=== PATIENT | male | born 1985 | race Caucasian/White ===

== ENCOUNTER → 2020-03-27 | Outpatient (CLI) | payer MEDICAID ==
[2020-03-27 09:44] LABS: HCT 45.8 % (39.0-53.0); HGB 15.5 gm/dL (13.0-17.5); MCH 30.7 pg (25.0-35.0); MCHC 33.9 g/dL (31.0-37.0); MCV 90.4 fL (80.0-100.0); Mean Platelet Volume 7.4; Platelet Count 135 k/uL (150-450); RBC 5.07 m/uL (4.30-5.90); RDW 12.7 % (11.5-15.5); WBC 5.6 k/uL (3.8-10.6)
[2020-03-27 16:31] LABS: African American GFR (CKD) 114.1 (60.0-200.0); Albumin 4.6 g/dL (3.80-4.90); Albumin/Globulin Ratio 1.92 (1.60-3.17); Anion Gap 7.4 mmol/L (4.00-12.00); Calcium 9.4 mg/dL (8.7-10.3); Carbon Dioxide 27.6 mmol/L (21.6-31.8); Chol/HDL Ratio 5.39; Globulin 2.4 g/dL (1.6-3.3); LDL Cholesterol,Calculated 126.2 mg/dL (0.0-131.0); Non-African American GFR(CKD) 98.5 (60.0-200.0); Potassium 4.2 mmol/L (3.5-5.5); Total Bilirubin 0.8 mg/dL (0.3-1.2); VLDL Calculation 40.8 mg/dL (5.00-40.00)
== END | disposition home or self-care (01) ==
LOC: LABWHC1 08:51
PROVIDERS: ATTEND Family Medicine
DX: Z00.00 Encounter for general adult medical examination without abnormal findings (principal)
CPT/HCPCS: 36415; 80053; 80061; 85027

== ENCOUNTER → 2020-05-22 | Outpatient (CLI) | payer MEDICAID ==
--- NOTE | 2020-05-23 07:10 | CT ---
EXAMINATION TYPE: CT abdomen pelvis w con DATE OF EXAM: 05/22/2020 COMPARISON: None. HISTORY: Abdomen pain, splenomegaly, blood in stool CT DLP: 1701.80 mGycm, Automated Exposure Control for Dose Reduction was Utilized. CONTRAST: CT scan of the abdomen and pelvis is performed with oral and with IV Contrast, patient injected with 100 mL of Isovue 300. FINDINGS: LUNG BASES: No significant abnormality is appreciated. LIVER/GB: Subcentimeter low dense lesion left hepatic lobe near gallbladder fossa image 24 is too sma ll to further characterize but presumed benign. PANCREAS: No significant abnormality is seen. SPLEEN: Splenomegaly is confirmed measuring 15.1 cm long axis axial image 20.. ADRENALS: No significant abnormality is seen. KIDNEYS: Symmetric respiratory uptake and excretion without concerning renal mass or hydronephrosis s een bilaterally. BOWEL: The oral Contrast reaches level of mid transverse colon. No suspicious small or large bowel di latation. Some redundancy of the sigmoid colon. Normal contrast-filled appendix from cecum. PROSTATE/SEMINAL VESICLES: No gross abnormality seen. LYMPH NODES: Moderate ill-defined fluid and fat stranding with scattered prominent mesenteric and ret roperitoneal lymph nodes. For reference there is anterior aortocaval lymph node lower level of kidney s measuring 2.2 x 1.6 cm axial image 42. For reference there is left mid abdominal mesenteric mass or lymph node measuring 3.3 x 3.3 cm axial image 36. There are abnormal iliac chain lymph nodes bilater ally. . For reference there is right lateral pelvic iliac chain lymph node measuring 2.6 x 1.5 cm axi al image 78. Prominent bilateral groin lymph nodes are seen. Some abnormally enlarged. For reference left groin lymph node measures 2.3 x 1.4 cm image 99. OSSEOUS STRUCTURES: No significant abnormality is seen. OTHER: No significant additional abnormality is seen. IMPRESSION: 1. There is nii mesentery with abnormal abdominal and pelvic adenopathy extending into bilateral gr oin region along with splenomegaly. Findings worrisome for underlying neoplasm such as lymphoma. Mahi elate clinically. Consider PET/CT to further evaluate. Groin lymph node sampling for tissue analysis can be performed if desired. 2. No acute findings are evident. No bowel obstruction is seen.0
== END | disposition home or self-care (01) ==
LOC: RADCTMAIN 16:06
PROVIDERS: ATTEND Internal Medicine Hematology & Oncology
DX: R59.0 Localized enlarged lymph nodes (principal); R16.1 Splenomegaly, not elsewhere classified; C85.90 Non-Hodgkin lymphoma, unspecified, unspecified site
CPT/HCPCS: 74177; Q9967

== ENCOUNTER 2020-06-05 06:23 | Day surgery (SDC) | payer MEDICAID ==
[2020-06-01 15:10] VITALS: BMI 34.9
[~2020-06-05 06:23] MED LIST: ACETAMINOPHEN TAB 500 MG TAB PO ONE; HEPARIN SODIUM,PORCINE 5,000 UNIT/ML 1 ML VIAL SQ ONE; HYDROmorphone 0.5 MG/0.5 ML SYRINGE IVP PRN; LACTATED RINGERS 1,000 ML IV SCH; ONDANSETRON 4 MG/2 ML VIAL IVP ONE; Pre Op ABX Message 1 EACH MISC MISCELLANE ONE; fentaNYL (PF) 50 MCG/ML 2 ML AMP IV PRN
[2020-06-05 06:57] VITALS: TEMP 97.1
[2020-06-05] MEDS ORDERED: ONDANSETRON 4 MG/2 ML VIAL ONE ×2 (06:59→09:41)
[2020-06-05] MEDS ORDERED: HEPARIN SODIUM,PORCINE 5,000 UNIT/ML 1 ML VIAL ONE (06:59)
[2020-06-05] MEDS ORDERED: DEXAMETHASONE SOD PHOSPHATE 4 MG/ML 1 ML VIAL IVP ONE (07:04)
[2020-06-05] MEDS ORDERED: MIDAZOLAM 2 MG/2 ML VIAL IVP ONE (07:20)
[2020-06-05] MEDS ORDERED: HYDROmorphone (PF) 1 MG/ML ONE (07:42)
[2020-06-05] MEDS ORDERED: GLYCOPYRROLATE 0.2 MG/ML 2 ML VIAL ONE (07:42)
[2020-06-05] MEDS ORDERED: ROCURONIUM 10 MG/ML (10 ML VIAL) IV ONE (07:42)
[2020-06-05] MEDS ORDERED: PROPOFOL 10 MG/ML 20 ML VIAL IV ONE (07:42)
[2020-06-05] MEDS ORDERED: NEOSTIGMINE 1 MG/ML 10 ML VIAL ONE (07:42)
[2020-06-05] MEDS ORDERED: MIDAZOLAM 2 MG/2 ML VIAL ONE (07:42)
[2020-06-05] MEDS ORDERED: SUCCINYLCHOLINE CHLORIDE VIAL 200 MG/10 ML VIAL IV ONE (07:42)
[2020-06-05] MEDS ORDERED: LIDOCAINE 1% INJ 10MG/ML (20 ML MDV) ONE (07:42)
[2020-06-05] MEDS ORDERED: fentaNYL (PF) 50 MCG/ML 2 ML AMP ONE (07:42)
[2020-06-05] MEDS ORDERED: SODIUM CHLORIDE 0.9% 50 ML with ceFAZolin 2,000 MG IV ONE ×2 (07:47)
[2020-06-05] MEDS ORDERED: LIDOCAINE 1%-EPI 1:100,000 20 ML VIAL SQ ONE (08:19)
--- NOTE | 2020-06-05 08:31 | P.GSHP ---
History of Present Illness H&P Date: 06/05/20 Chief Complaint: Lymphadenopathy Is a 34-year-old male with recent CAT scan findings of generalized lymphadenopathy. Patient presents today for left groin lymph node biopsy Past Medical History Past Medical History: GERD/Reflux Additional Past Medical History / Comment(s): multiple enlarged lymph nodes, mild abdomen pain, benign mass on liver, pancreatitis History of Any Multi-Drug Resistant Organisms: None Reported Past Surgical History: No Surgical Hx Reported Additional Past Surgical History / Comment(s): wisdom teeth Past Anesthesia/Blood Transfusion Reactions: No Reported Reaction Smoking Status: Never smoker - Past Family History Father Family Medical History: Cancer Additional Family Medical History / Comment(s): melanoma Medications and Allergies Home Medications Medication Instructions Recorded Confirmed Type Esomeprazole Magnesium [NexIUM 20 mg PO DAILY PRN 06/01/20 06/05/20 History 24Hr] Allergies Allergy/AdvReac Type Severity Reaction Status Date / Time No Known Allergies Allergy Verified 06/01/20 15:02 Surgical - Exam Vital Signs Temp Pulse Resp BP Pulse Ox 97.1 F L 84 18 154/83 100 06/05/20 06:55 06/05/20 06:55 06/05/20 06:55 06/05/20 06:55 06/05/20 06:55 - General well developed, well nourished, no distress - Eyes PERRL - ENT normal pinna - Neck no masses - Respiratory normal expansion - Cardiovascular Rhythm: regular - Abdomen Abdomen: soft, non tender 2.5 cm enlarged left inguinal lymph node Assessment and Plan Assessment: Lymphadenopathy. We'll perform left inguinal lymph node biopsy
--- NOTE | 2020-06-05 08:33 | P.OP ---
Date of Procedure: 06/05/20 Preoperative Diagnosis: Left inguinal lymphadenopathy Postoperative Diagnosis: Left inguinal lymphadenopathy Procedure(s) Performed: Excision of left inguinal lymph node Anesthesia: TONE Surgeon: Jean Carlos Peng Estimated Blood Loss (ml): 5 Pathology: other (Left inguinal lymph node) Condition: stable Disposition: PACU Description of Procedure: The patient's placed on the operative table in the supine position. He received a general suture. His left groin was prepped and draped usual sterile fashion. Using a 15 blade the skin was incised over the left inguinal lymph node. The trochars used to divide the subcutaneous tissues. The left enlarged inguinal lymph node was found. Then using the Harmonic scissors the lymph node biopsies performed. The lymph node was dissected free to pathology. Measured prostate 3 cm diameter. There is no bleeding seen. The skin was closed interrupted 3-0 Monocryl suture. Dermabond was applied. Patient tolerated the procedure well. He was sent to recovery room in stable condition.
[2020-06-05] MEDS ORDERED: LACTATED RINGERS 1,000 ML IV ONE (08:57)
[2020-06-05 09:18] VITALS: RESP 16
[2020-06-05] MEDS ORDERED: ONDANSETRON 4 MG/2 ML VIAL IVP ONE (09:42)
[2020-06-05 10:03] VITALS: BP 119/78; PULSE 68
[2020-06-05] MEDS ORDERED: METOCLOPRAMIDE 5 MG/ML 2 ML VIAL ONE (10:23)
== END 2020-06-05 10:43 | disposition home or self-care (01) ==
LOC: OR 06:23
PROVIDERS: ATTEND Surgery
DX: C82.05 Follicular lymphoma grade I, lymph nodes of inguinal region and lower limb (principal); K21.9 Gastro-esophageal reflux disease without esophagitis; R16.0 Hepatomegaly, not elsewhere classified; Z87.19 Personal history of other diseases of the digestive system; Z80.8 Family history of malignant neoplasm of other organs or systems; Z98.890 Other specified postprocedural states; Z79.899 Other long term (current) drug therapy
CPT/HCPCS: 38500; 88342; 88307; 88341; J2250; J0330; J1644; J1100; J2710; J2405; J0690; J2001; J3010; J1170; J2704

== ENCOUNTER 2020-06-12 07:07 | Day surgery (SDC) | payer MEDICAID ==
[~2020-06-12 07:07] MED LIST changes: -ACETAMINOPHEN TAB 500 MG TAB PO ONE; -HEPARIN SODIUM,PORCINE 5,000 UNIT/ML 1 ML VIAL SQ ONE; -HYDROmorphone 0.5 MG/0.5 ML SYRINGE IVP PRN; +LIDOCAINE 1% (10MG/ML) FOR IV START INTRADERMA PRN; -ONDANSETRON 4 MG/2 ML VIAL IVP ONE; -Pre Op ABX Message 1 EACH MISC MISCELLANE ONE; -fentaNYL (PF) 50 MCG/ML 2 ML AMP IV PRN
[2020-06-12 07:46] VITALS: RESP 16; TEMP 97.5
[2020-06-12] MEDS ORDERED: PROPOFOL 10 MG/ML 20 ML VIAL IV ONE (08:06)
--- NOTE | 2020-06-12 08:11 | P.GSHP ---
History of Present Illness H&P Date: 06/12/20 Chief Complaint: Rectal bleeding Patient here today for colonoscopy. Patient has had increased rectal bleeding recently. Also has complaints of generalized adenopathy. Underwent recent lymph node biopsy. Denies constipation or diarrhea. No abdominal pain. No history of previous endoscopy. Past Medical History Past Medical History: GERD/Reflux Additional Past Medical History / Comment(s): multiple enlarged lymph nodes, mild abdomen pain, benign mass on liver, pancreatitis History of Any Multi-Drug Resistant Organisms: None Reported Past Surgical History: No Surgical Hx Reported Additional Past Surgical History / Comment(s): wisdom teeth Past Anesthesia/Blood Transfusion Reactions: No Reported Reaction Smoking Status: Never smoker - Past Family History Father Family Medical History: Cancer Additional Family Medical History / Comment(s): melanoma Medications and Allergies Home Medications Medication Instructions Recorded Confirmed Type Esomeprazole Magnesium [NexIUM 20 mg PO DAILY PRN 06/01/20 06/05/20 History 24Hr] Acetaminophen Tab [Tylenol] 650 mg PO Q6H #30 tab 06/05/20 Rx Docusate [Colace] 100 mg PO BID #20 capsule 06/05/20 Rx Ibuprofen [Motrin] 600 mg PO Q6HR PRN #40 tab 06/05/20 Rx oxyCODONE HCL [OxyIR] 5 mg PO Q4H PRN 3 Days #18 tab 06/05/20 Rx Allergies Allergy/AdvReac Type Severity Reaction Status Date / Time No Known Allergies Allergy Verified 06/12/20 07:47 Surgical - Exam Vital Signs Temp Pulse Resp BP Pulse Ox 97.5 F L 81 16 139/79 97 06/12/20 07:45 06/12/20 07:45 06/12/20 07:45 06/12/20 07:45 06/12/20 07:45 Physical exam: General: Well-developed, well-nourished HEENT: Normocephalic, sclerae nonicteric Abdomen: Nontender, nondistended Extremities: No edema Neuro: Alert and oriented Assessment and Plan (1) Rectal bleeding Narrative/Plan: Will proceed with colonoscopy at this time Current Visit: Yes Status: Acute Code(s): K62.5 - HEMORRHAGE OF ANUS AND RECTUM SNOMED Code(s): 77350177
--- NOTE | 2020-06-12 08:23 | P.PCN ---
Date of Procedure: 06/12/20 Procedure(s) Performed: PREOPERATIVE DIAGNOSIS: Rectal bleeding POSTOPERATIVE DIAGNOSIS: Proctitis PROCEDURE: Colonoscopy with biopsy ANESTHESIA: MAC SURGEON: Jeremi Carreno M.D. SPECIMENS: Rectum ENDOSCOPIC PROCEDURE: The patient was placed on the endoscopy table in the left decubitus position. The Olympus colonoscope was inserted into the anus and passed under direct visualization to the base of the cecum. The appendiceal orifice was visualized. From that point the scope was slowly withdrawn insp ecting all surfaces carefully. There were no neoplastic inflammatory or polypoid lesions throughout the cecum, ascending, transverse, descending and sigmoid colon. In the rectum distally involving the last 6 cm was erythematous and friable mucosa. Consistent with proctitis. Remainder of the rectum appeared normal. Proctitis was circumferential. Cold biopsies taken. There was no visible diverticulosis. Digital rectal examination was normal. The patient was taken to the recovery room in stable condition per anesthesia guidelines. RECOMMENDATIONS: Await biopsy results. Will begin topical ASA suppositories
[2020-06-12 08:46] VITALS: BP 130/84; PULSE 74
== END 2020-06-12 09:14 | disposition home or self-care (01) ==
LOC: ORWHC2ENDO 07:07
PROVIDERS: ATTEND Surgery
DX: K62.89 Other specified diseases of anus and rectum (principal); K21.9 Gastro-esophageal reflux disease without esophagitis; R16.0 Hepatomegaly, not elsewhere classified; Z87.19 Personal history of other diseases of the digestive system; Z98.890 Other specified postprocedural states; Z80.8 Family history of malignant neoplasm of other organs or systems; Z79.899 Other long term (current) drug therapy
CPT/HCPCS: 88305; 45380; J2704

== ENCOUNTER → 2020-06-22 | Outpatient (CLI) | payer MEDICAID ==
--- NOTE | 2020-06-25 06:16 | PE ---
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 Images are reviewed on the computer in the coronal, ax ial, and sagittal planes. Reconstructed rotating images are created on independent workstation and r eviewed on the computer. A noncontrast CT is performed in conjunction with the PET scan. SCAN: Initial Scan FINDINGS: Mean SUV mediastinum: 1.19 Mean SUV liver: 2.31 SKULL BASE AND NECK: Multiple abnormal hypermetabolic lymph nodes throughout the neck bilaterally. F or reference there is 1.8 x 1.5 cm submental lymph node axial image 55, max SUV is 4.19. CHEST, MEDIASTINUM, AND HILAR REGION: Abnormal bilateral enlarged and hypermetabolic axillary lymph n odes. For reference there is left axillary 2.7 x 2.1 cm lymph node axial image 81, max SUV is 6.87. Abnormal mediastinal lymph nodes, for reference there is 2.7 x 1.8 cm right paratracheal lymph node a xial image 86, max SUV is 5.98. No suspicious hypermetabolic enlarged hilar lymph nodes bilaterally. ABDOMEN AND PELVIS: Spleen remains mildly enlarged with mild diffuse abnormal hypermetabolic uptake, max SUV is 4.29. Liver is normal in size. There is redemonstration nii mesentery appearance with abnormal mesenteric adenopathy, for referen ce left mesenteric lymph node measures 3.3 x 3.1 cm axial image 163, max SUV is 8.54. There are abnor mal hypermetabolic prominent and slightly enlarged retroperitoneal lymph nodes along the aorta extend ing along the iliac chain vessels in the pelvis bilaterally. For reference right external iliac chain lymph node measures 2.6 x 1.5 cm axial image 236, max SUV is 7.36 anteriorly. Abnormal bilateral hypermetabolic groin lymph nodes, for reference left groin lymph node measures 2.3 x 1.2 cm axial image 265, max SUV is 4.31. OSSEOUS STRUCTURES: No suspicious abnormal hypermetabolic uptake. OTHER CT: Somewhat low lung volumes. Liver diffusely low dense consistent with diffuse fatty infiltration relative to the spleen. IMPRESSION: Active neoplasm or lymphoma involvement noted both above and below the diaphragm as deta iled above.
== END | disposition home or self-care (01) ==
LOC: RADPETMAIN 08:59
PROVIDERS: ATTEND Internal Medicine Hematology & Oncology
DX: C82.08 Follicular lymphoma grade I, lymph nodes of multiple sites (principal)
CPT/HCPCS: 78815; A9552

== ENCOUNTER 2020-07-08 13:55 | Emergency (ER) | payer MEDICAID ==
[2020-07-08 14:01] VITALS: RESP 18
--- NOTE | 2020-07-08 14:36 | ED ---
Fever HPI - General Chief Complaint: Fever Stated Complaint: Fever Time Seen by Provider: 07/08/20 14:08 Source: patient Mode of arrival: ambulatory Limitations: no limitations - History of Present Illness Initial Comments: 34-year-old male patient presents to the emergency department today for evaluation of fever. Patient has non-Hodgkin's lymphoma and is currently being treated with immunotherapy and chemotherapy. Last dose of immunotherapy was 3 d ays ago her last dose of chemo was 10 days ago. Patient states today he woke and had fever. States he contacted his oncologist was told to come in if the fever returned states just prior to coming in his temperature red 101F. Patient states he feels hot. He does report nausea but states this is usual with his treatments. He also developed a rash to his neck and trunk today as well. States that he did have a rash with his last immunotherapy dose but was only on the first day afterwards. He denies any cough or congestion. Denies sore throat. Denies any abdominal pain or diarrhea. Patient denies any recent shortness of breath, chest pain, back pain, numbness, tingling, dizziness, we akness, hematuria, dysuria, urinary urgency, urinary frequency, headache, visual changes, or any other complaints. - Related Data Home Medications Medication Instructions Recorded Confirmed Esomeprazole Magnesium [NexIUM 20 mg PO DAILY PRN 06/01/20 06/05/20 24Hr] Previous Rx's Medication Instructions Recorded Acetaminophen Tab [Tylenol] 650 mg PO Q6H #30 tab 06/05/20 Docusate [Colace] 100 mg PO BID #20 capsule 06/05/20 Ibuprofen [Motrin] 600 mg PO Q6HR PRN #40 tab 06/05/20 oxyCODONE HCL [OxyIR] 5 mg PO Q4H PRN 3 Days #18 tab 06/05/20 Mesalamine [Rowasa] 4 gm RECTAL HS #30 ml 06/12/20 methylPREDNISolone [Medrol Dose 4 mg PO DIRECTED #1 pack 07/08/20 Pack] Allergies Allergy/AdvReac Type Severity Reaction Status Date / Time No Known Allergies Allergy Verified 07/08/20 13:56 Review of Systems ROS Statement: Those systems with pertinent positive or pertinent negative responses have been documented in the HPI. ROS Other: All systems not noted in ROS Statement are negative. Past Medical History Past Medical History: GERD/Reflux Additional Past Medical History / Comment(s): non-hodgkins multiple enlarged lymph nodes, mild abdomen pain, benign mass on liver, pancreatitis History of Any Multi-Drug Resistant Organisms: None Reported Past Surgical History: No Surgical Hx Reported Additional Past Surgical History / Comment(s): wisdom teeth, lymph node removal Past Anesthesia/Blood Transfusion Reactions: No Reported Reaction Past Psychological History: No Psychological Hx Reported Smoking Status: Never smoker Past Alcohol Use History: Occasional Past Drug Use History: Marijuana - Past Family History Father Family Medical History: Cancer Additional Family Medical History / Comment(s): melanoma General Exam Limitations: no limitations General appearance: alert, in no apparent distress, other (This is a well- developed, well-nourished adult male patient in no acute distress. Vital signs upon presentation are temperature 99.2F, pulse 95, respirations 18, blood pressure 130/70, pulse ox 97% on room air.) Respiratory exam: Present: normal lung sounds bilaterally. Absent: respiratory distress, wheezes, rales, rhonchi, stridor Cardiovascular Exam: Present: regular rate, normal rhythm, normal heart sounds. Absent: systolic murmur, diastolic murmur, rubs, gallop, clicks GI/Abdominal exam: Present: soft, normal bowel sounds. Absent: distended, tenderness, guarding, rebound, rigid Neurological exam: Present: alert, oriented X3, CN II-XII intact Psychiatric exam: Present: normal affect, normal mood Skin exam: Present: warm, dry, intact, normal color, rash (There is flat lacy erythematous rash noted to the neck and trunk. Non vesicular, non petechial.) Course Vital Signs 07/08/20 13:57 Temperature 99.2 F Pulse Rate 95 Respiratory 18 Rate Blood Pressure 130/70 O2 Sat by Pulse 97 Oximetry Medical Decision Making - Medical Decision Making 34-year-old male patient recent diagnosed with non-Hodgkin's lymphoma presents to the emergency department today for evaluation of fever with T-max at home and 101F. He was sent in by his oncologist for further evaluation. Labs reviewed and revealed normal white blood cell count. Urinalysis is negative for signs of infection. Chest x-ray is negative. He tested negative for influenza, RSV, and COVID-19. He was afebrile while in the department. Vital signs within normal ranges. We did discuss findings and results with him. He will be discharged home with instructions follow-up with Dr. Hess for further evaluation as soon as possible. He is given a Dosepak for his rash. Return parameters were discussed in detail. He verbalizes understanding and agrees with this plan. - Lab Data Result diagrams: 07/08/20 14:54 07/08/20 14:54 Lab Results 07/08/20 07/08/20 07/08/20 Range/Units 14:39 14:54 14:54 WBC 6.6 (3.8-10.6) k/uL RBC 5.01 (4.30-5.90) m/uL Hgb 15.3 (13.0-17.5) gm/dL Hct 44.7 (39.0-53.0) % MCV 89.3 (80.0-100.0) fL MCH 30.5 (25.0-35.0) pg MCHC 34.1 (31.0-37.0) g/dL RDW 12.7 (11.5-15.5) % Plt Count 172 (150-450) k/uL MPV 6.7 Neutrophils % 88 % Lymphocytes % 4 % Monocytes % 5 % Eosinophils % 2 % Basophils % 1 % Neutrophils # 5.8 (1.3-7.7) k/uL Lymphocytes # 0.3 L (1.0-4.8) k/uL Monocytes # 0.3 (0-1.0) k/uL Eosinophils # 0.1 (0-0.7) k/uL Basophils # 0.1 (0-0.2) k/uL PT 10.0 (9.0-12.0) sec INR 1.0 (<1.2) APTT 24.3 (22.0-30.0) sec Sodium (137-145) mmol/L Potassium (3.5-5.1) mmol/L Chloride (98-107) mmol/L Carbon Dioxide (22-30) mmol/L Anion Gap mmol/L BUN (9-20) mg/dL Creatinine (0.66-1.25) mg/dL Est GFR (CKD-EPI)AfAm (>60 ml/min/1.73 sqM) Est GFR (CKD-EPI)NonAf (>60 ml/min/1.73 sqM) Glucose (74-99) mg/dL Plasma Lactic Acid Leonard (0.7-2.0) mmol/L Calcium (8.4-10.2) mg/dL Total Bilirubin (0.2-1.3) mg/dL AST (17-59) U/L ALT (4-49) U/L Alkaline Phosphatase (38-126) U/L Total Protein (6.3-8.2) g/dL Albumin (3.5-5.0) g/dL Urine Color Urine Appearance (Clear) Urine pH (5.0-8.0) Ur Specific [place] (1.001-1.035) Urine Protein (Negative) Urine Glucose (UA) (Negative) Urine Ketones (Negative) Urine Blood (Negative) Urine Nitrite (Negative) Urine Bilirubin (Negative) Urine Urobilinogen (<2.0) mg/dL Ur Leukocyte Esterase (Negative) Influenza Type A (PCR) Not Detected (Not Detectd) Influenza Type B (PCR) Not Detected (Not Detectd) RSV (PCR) Not Detected (Not Detectd) SARS-CoV-2 (PCR) Not Detected (Not Detectd) 07/08/20 07/08/20 07/08/20 Range/Units 14:54 14:54 14:54 WBC (3.8-10.6) k/uL RBC (4.30-5.90) m/uL Hgb (13.0-17.5) gm/dL Hct (39.0-53.0) % MCV (80.0-100.0) fL MCH (25.0-35.0) pg MCHC (31.0-37.0) g/dL RDW (11.5-15.5) % Plt Count (150-450) k/uL MPV Neutrophils % % Lymphocytes % % Monocytes % % Eosinophils % % Basophils % % Neutrophils # (1.3-7.7) k/uL Lymphocytes # (1.0-4.8) k/uL Monocytes # (0-1.0) k/uL Eosinophils # (0-0.7) k/uL Basophils # (0-0.2) k/uL PT (9.0-12.0) sec INR (<1.2) APTT (22.0-30.0) sec Sodium 138 (137-145) mmol/L Potassium 3.6 (3.5-5.1) mmol/L Chloride 101 (98-107) mmol/L Carbon Dioxide 31 H (22-30) mmol/L Anion Gap 6 mmol/L BUN 10 (9-20) mg/dL Creatinine 1.16 (0.66-1.25) mg/dL Est GFR (CKD-EPI)AfAm >90 (>60 ml/min/1.73 sqM) Est GFR (CKD-EPI)NonAf 83 (>60 ml/min/1.73 sqM) Glucose 125 H (74-99) mg/dL Plasma Lactic Acid Leonard 1.2 (0.7-2.0) mmol/L Calcium 9.5 (8.4-10.2) mg/dL Total Bilirubin 0.7 (0.2-1.3) mg/dL AST 23 (17-59) U/L ALT 40 (4-49) U/L Alkaline Phosphatase 63 (38-126) U/L Total Protein 7.5 (6.3-8.2) g/dL Albumin 4.4 (3.5-5.0) g/dL Urine Color Yellow Urine Appearance Clear (Clear) Urine pH 5.5 (5.0-8.0) Ur Specific [place] 1.030 (1.001-1.035) Urine Protein Trace H (Negative) Urine Glucose (UA) Negative (Negative) Urine Ketones Negative (Negative) Urine Blood Negative (Negative) Urine Nitrite Negative (Negative) Urine Bilirubin Negative (Negative) Urine Urobilinogen <2.0 (<2.0) mg/dL Ur Leukocyte Esterase Negative (Negative) Influenza Type A (PCR) (Not Detectd) Influenza Type B (PCR) (Not Detectd) RSV (PCR) (Not Detectd) SARS-CoV-2 (PCR) (Not Detectd) - Radiology Data Radiology results: report reviewed, image reviewed Objective the chest is obtained. Report was reviewed in its entirety. Impression by Dr. Banegas shows normal chest. Disposition Clinical Impression: Fever, Rash Disposition: HOME SELF-CARE Condition: Good Instructions (If sedation given, give patient instructions): Fever in Adults (ED), Acute Rash (ED) Additional Instructions: Take steroids for the rash. Follow up with Dr. Noland as soon as possible. Follow up with her primary care physician for recheck in 1-2 days. Return to the emergency department for any new, worsening, or concerning symptoms. Prescriptions: methylPREDNISolone [Medrol Dose Pack] 4 mg PO DIRECTED #1 pack Is patient prescribed a controlled substance at d/c from ED?: No Referrals: Zain Guerra MD [Primary Care Provider] - 1-2 days Gasper Noland MD [STAFF PHYSICIAN] - 1-2 days Time of Disposition: 16:08
[2020-07-08] MEDS: SODIUM CHLORIDE 0.9% 500 ML 500 ML IV SCH ×3 (14:52→16:01)
[2020-07-08 15:17] LABS: Basophils # (A) 0.1 k/uL (0-0.2); Basophils % (A) 1 %; Eosinophils # (A) 0.1 k/uL (0-0.7); Eosinophils % (A) 2 %; HCT 44.7 % (39.0-53.0); HGB 15.3 gm/dL (13.0-17.5); Lymphocytes # (A) 0.3 k/uL (1.0-4.8); Lymphocytes % (A) 4 %; MCH 30.5 pg (25.0-35.0); MCHC 34.1 g/dL (31.0-37.0); MCV 89.3 fL (80.0-100.0); Mean Platelet Volume 6.7; Monocytes # (A) 0.3 k/uL (0-1.0); Monocytes % (A) 5 %; Neutrophils # (A) 5.8 k/uL (1.3-7.7); Neutrophils % (A) 88 %; Platelet Count 172 k/uL (150-450); RBC 5.01 m/uL (4.30-5.90); RDW 12.7 % (11.5-15.5); WBC 6.6 k/uL (3.8-10.6)
[2020-07-08 15:22] LABS: Appearance,Urine Clear (Clear); Bilirubin,Urine Negative (Negative); Blood,Urine Negative (Negative); Color,Urine Yellow; Glucose,Urine (UA) Negative (Negative); Ketones,Urine Negative (Negative); Leukocyte Esterase,Urine Negative (Negative); Nitrite,Urine Negative (Negative); PH, Urine 5.5 (5.0-8.0); Protein,Urine Trace (Negative); Urobilinogen,Urine <2.0 mg/dL (<2.0)
[2020-07-08 15:25] LABS: ALT 40 U/L (4-49); AST 23 U/L (17-59); African American GFR (CKD) >90 (>60 ml/min/1.73 sqM); Albumin 4.4 g/dL (3.5-5.0); Alkaline Phosphatase 63 U/L (38-126); Anion Gap 6 mmol/L; Blood Urea Nitrogen 10 mg/dL (9-20); Calcium 9.5 mg/dL (8.4-10.2); Carbon Dioxide 31 mmol/L (22-30); Chloride 101 mmol/L (98-107); Glucose 125 mg/dL (74-99); Non-African American GFR(CKD) 83 (>60 ml/min/1.73 sqM); Potassium 3.6 mmol/L (3.5-5.1); Sodium 138 mmol/L (137-145); Total Bilirubin 0.7 mg/dL (0.2-1.3); Total Protein 7.5 g/dL (6.3-8.2)
[2020-07-08 15:26] LABS: Partial Thromboplastin Time 24.3 sec (22.0-30.0)
--- NOTE | 2020-07-08 15:49 | XR ---
EXAMINATION TYPE: XR chest 1V portable DATE OF EXAM: 07/08/2020 COMPARISON: NONE HISTORY: Fever TECHNIQUE: FINDINGS: Heart and mediastinum are normal. Lungs are clear. Diaphragm is normal. Bony thorax appears normal. IMPRESSION: Normal chest.
[2020-07-08 16:16] VITALS: BP 138/70; PULSE 91; TEMP 99.5
== END 2020-07-08 16:15 | disposition home or self-care (01) ==
LOC: EC 13:55
DX: R50.9 Fever, unspecified (principal); R21 Rash and other nonspecific skin eruption; R11.0 Nausea; Z20.828 Contact with and (suspected) exposure to other viral communicable diseases; C85.90 Non-Hodgkin lymphoma, unspecified, unspecified site
CPT/HCPCS: 36415; 71045; 80053; 81003; 83605; 85025; 85610; 85730; 87040; 87636; 96360; 99283

== ENCOUNTER → 2020-09-05 | Outpatient (CLI) | payer MEDICAID ==
[2020-09-05 09:28] LABS: African American GFR (CKD) >90 (>60 ml/min/1.73 sqM); Blood Urea Nitrogen 10 mg/dL (9-20); Non-African American GFR(CKD) >90 (>60 ml/min/1.73 sqM)
--- NOTE | 2020-09-05 22:37 | CT ---
EXAMINATION TYPE: CT ChestAbdPelvis w con DATE OF EXAM: 09/05/2020 INDICATION: Follow up to lymphoma COMPARISON: 06/22/2020 PET/CT CT DLP: 2075.9 mGycm CONTRAST: Performed with Oral Contrast and with IV Contrast, patient injected with 100 mL of Isovue 300. TECHNIQUE: Axial images at 5 mm thick sections. Reconstructed images in the coronal plane. Delayed images through the kidneys. FINDINGS: CT CHEST: Portion of the thyroid visualized is normal. No suspicious lung nodules or focal infiltrates are present. No enlarged mediastinal or hilar adenopathy is evident. The ascending aorta diameter at the level of the main pulmonary artery is 3.1 cm. The main pulmonary artery diameter at the bifurcation is 2.[address] ABDOMEN: Some subtle increased diffuse density is within the mid mesentery. Liver: Mild fatty infiltration is within the liver. Tiny hepatica hypodensities in the right lobe anette er. Series 3 image 60 Spleen: Normal Pancreas: Normal Adrenal glands: The adrenal glands are normal. Gallbladder: Normal Kidneys: No masses are evident. No hydronephrosis is present. No cysts are present. Delayed images were obtained through the kidneys, which remain unremarkable. Aorta: Vascular calcification is within the aorta. There is small scattered periaortic lymphadenopathy. There is a solitary enlarged lymph node with a transverse dimension 1.4 cm. Series 3 image 71. No retrocaval adenopathy is evident. Inferior vena cava: Normal. CT PELVIS: Loops of bowel within the abdomen and pelvis are normal. No dilated loops of bowel are evident. T here are some loops of bowel lacking oral contrast are nondistended limiting its evaluation. Appendix: Normal as visualized. Urinary bladder: Normal. Genitourinary structures: Prostate is normal Osseous structures: No suspicious lytic or sclerotic lesions. IMPRESSIONS: 1. Nonspecific mild inflammatory change within the mid mesentery of this appears be an area of resolv ing lymphadenopathy. Residual enlarged adenopathy measures 1.4 cm in a single nodule. 2. Additional suspicious adenopathy is not identified. Previous mediastinal adenopathy has resolved.
== END | disposition home or self-care (01) ==
LOC: RADCTMAIN 08:54
PROVIDERS: ATTEND Internal Medicine Hematology & Oncology
DX: Z03.89 Encounter for observation for other suspected diseases and conditions ruled out (principal); C82.08 Follicular lymphoma grade I, lymph nodes of multiple sites
CPT/HCPCS: 82565; 84520; 71260; 74177; 36415; Q9967

== ENCOUNTER → 2020-11-22 | Outpatient (CLI) | payer MEDICAID ==
--- NOTE | 2020-11-22 13:34 | CT ---
EXAMINATION TYPE: CT ChestAbdPelvis wo/w con DATE OF EXAM: 11/22/2020 COMPARISON: 09/05/2020 HISTORY: follow up to lymphoma CT DLP: 3939 mGycm Automated exposure control for dose reduction was used. CONTRAST: CT scan of the chest, abdomen and pelvis is performed with Oral Contrast and without and with IV Cont rast, patient injected with 100 mL of Isovue 300. FINDINGS: LUNGS: The lungs are grossly clear, there is no concerning parenchymal mass or nodule identified. T here is no pleural effusion or pneumothorax seen. The tracheobronchial tree is patent. MEDIASTINUM: There are no greater than 1 cm hilar or mediastinal lymph nodes. No pericardial effusi on is seen. OTHER: No additional significant abnormality is seen. LIVER/GB: No significant abnormality is appreciated. PANCREAS: No significant abnormality is seen. SPLEEN: No significant abnormality is seen. ADRENALS: No significant abnormality is seen. KIDNEYS: No significant abnormality is seen. BOWEL: No significant abnormality is seen. LYMPH NODES: No greater than 1 cm abdominal or pelvic lymph nodes are appreciated. 9 mm short axis ly mph nodes in the mesentery are stable. OSSEOUS STRUCTURES: No significant abnormality is seen. OTHER: Persistent mesenteric stranding is seen and essentially stable from prior exam and can be asso ciated with the patient's history of lymphoma. Small shotty lymphadenopathy described in the mesenter y measures only a short axis of 9 mm and is stable. Small fat-containing periumbilical hernia. IMPRESSION: 1. No pathologic adenopathy seen on today's exam. There are persistent increased attenuation in the m esentery which can be associated with the patient's history of lymphoma. This finding is stable. Ther e is no new adenopathy.
== END | disposition home or self-care (01) ==
LOC: RADCTMAIN 08:56
PROVIDERS: ATTEND Internal Medicine Hematology & Oncology
DX: C82.08 Follicular lymphoma grade I, lymph nodes of multiple sites (principal)
CPT/HCPCS: 71270; 74178; Q9967

== ENCOUNTER 2021-03-21 11:19 | Day surgery (SDC) | payer MEDICAID ==
[2021-03-15 15:08] VITALS: BMI 35.9
[~2021-03-21 11:19] MED LIST changes: +ACETAMINOPHEN TAB 500 MG TAB PO PRN; +DEXAMETHASONE SOD PHOSPHATE 4 MG/ML 1 ML VIAL IV ONE; +HEPARIN SODIUM,PORCINE/PF 5,000 UNIT/0.5 ML SYRINGE SQ PRN; +HYDROmorphone 0.5 MG/0.5 ML SYRINGE IVP PRN; +MIDAZOLAM 2 MG/2 ML VIAL IV PRN; +ONDANSETRON 4 MG/2 ML VIAL IVP ONE; +Pre Op ABX Message 1 EACH MISC MISCELLANE ONE; +fentaNYL (PF) 50 MCG/ML 2 ML AMP IV PRN
[2021-03-21] MEDS ORDERED: SCOPOLAMINE 1.5MG/72HR PATCH TRANSDERM ONE (11:43)
[2021-03-21] MEDS ORDERED: MIDAZOLAM 2 MG/2 ML VIAL ONE ×2 (12:30→13:28)
[2021-03-21] MEDS ORDERED: fentaNYL (PF) 50 MCG/ML 2 ML AMP ONE ×2 (12:30→13:28)
[2021-03-21] MEDS ORDERED: LIDOCAINE 1% INJ 10MG/ML (20 ML MDV) ONE ×2 (12:30→13:28)
[2021-03-21] MEDS ORDERED: PROPOFOL 10 MG/ML 20 ML VIAL IV ONE ×2 (12:30→13:28)
--- NOTE | 2021-03-21 12:31 | P.GSHP ---
History of Present Illness H&P Date: 03/21/21 Chief Complaint: Lymphoma 35-year-old male here today for Port-A-Cath placement. Patient was diagnosed with lymphoma last May. He has been undergoing therapy since that time. He has been having much harder time with IV access and for that reason here for Port-A-Cath placement. Anticipates requiring further chemotherapy for at least the next 6-12 months. Past Medical History Past Medical History: Cancer, GERD/Reflux Additional Past Medical History / Comment(s): non-hodgkins lyphoma, multiple enlarged lymph nodes, elevated liver enzymes, hx pancreatitis , ulcerative colitis, History of Any Multi-Drug Resistant Organisms: None Reported Past Surgical History: No Surgical Hx Reported Additional Past Surgical History / Comment(s): wisdom teeth, lymph node removal from groin Past Anesthesia/Blood Transfusion Reactions: No Reported Reaction Smoking Status: Never smoker - Past Family History Father Family Medical History: Cancer Additional Family Medical History / Comment(s): melanoma Medications and Allergies Home Medications Medication Instructions Recorded Confirmed Type Esomeprazole Magnesium [NexIUM 20 mg PO DAILY PRN 06/01/20 03/15/21 History 24Hr] ALPRAZolam [Xanax] 0.25 mg PO DAILY PRN 03/15/21 03/15/21 History Acetaminophen Tab [Tylenol Tab] 500 mg PO Q6H PRN 03/15/21 03/15/21 History Acyclovir 400 mg PO BID PRN 03/15/21 03/15/21 History Docusate [Colace] 100 mg PO DAILY 03/15/21 03/15/21 History Allergies Allergy/AdvReac Type Severity Reaction Status Date / Time No Known Allergies Allergy Verified 03/21/21 11:45 Surgical - Exam Vital Signs Temp Pulse Resp BP Pulse Ox 97.1 F L 83 16 145/76 97 03/21/21 11:33 03/21/21 11:33 03/21/21 11:33 03/21/21 11:33 03/21/21 11:33 Physical exam: General: Well-developed, well-nourished HEENT: Normocephalic, sclerae nonicteric Abdomen: Nontender, nondistended Extremities: No edema Neuro: Alert and oriented Assessment and Plan (1) Lymphoma Narrative/Plan: Will proceed with Port-A-Cath placement. Risks of bleeding, infection, DVT, pneumothorax, catheter malfunction, anesthesia related complications were discussed. The patient understands and wishes to proceed. Current Visit: Yes Status: Acute Code(s): C85.90 - NON-HODGKIN LYMPHOMA, UNSPECIFIED, UNSPECIFIED SITE SNOMED Code(s): 167075928
[2021-03-21] MEDS ORDERED: SODIUM CHLORIDE 0.9% 100 ML with ceFAZolin 2,000 MG IV ONE ×2 (12:50)
[2021-03-21] MEDS ORDERED: LIDOCAINE (PF) 10 MG/ML 2 ML VIAL SQ ONE ×2 (12:59)
[2021-03-21] MEDS ORDERED: HEPARIN SODIUM,PORCINE 100 UNIT/ML 5 ML VIAL IV ONE (12:59)
[2021-03-21] MEDS ORDERED: GLYCOPYRROLATE 0.2 MG/ML 2 ML VIAL ONE (13:28)
[2021-03-21] MEDS ORDERED: ROCURONIUM 10 MG/ML (5 ML VIAL) IV ONE (13:28)
[2021-03-21] MEDS ORDERED: SUCCINYLCHOLINE CHLORIDE 100 MG/5 ML SYR IV ONE (13:28)
[2021-03-21] MEDS ORDERED: NEOSTIGMINE 1 MG/ML 10 ML VIAL ONE (13:28)
[2021-03-21] MEDS ORDERED: NALOXONE 0.4 MG/ML 1 ML VIAL IV PRN (13:38)
--- NOTE | 2021-03-21 13:40 | P.OP ---
Date of Procedure: 03/21/21 Procedure(s) Performed: PREOPERATIVE DIAGNOSIS: Lymphoma POSTOPERATIVE DIAGNOSIS: Same PROCEDURE: Port-A-Cath placement with fluoroscopic and ultrasound guidance SURGEON: Ev EBL: Minimal ANESTHESIA: Sedation COMPLICATIONS: None OPERATIVE PROCEDURE: Patient was brought and placed on the operative table in the supine position. The patient was sedated per anesthesia that time. The chest and neck were prepped and draped in usual sterile fashion. The ultrasound probe was used to identify the location of the right internal jugular vein. The skin was localized with lidocaine. The Seldinger needle was advanced into the IJ under ultrasound guidance. The wire was advanced through the needle under fluoroscopic guidance into the superior vena cava. A port pocket was created in the right infraclavicular location. The catheter was tunneled from the wire entrance site to the port pocket. The port was then connected to the catheter. The dilator introducer was threaded over the guidewire. The guidewire and dilator were then removed. The catheter was advanced through the introducer and introducer was then removed. The tip was seen to be in the right atrial junction via fluoroscopy. A picture of the radiograph showing the tip at the radial digital junction was taken. Port was flushed with both saline and a Hep- Lock solution. There was good flow both in and out of the port. The port was sutured in underlying tissues using 3-0 silk sutures. The subcutaneous tissues were reapproximated using 3-0 Vicryl sutures and the skin at both locations using 4-0 Monocryl sutures. Skin glue and sterile dressings then applied. DISPOSITION: Stable to recovery room
[2021-03-21 13:45] VITALS: TEMP 97.5
[2021-03-21 13:58] VITALS: RESP 16
--- NOTE | 2021-03-21 14:10 | FL ---
Fluoroscopy HISTORY: Port-A-Cath placement 18 seconds fluoroscopy time supplied to the referring clinician. 3 intraoperative C-arm images docum ent the procedure. See dictated report from general surgery.
--- NOTE | 2021-03-21 14:25 | XR ---
EXAMINATION TYPE: XR chest 1V confirm line [facility] DATE OF EXAM: 03/21/2021 COMPARISON: Chest x-ray 07/08/2020 HISTORY: Check line placement, post port insertion TECHNIQUE: Single frontal view of the chest is obtained. FINDINGS: Right pectoral port is present, catheter courses via the internal jugular approach, loop i n the neck is not entirely visualized. The tip over the catheter is at the level of the cavoatrial ju nction. There is no evident pneumothorax or pleural effusion. IMPRESSION: No evident complication status post port placement.
[2021-03-21 14:31] VITALS: BP 131/82; PULSE 89
== END 2021-03-21 14:51 | disposition home or self-care (01) ==
LOC: OR 11:19
PROVIDERS: ATTEND Surgery
DX: C85.90 Non-Hodgkin lymphoma, unspecified, unspecified site (principal); K21.9 Gastro-esophageal reflux disease without esophagitis; F41.9 Anxiety disorder, unspecified; K51.90 Ulcerative colitis, unspecified, without complications; Z79.899 Other long term (current) drug therapy
CPT/HCPCS: 77001; 36561; C1788; J2250; J2001 ×2; J1642; J1100; J2710; J2405; J0690; J3010; J0330; J2704; J1644

== ENCOUNTER 2021-05-19 08:58 | Inpatient (IN) | payer MEDICAID ==
[2021-05-19] MEDS ORDERED: SODIUM CHLORIDE 0.9% 1,000 ML IV STA (09:28)
[2021-05-19] MEDS ORDERED: ACETAMINOPHEN TAB 500 MG TAB PO STA (09:34)
[2021-05-19 09:42] LABS: Basophils % (A) 0 %; Eosinophils % (A) 0 %; HCT 41.6 % (39.0-53.0); Lymphocytes # (A) 0.1 k/uL (1.0-4.8); Lymphocytes % (A) 2 %; MCHC 33.6 g/dL (31.0-37.0); MCV 95.4 fL (80.0-100.0); Monocytes # (A) 0.3 k/uL (0-1.0); Monocytes % (A) 4 %; Neutrophils # (A) 5.9 k/uL (1.3-7.7); Neutrophils % (A) 93 %; Platelet Count 169 k/uL (150-450); RBC 4.36 m/uL (4.30-5.90); WBC 6.4 k/uL (3.8-10.6)
[2021-05-19 09:50] LABS: INR 0.9 (<1.2); Partial Thromboplastin Time 27.4 sec (22.0-30.0)
[2021-05-19 09:54] LABS: ALT 92 U/L (4-49); AST 55 U/L (17-59); African American GFR (CKD) >90 (>60 ml/min/1.73 sqM); Albumin 3.6 g/dL (3.5-5.0); Alkaline Phosphatase 77 U/L (38-126); Anion Gap 11 mmol/L; Blood Urea Nitrogen 16 mg/dL (9-20); C Reactive Protein 7.3 mg/dL (<1.0); Calcium 8.5 mg/dL (8.4-10.2); Carbon Dioxide 23 mmol/L (22-30); Chloride 101 mmol/L (98-107); Glucose 141 mg/dL (74-99); LDH 595 U/L (313-618); Magnesium 1.9 mg/dL (1.6-2.3); Non-African American GFR(CKD) >90 (>60 ml/min/1.73 sqM); Potassium 3.5 mmol/L (3.5-5.1); Sodium 135 mmol/L (137-145); Total Bilirubin 0.5 mg/dL (0.2-1.3); Total Protein 6.2 g/dL (6.3-8.2)
--- NOTE | 2021-05-19 09:54 | ED ---
General Adult HPI - General Chief complaint: Upper Respiratory Infection Stated complaint: Fever/Low Oxygen Time Seen by Provider: 05/19/21 09:08 Source: patient, RN notes reviewed Mode of arrival: ambulatory Limitations: no limitations - History of Present Illness Initial comments: 35-year-old male with a past medical history of non-Hodgkin's lymphoma currently receiving immunotherapy with the last dose being 3 days ago presents to the emergency room for a chief complaint of worsening coronavirus symptoms. Patient was diagnosed with coronavirus about 2 weeks ago which is also when he developed symptoms. About 3-4 days after that he had monoclonal antibodies given. Patient did start to feel better however over the past several days worsened a gain. Started spiking fevers again. states his oxygen was at 90% at home.patient did take Tylenol at 4 AM and then Motrin at 7 AM. Patient has no other complaints at this time including shortness of breath, chest pain, abdominal pain, nausea or vomiting, headache, or visual changes. - Related Data Home Medications Medication Instructions Recorded Confirmed ALPRAZolam [Xanax] 0.25 mg PO DAILY PRN 03/15/21 05/19/21 Acyclovir 400 mg PO BID PRN 03/15/21 05/19/21 Albuterol Sulfate [Proventil Hfa] 2 puff INHALATION RT-Q4H PRN 05/19/21 05/19/21 Ascorbic Acid/Elderberry Fruit 1 tab PO DAILY 05/19/21 05/19/21 [Elderberry-Vit C 50-100 mg Chw] Calcium Carbonate [Calcium] 600 mg PO DAILY 05/19/21 05/19/21 Cholecalciferol [Vitamin D3 (25 50 mcg PO DAILY 05/19/21 05/19/21 Mcg = 1000 Iu)] Ondansetron [Zofran] 4 mg PO Q4H PRN 05/19/21 05/19/21 Zinc 50 mg PO DAILY 05/19/21 05/19/21 Allergies Allergy/AdvReac Type Severity Reaction Status Date / Time No Known Allergies Allergy Verified 05/19/21 10:46 Review of Systems ROS Statement: Those systems with pertinent positive or pertinent negative responses have been documented in the HPI. ROS Other: All systems not noted in ROS Statement are negative. Past Medical History Past Medical History: Cancer, GERD/Reflux Additional Past Medical History / Comment(s): non-hodgkins lyphoma, multiple enlarged lymph nodes, elevated liver enzymes, hx pancreatitis , ulcerative colitis, covid History of Any Multi-Drug Resistant Organisms: None Reported Past Surgical History: No Surgical Hx Reported Additional Past Surgical History / Comment(s): wisdom teeth, lymph node removal from groin, mediport Past Anesthesia/Blood Transfusion Reactions: No Reported Reaction Past Psychological History: Anxiety Smoking Status: Never smoker Past Alcohol Use History: None Reported Past Drug Use History: None Reported - Past Family History Father Family Medical History: Cancer Additional Family Medical History / Comment(s): melanoma General Exam Limitations: no limitations General appearance: alert Head exam: Present: atraumatic Eye exam: Present: normal appearance, PERRL, EOMI. Absent: scleral icterus, conjunctival injection ENT exam: Present: normal exam, mucous membranes moist Neck exam: Present: normal inspection, full ROM. Absent: tenderness Respiratory exam: Present: normal lung sounds bilaterally. Absent: respiratory distress, wheezes Cardiovascular Exam: Present: regular rate, normal rhythm, normal heart sounds GI/Abdominal exam: Present: soft, normal bowel sounds. Absent: distended, tenderness Neurological exam: Present: alert Course Vital Signs 05/19/21 05/19/21 05/19/21 09:02 09:24 10:37 Temperature 101.7 F H 99.8 F H 99.3 F Pulse Rate 114 H 99 Respiratory 22 18 Rate Blood Pressure 98/66 126/71 O2 Sat by Pulse 96 92 L Oximetry EKG Findings - EKG Comments: EKG Findings:: Normal sinus rhythm, ventricular rate 99, appeared to 142, QTC 436 Medical Decision Making - Medical Decision Making vitals are stable. However patient does present with a 101.7 temperature after Motrin given at home. Oxygen saturation did drop down to 92% on room air in the emergency room. Laboratory evaluation was obtained. CBC is unremarkable. White blood cell count is normal. CMP is unremarkable as well. Plasma lactic acid is noted to be a 2.7, suspect from dehydration, given fluids. Chest x-ray does show patchy airspace opacity consistent with pneumonia. Given patient's i mmunotherapy and hypoxia he will be admitted. We will give patient IV antibiotics given his fevers did resolve and then recurred. Dr. Card did request complete abdominal ultrasound be performed at this time. - Lab Data Result diagrams: 05/19/21 09:32 05/19/21 09:32 Lab Results 05/19/21 05/19/21 05/19/21 Range/Units 09:32 09:32 09:32 WBC 6.4 (3.8-10.6) k/uL RBC 4.36 (4.30-5.90) m/uL Hgb 14.0 (13.0-17.5) gm/dL Hct 41.6 (39.0-53.0) % MCV 95.4 (80.0-100.0) fL MCH 32.0 (25.0-35.0) pg MCHC 33.6 (31.0-37.0) g/dL RDW 12.0 (11.5-15.5) % Plt Count 169 (150-450) k/uL MPV 7.0 Neutrophils % 93 % Lymphocytes % 2 % Monocytes % 4 % Eosinophils % 0 % Basophils % 0 % Neutrophils # 5.9 (1.3-7.7) k/uL Lymphocytes # 0.1 L (1.0-4.8) k/uL Monocytes # 0.3 (0-1.0) k/uL Eosinophils # 0.0 (0-0.7) k/uL Basophils # 0.0 (0-0.2) k/uL PT 10.0 (9.0-12.0) sec INR 0.9 (<1.2) APTT 27.4 (22.0-30.0) sec Sodium 135 L (137-145) mmol/L Potassium 3.5 (3.5-5.1) mmol/L Chloride 101 (98-107) mmol/L Carbon Dioxide 23 (22-30) mmol/L Anion Gap 11 mmol/L BUN 16 (9-20) mg/dL Creatinine 0.98 (0.66-1.25) mg/dL Est GFR (CKD-EPI)AfAm >90 (>60 ml/min/1.73 sqM) Est GFR (CKD-EPI)NonAf >90 (>60 ml/min/1.73 sqM) Glucose 141 H (74-99) mg/dL Plasma Lactic Acid Leonard (0.7-2.0) mmol/L Calcium 8.5 (8.4-10.2) mg/dL Magnesium 1.9 (1.6-2.3) mg/dL Total Bilirubin 0.5 (0.2-1.3) mg/dL AST 55 (17-59) U/L ALT 92 H (4-49) U/L Alkaline Phosphatase 77 (38-126) U/L Lactate Dehydrogenase 595 (313-618) U/L C-Reactive Protein 7.3 H (<1.0) mg/dL Total Protein 6.2 L (6.3-8.2) g/dL Albumin 3.6 (3.5-5.0) g/dL 05/19/21 Range/Units 09:32 WBC (3.8-10.6) k/uL RBC (4.30-5.90) m/uL Hgb (13.0-17.5) gm/dL Hct (39.0-53.0) % MCV (80.0-100.0) fL MCH (25.0-35.0) pg MCHC (31.0-37.0) g/dL RDW (11.5-15.5) % Plt Count (150-450) k/uL MPV Neutrophils % % Lymphocytes % % Monocytes % % Eosinophils % % Basophils % % Neutrophils # (1.3-7.7) k/uL Lymphocytes # (1.0-4.8) k/uL Monocytes # (0-1.0) k/uL Eosinophils # (0-0.7) k/uL Basophils # (0-0.2) k/uL PT (9.0-12.0) sec INR (<1.2) APTT (22.0-30.0) sec Sodium (137-145) mmol/L Potassium (3.5-5.1) mmol/L Chloride (98-107) mmol/L Carbon Dioxide (22-30) mmol/L Anion Gap mmol/L BUN (9-20) mg/dL Creatinine (0.66-1.25) mg/dL Est GFR (CKD-EPI)AfAm (>60 ml/min/1.73 sqM) Est GFR (CKD-EPI)NonAf (>60 ml/min/1.73 sqM) Glucose (74-99) mg/dL Plasma Lactic Acid Leonard 2.7 H* (0.7-2.0) mmol/L Calcium (8.4-10.2) mg/dL Magnesium (1.6-2.3) mg/dL Total Bilirubin (0.2-1.3) mg/dL AST (17-59) U/L ALT (4-49) U/L Alkaline Phosphatase (38-126) U/L Lactate Dehydrogenase (313-618) U/L C-Reactive Protein (<1.0) mg/dL Total Protein (6.3-8.2) g/dL Albumin (3.5-5.0) g/dL Disposition Clinical Impression: COVID, Pneumonia, Lymphoma, Shortness of breath Disposition: ADMITTED IP TO THIS HOSP Is patient prescribed a controlled substance at d/c from ED?: No Referrals: Newton Rivera MD [Primary Care Provider] - 1-2 days Time of Disposition: 11:11
--- NOTE | 2021-05-19 10:03 | XR ---
EXAMINATION TYPE: XR chest 1V portable DATE OF EXAM: 05/19/2021 COMPARISON: Chest x-ray 03/21/2021 HISTORY: Covid 19 pneumonia TECHNIQUE: Single frontal view of the chest is obtained. FINDINGS: There is no pleural effusion or pneumothorax seen. Difficult to exclude retrocardiac densi ty. Exam is apical lordotic. There are overlying leads. The cardiac silhouette size is stable, accoun ting for differences in technique. The osseous structures are intact. IMPRESSION: Correlate for possible pneumonia, follow-up PA and lateral chest x-ray may be of benefit
--- NOTE | 2021-05-19 10:59 | XR ---
EXAMINATION TYPE: XR chest 1V DATE OF EXAM: 05/19/2021 COMPARISON: Chest x-ray 05/19/2021 at earlier time HISTORY: Fever and cough TECHNIQUE: Single lateral view of the chest is obtained. FINDINGS: Suspect patchy airspace disease is present consistent with pneumonia. IMPRESSION: Correlate for pneumonia.
[2021-05-19] MEDS ORDERED: AZITHROMYCIN 500 MG in SODIUM CHLORIDE 0.9% 250 ML IVPB STA (11:07)
[2021-05-19] MEDS ORDERED: PNEUMONIA PROTOCOL UTILIZED 1 EACH MISC PO PRN (11:07)
[2021-05-19] MEDS ORDERED: cefTRIAXone IN SWFI 1,000 MG/10 ML SYRINGE IVP STA (11:09)
[2021-05-19] MEDS: SODIUM CHLORIDE 0.9% 1,000 ML IV SCH ×2 (12:12→20:19)
--- NOTE | 2021-05-19 13:27 | US ---
EXAMINATION TYPE: US abdomen complete DATE OF EXAM: 05/19/2021 COMPARISON: CT 11/22/2020 CLINICAL HISTORY: h/o lymphoma. history of lymphoma, intermittent abdominal pain EXAM MEASUREMENTS: Liver Length: 18.9 cm Gallbladder Wall: 0.2 cm Spleen: 10.6 cm Right Kidney: 11.2 x 4.7 x 5.1 cm Left Kidney: 12.1 x 6.1 x 4.8 cm *technical limitations due to large amount of overlying bowel content Pancreas: Obscured by bowel gas Liver: upper limits of normal in size Gallbladder: no evidence of stones Evidence for sonographic Felder's sign: no CBD: Obscured by overlying bowel gas Spleen: appears wnl Right Kidney: no evidence of hydronephrosis Left Kidney: no evidence of hydronephrosis Upper IVC: wnl Abd Aorta: visualized portions appear wnl, bifurcation obscured The liver shows a coarse echotexture. The intrahepatic portion of the IVC and proximal abdominal aor ta are within normal limits. There is no evidence of cholelithiasis. Common bile duct is unremarkab le. The visualized portions of the pancreas are homogenous. The spleen is unremarkable. Kidneys ar e symmetric and free of hydronephrosis. No renal lesions are seen. IMPRESSION: Findings suggest hepatic steatosis, there is hepatomegaly. Somewhat limited exam.
[2021-05-19] MEDS ORDERED: ONDANSETRON 4 MG TAB PO PRN (15:30)
[2021-05-19] MEDS ORDERED: ACETAMINOPHEN TAB 325 MG TAB PO PRN (15:30)
[2021-05-19] MEDS ORDERED: ACYCLOVIR 200 MG CAP PO PRN (15:30)
[2021-05-19] MEDS: ALBUTEROL HFA INHALER INHALATION PRN ×2 (17:16→20:46)
[2021-05-19] MEDS ORDERED: IBUPROFEN 400 MG TAB PO PRN (18:16)
[2021-05-19] MEDS ORDERED: ACETAMINOPHEN IV (For NPO) 1,000 MG in EMPTY BAG 1 BAG IVPB STA (19:56)
--- NOTE | 2021-05-19 21:25 | P.HPIM ---
History of Present Illness H&P Date: 05/19/21 HISTORY OF PRESENT ILLNESS 55-year-old male one of Dr. Rivera's patient with past medical history of non- Hodgkin lymphoma was diagnosed's past year who has history of Peter, history of pancreatitis, history of ulcerative colitis who was diagnosed with COVID-19 last week and had monoclonal antibiotic infusion. Patient had felt slightly but better till the lost 48 hours when he developed to have worsening symptom with worsening dyspnea and shortness of breath along with increased cough increased fever chills and generalized symptom with more fatigue and tiredness. Patient ended up coming to the emergency Department at [facility] where was seen and evaluated surprisingly his chest x-ray still showing Covid pneumonitis with fever running around 101. Patient was started on dexamethasone along with antibiotics to cover pneumonia his pulse ox is still running in the 90s when he doesn't exert himself patient will be admitted to the hospital will be seen hem atology and pulmonary. Apparently patient had immunotherapy infusion this last week which can be con tributing factor to was going on with his relapse from COVID-19 or worsening symptoms. Also patient been treated for non-Hodgkin lymphoma this last year which had brought his lymph node size down significantly. Patient also was told that he has moderately enlarged liver not explained with the? Off Peter. Patient has slightly higher diaphragm on the right side compared to the left side on his chest x-ray. REVIEW OF SYSTEMS Constitutional: Positive fever and chills with night sweats mild weight loss, generalized fatigue and tiredness with lethargy and daytime sleepiness. EENT: No headache. No blurred vision or double vision, no loss of vision. No loss of Hearing, no ringing in the ears, no dizziness. No nasal drainage or congestion. No epistaxis. No sore throat. Lungs: Positive shortness of breath with cough and wheezes with sputum production and worsening dyspnea with minimal exertion. Cardiovascular: No chest pain, no lower extremity edema. No palpitations. No paroxysmal nocturnal dyspnea. No orthopnea. No lightheadedness or dizziness. No syncopal episodes. Abdominal: Mild abdominal discomfort with nausea no vomiting positive loss of appetite no tarry stool mild constipation. Genitourinary: No dysuria, increased frequency, urgency. No urinary retention. Musculoskeletal: Positive myalgia and muscle achiness and discomfort. Integumentary: No wounds, no lesions. No rash or pruritus. No unusual bruising. No change in hair or nails. Neurologic: No aphasia. No facial droop. No change in mentation. No head injury. No headache. No paralysis. No paresthesia. Psychiatric: No depression. No anxiety. No mood swings. Endocrine: No abnormal blood sugars. No weight change. No excessive sweating or thirst. No cold intolerance. SOCIAL HISTORY He does not smoke, likely abuse, his irregular with his and he worked for the [employer] to his lymphoma was diagnosed patient is taking sometimes off for his treatment. FAMILY HISTORY Both parents are living with no major medical problem, patient has one sister is living and well patient also has 2 children with no major medical problem. PHYSICAL EXAMINATION Gen: This is a young gentleman laying in bed looks very tired does not look in any respiratory distress. HEENT: Head is atraumatic, normocephalic. Pupils equal, round. Sclerae is anicteric. Slight enlarged lymph nodes. NECK: Supple. No JVD. Positive lymphadenopathy. No thyromegaly. LUNGS: Decreased breath sound bilaterally with fine rhonchi positive mild crackles in the bases positive mild expiratory wheezes. HEART: Regular rate and rhythm. No murmur. ABDOMEN: Soft. Bowel sounds are present. Slight hepatomegaly with no rebound or rigidity. EXTREMITIES: No pedal edema. No calf tenderness. NEUROLOGICAL: Patient is awake, alert and oriented x3. Cranial nerves 2 through 12 are grossly intact. ASSESSMENT AND PLAN 1. Sepsis with SIRS: Multiple code to be factor from his lymphoma, chemoi mmunotherapy, recent COVID-19 pneumonitis with worsening symptoms. Significantly elevated temperature with lactic acid of 2.7 chest x-ray showed patchy airspace up his station consistent with pneumonia specially COVID-19 pneumonitis. With patient's current symptoms patient will be started on IV an tibiotics, culture will be done for both blood and sputum if possible infectious disease will be consulted. 2 mild respiratory distress without failure so far: Patient is having significant hypoxia with minimum exertion and continued to be symptomatic for COVID-19 pneumonitis, patient will be on O2, supportive care and updraft treatment. 3 COVID-19 pneumonitis: Patient had quite comorbidity despite using the monoclonal antibiotic infusion still sick his marker at this point with history to 1322, C-reactive protein 7.3, LDH was 595 and pro-calcitonin 0.18. Patient be seen pulmonary and infectious disease and possible still can benefit from [id number] treatment. 4 high temperature: We'll continue to use acetaminophen 500 mg every 6 hours alternate with 600 mg of ibuprofen every 6 hours as needed. 5 non-Hodgkin lymphoma: Patient remain on active treatment he seen hematology regular basis. 6 reactive airway/asthma: With worsening symptoms patient will be on updraft treatment regular basis along with O2 on dexamethasone. 7 mild anxiety attacks: Remain on alprazolam on as needed basis. 8 GI prophylaxis: Patient will be on pantoprazole 40 mg twice a day while he still on the ibuprofen for now. 9 DVT prophylaxis: Patient will be on Lovenox 40 mg subcutaneous daily. CODE STATUS: Full code. Admit patient to the inpatient service for more than 2 night stay. Past Medical History Past Medical History: Cancer, GERD/Reflux Additional Past Medical History / Comment(s): non-hodgkins lyphoma, multiple enlarged lymph nodes, elevated liver enzymes, hx pancreatitis , ulcerative colitis, covid History of Any Multi-Drug Resistant Organisms: None Reported Past Surgical History: No Surgical Hx Reported Additional Past Surgical History / Comment(s): wisdom teeth, lymph node removal from groin, mediport Past Anesthesia/Blood Transfusion Reactions: No Reported Reaction Past Psychological History: Anxiety Smoking Status: Never smoker Past Alcohol Use History: None Reported Past Drug Use History: None Reported - Past Family History Father Family Medical History: Cancer Additional Family Medical History / Comment(s): melanoma Medications and Allergies Home Medications Medication Instructions Recorded Confirmed Type ALPRAZolam [Xanax] 0.25 mg PO DAILY PRN 03/15/21 05/19/21 History Acyclovir 400 mg PO BID PRN 03/15/21 05/19/21 History Albuterol Sulfate [Proventil Hfa] 2 puff INHALATION RT-Q4H PRN 05/19/21 05/19/21 History Ascorbic Acid/Elderberry Fruit 1 tab PO DAILY 05/19/21 05/19/21 History [Elderberry-Vit C 50-100 mg Chw] Calcium Carbonate [Calcium] 600 mg PO DAILY 05/19/21 05/19/21 History Cholecalciferol [Vitamin D3 (25 50 mcg PO DAILY 05/19/21 05/19/21 History Mcg = 1000 Iu)] Ondansetron [Zofran] 4 mg PO Q4H PRN 05/19/21 05/19/21 History Zinc 50 mg PO DAILY 05/19/21 05/19/21 History Allergies Allergy/AdvReac Type Severity Reaction Status Date / Time No Known Allergies Allergy Verified 05/19/21 10:46 Physical Exam Vitals: Vital Signs Temp Pulse Resp BP Pulse Ox 05/19/21 15:39 100.6 F H 98 20 129/69 93 L 05/19/21 12:46 86 20 108/72 95 05/19/21 10:37 99.3 F 99 18 126/71 92 L 05/19/21 09:24 99.8 F H 05/19/21 09:02 101.7 F H 114 H 22 98/66 96 Intake and Output 05/19/21 05/19/21 05/19/21 06:59 14:59 22:59 Other: Weight 108.862 kg Results CBC & Chem 7: 05/19/21 09:32 05/19/21 09:32 Labs: Abnormal Lab Results - Last 24 Hours (Table) 05/19/21 05/19/21 05/19/21 Range/Units 09:32 09:32 09:32 Lymphocytes # 0.1 L (1.0-4.8) k/uL Sodium 135 L (137-145) mmol/L Glucose 141 H (74-99) mg/dL Plasma Lactic Acid Leonard 2.7 H* (0.7-2.0) mmol/L ALT 92 H (4-49) U/L C-Reactive Protein 7.3 H (<1.0) mg/dL Total Protein 6.2 L (6.3-8.2) g/dL
[2021-05-19] MEDS: IBUPROFEN 600 MG TAB PO SCH (21:55)
[2021-05-20] MEDS: SODIUM CHLORIDE 0.9% 1,000 ML IV SCH ×3 (02:27→18:08)
[2021-05-20] MEDS: ACETAMINOPHEN TAB 500 MG TAB PO PRN ×3 (02:28→17:20)
[2021-05-20] MEDS: IBUPROFEN 600 MG TAB PO SCH (04:10)
[2021-05-20] MEDS: ALBUTEROL HFA INHALER INHALATION PRN ×3 (06:50→17:01)
--- NOTE | 2021-05-20 08:30 | XR ---
EXAMINATION TYPE: XR chest 1V portable DATE OF EXAM: 05/20/2021 COMPARISON: 05/19/2020 HISTORY: Cough TECHNIQUE: Single frontal view of the chest is obtained. FINDINGS: Right-sided Mediport is seen with extensive soft tissue neck. Tip of the catheter appears to be kinked facing cephalad. Heart is enlarged with no sizable pleural effusion. Patchy perihilar marie bsegmental changes are noted in the right. IMPRESSION: 1. Patchy perihilar subsegmental infiltrate. 2. Mediport catheter appears to be malpositioned and kinked. Correlate clinically.
[2021-05-20] MEDS: ENOXAPARIN 40 MG/0.4 ML SYRINGE SQ SCH (08:42)
[2021-05-20] MEDS: ZINC SULFATE 220 MG CAP PO SCH (08:43)
[2021-05-20] MEDS: CHOLECALCIFEROL 25 MCG (1000 IU) TABLET PO SCH (08:43)
[2021-05-20] MEDS: PANTOPRAZOLE 40 MG TABLET PO SCH ×2 (08:43→17:21)
[2021-05-20] MEDS: CALCIUM CARBONATE 500 MG CHEWABLE PO SCH (08:43)
[2021-05-20] MEDS ORDERED: NON FORMULARY DRUG (Ascorbic Acid/Elderberry Fruit [Elderberry-Vit C 50-100 Mg Chw] 1 EACH PO SCH (09:00)
[2021-05-20] MEDS ORDERED: AZITHROMYCIN 500 MG in SODIUM CHLORIDE 0.9% 250 ML IVPB SCH (09:00)
[2021-05-20 11:07] LABS: Basophils # (A) 0 X 10*3/uL (0.00-0.10); Basophils % (A) 0 %; Eosinophils # (A) 0.01 X 10*3/uL (0.04-0.35); Eosinophils % (A) 0.4 %; HCT 36.5 % (39.6-50.0); HGB 11.8 g/dL (13.0-17.0); Lymphocytes # (A) 0.15 X 10*3/uL (0.90-5.00); Lymphocytes % (A) 6.3 %; MCHC 32.3 g/dL (32.0-37.0); MCV 98.9 fL (80.0-97.0); Monocytes # (A) 0.37 X 10*3/uL (0.20-1.00); Monocytes % (A) 15.6 %; Neutrophils # (A) 1.82 X 10*3/uL (1.80-7.70); Neutrophils % (A) 76.9 %; Platelet Count 134 X 10*3/uL (140-440); RBC 3.69 X 10*6/uL (4.40-5.60); RDW 12.1 % (11.5-14.5); WBC 2.37 X 10*3/uL (4.50-10.00)
--- NOTE | 2021-05-20 11:16 | CT ---
EXAMINATION TYPE: CT angio chest DATE OF EXAM: 05/20/2021 COMPARISON: 11/22/2020 HISTORY: 35-year-old male Shortness of breath and cough. Recurrent COVID with history of cancer. TECHNIQUE: Contiguous axial scanning of the chest performed with IV Contrast, patient injected with 1 00 mL of Isovue 370. Coronal/sagittal MIP reconstructions performed. CT DLP: 706.1 mGycm Automated exposure control for dose reduction was used. FINDINGS: Heart normal size with trace anterior basilar pericardial fluid. No flattening of the interventricula r septum reflux of contrast into the hepatic veins. Aorta normal caliber with conventional arch vessel branching anatomy. Right anterior chest wall injection port with catheter tip at the lower right brachiocephalic vein le anjali. Borderline sized right paratracheal lymph nodes measuring up to 1 cm. Otherwise, no thoracic lymphade nopathy. While there is satisfactory opacification of the pulmonary artery system, there is diffuse breathing motion degrading assessment for pulmonary embolus. No large central pulmonary embolus. We are unable to exclude filling defects within the left upper lobe and segmental arterial branches, for example, a xial image 61 and coronal image 78. We favor motion artifact though emboli cannot be adequately exclu ded here Patchy and confluent groundglass throughout the lungs, greatest in the lower lungs. Some areas of celeste undglass nodularity are also noted, for example, left midlung axial image 69 measuring 1.2 cm. No ple ural effusion. Partially visualized mid abdominal Gennaro mesentery as seen on 11/22/2020. Bones: No osseous destructive process. IMPRESSION: 1. PATCHY AND CONFLUENT BILATERAL GROUNDGLASS, GREATEST IN THE LOWER LUNGS COMPATIBLE WITH COVID PNEU MONIA. 2. LIMITED ASSESSMENT FOR PULMONARY EMBOLUS DUE TO BREATHING MOTION. EQUIVOCAL FOR FILLING DEFECTS/PU LMONARY EMBOLI INVOLVING LOBAR AND SEGMENTAL BRANCHES OF THE LEFT UPPER LOBE. AXIAL IMAGE 61 AND EVELINA NAL IMAGE 78. WE FAVOR BREATHING MOTION ARTIFACT. CONSIDER SHORT INTERVAL FOLLOW-UP VERSUS INITIATION OF TREATMENT DEPENDING ON CLINICAL SUSPICION. 3. PARTIALLY VISUALIZED MID ABDOMINAL GENNARO MESENTERY SEEN ON 11/22/2020.
[2021-05-20 11:21] LABS: African American GFR (CKD) 113.3 (60.0-200.0); Albumin 3.4 g/dL (3.8-4.9); Albumin/Globulin Ratio 2.13 (1.60-3.17); Anion Gap 10.3 mmol/L (4.00-12.00); BUN/Creat Ratio 10.1 Ratio (12.00-20.00); Blood Urea Nitrogen 10.1 mg/dL (9.0-27.0); Calcium 7.6 mg/dL (8.7-10.3); Carbon Dioxide 24.7 mmol/L (21.6-31.8); Globulin 1.6 g/dL (1.6-3.3); Magnesium 2.1 mg/dL (1.5-2.4); Non-African American GFR(CKD) 97.8 (60.0-200.0); Potassium 4.1 mmol/L (3.5-5.5); Total Bilirubin 0.3 mg/dL (0.30-1.20); Uric Acid 4.4 mg/dL (3.7-8.7)
[2021-05-20] MEDS: IBUPROFEN 600 MG TAB PO PRN ×2 (13:15→23:40)
[2021-05-20] MEDS: dexAMETHasone 2 MG TAB PO SCH (13:15)
[2021-05-20] MEDS: ASCORBIC ACID 500 MG TAB PO SCH ×2 (13:15→21:45)
--- NOTE | 2021-05-20 13:42 | P.PN ---
Subjective Progress Note Date: 05/20/21 HISTORY OF PRESENT ILLNESS 55-year-old male one of Dr. Rivera's patient with past medical history of non- Hodgkin lymphoma was diagnosed's past year who has history of Peter, history of pancreatitis, history of ulcerative colitis who was diagnosed with COVID-19 last week and had monoclonal antibiotic infusion. Patient had felt slightly but better till the lost 48 hours when he developed to have worsening symptom with worsening dyspnea and shortness of breath along with increased cough increased fever chills and generalized symptom with more fatigue and tiredness. Patient ended up coming to the emergency Department at [facility] where was seen and evaluated surprisingly his chest x-ray still showing Covid pneumonitis with fever running around 101. Patient was started on dexamethasone along with antibiotics to cover pneumonia his pulse ox is still running in the 90s when he doesn't exert himself patient will be admitted to the hospital will be seen hematology and pulmonary. Apparently patient had immunotherapy infusion this last week which can be contributing factor to was going on with his relapse from COVID-19 or worsening symptoms. Also patient been treated for non-Hodgkin lymphoma this last year which had brought his lymph node size down significantly. Patient also was told that he has moderately enlarged liver not explained with the? Off Peter. Patient has slightly higher diaphragm on the right side compared to the left side on his chest x-ray. 05/20: patient is not requiring oxygen and pulse ox is 94% on room air. He was running fevers yesterday and required IV Tylenol, Motrin [id number]. Fevers are improved today, heart rate 74, blood pressure 109/71.repeat blood work reveals WBC 2.3, hemoglobin 11.8, platelet count 134. D-dimer 0.92. Electrolytes and renal function normal. Calcium 7.6. ALT 69. Chest x-ray reveals patchy perihilar subsegmental infiltrate. Mediport catheter appears to be malpositioned and kinked. Correlate clinically. CTA of the chest reveals patchy and confluent bilateral groundglass, greatest in the lower lungs compatible with Covid pneumonia. Limited assessment for pulmonary embolus due to breathing motion. Equivocal for filling defects pulmonary emboli involving lobar and segmental branches of the left upper lobe. We favor breathing motion artifact. Consider short interval follow-up versus initiation of treatment depending on clinical suspicion. Partially visualized mid abdominal nii mesentery as seen on 11/22/2020. REVIEW OF SYSTEMS Constitutional: Resolved fever and chills with night sweats, mild weight loss, generalized fatigue and tiredness no lethargy and daytime sleepiness. EENT: No headache. No blurred vision or double vision, no loss of vision. No loss of Hearing, no ringing in the ears, no dizziness. No nasal drainage or congestion. No epistaxis. No sore throat. Lungs: Positive shortness of breath with cough and wheezes with sputum production and worsening dyspnea with minimal exertion. Cardiovascular: No chest pain, no lower extremity edema. No palpitations. No paroxysmal nocturnal dyspnea. No orthopnea. No lightheadedness or dizziness. No syncopal episodes. Abdominal: Mild abdominal discomfort with nausea no vomiting positive loss of appetite no tarry stool mild constipation. Genitourinary: No dysuria, increased frequency, urgency. No urinary retention. Musculoskeletal: Positive myalgia and muscle achiness and discomfort. Integumentary: No wounds, no lesions. No rash or pruritus. No unusual bruising. Neurologic: No aphasia. No facial droop. No change in mentation. No head injury. No headache. No paralysis. No paresthesia. Psychiatric: No depression. No anxiety. No mood swings. Endocrine: No abnormal blood sugars. No weight change. No excessive sweating or thirst. No cold intolerance. PHYSICAL EXAMINATION Gen: This is a 35-year-old male resting in bed and does not appear to be in any respiratory distress. HEENT: Head is atraumatic, normocephalic. Pupils equal, round. Sclerae is anicteric. Slight enlarged lymph nodes. NECK: Supple. No JVD. Positive lymphadenopathy. No thyromegaly. LUNGS: Decreased breath sound bilaterally with fine rhonchi positive mild crackles in the bases positive mild expiratory wheezes. HEART: Regular rate and rhythm. No murmur. ABDOMEN: Soft. Bowel sounds are present. Slight hepatomegaly with no rebound or rigidity. EXTREMITIES: No pedal edema. No calf tenderness. NEUROLOGICAL: Patient is awake, alert and oriented x3. Cranial nerves 2 through 12 are grossly intact. ASSESSMENT AND PLAN 1. Sepsis with SIRS: Multiple code to be factor from his lymphoma, chemoimmunotherapy, recent COVID-19 pneumonitis with worsening symptoms. Significantly elevated temperature with lactic acid of 2.7 chest x-ray showed patchy airspace up his station consistent with pneumonia specially COVID-19 pneumonitis. 2 mild respiratory distress without failure so far: Patient is having significant hypoxia with minimum exertion and continued to be symptomatic for COVID-19 pneumonitis, patient will be on O2, supportive care and updraft treatment. 3 COVID-19 pneumonitis: Patient had quite comorbidity despite using the monoclonal antibiotic infusion still sick his marker at this point with history to 1322, C-reactive protein 7.3, LDH was 595 and pro-calcitonin 0.18. Patient be seen pulmonary and infectious disease and possible still can benefit from [id number] treatment. 4 high temperature: We'll continue to use acetaminophen 500 mg every 6 hours alternate with 600 mg of ibuprofen every 6 hours as needed. 5 lactic acidosis secondary to sepsis. 6. Non-Hodgkin lymphoma: Patient remain on active treatment he seen hematology regular basis. 7. Reactive airway/asthma: With worsening symptoms patient will be on updraft treatment regular basis along with O2 on dexamethasone. 8. Mild anxiety attacks: Remain on alprazolam on as needed basis. 9. GI prophylaxis: Patient will be on pantoprazole 40 mg twice a day while he still on the ibuprofen for now. 10. DVT prophylaxis: Patient will be on Lovenox 40 mg subcutaneous daily. CODE STATUS: Full code. DISCHARGE PLAN Home Impression and plan of care have been directed as dictated by the signing ph ysician. Nevin Madera nurse practitioner acting as scribe for signing physician. Objective - Vital Signs Vital signs: Vital Signs Temp 97.7 F 05/20/21 09:54 Pulse 74 05/20/21 09:54 Resp 16 05/20/21 09:54 BP 109/71 05/20/21 09:54 Pulse Ox 94 L 05/20/21 09:54 Intake & Output 05/19/21 05/20/21 05/20/21 18:59 06:59 18:59 Intake Total 236 Balance 236 Weight 108.862 kg 108.862 kg Intake: Oral 236 Other: # Voids 3 - Labs CBC & Chem 7: 05/20/21 06:32 05/20/21 06:32 Labs: Abnormal Lab Results - Last 24 Hours (Table) 05/19/21 05/19/21 05/20/21 Range/Units 09:32 09:32 06:32 D-Dimer 0.92 H (<0.60) mg/L FEU Ferritin 1322.0 H (22.0-322.0) ng/mL Procalcitonin 0.18 H (0.02-0.09) ng/mL
--- NOTE | 2021-05-20 14:16 | P.CNPUL ---
History of Present Illness Consult date: 05/20/21 Requesting physician: Misbah Card Reason for consult: dyspnea, cough, pneumonia, abnormal CXR/CT Chief complaint: Coronavirus associated pneumonia. History of present illness: Pulmonary consult dated 05/20/2021. 35-year-old male seen in the emergency department yesterday with a history of non-Hodgkin some foam a, diffuse large B-cell lymphoma, who presents to the emergency department with fever, and mild shortness of breath. The patient did receive monoclonal antibody about 3-4 days prior to admission. He tested positive for coronavirus about 2 weeks ago. Over the last day or so prior to admission, he had elevated temperature, which she had a hard time controlling at home. In addition, his saturations at home were borderline. For that reason he came into the hospital to be evaluated. He was seen initially by the PA, and then was admitted to the hospital. Currently, he's on room air. His saturations are fine. He is not manifesting any signs or symptoms of respiratory distress. His chest x-ray was not particularly impressive, but his computed tomography scan did show diffuse bilateral patchy groundglass opacities consistent with coronavirus associated pneumonia. He was beyond the window for REM. White count 2.37, hemoglobin 11.8, hematocrit 36.5, platelet count 134 ,000. D-dimer was 0.9 to electrolytes were normal. Ferritin was 1126. Pro- calcitonin was 0.18. C-reactive protein was 7.3. LDH was 215. Chest x-ray and CT angiogram were evaluated. There is no evidence of pulmonary embolism. Review of Systems REVIEW OF SYSTEMS: CONSTITUTIONAL: Fever, weakness. NEUROLOGIC: [ Negative.] HEENT: [ Negative.] CARDIAC: [Negative.] PULMONARY: Mild shortness of breath. GI: [Negative.] : [Negative.] RHEUMATOLOGIC: [ Negative.] IMMUNOLOGIC: [ Negative.] ENDOCRINE: [Negative. ] DERMATOLOGIC: [Negative.] Past Medical History Past Medical History: Cancer, GERD/Reflux Additional Past Medical History / Comment(s): non-hodgkins lyphoma, multiple enlarged lymph nodes, elevated liver enzymes, hx pancreatitis , ulcerative colitis, covid History of Any Multi-Drug Resistant Organisms: None Reported Past Surgical History: No Surgical Hx Reported Additional Past Surgical History / Comment(s): wisdom teeth, lymph node removal from groin, mediport Past Anesthesia/Blood Transfusion Reactions: No Reported Reaction Past Psychological History: Anxiety Smoking Status: Never smoker Past Alcohol Use History: None Reported Past Drug Use History: None Reported - Past Family History Father Family Medical History: Cancer Additional Family Medical History / Comment(s): melanoma Medications and Allergies Home Medications Medication Instructions Recorded Confirmed Type ALPRAZolam [Xanax] 0.25 mg PO DAILY PRN 03/15/21 05/19/21 History Acyclovir 400 mg PO BID PRN 03/15/21 05/19/21 History Albuterol Sulfate [Proventil Hfa] 2 puff INHALATION RT-Q4H PRN 05/19/21 05/19/21 History Ascorbic Acid/Elderberry Fruit 1 tab PO DAILY 05/19/21 05/19/21 History [Elderberry-Vit C 50-100 mg Chw] Calcium Carbonate [Calcium] 600 mg PO DAILY 05/19/21 05/19/21 History Cholecalciferol [Vitamin D3 (25 50 mcg PO DAILY 05/19/21 05/19/21 History Mcg = 1000 Iu)] Ondansetron [Zofran] 4 mg PO Q4H PRN 05/19/21 05/19/21 History Zinc 50 mg PO DAILY 05/19/21 05/19/21 History Allergies Allergy/AdvReac Type Severity Reaction Status Date / Time No Known Allergies Allergy Verified 05/19/21 10:46 Physical Exam Osteopathic Statement: *. No significant issues noted on an osteopathic structural exam other than those noted in the History and Physical/Consult. Vitals: Vital Signs Temp Pulse Pulse Resp BP BP Pulse Ox 05/20/21 13:40 98.1 F 94 16 135/83 95 05/20/21 09:54 97.7 F 74 16 109/71 94 L 05/20/21 06:41 97.8 F 74 15 102/64 94 L 05/20/21 02:23 97.9 F 78 18 106/70 96 05/19/21 22:13 98.9 F 93 17 116/71 93 L 05/19/21 21:56 99.1 F 05/19/21 20:46 95 05/19/21 20:39 102.6 F H 05/19/21 20:00 18 05/19/21 19:44 102.8 F H 05/19/21 18:21 103.1 F H 05/19/21 18:17 103.1 F H 05/19/21 18:00 102 F H 116 H 22 153/72 92 L 05/19/21 17:47 102.4 F H 05/19/21 15:39 100.6 F H 98 20 129/69 93 L Intake and Output 05/19/21 05/20/21 05/20/21 22:59 06:59 14:59 Intake Total 472 Balance 472 Intake: Oral 472 Other: # Voids 3 Weight 108.862 kg No acute distress, oriented 3. No respiratory distress, audible wheezing, or use of accessory muscles. HEENT examination is grossly unremarkable. Neck supple. Full range of motion. No adenopathy thyromegaly or neck vein distention. Cardiovascular examination reveals regular rhythm rate. S1-S2 normal. No S3 or S4. No discernible murmur noted. Heart rate 94 bpm. Lungs reveal mostly clear breath sounds. Minimal rhonchi. No wheezes or crackl es. Room air saturation 95%. Abdomen soft bowel sounds are heard. No masses or tenderness. Extremities are intact. No cyanosis clubbing or edema. Skin is without rash or lesion. Neurologic examination is brief but nonfocal. Results - Laboratory Findings CBC and BMP: 05/20/21 06:32 05/20/21 06:32 PT/INR, D-dimer PT 10.0 sec (9.0-12.0) 05/19/21 09:32 INR 0.9 (<1.2) 05/19/21 09:32 D-Dimer 0.92 mg/L FEU (<0.60) H 05/20/21 06:32 Abnormal lab findings: Abnormal Labs 05/19/21 05/19/21 05/19/21 09:32 09:32 09:32 WBC RBC Hgb Hct MCV Plt Count MPV Lymphocytes # 0.1 L Eosinophils # D-Dimer Sodium 135 L BUN/Creatinine Ratio Glucose 141 H Plasma Lactic Acid Leonard 2.7 H* Calcium Ferritin 1322.0 H ALT 92 H C-Reactive Protein 7.3 H Total Protein 6.2 L Albumin Procalcitonin 05/19/21 05/20/21 05/20/21 09:32 06:32 06:32 WBC 2.37 L RBC 3.69 L Hgb 11.8 L Hct 36.5 L MCV 98.9 H Plt Count 134 L MPV 9.0 L Lymphocytes # 0.15 L Eosinophils # 0.01 L D-Dimer Sodium BUN/Creatinine Ratio 10.10 L Glucose Plasma Lactic Acid Leonard Calcium 7.6 L Ferritin 1126.0 H ALT 69 H C-Reactive Protein Total Protein 5.0 L Albumin 3.4 L Procalcitonin 0.18 H 05/20/21 06:32 WBC RBC Hgb Hct MCV Plt Count MPV Lymphocytes # Eosinophils # D-Dimer 0.92 H Sodium BUN/Creatinine Ratio Glucose Plasma Lactic Acid Leonard Calcium Ferritin ALT C-Reactive Protein Total Protein Albumin Procalcitonin - Diagnostic Findings Chest x-ray: image reviewed CT scan - chest: image reviewed Assessment and Plan Assessment: Coronavirus associated pneumonia, with minimal respiratory symptoms. Diffuse large B cell lymphoma (NHL). Status post 6 rounds of R-CHOP chemotherapy. Gastroesophageal reflux disease. History of pancreatitis. History of ulcerative colitis. Plan: Plan dated 05/20/2021. The patient has minimal respiratory complaints. Clinically he looks well. We recommended vitamins, normal doses of Lovenox, and Decadron 10 mg a day. He is beyond the window for REM. Hopeful discharge in next 24-48 hours. No additional recommendations are made. Antibiotics can be discontinued. We will continue to follow make recommendations where appropriate. Time with Patient: Greater than 30
[2021-05-20 14:57] LABS: Erythrocyte Sedimentation Rate 53 mm/Hr (0-15)
--- NOTE | 2021-05-20 18:53 | P.CONS ---
History of Present Illness - Reason for Consult Consult date: 05/20/21 Follicular Requesting physician: Misbah Card - Chief Complaint Fever. Covid - History of Present Illness Mr. Velez is a patient who is well known to us for recent treatment for Follicular B-Cell NHL. He has most recently been receiving Maintenance immune therapy with Gazyva, last on 05/16/21. Apparently was diagnosed with COVID a couple weeks ago, received Regeneron, improved. However the past couple days he has started to become more short of breath, cough, and high fevers. T Max Since Admission 103.1. Full hurtado cultures have been drawn, Antibiotics for treatment of pneumonia has been initiated. His fevers have improved since admission and improved this am. CTA was indeterminate for Pulmonary Emobi, reviewed by Pulmonology and no PE Review of Systems All systems: negative Constitutional: Reports as per HPI Past Medical History Past Medical History: Cancer, GERD/Reflux Additional Past Medical History / Comment(s): non-hodgkins lyphoma, multiple enlarged lymph nodes, elevated liver enzymes, hx pancreatitis , ulcerative colitis, covid History of Any Multi-Drug Resistant Organisms: None Reported Past Surgical History: No Surgical Hx Reported Additional Past Surgical History / Comment(s): wisdom teeth, lymph node removal from groin, mediport Past Anesthesia/Blood Transfusion Reactions: No Reported Reaction Past Psychological History: Anxiety Smoking Status: Never smoker Past Alcohol Use History: None Reported Past Drug Use History: None Reported - Past Family History Father Family Medical History: Cancer Additional Family Medical History / Comment(s): melanoma Medications and Allergies Home Medications Medication Instructions Recorded Confirmed Type ALPRAZolam [Xanax] 0.25 mg PO DAILY PRN 03/15/21 05/19/21 History Acyclovir 400 mg PO BID PRN 03/15/21 05/19/21 History Albuterol Sulfate [Proventil Hfa] 2 puff INHALATION RT-Q4H PRN 05/19/21 05/19/21 History Ascorbic Acid/Elderberry Fruit 1 tab PO DAILY 05/19/21 05/19/21 History [Elderberry-Vit C 50-100 mg Chw] Calcium Carbonate [Calcium] 600 mg PO DAILY 05/19/21 05/19/21 History Cholecalciferol [Vitamin D3 (25 50 mcg PO DAILY 05/19/21 05/19/21 History Mcg = 1000 Iu)] Ondansetron [Zofran] 4 mg PO Q4H PRN 05/19/21 05/19/21 History Zinc 50 mg PO DAILY 05/19/21 05/19/21 History Allergies Allergy/AdvReac Type Severity Reaction Status Date / Time No Known Allergies Allergy Verified 05/19/21 10:46 Physical Exam Vitals: Vital Signs Temp Pulse Pulse Resp BP BP Pulse Ox 05/20/21 06:41 97.8 F 74 15 102/64 94 L 05/20/21 02:23 97.9 F 78 18 106/70 96 05/19/21 22:13 98.9 F 93 17 116/71 93 L 05/19/21 21:56 99.1 F 05/19/21 20:46 95 05/19/21 20:39 102.6 F H 05/19/21 20:00 18 05/19/21 19:44 102.8 F H 05/19/21 18:21 103.1 F H 05/19/21 18:17 103.1 F H 05/19/21 18:00 102 F H 116 H 22 153/72 92 L 05/19/21 17:47 102.4 F H 05/19/21 15:39 100.6 F H 98 20 129/69 93 L 05/19/21 12:46 86 20 108/72 95 05/19/21 10:37 99.3 F 99 18 126/71 92 L 05/19/21 09:24 99.8 F H 05/19/21 09:02 101.7 F H 114 H 22 98/66 96 Intake and Output 05/19/21 05/20/21 05/20/21 22:59 06:59 14:59 Other: # Voids 3 Weight 108.862 kg - Constitutional General appearance: cooperative, no acute distress - EENT Eyes: EOMI ENT: NA/AT, normal oropharynx - Neck Neck: normal ROM - Respiratory Respiratory: bilateral: diminished, rhonchi - Cardiovascular Rhythm: regular - Gastrointestinal General gastrointestinal: normal bowel sounds, soft - Integumentary Integumentary: pale - Neurologic Neurologic: CNII-XII intact - Musculoskeletal Musculoskeletal: generalized weakness, strength equal bilaterally - Psychiatric Psychiatric: A&O x's 3, appropriate affect, intact judgment & insight Results CBC & Chem 7: 05/20/21 06:32 05/20/21 06:32 Labs: Abnormal Lab Results - Last 24 Hours (Table) 05/19/21 05/19/21 05/19/21 Range/Units 09:32 09:32 09:32 Lymphocytes # 0.1 L (1.0-4.8) k/uL D-Dimer (<0.60) mg/L FEU Sodium 135 L (137-145) mmol/L Glucose 141 H (74-99) mg/dL Plasma Lactic Acid Leonard 2.7 H* (0.7-2.0) mmol/L Ferritin 1322.0 H (22.0-322.0) ng/mL ALT 92 H (4-49) U/L C-Reactive Protein 7.3 H (<1.0) mg/dL Total Protein 6.2 L (6.3-8.2) g/dL Procalcitonin (0.02-0.09) ng/mL 05/19/21 05/20/21 Range/Units 09:32 06:32 Lymphocytes # (1.0-4.8) k/uL D-Dimer 0.92 H (<0.60) mg/L FEU Sodium (137-145) mmol/L Glucose (74-99) mg/dL Plasma Lactic Acid Leonard (0.7-2.0) mmol/L Ferritin (22.0-322.0) ng/mL ALT (4-49) U/L C-Reactive Protein (<1.0) mg/dL Total Protein (6.3-8.2) g/dL Procalcitonin 0.18 H (0.02-0.09) ng/mL Chest x-ray: report reviewed CT scan - chest: report reviewed Assessment and Plan (1) Fever Current Visit: Yes Status: Acute Code(s): R50.9 - FEVER, UNSPECIFIED SNOMED Code(s): 030498533 (2) COVID Current Visit: Yes Status: Acute Code(s): U07.1 - COVID-19 SNOMED Code(s): 715508533 (3) Lymphoma Current Visit: Yes Status: Acute Code(s): C85.90 - NON-HODGKIN LYMPHOMA, UNSPECIFIED, UNSPECIFIED SITE SNOMED Code(s): 590930746 (4) Pneumonia Current Visit: Yes Status: Acute Code(s): J18.9 - PNEUMONIA, UNSPECIFIED ORGANISM SNOMED Code(s): 812941510 (5) Shortness of breath Current Visit: Yes Status: Acute Code(s): R06.02 - SHORTNESS OF BREATH SNOMED Code(s): 367061625 Plan: Assessment and Recommendations: Acute Respiratory Distress, Fever, Post Covid Pneumonia: - Recent positive test - Received Regeneron and improved, then recurrent high fevers and worsening respiratory symptoms - Infectious disease to follow, Pulmonary to Follow are recommended - Agree with further hurtado cultures and atypical respiratory infections with known history and active maintenance for lymphoma - Check IgG for opportunity to increase immune function with supplemental IVIG - CTA and Venous Doppler. Await Pulmonary second look at CTA
--- NOTE | 2021-05-20 20:09 | US ---
EXAMINATION TYPE: US venous doppler duplex LE DATE OF EXAM: 05/20/2021 7:57 PM COMPARISON: NONE CLINICAL HISTORY: DVTs, limited assessment for PE on CT. Limited assessment for PE on CT. Patient sta rted on blood thinners this morning. Hx Non Hodgkin's lymphoma. SIDE PERFORMED: Bilateral TECHNIQUE: The lower extremity deep venous system is examined utilizing real time linear array sonog rai with graded compression, doppler sonography and color-flow sonography. VESSELS IMAGED: Common Femoral Vein Deep Femoral Vein Greater Saphenous Vein * Femoral Vein Popliteal Vein Small Saphenous Vein * Proximal Calf Veins (* superficial vessels) Right Leg: No evidence of DVT in veins imaged at this time. Left Leg: No evidence of DVT in veins imaged at this time. Hypoechoic area with hyperechoic center seen within the left groin: 1.7 x 2.0 x 0.5 cm. Finding is compatible with prominent lymph node. IMPRESSION: No evidence of bilateral lower extremity DVT. Mildly prominent left inguinal history, may be reactive.
[2021-05-21] MEDS: SODIUM CHLORIDE 0.9% 1,000 ML IV SCH ×2 (01:10→20:30)
--- NOTE | 2021-05-21 07:09 | P.CONS ---
History of Present Illness - Reason for Consult Consult date: 05/20/21 Fever Requesting physician: Darlyn Hutson - Chief Complaint Fever x few days - History of Present Illness History of present illness : Patient is a 35-year-old male with a past medical history significant for non-Hodgkin lymphoma on immunotherapy, presenting to the ER yesterday morning for evaluation of increasing shortness of breath and this patient has been diagnosed initially with a COVID-19 about 2 weeks ago and apparently has received monoclonal antibodies about 4 days before this admission patient is presenting to the hospital complaining of fever and low pulse ox of around 90% at home, the patient complains of feeling nauseated did not have any vomiting no significant shortness of breath minimal cough no sputum production no abdominal pain he did have some diarrhea with the symptom the patient has been evaluated by ER physician on arrival to the ER patient did have a fever of 101 and as high as 103 F last evening patient did have a pulse ox around 90 to 93% is currently 95% on room air patient did have a normal white count with lymphopenia D-dimer is mild elevated 0.92 kidney function was normal lactic acid was elevated her repeat is normal did have elevated ferritin ALT procalcitonin elevated 0.18 blood culture has been obtained which are currently pending chest x-ray patchy airspace disease CT angiogram diffuse patchy bilateral groundglass infiltrates limiting assessment for PE because of breathing motion, infectious disease was consulted for further management Review of system: CONSTITUTIONAL: Positive for weakness along with the fever. EYES: No complaint. ENT: No complaint. RESPIRATORY: As per history of present illness. CARDIOVASCULAR: No complaint. GENITOURINARY: No complaint. GASTROINTESTINAL as per history of present illness. MUSCULOSKELETAL: No complaint. INTEGUMENTARY: No complaint. PSYCHOLOGIC: No complaint. ENDOCRINE: No complaint. NEUROLOGIC: No complaint. Past medical history : Reviewed, documented below Past surgical history : Reviewed, documented below Social history: Reviewed, documented below Medications: Reviewed, as documented below EXAMINATION: Vital sigans= Reviewed and documented below GENERAL DESCRIPTION: Middle-aged male lying in bed, no distress. No tachypnea or accessory muscle of respiration use. HEENT: Shows Pallor , no scleral icterus. Oral mucous membrane is dry. NECK: Trachea central, no thyromegaly. LUNGS: Unlabored breathing. Decrease intensity of breath sounds. No wheeze or crackle. HEART: S1, S2, regular rate and rhythm. ABDOMEN: Soft, no tenderness , guarding or rigidity EXTREMITIES: No edema of feet. SKIN: No rash, no masses palpable. NEUROLOGICAL: The patient is awake, alert, oriented x3, mood and affect normal. LABS AND RADIOLOGY: Reviewed results see below Assessment : Patient presented to hospital with fever low pulse ox and this patient has been diagnosed with COVID-19 infection almost 2 weeks ago and has recently received monoclonal antibody patient did have mild pneumonia on the x- ray however extensive disease on the CT angiogram however the patient has been able to maintain his oral O2 sats without need for supplemental oxygen, patient is currently out of the therapeutic window for remdesivir per [facility] policy and clinically no evidence of any secondary bacterial pneumonia Plan: 1-patient to continue with the Decadron Lovenox zinc and ascorbic acid 2-droplet isolation and respiratory support 3-no need for systemic antibiotic therapy We will follow on clinical condition and cultures to further adjust medication if needed Thank you for this consultation we will follow the patient along with you Past Medical History Past Medical History: Cancer, GERD/Reflux Additional Past Medical History / Comment(s): non-hodgkins lyphoma, multiple enlarged lymph nodes, elevated liver enzymes, hx pancreatitis , ulcerative colitis, covid History of Any Multi-Drug Resistant Organisms: None Reported Past Surgical History: No Surgical Hx Reported Additional Past Surgical History / Comment(s): wisdom teeth, lymph node removal from groin, mediport Past Anesthesia/Blood Transfusion Reactions: No Reported Reaction Past Psychological History: Anxiety Smoking Status: Never smoker Past Alcohol Use History: None Reported Past Drug Use History: None Reported - Past Family History Father Family Medical History: Cancer Additional Family Medical History / Comment(s): melanoma Medications and Allergies Home Medications Medication Instructions Recorded Confirmed Type ALPRAZolam [Xanax] 0.25 mg PO DAILY PRN 03/15/21 05/19/21 History Acyclovir 400 mg PO BID PRN 03/15/21 05/19/21 History Albuterol Sulfate [Proventil Hfa] 2 puff INHALATION RT-Q4H PRN 05/19/21 05/19/21 History Ascorbic Acid/Elderberry Fruit 1 tab PO DAILY 05/19/21 05/19/21 History [Elderberry-Vit C 50-100 mg Chw] Calcium Carbonate [Calcium] 600 mg PO DAILY 05/19/21 05/19/21 History Cholecalciferol [Vitamin D3 (25 50 mcg PO DAILY 05/19/21 05/19/21 History Mcg = 1000 Iu)] Ondansetron [Zofran] 4 mg PO Q4H PRN 05/19/21 05/19/21 History Zinc 50 mg PO DAILY 05/19/21 05/19/21 History Allergies Allergy/AdvReac Type Severity Reaction Status Date / Time No Known Allergies Allergy Verified 05/19/21 10:46 Physical Exam Vitals: Vital Signs Temp Pulse Pulse Resp BP BP Pulse Ox 05/20/21 09:54 97.7 F 74 16 109/71 94 L 05/20/21 06:41 97.8 F 74 15 102/64 94 L 05/20/21 02:23 97.9 F 78 18 106/70 96 05/19/21 22:13 98.9 F 93 17 116/71 93 L 05/19/21 21:56 99.1 F 05/19/21 20:46 95 05/19/21 20:39 102.6 F H 05/19/21 20:00 18 05/19/21 19:44 102.8 F H 05/19/21 18:21 103.1 F H 05/19/21 18:17 103.1 F H 05/19/21 18:00 102 F H 116 H 22 153/72 92 L 05/19/21 17:47 102.4 F H 05/19/21 15:39 100.6 F H 98 20 129/69 93 L 05/19/21 12:46 86 20 108/72 95 05/19/21 10:37 99.3 F 99 18 126/71 92 L Intake and Output 05/19/21 05/20/21 05/20/21 22:59 06:59 14:59 Intake Total 236 Balance 236 Intake: Oral 236 Other: # Voids 3 Weight 108.862 kg Results CBC & Chem 7: 05/20/21 06:32 05/20/21 06:32 Labs: Abnormal Lab Results - Last 24 Hours (Table) 05/19/21 05/19/21 05/19/21 Range/Units 09:32 09:32 09:32 D-Dimer (<0.60) mg/L FEU Plasma Lactic Acid Leonard 2.7 H* (0.7-2.0) mmol/L Ferritin 1322.0 H (22.0-322.0) ng/mL Procalcitonin 0.18 H (0.02-0.09) ng/mL 05/20/21 Range/Units 06:32 D-Dimer 0.92 H (<0.60) mg/L FEU Plasma Lactic Acid Leonard (0.7-2.0) mmol/L Ferritin (22.0-322.0) ng/mL Procalcitonin (0.02-0.09) ng/mL
[2021-05-21] MEDS: dexAMETHasone 2 MG TAB PO SCH (08:17)
[2021-05-21] MEDS: CALCIUM CARBONATE 500 MG CHEWABLE PO SCH (08:17)
[2021-05-21] MEDS: ENOXAPARIN 40 MG/0.4 ML SYRINGE SQ SCH (08:17)
[2021-05-21] MEDS: CHOLECALCIFEROL 25 MCG (1000 IU) TABLET PO SCH (08:17)
[2021-05-21] MEDS: PANTOPRAZOLE 40 MG TABLET PO SCH ×2 (08:18→17:41)
[2021-05-21] MEDS: ZINC SULFATE 220 MG CAP PO SCH (08:18)
[2021-05-21] MEDS: ASCORBIC ACID 500 MG TAB PO SCH ×2 (08:18→20:29)
[2021-05-21] MEDS: ALBUTEROL HFA INHALER INHALATION PRN ×4 (08:32→22:15)
[2021-05-21] MEDS: ACETAMINOPHEN TAB 500 MG TAB PO PRN ×2 (09:05→17:41)
[2021-05-21] MEDS: IBUPROFEN 600 MG TAB PO PRN (10:13)
--- NOTE | 2021-05-21 11:43 | P.PN ---
Subjective Progress Note Date: 05/21/21 Principal diagnosis: covid infection In f/u today pt is significantly SOB with any exertion, he wears O2 after ambulating for recovery. His breathing is mildly labored at rest. No F,N,V, acute changes in bowel habits Objective - Vital Signs Vital signs: Vital Signs Temp 102.0 F H 05/21/21 10:05 Pulse 112 H 05/21/21 09:46 Resp 26 H 05/21/21 09:46 BP 130/72 05/21/21 09:46 Pulse Ox 96 05/21/21 09:46 Intake & Output 05/20/21 05/21/21 05/21/21 18:59 06:59 18:59 Intake Total 708 Balance 708 Intake: Oral 708 Other: # Voids 1 3 # Bowel Movements 1 - Constitutional General appearance: Present: average body habitus, cooperative, mild distress - EENT Eyes: Present: anicteric sclerae, EOMI ENT: Present: hearing grossly normal - Neurologic Neurologic: Present: CNII-XII intact (grossly) - Musculoskeletal Musculoskeletal: Present: strength equal bilaterally - Psychiatric Psychiatric: Present: A&O x's 3, appropriate affect, intact judgment & insight - Labs CBC & Chem 7: 05/20/21 06:32 05/20/21 06:32 Labs: Abnormal Lab Results - Last 24 Hours (Table) 05/20/21 05/20/21 05/20/21 Range/Units 06:32 06:32 06:32 ESR 53 H (0-15) mm/Hr Ferritin 1126.0 H (22.0-322.0) ng/mL IgG 401.0 L (700.0-1600.0) mg/dL Microbiology - Last 24 Hours (Table) 05/19/21 12:00 Blood Culture - Preliminary Blood No Growth after 24 hours 05/19/21 11:45 Blood Culture - Preliminary Blood No Growth after 24 hours - Imaging and Cardiology CT scan - chest: report reviewed Venous US: report reviewed Assessment and Plan (1) Hypogammaglobulinemia Narrative/Plan: Discussed case with PharmD. IgG 401. With acute infection, Hx of lymphoma, treatment for lymphoma giving pt a divided dose is clinically reasonable. Current Visit: Yes Status: Acute Priority: High Code(s): D80.1 - NONFAMILIAL HYPOGAMMAGLOBULINEMIA SNOMED Code(s): 103127074 (2) COVID Narrative/Plan: Pt is admitted for covid symptoms. He does not feel as good today as he did yesterday. He is being followed by Pulmonary and ID-defer mgmt of the same to them Current Visit: Yes Status: Acute Priority: High Code(s): U07.1 - COVID-19 SNOMED Code(s): 464615986 (3) Follicular lymphoma Narrative/Plan: Pt is on maintenance gazyva every other month. Next dose due end of Jun/early Jul. Cont f/u as scheduled. Appt with Dr. Hess in chart Current Visit: Yes Status: Chronic Priority: Medium Code(s): C82.90 - FOLLICULAR LYMPHOMA, UNSPECIFIED, UNSPECIFIED SITE SNOMED Code(s): 197388995 Plan: BLE doppler was neg for DVT. CTA was inconclusive, read by Pulmonary, no DVT. Pt continues on DVT prophylaxis.
--- NOTE | 2021-05-21 12:25 | P.PN ---
Subjective Progress Note Date: 05/21/21 Principal diagnosis: COVID-19 infection 35-year-old male seen in the emergency department yesterday with a history of non-Hodgkin some foam a, diffuse large B-cell lymphoma, who presents to the emergency department with fever, and mild shortness of breath. The patient did receive monoclonal antibody about 3-4 days prior to admission. He tested positive for coronavirus about 2 weeks ago. Over the last day or so prior to admission, he had elevated temperature, which she had a hard time controlling at home. In addition, his saturations at home were borderline. For that reason he came into the hospital to be evaluated. He was seen initially by the PA, and then was admitted to the hospital. Currently, he's on room air. His saturations are fine. He is not manifesting any signs or symptoms of respiratory distress. His chest x-ray was not particularly impressive, but his computed tomography scan did show diffuse bilateral patchy groundglass opacities consistent with coronavirus associated pneumonia. He was beyond the window for REM. White count 2.37, hemoglobin 11.8, hematocrit 36.5, platelet count 134,000. D-dimer was 0.9 to electrolytes were normal. Ferritin was 1126. Pro- calcitonin was 0.18. C-reactive protein was 7.3. LDH was 215. Chest x-ray and CT angiogram were evaluated. There is no evidence of pulmonary embolism. The patient is seen today 05/21/2021 in follow-up on the regular medical floor. He is currently sitting up in a chair at the bedside. Awake and alert in no acute distress. 18 O2 saturations in the mid 90s on room air. He is dyspneic with minimal exertion however. Currently afebrile with temperature of 102. Doppler of the lower extremities negative for DVT. CT angiogram negative for PE. Blood cultures revealing no growth. No new labs today. He is continued on Decadron, Lovenox, vitamin supplements. He is receiving IVIG for his hypogammaglobulinemia. 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 No ant ibiotics currently per ID services. Objective - Vital Signs Vital signs: Vital Signs Temp 102.0 F H 05/21/21 10:05 Pulse 112 H 05/21/21 09:46 Resp 26 H 05/21/21 09:46 BP 130/72 05/21/21 09:46 Pulse Ox 96 05/21/21 09:46 Intake & Output 05/20/21 05/21/21 05/21/21 18:59 06:59 18:59 Intake Total 708 Balance 708 Intake: Oral 708 Other: # Voids 1 3 # Bowel Movements 1 - Exam GENERAL EXAM: Alert, active, very pleasant 35-year-old gentleman, on room air, fairly comfortable in no apparent distress. HEAD: Normocephalic. EYES: Normal reaction of pupils, equal size. NOSE: Clear with pink turbinates. THROAT: No erythema or exudates. NECK: No masses, no JVD. CHEST: No chest wall deformity. LUNGS: Equal air entry with crackles in the right lung base CVS: S1 and S2 normal with no audible murmur, regular rhythm. ABDOMEN: No hepatosplenomegaly, normal bowel sounds, no guarding or rigidity. SPINE: No scoliosis or deformity SKIN: No rashes CENTRAL NERVOUS SYSTEM: No focal deficits, tone is normal in all 4 extremities. EXTREMITIES: There is no peripheral edema. No clubbing, no cyanosis. Peripheral pulses are intact. - Labs CBC & Chem 7: 05/20/21 06:32 05/20/21 06:32 Labs: Abnormal Lab Results - Last 24 Hours (Table) 05/20/21 05/20/21 05/20/21 Range/Units 06:32 06:32 06:32 ESR 53 H (0-15) mm/Hr Ferritin 1126.0 H (22.0-322.0) ng/mL IgG 401.0 L (700.0-1600.0) mg/dL Microbiology - Last 24 Hours (Table) 05/19/21 12:00 Blood Culture - Preliminary Blood No Growth after 24 hours 05/19/21 11:45 Blood Culture - Preliminary Blood No Growth after 24 hours Assessment and Plan Assessment: 1 Acute COVID-19 pneumonia, outside the window for Remdesivir, currently on room air 2 Diffuse large B-cell lymphoma. Status post 6 rounds of R CHOP chemotherapy, on immunotherapy 3 Hypogammaglobulinemia, receiving IVIG 4 History of gastroesophageal reflux disease 5 History of pancreatitis 6 History of ulcerative colitis. Plan: The patient is currently stable from the pulmonary standpoint, on room air Remains on Lovenox, Decadron, vitamin supplements Receiving IVIG Motrin for fevers We will continue to follow and make further recommendations based on his clinical status I, the cosigning physician, performed a history & physical examination of the patient. Lungs sounds with crackles in the right lung base. Maintaining good O2 saturations in the 90s on room air. I discussed the assessment and plan of care with my nurse practitioner, Ailyn Acosta. I attest to the above note as dictated by her.
--- NOTE | 2021-05-21 13:35 | P.PN ---
Subjective Progress Note Date: 05/21/21 HISTORY OF PRESENT ILLNESS 55-year-old male one of Dr. Rivera's patient with past medical history of non- Hodgkin lymphoma was diagnosed's past year who has history of Peter, history of pancreatitis, history of ulcerative colitis who was diagnosed with COVID-19 last week and had monoclonal antibiotic infusion. Patient had felt slightly but better till the lost 48 hours when he developed to have worsening symptom with worsening dyspnea and shortness of breath along with increased cough increased fever chills and generalized symptom with more fatigue and tiredness. Patient ended up coming to the emergency Department at [facility] where was seen and evaluated surprisingly his chest x-ray still showing Covid pneumonitis with fever running around 101. Patient was started on dexamethasone along with antibiotics to cover pneumonia his pulse ox is still running in the 90s when he doesn't exert himself patient will be admitted to the hospital will be seen hematology and pulmonary. Apparently patient had immunotherapy infusion this last week which can be contributing factor to was going on with his relapse from COVID-19 or worsening symptoms. Also patient been treated for non-Hodgkin lymphoma this last year which had brought his lymph node size down significantly. Patient also was told that he has moderately enlarged liver not explained with the? Off Peter. Patient has slightly higher diaphragm on the right side compared to the left side on his chest x-ray. 05/20: patient is not requiring oxygen and pulse ox is 94% on room air. He was running fevers yesterday and required IV Tylenol, Motrin [id number]. Fevers are improved today, heart rate 74, blood pressure 109/71.repeat blood work reveals WBC 2.3, hemoglobin 11.8, platelet count 134. D-dimer 0.92. Electrolytes and renal function normal. Calcium 7.6. ALT 69. Chest x-ray reveals patchy perihilar subsegmental infiltrate. Mediport catheter appears to be malpositioned and kinked. Correlate clinically. CTA of the chest reveals patchy and confluent bilateral groundglass, greatest in the lower lungs compatible with Covid pneumonia. Limited assessment for pulmonary embolus due to breathing motion. Equivocal for filling defects pulmonary emboli involving lobar and segmental branches of the left upper lobe. We favor breathing motion artifact. Consider short interval follow-up versus initiation of treatment depending on clinical suspicion. Partially visualized mid abdominal nii mesentery as seen on 11/22/2020. 05/21: Patient has been seen by Dr. Burns, patient is out of the therapeutic window for REM to severe and no evidence of secondary bacterial pneumonia, continue Decadron Lovenox think and vitamin C, droplet isolation. Patient is also seen by pulmonary medicine as well. Bilateral lower extremity ultrasound negative for DVT and thus CTA is inconclusive and patient is continued on DVT prophylaxis. IgG came back low at 401 and oncology as ordered immunoglobulin. Temperature max 102 this morning, heart rate 112, blood pressure 130/72, pulse ox 96% on room air. Patient is continued on Lovenox 40 mg subcu daily, dexamethasone 6 mg daily and vitamin supplements. Patient is reaching 1500 on incentive spirometry. REVIEW OF SYSTEMS Constitutional: Resolved fever and chills with night sweats, mild weight loss, generalized fatigue and tiredness no lethargy and daytime sleepiness. EENT: No headache. No blurred vision or double vision, no loss of vision. No loss of Hearing, no ringing in the ears, no dizziness. No nasal drainage or congestion. No epistaxis. No sore throat. Lungs: Denies shortness of breath with cough and wheezes with sputum production and worsening dyspnea with minimal exertion. Cardiovascular: No chest pain, no lower extremity edema. No palpitations. No paroxysmal nocturnal dyspnea. No orthopnea. No lightheadedness or dizziness. No syncopal episodes. Abdominal: Mild abdominal discomfort with nausea no vomiting positive loss of appetite no tarry stool mild constipation. Genitourinary: No dysuria, increased frequency, urgency. No urinary retention. Musculoskeletal: Positive myalgia and muscle achiness and discomfort. Integumentary: No wounds, no lesions. No rash or pruritus. No unusual bruising. Neurologic: No aphasia. No facial droop. No change in mentation. No head injury. No headache. No paralysis. No paresthesia. Psychiatric: No depression. No anxiety. No mood swings. Endocrine: No abnormal blood sugars. No weight change. No excessive sweating or thirst. No cold intolerance. PHYSICAL EXAMINATION Gen: This is a 35-year-old male resting in recliner and does not appear to be in any respiratory distress. HEENT: Head is atraumatic, normocephalic. Pupils equal, round. Sclerae is anicteric. NECK: Supple. No JVD. Positive lymphadenopathy. No thyromegaly. LUNGS: Decreased breath sound bilaterally with fine rhonchi positive mild crackles in the bases positive mild expiratory wheezes. HEART: Regular rate and rhythm. No murmur. ABDOMEN: Soft. Bowel sounds are present. Slight hepatomegaly with no rebound or rigidity. EXTREMITIES: No pedal edema. No calf tenderness. NEUROLOGICAL: Patient is awake, alert and oriented x3. Cranial nerves 2 through 12 are grossly intact. ASSESSMENT AND PLAN 1. Sepsis with SIRS: Multiple code to be factor from his lymphoma, chemoimmunotherapy, recent COVID-19 pneumonitis with worsening symptoms. Significantly elevated temperature with lactic acid of 2.7 chest x-ray showed patchy airspace up his station consistent with pneumonia specially COVID-19 pneumonitis. 2 mild respiratory distress without failure so far: Patient is having significant hypoxia with minimum exertion and continued to be symptomatic for COVID-19 pneumonitis, patient will be on O2, supportive care and updraft treatment. Pulmonary embolism has been ruled out. 3 COVID-19 pneumonitis: Patient had quite comorbidity despite using the monoclonal antibiotic infusion still sick his marker at this point with history to 1322, C-reactive protein 7.3, LDH was 595 and pro-calcitonin 0.18. Patient be seen pulmonary and infectious disease and possible still can benefit from [id number] treatment. 4. Fever. We'll continue to use acetaminophen 500 mg every 6 hours alternate with 600 mg of ibuprofen every 6 hours as needed. 5 lactic acidosis secondary to sepsis. 6. Non-Hodgkin lymphoma: Patient remain on active treatment he seen hematology regular basis. 7. Reactive airway/asthma: With worsening symptoms patient will be on updraft treatment regular basis along with O2 on dexamethasone. 8. Mild anxiety attacks: Remain on alprazolam on as needed basis. 9. GI prophylaxis: Patient will be on pantoprazole 40 mg twice a day while he still on the ibuprofen for now. 10. DVT prophylaxis: Patient will be on Lovenox 40 mg subcutaneous daily. CODE STATUS: Full code. DISCHARGE PLAN Home Impression and plan of care have been directed as dictated by the signing physician. Nevin Madera nurse practitioner acting as scribe for signing physici an. Objective - Vital Signs Vital signs: Vital Signs Temp 102.0 F H 05/21/21 10:05 Pulse 112 H 05/21/21 09:46 Resp 26 H 05/21/21 09:46 BP 130/72 05/21/21 09:46 Pulse Ox 96 05/21/21 09:46 Intake & Output 05/20/21 05/21/21 05/21/21 18:59 06:59 18:59 Intake Total 708 Balance 708 Intake: Oral 708 Other: # Voids 1 3 # Bowel Movements 1 - Labs CBC & Chem 7: 05/20/21 06:32 05/20/21 06:32 Labs: Abnormal Lab Results - Last 24 Hours (Table) 05/20/21 05/20/21 05/20/21 Range/Units 06:32 06:32 06:32 WBC 2.37 L (4.50-10.00) X 10*3/uL RBC 3.69 L (4.40-5.60) X 10*6/uL Hgb 11.8 L (13.0-17.0) g/dL Hct 36.5 L (39.6-50.0) % MCV 98.9 H (80.0-97.0) fL Plt Count 134 L (140-440) X 10*3/uL MPV 9.0 L (9.5-12.2) fL Lymphocytes # 0.15 L (0.90-5.00) X 10*3/uL Eosinophils # 0.01 L (0.04-0.35) X 10*3/uL ESR 53 H (0-15) mm/Hr BUN/Creatinine Ratio 10.10 L (12.00-20.00) Ratio Calcium 7.6 L (8.7-10.3) mg/dL Ferritin 1126.0 H (22.0-322.0) ng/mL ALT 69 H (10-49) U/L Total Protein 5.0 L (6.2-8.2) g/dL Albumin 3.4 L (3.8-4.9) g/dL IgG 401.0 L (700.0-1600.0) mg/dL Microbiology - Last 24 Hours (Table) 05/19/21 12:00 Blood Culture - Preliminary Blood No Growth after 24 hours 05/19/21 11:45 Blood Culture - Preliminary Blood No Growth after 24 hours
[2021-05-21] MEDS ORDERED: IMMUNE GLOBULIN (GAMMAGARD) 5 GM in EMPTY BAG 1 BAG IV NR (14:00)
[2021-05-21] MEDS ORDERED: IMMUNE GLOBULIN (GAMMAGARD) 20 GM in EMPTY BAG 1 BAG IV NR (14:00)
--- NOTE | 2021-05-21 22:17 | PN ---
PROGRESS NOTE DATE OF SERVICE: 05/21/2021 REASON FOR FOLLOWUP: COVID-19 pneumonia. INTERVAL HISTORY: The patient did have another fever this morning. However, the patient's overall fever pattern has improved and the patient has been breathing more comfortably. Still on room air. The patient denies having any chest pain or worsening cough. No nausea, no vomiting. No abdominal pain or diarrhea. PHYSICAL EXAMINATION: Blood pressure 120/79, pulse of 66, temperature 98. He is 95% on room air. General description is a middle-aged male up in the chair in no distress. RESPIRATORY SYSTEM: Unlabored breathing. Decreased intensity of breath sounds. No wheeze. HEART: S1, S2. Regular rate and rhythm. ABDOMEN: Soft. No tenderness. EXTREMITIES: No edema of the feet. LABS: Hemoglobin is 11.3, white count 2.37, creatinine 1.0. level was low. DIAGNOSTIC IMPRESSION AND PLAN: Patient with acute COVID-19 pneumonia in this patient with a mild illness, not hypoxic Solu-Medrol currently on dexamethasone, Lovenox, zinc and ascorbic acid; to continue along with respiratory support and monitor his clinical course closely. MMODL / IJN: [id number] /
[2021-05-22] MEDS: SODIUM CHLORIDE 0.9% 1,000 ML IV SCH ×3 (00:08→13:11)
[2021-05-22] MEDS: IBUPROFEN 600 MG TAB PO PRN ×3 (00:09→22:20)
[2021-05-22] MEDS: ACETAMINOPHEN TAB 500 MG TAB PO PRN ×2 (05:45→19:40)
[2021-05-22 06:51] LABS: Mycoplasma IgG Antibody (EIA) 0.1 INDEX (<=0.90); Mycoplasma IgM Antibody 0.03 INDEX (<=0.90)
[2021-05-22] MEDS: ALBUTEROL HFA INHALER INHALATION PRN ×4 (08:05→21:07)
[2021-05-22] MEDS: PANTOPRAZOLE 40 MG TABLET PO SCH ×2 (08:57→16:06)
[2021-05-22] MEDS: ZINC SULFATE 220 MG CAP PO SCH (08:57)
[2021-05-22] MEDS: CALCIUM CARBONATE 500 MG CHEWABLE PO SCH (08:57)
[2021-05-22] MEDS: CHOLECALCIFEROL 25 MCG (1000 IU) TABLET PO SCH (08:57)
[2021-05-22] MEDS: ASCORBIC ACID 500 MG TAB PO SCH ×2 (08:57→20:20)
[2021-05-22] MEDS: dexAMETHasone 2 MG TAB PO SCH (08:58)
[2021-05-22] MEDS: ENOXAPARIN 40 MG/0.4 ML SYRINGE SQ SCH (08:58)
--- NOTE | 2021-05-22 12:43 | P.PN ---
Subjective Progress Note Date: 05/22/21 Principal diagnosis: COVID-19 infection 35-year-old male seen in the emergency department yesterday with a history of non-Hodgkin some foam a, diffuse large B-cell lymphoma, who presents to the emergency department with fever, and mild shortness of breath. The patient did receive monoclonal antibody about 3-4 days prior to admission. He tested positive for coronavirus about 2 weeks ago. Over the last day or so prior to admission, he had elevated temperature, which she had a hard time controlling at home. In addition, his saturations at home were borderline. For that reason he came into the hospital to be evaluated. He was seen initially by the PA, and then was admitted to the hospital. Currently, he's on room air. His saturations are fine. He is not manifesting any signs or symptoms of respiratory distress. His chest x-ray was not particularly impressive, but his computed tomography scan did show diffuse bilateral patchy groundglass opacities consistent with coronavirus associated pneumonia. He was beyond the window for REM. White count 2.37, hemoglobin 11.8, hematocrit 36.5, platelet count 134,000. D-dimer was 0.9 to electrolytes were normal. Ferritin was 1126. Pro- calcitonin was 0.18. C-reactive protein was 7.3. LDH was 215. Chest x-ray and CT angiogram were evaluated. There is no evidence of pulmonary embolism. The patient is seen today 05/21/2021 in follow-up on the regular medical floor. He is currently sitting up in a chair at the bedside. Awake and alert in no acute distress. 18 O2 saturations in the mid 90s on room air. He is dyspneic with minimal exertion however. Currently afebrile with temperature of 102. Doppler of the lower extremities negative for DVT. CT angiogram negative for PE. Blood cultures revealing no growth. No new labs today. He is continued on Decadron, Lovenox, vitamin supplements. He is receiving IVIG for his hypogammaglobulinemia. 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 No ant ibiotics currently per ID services. The patient is seen today 05/22/2021 in follow-up on the regular medical floor. He is currently sitting up in a chair at the bedside. Awake and alert in no acute distress. No worsening shortness of breath. He has an occasional dry nonproductive cough and then he applies his oxygen. Currently in the 2% on room air. He is afebrile. Hemodynamically stable. Blood cultures reveal no growth. No new labs today. Remains on Decadron, Lovenox, vitamin supplements. He is requesting follow-up CoVID enis he was diagnosed 2 weeks ago. He is hoping to have visitors. Objective - Vital Signs Vital signs: Vital Signs Temp 98.1 F 05/22/21 10:00 Pulse 96 05/22/21 10:00 Resp 16 05/22/21 10:00 BP 131/77 05/22/21 10:00 Pulse Ox 93 L 05/22/21 10:00 Intake & Output 05/21/21 05/22/21 05/22/21 18:59 06:59 18:59 Intake Total 470 200 236 Balance 470 200 236 Intake: Intake, IV Titration 20 200 Amount Immune Globulin ( 20 200 Gammagard) 20 gm In Empty Bag 1 bag @ Titrate IV . Q0M NR Rx#:[id number] Oral 450 236 Other: # Voids 3 1 1 # Bowel Movements 1 - Exam GENERAL EXAM: Alert, active, very pleasant 35-year-old gentleman, on room air, fairly comfortable in no apparent distress. HEAD: Normocephalic. EYES: Normal reaction of pupils, equal size. NOSE: Clear with pink turbinates. THROAT: No erythema or exudates. NECK: No masses, no JVD. CHEST: No chest wall deformity. LUNGS: Equal air entry with crackles in the right lung base CVS: S1 and S2 normal with no audible murmur, regular rhythm. ABDOMEN: No hepatosplenomegaly, normal bowel sounds, no guarding or rigidity. SPINE: No scoliosis or deformity SKIN: No rashes CENTRAL NERVOUS SYSTEM: No focal deficits, tone is normal in all 4 extremities. EXTREMITIES: There is no peripheral edema. No clubbing, no cyanosis. Peripheral pulses are intact. - Labs CBC & Chem 7: 05/20/21 06:32 05/20/21 06:32 Labs: Microbiology - Last 24 Hours (Table) 05/19/21 11:45 Blood Culture - Preliminary Blood No Growth after 48 hours 05/19/21 12:00 Blood Culture - Preliminary Blood No Growth after 48 hours Assessment and Plan Assessment: 1 Acute COVID-19 pneumonia, outside the window for Remdesivir, currently on room air 2 Diffuse large B-cell lymphoma. Status post 6 rounds of R CHOP chemotherapy, on immunotherapy 3 Hypogammaglobulinemia, receiving IVIG 4 History of gastroesophageal reflux disease 5 History of pancreatitis 6 History of ulcerative colitis. Plan: The patient is currently stable from the pulmonary standpoint, on room air Follow-up CoVID testing per his request as it has been 2 weeks since symptoms Remains on Lovenox, Decadron, vitamin supplements Home once cleared by medicine I, the cosigning physician, performed a history & physical examination of the patient. Lungs sounds with crackles in the right lung base. Maintaining good O2 saturations in the 90s on room air. I discussed the assessment and plan of care with my nurse practitioner, Ailyn Acosta. I attest to the above note as dictated by her.
--- NOTE | 2021-05-22 13:06 | P.PN ---
Subjective Progress Note Date: 05/22/21 HISTORY OF PRESENT ILLNESS 55-year-old male one of Dr. Rivera's patient with past medical history of non- Hodgkin lymphoma was diagnosed's past year who has history of Peter, history of pancreatitis, history of ulcerative colitis who was diagnosed with COVID-19 last week and had monoclonal antibiotic infusion. Patient had felt slightly but better till the lost 48 hours when he developed to have worsening symptom with worsening dyspnea and shortness of breath along with increased cough increased fever chills and generalized symptom with more fatigue and tiredness. Patient ended up coming to the emergency Department at [facility] where was seen and evaluated surprisingly his chest x-ray still showing Covid pneumonitis with fever running around 101. Patient was started on dexamethasone along with antibiotics to cover pneumonia his pulse ox is still running in the 90s when he doesn't exert himself patient will be admitted to the hospital will be seen hematology and pulmonary. Apparently patient had immunotherapy infusion this last week which can be contributing factor to was going on with his relapse from COVID-19 or worsening symptoms. Also patient been treated for non-Hodgkin lymphoma this last year which had brought his lymph node size down significantly. Patient also was told that he has moderately enlarged liver not explained with the? Off Peter. Patient has slightly higher diaphragm on the right side compared to the left side on his chest x-ray. 05/20: patient is not requiring oxygen and pulse ox is 94% on room air. He was running fevers yesterday and required IV Tylenol, Motrin [id number]. Fevers are improved today, heart rate 74, blood pressure 109/71.repeat blood work reveals WBC 2.3, hemoglobin 11.8, platelet count 134. D-dimer 0.92. Electrolytes and renal function normal. Calcium 7.6. ALT 69. Chest x-ray reveals patchy perihilar subsegmental infiltrate. Mediport catheter appears to be malpositioned and kinked. Correlate clinically. CTA of the chest reveals patchy and confluent bilateral groundglass, greatest in the lower lungs compatible with Covid pneumonia. Limited assessment for pulmonary embolus due to breathing motion. Equivocal for filling defects pulmonary emboli involving lobar and segmental branches of the left upper lobe. We favor breathing motion artifact. Consider short interval follow-up versus initiation of treatment depending on clinical suspicion. Partially visualized mid abdominal nii mesentery as seen on 11/22/2020. 05/21: Patient has been seen by Dr. Burns, patient is out of the therapeutic window for REM to severe and no evidence of secondary bacterial pneumonia, continue Decadron Lovenox think and vitamin C, droplet isolation. Patient is also seen by pulmonary medicine as well. Bilateral lower extremity ultrasound negative for DVT and thus CTA is inconclusive and patient is continued on DVT prophylaxis. IgG came back low at 401 and oncology as ordered immunoglobulin. Temperature max 102 this morning, heart rate 112, blood pressure 130/72, pulse ox 96% on room air. Patient is continued on Lovenox 40 mg subcu daily, dexamethasone 6 mg daily and vitamin supplements. Patient is reaching 1500 on incentive spirometry. 05/22:patient's breathing status is currently stable. He states he had about a 20 minute period during the night where he was coughing and felt short of breath and ended up wearing oxygen for couple hours. He states his pulse ox dropped down to 90%. He is currently 93% on room air. Patient has been afebrile now for greater than 24 hours, heart rate 96, blood pressure 131/77. Patient is currently receiving immunoglobulin scheduled for this afternoon. Anticipate completing this this evening, plan for discharge home tomorrow. REVIEW OF SYSTEMS Constitutional: Resolved fever and chills with night sweats, mild weight loss, generalized fatigue and tiredness no lethargy and daytime sleepiness. EENT: No headache. No blurred vision or double vision, no loss of vision. No loss of Hearing, no ringing in the ears, no dizziness. No nasal drainage or congestion. No epistaxis. No sore throat. Lungs: Denies shortness of breath with cough and wheezes with sputum production and worsening dyspnea with minimal exertion. reports episode of shortness of breath during night. Cardiovascular: No chest pain, no lower extremity edema. No palpitations. No paroxysmal nocturnal dyspnea. No orthopnea. No lightheadedness or dizziness. No syncopal episodes. Abdominal: Mild abdominal discomfort with nausea no vomiting positive loss of appetite no tarry stool mild constipation. Genitourinary: No dysuria, increased frequency, urgency. No urinary retention. Musculoskeletal: Positive myalgia and muscle achiness and discomfort. Integumentary: No wounds, no lesions. No rash or pruritus. No unusual bruising . Neurologic: No aphasia. No facial droop. No change in mentation. No head injury. No headache. No paralysis. No paresthesia. Psychiatric: No depression. No anxiety. No mood swings. Endocrine: No abnormal blood sugars. No weight change. No excessive sweating or thirst. No cold intolerance. PHYSICAL EXAMINATION Gen: This is a 35-year-old male resting in recliner and does not appear to be in any respiratory distress. HEENT: Head is atraumatic, normocephalic. Pupils equal, round. Sclerae is anicteric. NECK: Supple. No JVD. Positive lymphadenopathy. No thyromegaly. LUNGS: Decreased breath sound bilaterally with fine rhonchi positive mild crackles in the bases positive mild expiratory wheezes. HEART: Regular rate and rhythm. No murmur. ABDOMEN: Soft. Bowel sounds are present. No rebound or rigidity. EXTREMITIES: No pedal edema. No calf tenderness. NEUROLOGICAL: Patient is awake, alert and oriented x3. Cranial nerves 2 through 12 are grossly intact. ASSESSMENT AND PLAN 1. Sepsis with SIRS: Multiple code to be factor from his lymphoma, chemoimmunotherapy, recent COVID-19 pneumonitis with worsening symptoms. Significantly elevated temperature with lactic acid of 2.7 chest x-ray showed patchy airspace up his station consistent with pneumonia specially COVID-19 pneumonitis. 2 mild respiratory distress without failure so far: Patient is having significant hypoxia with minimum exertion and continued to be symptomatic for COVID-19 pneumonitis, patient will be on O2, supportive care and updraft treatment. Pulmonary embolism has been ruled out. 3 COVID-19 pneumonitis: Patient had quite comorbidity despite using the monoclonal antibiotic infusion still sick his marker at this point with history to 1322, C-reactive protein 7.3, LDH was 595 and pro-calcitonin 0.18. Patient be seen pulmonary and infectious disease and possible still can benefit from [id number] treatment. 4. Fever. resolved 5 lactic acidosis secondary to sepsis. 6. Non-Hodgkin lymphoma: Patient remain on active treatment he seen hematology regular basis. immunoglobulin infusion. 7. Reactive airway/asthma: With worsening symptoms patient will be on updraft treatment regular basis along with O2 on dexamethasone. 8. Mild anxiety attacks: Remain on alprazolam on as needed basis. 9. GI prophylaxis: Patient will be on pantoprazole 40 mg twice a day while he still on the ibuprofen for now. 10. DVT prophylaxis: Patient will be on Lovenox 40 mg subcutaneous daily. CODE STATUS: Full code. DISCHARGE PLAN Home on . Impression and plan of care have been directed as dictated by the signing physician. Nevin Madera nurse practitioner acting as scribe for signing physician. Objective - Vital Signs Vital signs: Vital Signs Temp 98.1 F 05/22/21 10:00 Pulse 96 05/22/21 10:00 Resp 16 05/22/21 10:00 BP 131/77 05/22/21 10:00 Pulse Ox 93 L 05/22/21 10:00 Intake & Output 05/21/21 05/22/21 05/22/21 18:59 06:59 18:59 Intake Total 470 200 236 Balance 470 200 236 Intake: Intake, IV Titration 20 200 Amount Immune Globulin ( 20 200 Gammagard) 20 gm In Empty Bag 1 bag @ Titrate IV . Q0M NR Rx#:[id number] Oral 450 236 Other: # Voids 3 1 1 # Bowel Movements 1 - Labs CBC & Chem 7: 05/20/21 06:32 05/20/21 06:32 Labs: Microbiology - Last 24 Hours (Table) 05/19/21 11:45 Blood Culture - Preliminary Blood No Growth after 48 hours 05/19/21 12:00 Blood Culture - Preliminary Blood No Growth after 48 hours
--- NOTE | 2021-05-22 13:26 | P.PN ---
Subjective Progress Note Date: 05/22/21 Principal diagnosis: Increased Shortness of breath over night, states he feels more tightness in chest and complaints of subjective fevers that are not improved. He did receive 25grams IVIG yesterday, due for 25 grams today as well to help additional immune support. Oxygen 90-93% today. still up in chair. Objective - Vital Signs Vital signs: Vital Signs Temp 98.1 F 05/22/21 10:00 Pulse 96 05/22/21 10:00 Resp 16 05/22/21 10:00 BP 131/77 05/22/21 10:00 Pulse Ox 93 L 05/22/21 10:00 Intake & Output 05/21/21 05/22/21 05/22/21 18:59 06:59 18:59 Intake Total 470 200 236 Balance 470 200 236 Intake: Intake, IV Titration 20 200 Amount Immune Globulin ( 20 200 Gammagard) 20 gm In Empty Bag 1 bag @ Titrate IV . Q0M NR Rx#:[id number] Oral 450 236 Other: # Voids 3 1 1 # Bowel Movements 1 - Exam alert and oriented NAD Head: NCAT Mucus membranes dry Lungs: Rhonchi and bibasilar bilateral diminished Abd: soft Heart reg tachy - Labs CBC & Chem 7: 05/20/21 06:32 05/20/21 06:32 Labs: Microbiology - Last 24 Hours (Table) 05/19/21 11:45 Blood Culture - Preliminary Blood No Growth after 48 hours 05/19/21 12:00 Blood Culture - Preliminary Blood No Growth after 48 hours Assessment and Plan (1) Fever Current Visit: Yes Status: Acute Code(s): R50.9 - FEVER, UNSPECIFIED SNOMED Code(s): 857186065 (2) COVID Current Visit: Yes Status: Acute Priority: High Code(s): U07.1 - COVID-19 SNOMED Code(s): 239535283 (3) Lymphoma Current Visit: Yes Status: Acute Code(s): C85.90 - NON-HODGKIN LYMPHOMA, UNSPECIFIED, UNSPECIFIED SITE SNOMED Code(s): 953198296 (4) Pneumonia Current Visit: Yes Status: Acute Code(s): J18.9 - PNEUMONIA, UNSPECIFIED ORGANISM SNOMED Code(s): 934944526 (5) Shortness of breath Current Visit: Yes Status: Acute Code(s): R06.02 - SHORTNESS OF BREATH SNOMED Code(s): 315505345 Plan: Assessment and Recommendations: Acute Respiratory Distress, Fever, Post Covid Pneumonia: - Recent positive test - Received Regeneron and improved, then recurrent high fevers and worsening respiratory symptoms - Infectious disease to follow, Pulmonary to Follow are recommended - Status post 25 grams of IVIG and will receive additional 25grams today for additional immune support Repeat Chest xray for worsening shortness of breath. Add tessalon pearls Continue supportive care
--- NOTE | 2021-05-22 13:54 | XR ---
EXAMINATION TYPE: XR chest 1V portable DATE OF EXAM: 05/22/2021 COMPARISON: Chest x-ray 05/20/2021 HISTORY: Covert, cough, pneumonia TECHNIQUE: Single frontal view of the chest is obtained. FINDINGS: Patchy densities more conspicuous bilaterally. Port is stable, distal tip of the catheters overlying the superior vena cava, has flipped from a cephalad direction to caudal in the interval. N o evident pneumothorax or pleural effusion. Cardiac mediastinal silhouette is within normal limits. L florentin volumes are low. Right hemidiaphragm remains elevated. IMPRESSION: Correlate for pneumonia.
[2021-05-22] MEDS ORDERED: IMMUNE GLOBULIN (GAMMAGARD) 20 GM in EMPTY BAG 1 BAG IV NR (14:00)
[2021-05-22] MEDS ORDERED: IMMUNE GLOBULIN (GAMMAGARD) 5 GM in EMPTY BAG 1 BAG IV NR (14:00)
[2021-05-22 14:49] LABS: Basophils % (A) 0 %; Eosinophils % (A) 0 %; HCT 36.3 % (39.0-53.0); HGB 12.2 gm/dL (13.0-17.5); Lymphocytes # (A) 0.1 k/uL (1.0-4.8); Lymphocytes % (A) 1 %; MCH 32.3 pg (25.0-35.0); MCHC 33.6 g/dL (31.0-37.0); MCV 96.1 fL (80.0-100.0); Monocytes # (A) 0.2 k/uL (0-1.0); Monocytes % (A) 3 %; Neutrophils # (A) 5.6 k/uL (1.3-7.7); Neutrophils % (A) 96 %; Platelet Count 144 k/uL (150-450); RBC 3.78 m/uL (4.30-5.90); WBC 5.8 k/uL (3.8-10.6)
[2021-05-22 15:01] LABS: ALT 79 U/L (4-49); AST 72 U/L (17-59); African American GFR (CKD) >90 (>60 ml/min/1.73 sqM); Albumin 3.6 g/dL (3.5-5.0); Albumin/Globulin Ratio 1.2; Alkaline Phosphatase 78 U/L (38-126); Anion Gap 9 mmol/L; Blood Urea Nitrogen 11 mg/dL (9-20); Calcium 8.2 mg/dL (8.4-10.2); Carbon Dioxide 23 mmol/L (22-30); Chloride 105 mmol/L (98-107); Globulin 2.9 g/dL; Glucose 128 mg/dL (74-99); LDH 747 U/L (313-618); Non-African American GFR(CKD) >90 (>60 ml/min/1.73 sqM); Potassium 3.9 mmol/L (3.5-5.1); Sodium 137 mmol/L (137-145); Total Bilirubin 0.4 mg/dL (0.2-1.3); Total Protein 6.5 g/dL (6.3-8.2); Uric Acid 3.3 mg/dL (3.5-8.5)
--- NOTE | 2021-05-22 23:54 | PN ---
PROGRESS NOTE REASON FOR FOLLOWUP: Covid 19 pneumonia. INTERVAL HISTORY: The patient is afebrile. Did have a problem with shortness of breath and cough this morning. Did well this afternoon. The patient denies having any chest pain. Cough has been mostly dry in nature. No nausea, no vomiting. No abdominal pain. No diarrhea. PHYSICAL EXAMINATION: Blood pressure 137/81 with a pulse of 90, temperature 99.6. He is 96% on room air. General description is a middle-aged male lying in bed in no distress. Respiratory system: Unlabored breathing, decreased intensity of breath sounds. No wheeze. Heart S1, S2. Regular rate and rhythm. Abdomen soft, no tenderness. LABS: Hemoglobin 12.1, white count of 5.8, creatinine 0.81. DIAGNOSTIC IMPRESSION AND PLAN: Patient with acute COVID-19 pneumonia in this patient currently covered with dexamethasone, Lovenox, zinc and ascorbic acid, respiratory support and monitor clinical course closely. Continue supportive care. MMODL / IJN: [id number] /
[2021-05-23] MEDS: ACETAMINOPHEN TAB 500 MG TAB PO PRN ×2 (05:00→19:25)
[2021-05-23] MEDS: IBUPROFEN 600 MG TAB PO PRN ×2 (07:03→21:04)
[2021-05-23] MEDS: ALBUTEROL HFA INHALER INHALATION PRN ×4 (07:46→20:34)
[2021-05-23] MEDS: dexAMETHasone 2 MG TAB PO SCH (09:39)
[2021-05-23] MEDS: ZINC SULFATE 220 MG CAP PO SCH (09:39)
[2021-05-23] MEDS: PANTOPRAZOLE 40 MG TABLET PO SCH ×2 (09:39→16:54)
[2021-05-23] MEDS: ENOXAPARIN 40 MG/0.4 ML SYRINGE SQ SCH (09:39)
[2021-05-23] MEDS: CHOLECALCIFEROL 25 MCG (1000 IU) TABLET PO SCH (09:39)
[2021-05-23] MEDS: ASCORBIC ACID 500 MG TAB PO SCH ×2 (09:39→21:07)
[2021-05-23] MEDS: CALCIUM CARBONATE 500 MG CHEWABLE PO SCH (09:40)
--- NOTE | 2021-05-23 10:31 | ECHOF ---
Referral Reason:right pressure MEASUREMENTS -------- HEIGHT: 180.3 cm WEIGHT: 108.9 kg BP: RVIDd: 2.5 cm (< 3.3) IVSd: 1.5 cm (0.6 - 1.1) LVIDd: 4.2 cm (3.9 - 5.3) LVPWd: 1.7 cm (0.6 - 1.1) IVSs: 2.2 cm LVIDs: 1.5 cm LVPWs: 1.8 cm Ao Diam: 3.6 cm (2.0 - 3.7) AV Cusp: 2.2 cm (1.5 - 2.6) LA Diam: 3.3 cm (2.7 - 3.8) MV EXCURSION: 18.069 mm (> 18.000) MV EF SLOPE: 107 mm/s (70 - 150) EPSS: 0.8 cm MV E David: 0.71 m/s MV DecT: 193 ms MV A David: 0.53 m/s MV E/A Ratio: 1.34 RAP: 5.00 mmHg RVSP: 22.32 mmHg FINDINGS -------- This was a technically adequate study. The left ventricular size is normal. There is moderate concentric left ventricular hypertrophy. O verall left ventricular systolic function is normal with, an EF between 55 - 60 %. The right ventricle is normal in size. The left atrial size is normal. The right atrial size is normal. The aortic valve is trileaflet and appears structurally normal. The mitral valve is normal. There is trace mitral regurgitation. The tricuspid valve appears structurally normal. Trace tricuspid regurgitation present. Right damian tricular systolic pressure is normal at < 35 mmHg. There is no pulmonic regurgitation present. The aortic root size is normal. Normal inferior vena cava with normal inspiratory collapse consistent with estimated right atrial pre ssure of 5 mmHg. There is a trivial pericardial effusion present. CONCLUSIONS -------- 1. The left ventricular size is normal. 2. There is moderate concentric left ventricular hypertrophy. 3. Overall left ventricular systolic function is normal with, an EF between 55 - 60 %. 4. There is trace mitral regurgitation. 5. Trace tricuspid regurgitation present. 6. There is a trivial pericardial effusion present. [employer]IP INSPECTOR: Misti Aquino RDCS
--- NOTE | 2021-05-23 12:18 | XR ---
EXAMINATION TYPE: XR chest 1V portable DATE OF EXAM: 05/23/2021 COMPARISON: NONE HISTORY: Cough TECHNIQUE: Single frontal view of the chest is obtained. FINDINGS: Bilateral perihilar patchy infiltrates. Limited inspiration. Heart size normal. Mediport c atheter stable. No pneumothorax. Tiny pleural effusions. IMPRESSION: Stable bilateral pleural effusion
--- NOTE | 2021-05-23 13:27 | P.PN ---
Subjective Progress Note Date: 05/23/21 Principal diagnosis: COVID-19 infection 35-year-old male seen in the emergency department yesterday with a history of non-Hodgkin some foam a, diffuse large B-cell lymphoma, who presents to the emergency department with fever, and mild shortness of breath. The patient did receive monoclonal antibody about 3-4 days prior to admission. He tested positive for coronavirus about 2 weeks ago. Over the last day or so prior to admission, he had elevated temperature, which she had a hard time controlling at home. In addition, his saturations at home were borderline. For that reason he came into the hospital to be evaluated. He was seen initially by the PA, and then was admitted to the hospital. Currently, he's on room air. His saturations are fine. He is not manifesting any signs or symptoms of respiratory distress. His chest x-ray was not particularly impressive, but his computed tomography scan did show diffuse bilateral patchy groundglass opacities consistent with coronavirus associated pneumonia. He was beyond the window for REM. White count 2.37, hemoglobin 11.8, hematocrit 36.5, platelet count 134,000. D-dimer was 0.9 to electrolytes were normal. Ferritin was 1126. Pro- calcitonin was 0.18. C-reactive protein was 7.3. LDH was 215. Chest x-ray and CT angiogram were evaluated. There is no evidence of pulmonary embolism. The patient is seen today 05/21/2021 in follow-up on the regular medical floor. He is currently sitting up in a chair at the bedside. Awake and alert in no acute distress. 18 O2 saturations in the mid 90s on room air. He is dyspneic with minimal exertion however. Currently afebrile with temperature of 102. Doppler of the lower extremities negative for DVT. CT angiogram negative for PE. Blood cultures revealing no growth. No new labs today. He is continued on Decadron, Lovenox, vitamin supplements. He is receiving IVIG for his hypogammaglobulinemia. 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 No ant ibiotics currently per ID services. The patient is seen today 05/22/2021 in follow-up on the regular medical floor. He is currently sitting up in a chair at the bedside. Awake and alert in no acute distress. No worsening shortness of breath. He has an occasional dry nonproductive cough and then he applies his oxygen. Currently in the 2% on room air. He is afebrile. Hemodynamically stable. Blood cultures reveal no growth. No new labs today. Remains on Decadron, Lovenox, vitamin supplements. He is requesting follow-up Luke mcnamara he was diagnosed 2 weeks ago. He is hoping to have visitors. The patient is seen today 05/23/2021 in follow-up on the regular medical floor. He is awake and alert in no acute distress. Sitting up in chair at the bedside. Having some increasing cough, congestion, dyspnea on minimal exertion. O2 saturation room air 90%. Improved on 4 L nasal cannula. He is currently afebrile though did have a temperature again early this morning at 101.5. X-ray showing bilateral patchy infiltrates. Follow-up rapid coronavirus test positive still. He remains on Decadron, Lovenox, vitamin supplements. He is received IVIG yesterday. Objective - Vital Signs Vital signs: Vital Signs Temp 98.3 F 05/23/21 09:14 Pulse 92 05/23/21 09:14 Resp 18 05/23/21 09:14 BP 122/73 05/23/21 09:14 Pulse Ox 90 L 05/23/21 09:14 Intake & Output 05/22/21 05/23/21 05/23/21 18:59 06:59 18:59 Intake Total 708 Balance 708 Intake: Oral 708 Other: Voiding Method Toilet # Voids 1 2 # Bowel Movements 1 - Exam GENERAL EXAM: Alert, active, very pleasant 35-year-old gentleman, on 4L, fairly comfortable in no apparent distress. HEAD: Normocephalic. EYES: Normal reaction of pupils, equal size. NOSE: Clear with pink turbinates. THROAT: No erythema or exudates. NECK: No masses, no JVD. CHEST: No chest wall deformity. LUNGS: Equal air entry with crackles in the right lung base CVS: S1 and S2 normal with no audible murmur, regular rhythm. ABDOMEN: No hepatosplenomegaly, normal bowel sounds, no guarding or rigidity. SPINE: No scoliosis or deformity SKIN: No rashes CENTRAL NERVOUS SYSTEM: No focal deficits, tone is normal in all 4 extremities. EXTREMITIES: There is no peripheral edema. No clubbing, no cyanosis. Peripheral pulses are intact. - Labs CBC & Chem 7: 05/22/21 14:17 05/22/21 14:17 Labs: Abnormal Lab Results - Last 24 Hours (Table) 05/22/21 05/22/21 05/23/21 Range/Units 14:17 14:17 12:41 RBC 3.78 L (4.30-5.90) m/uL Hgb 12.2 L (13.0-17.5) gm/dL Hct 36.3 L (39.0-53.0) % Plt Count 144 L (150-450) k/uL Lymphocytes # 0.1 L (1.0-4.8) k/uL Glucose 128 H (74-99) mg/dL Uric Acid 3.3 L (3.5-8.5) mg/dL Calcium 8.2 L (8.4-10.2) mg/dL AST 72 H (17-59) U/L ALT 79 H (4-49) U/L Lactate Dehydrogenase 747 H (313-618) U/L Coronavirus (PCR) Detected A (Not Detectd) Microbiology - Last 24 Hours (Table) 05/19/21 11:45 Blood Culture - Preliminary Blood No Growth after 72 hours 05/19/21 12:00 Blood Culture - Preliminary Blood No Growth after 72 hours Assessment and Plan Assessment: 1 Acute COVID-19 pneumonia, outside the window for Remdesivir, currently on liters nasal cannula 2 Diffuse large B-cell lymphoma. Status post 6 rounds of R CHOP chemotherapy, on immunotherapy 3 Hypogammaglobulinemia, receiving IVIG 4 History of gastroesophageal reflux disease 5 History of pancreatitis 6 History of ulcerative colitis. Plan: Chest x-ray reveals bilateral patchy infiltrates Rapid CoVID 19 screen still positive Remains on Lovenox, Decadron, vitamin supplements We will continue to follow and make further recommendations based on his cl inical status I, the cosigning physician, performed a history & physical examination of the patient. Lungs sounds with crackles in the bases. Maintaining good O2 saturations in the 90s on 4 L/m per nasal. I discussed the assessment and plan of care with my nurse practitioner, Ailyn Acosta. I attest to the above note as dictated by her.
--- NOTE | 2021-05-23 13:56 | P.PN ---
Subjective Progress Note Date: 05/23/21 HISTORY OF PRESENT ILLNESS 55-year-old male one of Dr. Rivera's patient with past medical history of non- Hodgkin lymphoma was diagnosed's past year who has history of Peter, history of pancreatitis, history of ulcerative colitis who was diagnosed with COVID-19 last week and had monoclonal antibiotic infusion. Patient had felt slightly but better till the lost 48 hours when he developed to have worsening symptom with worsening dyspnea and shortness of breath along with increased cough increased fever chills and generalized symptom with more fatigue and tiredness. Patient ended up coming to the emergency Department at [facility] where was seen and evaluated surprisingly his chest x-ray still showing Covid pneumonitis with fever running around 101. Patient was started on dexamethasone along with antibiotics to cover pneumonia his pulse ox is still running in the 90s when he doesn't exert himself patient will be admitted to the hospital will be seen hematology and pulmonary. Apparently patient had immunotherapy infusion this last week which can be contributing factor to was going on with his relapse from COVID-19 or worsening symptoms. Also patient been treated for non-Hodgkin lymphoma this last year which had brought his lymph node size down significantly. Patient also was told that he has moderately enlarged liver not explained with the? Off Peter. Patient has slightly higher diaphragm on the right side compared to the left side on his chest x-ray. 05/20: patient is not requiring oxygen and pulse ox is 94% on room air. He was running fevers yesterday and required IV Tylenol, Motrin [id number]. Fevers are improved today, heart rate 74, blood pressure 109/71.repeat blood work reveals WBC 2.3, hemoglobin 11.8, platelet count 134. D-dimer 0.92. Electrolytes and renal function normal. Calcium 7.6. ALT 69. Chest x-ray reveals patchy perihilar subsegmental infiltrate. Mediport catheter appears to be malpositioned and kinked. Correlate clinically. CTA of the chest reveals patchy and confluent bilateral groundglass, greatest in the lower lungs compatible with Covid pneumonia. Limited assessment for pulmonary embolus due to breathing motion. Equivocal for filling defects pulmonary emboli involving lobar and segmental branches of the left upper lobe. We favor breathing motion artifact. Consider short interval follow-up versus initiation of treatment depending on clinical suspicion. Partially visualized mid abdominal nii mesentery as seen on 11/22/2020. 05/21: Patient has been seen by Dr. Burns, patient is out of the therapeutic window for REM to severe and no evidence of secondary bacterial pneumonia, continue Decadron Lovenox think and vitamin C, droplet isolation. Patient is also seen by pulmonary medicine as well. Bilateral lower extremity ultrasound negative for DVT and thus CTA is inconclusive and patient is continued on DVT prophylaxis. IgG came back low at 401 and oncology as ordered immunoglobulin. Temperature max 102 this morning, heart rate 112, blood pressure 130/72, pulse ox 96% on room air. Patient is continued on Lovenox 40 mg subcu daily, dexamethasone 6 mg daily and vitamin supplements. Patient is reaching 1500 on incentive spirometry. 05/22:patient's breathing status is currently stable. He states he had about a 20 minute period during the night where he was coughing and felt short of breath and ended up wearing oxygen for couple hours. He states his pulse ox dropped down to 90%. He is currently 93% on room air. Patient has been afebrile now for greater than 24 hours, heart rate 96, blood pressure 131/77. Patient is currently receiving immunoglobulin scheduled for this afternoon. Anticipate completing this this evening, plan for discharge home tomorrow. 05/23: Anticipated that the patient would be ready for discharge today but unfortunately the patient has increased oxygen needs are currently on 4 L nasal cannula with pulse ox of 90%. He also has increasing cough and he feels short of breath with dyspnea on minimal exertion area and He did have a fever this morning of 101.5. Heart rate 92. Blood pressure 122/73. Patient has completed immunoglobulin infusion. Repeat chest x-ray ordered which shows stable bilateral pleural effusion. REVIEW OF SYSTEMS Constitutional: Reports fever and chills with night sweats, mild weight loss, generalized fatigue and tiredness no lethargy and daytime sleepiness. EENT: No headache. No blurred vision or double vision, no loss of vision. No loss of Hearing, no ringing in the ears, no dizziness. No nasal drainage or congestion. No epistaxis. No sore throat. Lungs: Denies shortness of breath with cough and wheezes with sputum production and worsening dyspnea with minimal exertion. reports episode of shortness of breath during night. Cardiovascular: No chest pain, no lower extremity edema. No palpitations. No paroxysmal nocturnal dyspnea. No orthopnea. No lightheadedness or dizziness. No syncopal episodes. Abdominal: Mild abdominal discomfort with nausea no vomiting positive loss of appetite no tarry stool mild constipation. Genitourinary: No dysuria, increased frequency, urgency. No urinary retention. Musculoskeletal: Positive myalgia and muscle achiness and discomfort. Integumentary: No wounds, no lesions. No rash or pruritus. No unusual bruising. Neurologic: No aphasia. No facial droop. No change in mentation. No head injury. No headache. No paralysis. No paresthesia. Psychiatric: No depression. No anxiety. No mood swings. Endocrine: No abnormal blood sugars. No weight change. PHYSICAL EXAMINATION Gen: This is a 35-year-old male resting in recliner and appears to be in very mild respiratory distress. HEENT: Head is atraumatic, normocephalic. Pupils equal, round. Sclerae is anicteric. NECK: Supple. No JVD. Positive lymphadenopathy. No thyromegaly. LUNGS: Decreased breath sound bilaterally with fine rhonchi positive mild crackles in the bases positive mild expiratory wheezes. HEART: Regular rate and rhythm. No murmur. ABDOMEN: Soft. Bowel sounds are present. No rebound or rigidity. EXTREMITIES: No pedal edema. No calf tenderness. NEUROLOGICAL: Patient is awake, alert and oriented x3. Cranial nerves 2 through 12 are grossly intact. ASSESSMENT AND PLAN 1. Sepsis with SIRS: Multiple code to be factor from his lymphoma, chemoimmunotherapy, recent COVID-19 pneumonitis with worsening symptoms. Significantly elevated temperature with lactic acid of 2.7 chest x-ray showed patchy airspace up his station consistent with pneumonia specially COVID-19 pneumonitis. 2 acute hypoxic respiratory failure requiring O2 at 4 L secondary to COVID-19 pneumonitis, patient will be on O2, supportive care and updraft treatment. Pulmonary embolism has been ruled out. 3 COVID-19 pneumonitis: Patient had quite comorbidity despite using the monoclonal antibiotic infusion still sick his marker at this point with history to 1322, C-reactive protein 7.3, LDH was 595 and pro-calcitonin 0.18. Patient be seen pulmonary and infectious disease and possible still can benefit from [id number] treatment. 4. Fever. Continue Tylenol 5 lactic acidosis secondary to sepsis. 6. Non-Hodgkin lymphoma: Patient remain on active treatment he seen hematology regular basis. immunoglobulin infusion. 7. Reactive airway/asthma: With worsening symptoms patient will be on updraft treatment regular basis along with O2 on dexamethasone. 8. Mild anxiety attacks: Remain on alprazolam on as needed basis. 9. GI prophylaxis: Patient will be on pantoprazole 40 mg twice a day while he still on the ibuprofen for now. 10. DVT prophylaxis: Patient will be on Lovenox 40 mg subcutaneous daily. CODE STATUS: Full code. DISCHARGE PLAN Home Impression and plan of care have been directed as dictated by the signing physician. Nevin Madera nurse practitioner acting as scribe for signing physician. Objective - Vital Signs Vital signs: Vital Signs Temp 98.3 F 05/23/21 09:14 Pulse 92 05/23/21 09:14 Resp 18 05/23/21 09:14 BP 122/73 05/23/21 09:14 Pulse Ox 90 L 05/23/21 09:14 Intake & Output 05/22/21 05/23/21 05/23/21 18:59 06:59 18:59 Intake Total 708 Balance 708 Intake: Oral 708 Other: Voiding Method Toilet # Voids 1 2 # Bowel Movements 1 - Labs CBC & Chem 7: 05/22/21 14:17 05/22/21 14:17 Labs: Abnormal Lab Results - Last 24 Hours (Table) 05/22/21 05/22/21 Range/Units 14:17 14:17 RBC 3.78 L (4.30-5.90) m/uL Hgb 12.2 L (13.0-17.5) gm/dL Hct 36.3 L (39.0-53.0) % Plt Count 144 L (150-450) k/uL Lymphocytes # 0.1 L (1.0-4.8) k/uL Glucose 128 H (74-99) mg/dL Uric Acid 3.3 L (3.5-8.5) mg/dL Calcium 8.2 L (8.4-10.2) mg/dL AST 72 H (17-59) U/L ALT 79 H (4-49) U/L Lactate Dehydrogenase 747 H (313-618) U/L Microbiology - Last 24 Hours (Table) 05/19/21 11:45 Blood Culture - Preliminary Blood No Growth after 72 hours 05/19/21 12:00 Blood Culture - Preliminary Blood No Growth after 72 hours
[2021-05-23 14:00] VITALS: BMI 34.4
--- NOTE | 2021-05-23 14:30 | P.PN ---
Subjective Progress Note Date: 05/23/21 Principal diagnosis: Increased Shortness of breath over night, states he feels more tightness in chest and complaints of subjective fevers that are not improved. He did receive 25grams IVIG yesterday, due for 25 grams today as well to help additional immune support. Objective - Vital Signs Vital signs: Vital Signs Temp 98.3 F 05/23/21 09:14 Pulse 92 05/23/21 09:14 Resp 18 05/23/21 09:14 BP 122/73 05/23/21 09:14 Pulse Ox 90 L 05/23/21 09:14 Intake & Output 05/22/21 05/23/21 05/23/21 18:59 06:59 18:59 Intake Total 708 Balance 708 Weight 108.862 kg Intake: Oral 708 Other: Voiding Method Toilet # Voids 1 2 # Bowel Movements 1 - Exam alert and oriented NAD Head: NCAT Mucus membranes dry Lungs: Rhonchi and bibasilar bilateral diminished Abd: soft Heart reg tachy - Labs CBC & Chem 7: 05/22/21 14:17 05/22/21 14:17 Labs: Abnormal Lab Results - Last 24 Hours (Table) 05/22/21 05/22/21 05/23/21 Range/Units 14:17 14:17 12:41 RBC 3.78 L (4.30-5.90) m/uL Hgb 12.2 L (13.0-17.5) gm/dL Hct 36.3 L (39.0-53.0) % Plt Count 144 L (150-450) k/uL Lymphocytes # 0.1 L (1.0-4.8) k/uL Glucose 128 H (74-99) mg/dL Uric Acid 3.3 L (3.5-8.5) mg/dL Calcium 8.2 L (8.4-10.2) mg/dL AST 72 H (17-59) U/L ALT 79 H (4-49) U/L Lactate Dehydrogenase 747 H (313-618) U/L Coronavirus (PCR) Detected A (Not Detectd) Microbiology - Last 24 Hours (Table) 05/19/21 11:45 Blood Culture - Preliminary Blood No Growth after 96 hours 05/19/21 12:00 Blood Culture - Preliminary Blood No Growth after 96 hours Assessment and Plan (1) Fever Current Visit: Yes Status: Acute Code(s): R50.9 - FEVER, UNSPECIFIED SNOMED Code(s): 057430790 (2) COVID Current Visit: Yes Status: Acute Priority: High Code(s): U07.1 - COVID-19 SNOMED Code(s): 991587167 (3) Lymphoma Current Visit: Yes Status: Acute Code(s): C85.90 - NON-HODGKIN LYMPHOMA, UNSPECIFIED, UNSPECIFIED SITE SNOMED Code(s): 699734504 (4) Pneumonia Current Visit: Yes Status: Acute Code(s): J18.9 - PNEUMONIA, UNSPECIFIED ORGANISM SNOMED Code(s): 875183817 (5) Shortness of breath Current Visit: Yes Status: Acute Code(s): R06.02 - SHORTNESS OF BREATH SNOMED Code(s): 583460129 Plan: Assessment and Recommendations: Acute Respiratory Distress, Fever, Post Covid Pneumonia: - Recent positive test - Received Regeneron and improved, then recurrent high fevers and worsening respiratory symptoms - Infectious disease to follow, Pulmonary to Follow are recommended - Status post 2/2 25 grams of IVIG for additional immune support He would like clearance from ID for visitors if possible PCR ordered at his request but will need ID for clearance physician Attest: I have completed the full history and physical and agree with above dictation, dictated as a ascribe.
--- NOTE | 2021-05-23 22:40 | PN ---
PROGRESS NOTE DATE OF SERVICE: 05/23/2021 REASON FOR FOLLOWUP: COVID-19 pneumonia. INTERVAL HISTORY: The patient is afebrile, breathing slightly comfortably. Denies any chest pain. Continues to have a cough, not bringing up any sputum. No vomiting. No abdominal pain or diarrhea. PHYSICAL EXAMINATION: Blood pressure 129/74, pulse of 74, temperature 98.4. He is 94% 4 L nasal cannula. General description is a middle-aged male up in the chair in no distress. RESPIRATORY SYSTEM: Unlabored breathing. Decreased intensity of breath sounds. No wheeze. HEART: S1, S2. Regular rate and rhythm. ABDOMEN: Soft. No tenderness. EXTREMITIES: No edema of the feet. LABS: Hemoglobin is 12.1, white count of 5.8, BUN of 11, creatinine 0.81. DIAGNOSTIC IMPRESSION AND PLAN: Patient with acute COVID-19 pneumonia; did have slight worsening of his condition. Patient is not within therapeutic window for remdesivir but not baricitinib but currently patient is covered with dexamethasone, Lovenox, zinc and ascorbic acid; to continue. Repeat the inflammatory markers tomorrow and monitor his clinical course closely. MMODL / IJN: [id number] /
[2021-05-24] MEDS: ACETAMINOPHEN TAB 500 MG TAB PO PRN ×2 (04:00→16:41)
[2021-05-24] MEDS: IBUPROFEN 600 MG TAB PO PRN ×3 (05:57→21:41)
[2021-05-24] MEDS: ALBUTEROL HFA INHALER INHALATION PRN ×4 (07:40→20:48)
[2021-05-24] MEDS: ENOXAPARIN 40 MG/0.4 ML SYRINGE SQ SCH (08:56)
[2021-05-24] MEDS: PANTOPRAZOLE 40 MG TABLET PO SCH ×2 (08:57→16:41)
[2021-05-24] MEDS: dexAMETHasone 2 MG TAB PO SCH (08:57)
[2021-05-24] MEDS: CHOLECALCIFEROL 25 MCG (1000 IU) TABLET PO SCH ×2 (08:57→16:41)
[2021-05-24] MEDS: CALCIUM CARBONATE 500 MG CHEWABLE PO SCH (08:58)
[2021-05-24] MEDS: ALPRAZolam 0.25 MG TAB PO PRN (08:58)
[2021-05-24] MEDS: ASCORBIC ACID 500 MG TAB PO SCH ×2 (08:58→21:41)
[2021-05-24] MEDS: ZINC SULFATE 220 MG CAP PO SCH (08:58)
[2021-05-24 10:20] LABS: C Reactive Protein 13.4 mg/dL (<1.0)
--- NOTE | 2021-05-24 11:23 | CT ---
EXAMINATION TYPE: CT angio chest DATE OF EXAM: 05/24/2021 11:12 AM COMPARISON: 05/20/2021 HISTORY: hypoxia, r/o PE CT DLP: 595.3 mGycm Automated exposure control for dose reduction was used. CONTRAST: CTA scan of the thorax is performed with IV Contrast, patient injected with 100 mL of Isovue 370, pul monary embolism protocol. . FINDINGS: There are diffuse patchy bilateral areas of infiltrate. Heart size is prominent. Exam limited by kathe fact and motion. Correlate for fatty infiltration of the liver. Aorta of normal caliber. Trace of pericardial fluid seen in the superior pericardial recess. Assessment of the pulmonary arteries is limited due to motion. Grossly no central pulmonary embolism. Distal branches is limited. Mediport catheter noted. Bones: No osseous destructive process. IMPRESSION: 1. Limited exam due to motion artifact demonstrates diffuse bilateral infiltrates compatible with mul tifocal pneumonia. 2. No obvious central pulmonary embolism. Distal branches limited.
--- NOTE | 2021-05-24 13:56 | P.PN ---
Subjective Progress Note Date: 05/24/21 HISTORY OF PRESENT ILLNESS 55-year-old male one of Dr. Rivera's patient with past medical history of non- Hodgkin lymphoma was diagnosed's past year who has history of Peter, history of pancreatitis, history of ulcerative colitis who was diagnosed with COVID-19 last week and had monoclonal antibiotic infusion. Patient had felt slightly but better till the lost 48 hours when he developed to have worsening symptom with worsening dyspnea and shortness of breath along with increased cough increased fever chills and generalized symptom with more fatigue and tiredness. Patient ended up coming to the emergency Department at [facility] where was seen and evaluated surprisingly his chest x-ray still showing Covid pneumonitis with fever running around 101. Patient was started on dexamethasone along with antibiotics to cover pneumonia his pulse ox is still running in the 90s when he doesn't exert himself patient will be admitted to the hospital will be seen hematology and pulmonary. Apparently patient had immunotherapy infusion this last week which can be contributing factor to was going on with his relapse from COVID-19 or worsening symptoms. Also patient been treated for non-Hodgkin lymphoma this last year which had brought his lymph node size down significantly. Patient also was told that he has moderately enlarged liver not explained with the? Off Peter. Patient has slightly higher diaphragm on the right side compared to the left side on his chest x-ray. 05/20: patient is not requiring oxygen and pulse ox is 94% on room air. He was running fevers yesterday and required IV Tylenol, Motrin [id number]. Fevers are improved today, heart rate 74, blood pressure 109/71.repeat blood work reveals WBC 2.3, hemoglobin 11.8, platelet count 134. D-dimer 0.92. Electrolytes and renal function normal. Calcium 7.6. ALT 69. Chest x-ray reveals patchy perihilar subsegmental infiltrate. Mediport catheter appears to be malpositioned and kinked. Correlate clinically. CTA of the chest reveals patchy and confluent bilateral groundglass, greatest in the lower lungs compatible with Covid pneumonia. Limited assessment for pulmonary embolus due to breathing motion. Equivocal for filling defects pulmonary emboli involving lobar and segmental branches of the left upper lobe. We favor breathing motion artifact. Consider short interval follow-up versus initiation of treatment depending on clinical suspicion. Partially visualized mid abdominal nii mesentery as seen on 11/22/2020. 05/21: Patient has been seen by Dr. Burns, patient is out of the therapeutic window for REM to severe and no evidence of secondary bacterial pneumonia, continue Decadron Lovenox think and vitamin C, droplet isolation. Patient is also seen by pulmonary medicine as well. Bilateral lower extremity ultrasound negative for DVT and thus CTA is inconclusive and patient is continued on DVT prophylaxis. IgG came back low at 401 and oncology as ordered immunoglobulin. Temperature max 102 this morning, heart rate 112, blood pressure 130/72, pulse ox 96% on room air. Patient is continued on Lovenox 40 mg subcu daily, dexamethasone 6 mg daily and vitamin supplements. Patient is reaching 1500 on incentive spirometry. 05/22:patient's breathing status is currently stable. He states he had about a 20 minute period during the night where he was coughing and felt short of breath and ended up wearing oxygen for couple hours. He states his pulse ox dropped down to 90%. He is currently 93% on room air. Patient has been afebrile now for greater than 24 hours, heart rate 96, blood pressure 131/77. Patient is currently receiving immunoglobulin scheduled for this afternoon. Anticipate completing this this evening, plan for discharge home tomorrow. 05/23: Anticipated that the patient would be ready for discharge today but unfortunately the patient has increased oxygen needs are currently on 4 L nasal cannula with pulse ox of 90%. He also has increasing cough and he feels short of breath with dyspnea on minimal exertion area and He did have a fever this morning of 101.5. Heart rate 92. Blood pressure 122/73. Patient has completed immunoglobulin infusion. Repeat chest x-ray ordered which shows stable bilateral pleural effusion. 05/24: Patient continues to have shortness of breath and having some chest pain with movement. He reports being a tiny bit better from yesterday. He appears to be quite fatigued at rest. Patient continues to be febrile with temperature 102.3, heart rate 105, blood pressure 126/77, pulse ox 93% on 4 L nasal cannula. LDH 866, C-reactive protein 13.4. Repeat CTA of the chest ordered to rule out pulmonary embolism. REVIEW OF SYSTEMS Constitutional: Reports fever and chills with night sweats, mild weight loss, generalized fatigue and tiredness no lethargy and daytime sleepiness. EENT: No headache. No dizziness. No nasal drainage or congestion. No epistaxis. No sore throat. Lungs: Reports shortness of breath with cough and wheezes with sputum production and worsening dyspnea with minimal exertion. Cardiovascular: No chest pain, no lower extremity edema. No palpitations. No paroxysmal nocturnal dyspnea. No orthopnea. No lightheadedness or dizziness. No syncopal episodes. Abdominal: Mild abdominal discomfort with nausea no vomiting positive loss of appetite no tarry stool mild constipation. Genitourinary: No dysuria, increased frequency, urgency. No urinary retention. Musculoskeletal: Positive myalgia and muscle achiness and discomfort. Integumentary: No wounds, no lesions. No rash or pruritus. No unusual bruising. Neurologic: No aphasia. No facial droop. No change in mentation. No head injury. No headache. No paralysis. No paresthesia. Psychiatric: No depression. No anxiety. No mood swings. Endocrine: No abnormal blood sugars. No weight change. PHYSICAL EXAMINATION Gen: This is a 35-year-old male resting in bed and appears to be in no respiratory distress. HEENT: Head is atraumatic, normocephalic. Pupils equal, round. Sclerae is anicteric. NECK: Supple. No JVD. Positive lymphadenopathy. No thyromegaly. LUNGS: Decreased breath sound bilaterally with fine rhonchi positive mild crackles in the bases positive mild expiratory wheezes. HEART: Regular rate and rhythm. No murmur. ABDOMEN: Soft. Bowel sounds are present. No rebound or rigidity. EXTREMITIES: No pedal edema. No calf tenderness. NEUROLOGICAL: Patient is awake, alert and oriented x3. Cranial nerves 2 through 12 are grossly intact. ASSESSMENT AND PLAN 1. Sepsis with SIRS: Multiple code to be factor from his lymphoma, chemoimmunotherapy, recent COVID-19 pneumonitis with worsening symptoms. Significantly elevated temperature with lactic acid of 2.7 chest x-ray showed patchy airspace up his station consistent with pneumonia specially COVID-19 pneumonitis. 2 acute hypoxic respiratory failure requiring O2 at 4 L secondary to COVID-19 pneumonitis, patient will be on O2, supportive care and updraft treatment. Pulmonary embolism has been ruled out. Repeat CTA ordered. 3 COVID-19 pneumonitis: Patient had quite comorbidity despite using the monoclonal antibiotic infusion still sick his marker at this point with history to 1322, C-reactive protein 7.3, LDH was 595 and pro-calcitonin 0.18. Patient be seen pulmonary and infectious disease and possible still can benefit from [id number] treatment. 4. Fever. Continue Tylenol 5 lactic acidosis secondary to sepsis. 6. Non-Hodgkin lymphoma: Patient remain on active treatment he seen hematology regular basis. immunoglobulin infusion. 7. Reactive airway/asthma: With worsening symptoms patient will be on updraft treatment regular basis along with O2 on dexamethasone. 8. Mild anxiety attacks: Remain on alprazolam on as needed basis. 9. GI prophylaxis: Patient will be on pantoprazole 40 mg twice a day while he still on the ibuprofen for now. 10. DVT prophylaxis: Patient will be on Lovenox 40 mg subcutaneous daily. CODE STATUS: Full code. DISCHARGE PLAN Home Impression and plan of care have been directed as dictated by the signing physician. Nevin Madera nurse practitioner acting as scribe for signing physician. Objective - Vital Signs Vital signs: Vital Signs Temp 99.5 F 05/24/21 05:56 Pulse 105 H 05/24/21 05:56 Resp 17 05/24/21 05:56 BP 144/88 05/24/21 04:10 Pulse Ox 93 L 05/24/21 05:56 Intake & Output 05/23/21 05/24/21 05/24/21 18:59 06:59 18:59 Intake Total 472 160 Output Total 400 Balance 472 -240 Weight 108.862 kg Intake: Oral 472 160 Output: Urine 400 Other: Voiding Method Toilet Toilet Urinal Urinal # Voids 1 1 - Labs CBC & Chem 7: 05/22/21 14:17 05/22/21 14:17 Labs: Abnormal Lab Results - Last 24 Hours (Table) 05/23/21 Range/Units 12:41 Coronavirus (PCR) Detected A (Not Detectd) Microbiology - Last 24 Hours (Table) 05/19/21 11:45 Blood Culture - Preliminary Blood No Growth after 96 hours 05/19/21 12:00 Blood Culture - Preliminary Blood No Growth after 96 hours
--- NOTE | 2021-05-24 14:06 | P.PN ---
Subjective Progress Note Date: 05/24/21 Principal diagnosis: Increased Shortness of breath over night, states he feels more tightness in chest and complaints of subjective fevers that are not improved. He did receive 25grams IVIG yesterday, due for 25 grams today as well to help additional immune support. COVID still positive, Bilateral multifocal pneumonia continues and he remains symptomatic. His oxygen per charting has been between 90-94% on 2-4L, although when speaking with patient and nursing his oxygen has been in 80s with minimal activity. He admits to difficulty with deep breathes and movement. Spoke with Infectious disease today and following close for any changes in status. I have also spoken with his and nursing. Recommend very close monitoring to ensure his condition is not worsening. Objective - Vital Signs Vital signs: Vital Signs Temp 98.3 F 05/24/21 08:50 Pulse 96 05/24/21 08:50 Resp 18 05/24/21 08:50 BP 126/77 05/24/21 08:50 Pulse Ox 91 L 05/24/21 08:50 Intake & Output 05/23/21 05/24/21 05/24/21 18:59 06:59 18:59 Intake Total 472 160 Output Total 400 Balance 472 -240 Weight 108.862 kg Intake: Oral 472 160 Output: Urine 400 Other: Voiding Method Toilet Toilet Urinal Urinal # Voids 1 1 - Exam alert and oriented NAD Head: NCAT Mucus membranes dry Lungs: Rhonchi and bibasilar bilateral diminished Abd: soft Heart reg tachy - Labs CBC & Chem 7: 05/22/21 14:17 05/22/21 14:17 Labs: Abnormal Lab Results - Last 24 Hours (Table) 05/24/21 Range/Units 08:03 Lactate Dehydrogenase 866 H (313-618) U/L C-Reactive Protein 13.4 H (<1.0) mg/dL Microbiology - Last 24 Hours (Table) 05/19/21 11:45 Blood Culture - Preliminary Blood No Growth after 96 hours 05/19/21 12:00 Blood Culture - Preliminary Blood No Growth after 96 hours Assessment and Plan (1) Fever Current Visit: Yes Status: Acute Code(s): R50.9 - FEVER, UNSPECIFIED SNOMED Code(s): 681368163 (2) COVID Current Visit: Yes Status: Acute Priority: High Code(s): U07.1 - COVID-19 SNOMED Code(s): 744151129 (3) Lymphoma Current Visit: Yes Status: Acute Code(s): C85.90 - NON-HODGKIN LYMPHOMA, UNSPECIFIED, UNSPECIFIED SITE SNOMED Code(s): 627152854 (4) Pneumonia Current Visit: Yes Status: Acute Code(s): J18.9 - PNEUMONIA, UNSPECIFIED ORGANISM SNOMED Code(s): 347840223 (5) Shortness of breath Current Visit: Yes Status: Acute Code(s): R06.02 - SHORTNESS OF BREATH SNOMED Code(s): 853124672 Plan: Assessment and Recommendations: Acute Respiratory Distress, Fever, Post Covid Pneumonia: - Recent positive test - Received Regeneron and improved, then recurrent high fevers and worsening respiratory symptoms - Infectious disease to follow, Pulmonary to Follow are recommended - Status post 2/2 25 grams of IVIG for additional immune support COVID PCR and Rapid remains positive, he remains symptomatic. Repeat CTA - Re-demonstration of bilateral multifocal pneumonia Febrile: - High fever again overnight 102.7 - Repeat CTA and Chest Xray with bilateral pneumonia persistent CLose monitoring per pulmonary and ID of COVID and Respiratory Status Will monitor labs in am COntinue aaggressive supportive care. physician Attest: I have completed the full history and physical and agree with above dictation, dictated as a ascribe.
--- NOTE | 2021-05-24 14:28 | P.PN ---
Subjective Progress Note Date: 05/24/21 Principal diagnosis: COVID-19 infection 35-year-old male seen in the emergency department yesterday with a history of non-Hodgkin some foam a, diffuse large B-cell lymphoma, who presents to the emergency department with fever, and mild shortness of breath. The patient did receive monoclonal antibody about 3-4 days prior to admission. He tested positive for coronavirus about 2 weeks ago. Over the last day or so prior to admission, he had elevated temperature, which she had a hard time controlling at home. In addition, his saturations at home were borderline. For that reason he came into the hospital to be evaluated. He was seen initially by the PA, and then was admitted to the hospital. Currently, he's on room air. His saturations are fine. He is not manifesting any signs or symptoms of respiratory distress. His chest x-ray was not particularly impressive, but his computed tomography scan did show diffuse bilateral patchy groundglass opacities consistent with coronavirus associated pneumonia. He was beyond the window for REM. White count 2.37, hemoglobin 11.8, hematocrit 36.5, platelet count 134,000. D-dimer was 0.9 to electrolytes were normal. Ferritin was 1126. Pro- calcitonin was 0.18. C-reactive protein was 7.3. LDH was 215. Chest x-ray and CT angiogram were evaluated. There is no evidence of pulmonary embolism. The patient is seen today 05/21/2021 in follow-up on the regular medical floor. He is currently sitting up in a chair at the bedside. Awake and alert in no acute distress. 18 O2 saturations in the mid 90s on room air. He is dyspneic with minimal exertion however. Currently afebrile with temperature of 102. Doppler of the lower extremities negative for DVT. CT angiogram negative for PE. Blood cultures revealing no growth. No new labs today. He is continued on Decadron, Lovenox, vitamin supplements. He is receiving IVIG for his hypogammaglobulinemia. 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 No ant ibiotics currently per ID services. The patient is seen today 05/22/2021 in follow-up on the regular medical floor. He is currently sitting up in a chair at the bedside. Awake and alert in no acute distress. No worsening shortness of breath. He has an occasional dry nonproductive cough and then he applies his oxygen. Currently in the 2% on room air. He is afebrile. Hemodynamically stable. Blood cultures reveal no growth. No new labs today. Remains on Decadron, Lovenox, vitamin supplements. He is requesting follow-up CoVID enilsa he was diagnosed 2 weeks ago. He is hoping to have visitors. The patient is seen today 05/23/2021 in follow-up on the regular medical floor. He is awake and alert in no acute distress. Sitting up in chair at the bedside. Having some increasing cough, congestion, dyspnea on minimal exertion. O2 saturation room air 90%. Improved on 4 L nasal cannula. He is currently afebrile though did have a temperature again early this morning at 101.5. X-ray showing bilateral patchy infiltrates. Follow-up rapid coronavirus test positive still. He remains on Decadron, Lovenox, vitamin supplements. He is received IVIG yesterday. Patient is seen today 05/24/2021 in follow-up on the regular medical floor. Currently sitting up in a chair at the bedside. Awake and alert in no acute distress. Continues to maintain O2 saturations in the 90s on 4 L/m per nasal cannula. Fever again this morning at 102.3, currently afebrile. Blood cultures reveal no growth. LDH 866. C-reactive protein 13.4. A second CT angiogram again revealed no acute pulmonary embolism. Continues with diffuse bilateral infiltrates consistent with multifocal pneumonia secondary to COVID-19. He is continued on Decadron, Lovenox, vitamin supplements. Objective - Vital Signs Vital signs: Vital Signs Temp 98.3 F 05/24/21 08:50 Pulse 96 05/24/21 08:50 Resp 18 05/24/21 08:50 BP 126/77 05/24/21 08:50 Pulse Ox 91 L 05/24/21 08:50 Intake & Output 05/23/21 05/24/21 05/24/21 18:59 06:59 18:59 Intake Total 472 160 Output Total 400 Balance 472 -240 Weight 108.862 kg Intake: Oral 472 160 Output: Urine 400 Other: Voiding Method Toilet Toilet Urinal Urinal # Voids 1 1 - Exam GENERAL EXAM: Alert, active, very pleasant 35-year-old gentleman, on 4L, fairly comfortable in no apparent distress. HEAD: Normocephalic. EYES: Normal reaction of pupils, equal size. NOSE: Clear with pink turbinates. THROAT: No erythema or exudates. NECK: No masses, no JVD. CHEST: No chest wall deformity. LUNGS: Equal air entry with crackles in the bilateral bases CVS: S1 and S2 normal with no audible murmur, regular rhythm. ABDOMEN: No hepatosplenomegaly, normal bowel sounds, no guarding or rigidity. SPINE: No scoliosis or deformity SKIN: No rashes CENTRAL NERVOUS SYSTEM: No focal deficits, tone is normal in all 4 extremities. EXTREMITIES: There is no peripheral edema. No clubbing, no cyanosis. Periphe ral pulses are intact. - Labs CBC & Chem 7: 05/22/21 14:17 05/22/21 14:17 Labs: Abnormal Lab Results - Last 24 Hours (Table) 05/24/21 Range/Units 08:03 Lactate Dehydrogenase 866 H (313-618) U/L C-Reactive Protein 13.4 H (<1.0) mg/dL Microbiology - Last 24 Hours (Table) 05/19/21 12:00 Blood Culture - Preliminary Blood No Growth after 120 hours 05/19/21 11:45 Blood Culture - Preliminary Blood No Growth after 120 hours Assessment and Plan Assessment: 1 Acute COVID-19 pneumonia, outside the window for Remdesivir, currently on 4 liters nasal cannula. Second CT angiogram ruled out pulmonary embolism. Continues with diffuse bilateral patchy infiltrates consistent with COVID-19 pneumonia 2 Diffuse large B-cell lymphoma. Status post 6 rounds of R CHOP chemotherapy, on immunotherapy 3 Hypogammaglobulinemia, receiving IVIG 4 History of gastroesophageal reflux disease 5 History of pancreatitis 6 History of ulcerative colitis. Plan: The patient was seen and evaluated by Dr. Wylie CT angiogram and labs reviewed Continue on Lovenox, Decadron, vitamin supplements Titrate the FiO2 as tolerated Increase his activity as tolerated We will continue to follow I, the cosigning physician, performed a history & physical examination of the patient. Lungs sounds with crackles in the bases. Maintaining good O2 saturations in the 90s on 4 L/m per nasal. I discussed the assessment and plan of care with my nurse practitioner, Ailyn Acosta. I attest to the above note as dictated by her.
--- NOTE | 2021-05-24 18:38 | PN ---
PROGRESS NOTE DATE OF SERVICE: 05/24/2021 REASON FOR FOLLOWUP: COVID-19 pneumonia. INTERVAL HISTORY: Patient is afebrile. The patient is still complaining of shortness of breath. He did have a cough which is mostly dry in nature. Not bringing up any sputum. No vomiting. No abdominal pain or diarrhea. PHYSICAL EXAMINATION: Blood pressure 128/74 with a pulse of 72, temperature 98.3. He is 94% on room air. General description is a middle-aged male up in the chair in no distress. Respiratory system: Unlabored breathing, coarse breath sounds bilaterally. No wheeze. Heart S1, S2. Regular rate and rhythm. Abdomen soft, no tenderness. LABS: LDH is 13.4, alkaline phos is . DIAGNOSTIC IMPRESSION/PLAN: Patient with acute COVID-19 pneumonia in this patient who did have a CT angiogram of the chest completed this morning with multifocal pneumonia. No obvious pulmonary embolism. The patient is covered with dexamethasone, Lovenox, zinc and ascorbic acid to to continue along with respiratory support. Monitor clinical course closely. MMODL / IJN: [id number] /
[2021-05-24] MEDS ORDERED: SALINE NASAL GEL 14.1 GM TUBE NASAL PRN (20:58)
[2021-05-24] MEDS: BENZONATATE 100 MG CAP PO PRN (22:09)
[2021-05-25] MEDS: ACETAMINOPHEN TAB 500 MG TAB PO PRN ×4 (05:26→21:29)
[2021-05-25] MEDS: BENZONATATE 100 MG CAP PO PRN ×2 (07:19→16:24)
[2021-05-25 08:22] LABS: INR 0.9 (<1.2); Prothrombin Time 9.9 sec (9.0-12.0)
[2021-05-25] MEDS: ALBUTEROL HFA INHALER INHALATION PRN ×4 (08:26→19:59)
[2021-05-25] MEDS: IBUPROFEN 600 MG TAB PO PRN ×2 (09:02→16:23)
[2021-05-25] MEDS: PANTOPRAZOLE 40 MG TABLET PO SCH ×2 (09:02→16:24)
[2021-05-25] MEDS: ZINC SULFATE 220 MG CAP PO SCH (09:02)
[2021-05-25] MEDS: CALCIUM CARBONATE 500 MG CHEWABLE PO SCH (09:02)
[2021-05-25] MEDS: ASCORBIC ACID 500 MG TAB PO SCH ×2 (09:02→20:57)
[2021-05-25] MEDS: CHOLECALCIFEROL 25 MCG (1000 IU) TABLET PO SCH (09:02)
[2021-05-25] MEDS: dexAMETHasone 2 MG TAB PO SCH (09:02)
[2021-05-25] MEDS: ENOXAPARIN 40 MG/0.4 ML SYRINGE SQ SCH (09:02)
[2021-05-25 13:36] LABS: African American GFR (CKD) 128.7 (60.0-200.0); Albumin 3.6 g/dL (3.8-4.9); Albumin/Globulin Ratio 1.13 (1.60-3.17); Anion Gap 15.5 mmol/L (4.00-12.00); BUN/Creat Ratio 18.44 Ratio (12.00-20.00); Blood Urea Nitrogen 16.6 mg/dL (9.0-27.0); Calcium 8.7 mg/dL (8.7-10.3); Carbon Dioxide 22.5 mmol/L (21.6-31.8); Globulin 3.2 g/dL (1.6-3.3); Magnesium 2.2 mg/dL (1.5-2.4); Potassium 3.9 mmol/L (3.5-5.5); Total Bilirubin 0.4 mg/dL (0.30-1.20); Total Protein 6.8 g/dL (6.2-8.2)
--- NOTE | 2021-05-25 14:14 | P.PN ---
Subjective Progress Note Date: 05/25/21 Principal diagnosis: COVID-19 infection 35-year-old male seen in the emergency department yesterday with a history of non-Hodgkin some foam a, diffuse large B-cell lymphoma, who presents to the emergency department with fever, and mild shortness of breath. The patient did receive monoclonal antibody about 3-4 days prior to admission. He tested positive for coronavirus about 2 weeks ago. Over the last day or so prior to admission, he had elevated temperature, which she had a hard time controlling at home. In addition, his saturations at home were borderline. For that reason he came into the hospital to be evaluated. He was seen initially by the PA, and then was admitted to the hospital. Currently, he's on room air. His saturations are fine. He is not manifesting any signs or symptoms of respiratory distress. His chest x-ray was not particularly impressive, but his computed tomography scan did show diffuse bilateral patchy groundglass opacities consistent with coronavirus associated pneumonia. He was beyond the window for REM. White count 2.37, hemoglobin 11.8, hematocrit 36.5, platelet count 134,000. D-dimer was 0.9 to electrolytes were normal. Ferritin was 1126. Pro- calcitonin was 0.18. C-reactive protein was 7.3. LDH was 215. Chest x-ray and CT angiogram were evaluated. There is no evidence of pulmonary embolism. The patient is seen today 05/21/2021 in follow-up on the regular medical floor. He is currently sitting up in a chair at the bedside. Awake and alert in no acute distress. 18 O2 saturations in the mid 90s on room air. He is dyspneic with minimal exertion however. Currently afebrile with temperature of 102. Doppler of the lower extremities negative for DVT. CT angiogram negative for PE. Blood cultures revealing no growth. No new labs today. He is continued on Decadron, Lovenox, vitamin supplements. He is receiving IVIG for his hypogammaglobulinemia. 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 No ant ibiotics currently per ID services. The patient is seen today 05/22/2021 in follow-up on the regular medical floor. He is currently sitting up in a chair at the bedside. Awake and alert in no acute distress. No worsening shortness of breath. He has an occasional dry nonproductive cough and then he applies his oxygen. Currently in the 2% on room air. He is afebrile. Hemodynamically stable. Blood cultures reveal no growth. No new labs today. Remains on Decadron, Lovenox, vitamin supplements. He is requesting follow-up CoVID anders he was diagnosed 2 weeks ago. He is hoping to have visitors. The patient is seen today 05/23/2021 in follow-up on the regular medical floor. He is awake and alert in no acute distress. Sitting up in chair at the bedside. Having some increasing cough, congestion, dyspnea on minimal exertion. O2 saturation room air 90%. Improved on 4 L nasal cannula. He is currently afebrile though did have a temperature again early this morning at 101.5. X-ray showing bilateral patchy infiltrates. Follow-up rapid coronavirus test positive still. He remains on Decadron, Lovenox, vitamin supplements. He is received IVIG yesterday. Patient is seen today 05/24/2021 in follow-up on the regular medical floor. Currently sitting up in a chair at the bedside. Awake and alert in no acute distress. Continues to maintain O2 saturations in the 90s on 4 L/m per nasal cannula. Fever again this morning at 102.3, currently afebrile. Blood cultures reveal no growth. LDH 866. C-reactive protein 13.4. A second CT angiogram again revealed no acute pulmonary embolism. Continues with diffuse bilateral infiltrates consistent with multifocal pneumonia secondary to COVID-19. He is continued on Decadron, Lovenox, vitamin supplements. The patient is seen today 05/25/2021 in follow-up on the regular medical floor. He is currently resting comfortably in bed. Awake and alert in no acute distress. He is maintaining O2 saturations in the low 90s on 5 L/m per nasal cannula. Still temping at 100.3. Hemodynamically stable. Cultures revealed no growth. Sputum culture pending. Sodium 140. Potassium 3.9. Creatinine 0.9. AST 67. ALT 108. He is continued on Decadron, Lovenox, vitamin supplements. Objective - Vital Signs Vital signs: Vital Signs Temp 100.3 F H 05/25/21 10:30 Pulse 97 05/25/21 10:30 Resp 20 05/25/21 10:30 BP 112/70 05/25/21 10:30 Pulse Ox 93 L 05/25/21 10:30 Intake & Output 05/24/21 05/25/21 05/25/21 18:59 06:59 18:59 Output Total 600 Balance -600 Output: Urine 600 Other: Voiding Method Toilet Toilet Toilet Urinal Urinal Urinal - Exam GENERAL EXAM: Alert, active, very pleasant 35-year-old gentleman, on 5L, fairly comfortable in no apparent distress. HEAD: Normocephalic. EYES: Normal reaction of pupils, equal size. NOSE: Clear with pink turbinates. THROAT: No erythema or exudates. NECK: No masses, no JVD. CHEST: No chest wall deformity. LUNGS: Equal air entry with crackles in the bilateral bases CVS: S1 and S2 normal with no audible murmur, regular rhythm. ABDOMEN: No hepatosplenomegaly, normal bowel sounds, no guarding or rigidity. SPINE: No scoliosis or deformity SKIN: No rashes CENTRAL NERVOUS SYSTEM: No focal deficits, tone is normal in all 4 extremities. EXTREMITIES: There is no peripheral edema. No clubbing, no cyanosis. Peripheral pulses are intact. - Labs CBC & Chem 7: 05/22/21 14:17 05/25/21 07:08 Labs: Abnormal Lab Results - Last 24 Hours (Table) 05/23/21 05/25/21 05/25/21 Range/Units 15:40 07:08 07:08 Fibrinogen 752 H (200-500) mg/dL Anion Gap 15.50 H (4.00-12.00) mmol/L AST 67 H (14-35) U/L ALT 108 H (10-49) U/L Albumin 3.6 L (3.8-4.9) g/dL Albumin/Globulin Ratio 1.13 L (1.60-3.17) g/dL Coronavirus (PCR) Detected A (Not Detected) Microbiology - Last 24 Hours (Table) 05/19/21 11:45 Blood Culture - Final Blood No Growth after 144 hours 05/19/21 12:00 Blood Culture - Final Blood No Growth after 144 hours 05/24/21 20:49 Gram Stain - Preliminary Sputum Sputum Culture - Preliminary Assessment and Plan Assessment: 1 Acute COVID-19 pneumonia, outside the window for Remdesivir, currently on 5 liters nasal cannula. Second CT angiogram ruled out pulmonary embolism. Continues with diffuse bilateral patchy infiltrates consistent with COVID-19 pneumonia 2 Diffuse large B-cell lymphoma. Status post 6 rounds of R CHOP chemotherapy, on immunotherapy 3 Hypogammaglobulinemia, receiving IVIG 4 History of gastroesophageal reflux disease 5 History of pancreatitis 6 History of ulcerative colitis. Plan: The patient was seen and evaluated by Dr. Wylie Continue on Lovenox, Decadron, vitamin supplements Titrate the FiO2 as tolerated Increase his activity as tolerated Again encouraged to move around in his room and turn side to side and prone while in bed. We will continue to follow I, the cosigning physician, performed a history & physical examination of the patient. Lungs sounds with crackles in the bases. Maintaining good O2 saturations in the 90s on 5 L/m per nasal. I discussed the assessment and plan of care with my nurse practitioner, Ailyn Acosta. I attest to the above note as dictated by her.
--- NOTE | 2021-05-25 15:13 | P.PN ---
Subjective Progress Note Date: 05/25/21 HISTORY OF PRESENT ILLNESS 55-year-old male one of Dr. Rivera's patient with past medical history of non- Hodgkin lymphoma was diagnosed's past year who has history of Peter, history of pancreatitis, history of ulcerative colitis who was diagnosed with COVID-19 last week and had monoclonal antibiotic infusion. Patient had felt slightly but better till the lost 48 hours when he developed to have worsening symptom with worsening dyspnea and shortness of breath along with increased cough increased fever chills and generalized symptom with more fatigue and tiredness. Patient ended up coming to the emergency Department at [facility] where was seen and evaluated surprisingly his chest x-ray still showing Covid pneumonitis with fever running around 101. Patient was started on dexamethasone along with antibiotics to cover pneumonia his pulse ox is still running in the 90s when he doesn't exert himself patient will be admitted to the hospital will be seen hematology and pulmonary. Apparently patient had immunotherapy infusion this last week which can be contributing factor to was going on with his relapse from COVID-19 or worsening symptoms. Also patient been treated for non-Hodgkin lymphoma this last year which had brought his lymph node size down significantly. Patient also was told that he has moderately enlarged liver not explained with the? Off Peter. Patient has slightly higher diaphragm on the right side compared to the left side on his chest x-ray. 05/20: patient is not requiring oxygen and pulse ox is 94% on room air. He was running fevers yesterday and required IV Tylenol, Motrin [id number]. Fevers are improved today, heart rate 74, blood pressure 109/71.repeat blood work reveals WBC 2.3, hemoglobin 11.8, platelet count 134. D-dimer 0.92. Electrolytes and renal function normal. Calcium 7.6. ALT 69. Chest x-ray reveals patchy perihilar subsegmental infiltrate. Mediport catheter appears to be malpositioned and kinked. Correlate clinically. CTA of the chest reveals patchy and confluent bilateral groundglass, greatest in the lower lungs compatible with Covid pneumonia. Limited assessment for pulmonary embolus due to breathing motion. Equivocal for filling defects pulmonary emboli involving lobar and segmental branches of the left upper lobe. We favor breathing motion artifact. Consider short interval follow-up versus initiation of treatment depending on clinical suspicion. Partially visualized mid abdominal nii mesentery as seen on 11/22/2020. 05/21: Patient has been seen by Dr. Burns, patient is out of the therapeutic window for REM to severe and no evidence of secondary bacterial pneumonia, continue Decadron Lovenox think and vitamin C, droplet isolation. Patient is also seen by pulmonary medicine as well. Bilateral lower extremity ultrasound negative for DVT and thus CTA is inconclusive and patient is continued on DVT prophylaxis. IgG came back low at 401 and oncology as ordered immunoglobulin. Temperature max 102 this morning, heart rate 112, blood pressure 130/72, pulse ox 96% on room air. Patient is continued on Lovenox 40 mg subcu daily, dexamethasone 6 mg daily and vitamin supplements. Patient is reaching 1500 on incentive spirometry. 05/22:patient's breathing status is currently stable. He states he had about a 20 minute period during the night where he was coughing and felt short of breath and ended up wearing oxygen for couple hours. He states his pulse ox dropped down to 90%. He is currently 93% on room air. Patient has been afebrile now for greater than 24 hours, heart rate 96, blood pressure 131/77. Patient is currently receiving immunoglobulin scheduled for this afternoon. Anticipate completing this this evening, plan for discharge home tomorrow. 05/23: Anticipated that the patient would be ready for discharge today but unfortunately the patient has increased oxygen needs are currently on 4 L nasal cannula with pulse ox of 90%. He also has increasing cough and he feels short of breath with dyspnea on minimal exertion area and He did have a fever this morning of 101.5. Heart rate 92. Blood pressure 122/73. Patient has completed immunoglobulin infusion. Repeat chest x-ray ordered which shows stable bilateral pleural effusion. 05/24: Patient continues to have shortness of breath and having some chest pain with movement. He reports being a tiny bit better from yesterday. He appears to be quite fatigued at rest. Patient continues to be febrile with temperature 102.3, heart rate 105, blood pressure 126/77, pulse ox 93% on 4 L nasal cannula. LDH 866, C-reactive protein 13.4. Repeat CTA of the chest ordered to rule out pulmonary embolism. 05/25: Patient still not doing that well he is on 5 L O2 pulse ox running around 93-94%, continued to have significant shortness of breath and dyspnea with minimal exertion continued to have severe hypoxia this point. CT was reviewed from yesterday showed no sign of pulmonary embolism. Covid marker and chest x- ray will be done tomorrow the meanwhile continue current management. REVIEW OF SYSTEMS Constitutional: Reports fever and chills with night sweats, mild weight loss, generalized fatigue and tiredness no lethargy and daytime sleepiness. EENT: No headache. No dizziness. No nasal drainage or congestion. No epistaxis. No sore throat. Lungs: Reports shortness of breath with cough and wheezes with sputum production and worsening dyspnea with minimal exertion. Cardiovascular: No chest pain, no lower extremity edema. No palpitations. No paroxysmal nocturnal dyspnea. No orthopnea. No lightheadedness or dizziness. No syncopal episodes. Abdominal: Mild abdominal discomfort with nausea no vomiting positive loss of appetite no tarry stool mild constipation. Genitourinary: No dysuria, increased frequency, urgency. No urinary retention. Musculoskeletal: Positive myalgia and muscle achiness and discomfort. Integumentary: No wounds, no lesions. No rash or pruritus. No unusual bruising. Neurologic: No aphasia. No facial droop. No change in mentation. No head injury. No headache. No paralysis. No paresthesia. Psychiatric: No depression. No anxiety. No mood swings. Endocrine: No abnormal blood sugars. No weight change. PHYSICAL EXAMINATION Gen: This is a 35-year-old male resting in bed and appears to be in no respiratory distress. HEENT: Head is atraumatic, normocephalic. Pupils equal, round. Sclerae is anicteric. NECK: Supple. No JVD. Positive lymphadenopathy. No thyromegaly. LUNGS: Decreased breath sound bilaterally with fine rhonchi positive mild crackles in the bases positive mild expiratory wheezes. HEART: Regular rate and rhythm. No murmur. ABDOMEN: Soft. Bowel sounds are present. No rebound or rigidity. EXTREMITIES: No pedal edema. No calf tenderness. NEUROLOGICAL: Patient is awake, alert and oriented x3. Cranial nerves 2 through 12 are grossly intact. ASSESSMENT AND PLAN 1. Sepsis with SIRS: Multiple code to be factor from his lymphoma, c hemoimmunotherapy, recent COVID-19 pneumonitis with worsening symptoms. Significantly elevated temperature with lactic acid of 2.7 chest x-ray showed patchy airspace up his station consistent with pneumonia specially COVID-19 pneumonitis. Still on aggressive management at this point with a site Wagoner, dexamethasone, off antibiotic this point. 2 acute hypoxic respiratory failure requiring O2 at 4 L secondary to COVID-19 pneumonitis, no pulmonary embolism found on the second and third CAT scan. 3 COVID-19 pneumonitis: Patient had quite comorbidity despite using the monoclonal antibiotic infusion still sick his marker at this point with history to 1322, C-reactive protein 7.3, LDH was 595 and pro-calcitonin 0.18. Patient be seen pulmonary and infectious disease and possible still can benefit from [id number] treatment. 4. Fever. Continue Tylenol and ibuprofen as needed temperature is down compared to before. 5 lactic acidosis secondary to sepsis. Much better so far. 6. Non-Hodgkin lymphoma: Patient remain on active treatment he seen hematology regular basis. immunoglobulin infusion. 7. Reactive airway/asthma: With worsening symptoms patient will be on updraft treatment regular basis along with O2 on dexamethasone. 8. Mild anxiety attacks: Remain on alprazolam on as needed basis. 9. GI prophylaxis: Patient will be on pantoprazole 40 mg twice a day while he still on the ibuprofen for now. 10. DVT prophylaxis: Patient will be on Lovenox 40 mg subcutaneous daily. CODE STATUS: Full code. Prognosis: Still guarded. Objective - Vital Signs Vital signs: Vital Signs Temp 100.3 F H 05/25/21 10:30 Pulse 97 05/25/21 10:30 Resp 20 05/25/21 10:30 BP 112/70 05/25/21 10:30 Pulse Ox 93 L 05/25/21 10:30 Intake & Output 05/24/21 05/25/21 05/25/21 18:59 06:59 18:59 Output Total 600 Balance -600 Output: Urine 600 Other: Voiding Method Toilet Toilet Toilet Urinal Urinal Urinal - Labs CBC & Chem 7: 05/22/21 14:17 05/25/21 07:08 Labs: Abnormal Lab Results - Last 24 Hours (Table) 05/23/21 05/25/21 Range/Units 15:40 07:08 Fibrinogen 752 H (200-500) mg/dL Coronavirus (PCR) Detected A (Not Detected) Microbiology - Last 24 Hours (Table) 05/24/21 20:49 Gram Stain - Preliminary Sputum Sputum Culture - Preliminary 05/19/21 12:00 Blood Culture - Preliminary Blood No Growth after 120 hours 05/19/21 11:45 Blood Culture - Preliminary Blood No Growth after 120 hours
--- NOTE | 2021-05-25 16:50 | PN ---
PROGRESS NOTE DATE OF SERVICE: 05/25/2021 REASON FOR FOLLOWUP: COVID-19 pneumonia. INTERVAL HISTORY: Patient did have a low grade fever this morning 100.3. The patient still complaining of dry hacking cough without any significant improvement. The patient denies having any chest pain. No nausea, no vomiting. No abdominal pain. No diarrhea. PHYSICAL EXAMINATION: Blood pressure 120/73 with pulse of 89, temperature 98.6, he is 95% on 5 L nasal cannula. General description is a middle-aged male up in the chair in no distress. Respiratory system: Unlabored breathing, coarse breath sounds with no wheeze. Heart S1, S2. Regular rate and rhythm. Abdomen soft, no tenderness. LAB DATA: Creatinine 0.9. CRP 19.4 as of yesterday. Sputum cultures pending. Blood culture so far negative. DIAGNOSTIC IMPRESSION AND PLAN: Patient with acute COVID-19 pneumonia in this patient considered to be out of therapeutic window for Remdesivir. Currently only requiring 5 L nasal cannula and not qualifying for baricitinib. The patient is covered with dexamethasone, Lovenox, zinc and ascorbic acid to continue along with supportive treatment and monitor clinical course closely. MMODL / IJN: [id number] /
[2021-05-26] MEDS: IBUPROFEN 600 MG TAB PO PRN ×2 (03:12→16:35)
[2021-05-26] MEDS: BENZONATATE 100 MG CAP PO PRN ×2 (03:20→16:35)
[2021-05-26] MEDS: ACETAMINOPHEN TAB 500 MG TAB PO PRN ×2 (06:51→13:09)
--- NOTE | 2021-05-26 06:51 | XR ---
EXAMINATION TYPE: XR chest 1V portable DATE OF EXAM: 05/26/2021 COMPARISON: 05/23/2021 HISTORY: Shortness of breath TECHNIQUE: Single frontal view of the chest is obtained. FINDINGS: Exam is limited by poor inspiratory effort. Scattered small partially consolidative opacit ies are essentially unchanged. There is no pneumothorax or large pleural effusion. Heart size is normal. Evaluation the pulmonary va sculature is limited due to poor inspiration. The central venous catheter on the right terminates in the SVC/R junction. The osseous structures are intact. IMPRESSION: Limited by poor inspiratory effort but no significant interval change.
[2021-05-26] MEDS: ALBUTEROL HFA INHALER INHALATION PRN ×3 (08:03→15:55)
[2021-05-26] MEDS: ASCORBIC ACID 500 MG TAB PO SCH ×2 (09:06→21:56)
[2021-05-26] MEDS: PANTOPRAZOLE 40 MG TABLET PO SCH ×2 (09:06→16:35)
[2021-05-26] MEDS: CALCIUM CARBONATE 500 MG CHEWABLE PO SCH (09:06)
[2021-05-26] MEDS: ZINC SULFATE 220 MG CAP PO SCH (09:06)
[2021-05-26] MEDS: ENOXAPARIN 40 MG/0.4 ML SYRINGE SQ SCH (09:06)
[2021-05-26] MEDS: CHOLECALCIFEROL 25 MCG (1000 IU) TABLET PO SCH (09:06)
[2021-05-26] MEDS: dexAMETHasone 2 MG TAB PO SCH (09:06)
[2021-05-26 09:21] LABS: HCT 38.4 % (39.0-53.0); HGB 12.9 gm/dL (13.0-17.5); MCH 33.1 pg (25.0-35.0); MCHC 33.6 g/dL (31.0-37.0); MCV 98.5 fL (80.0-100.0); Mean Platelet Volume 9.4; Platelet Count 155 k/uL (150-450); RDW 13.1 % (11.5-15.5); WBC 4.3 k/uL (3.8-10.6)
[2021-05-26 09:25] LABS: Band Neutrophils % 8 %; Lymphocytes # (M) 0.13 k/uL (1.0-4.8); Monocytes # (M) 0.17 k/uL (0-1.0); Neutrophils % (M) 85 %; Nucleated Red Blood Cells 0 /100 WBC (0-0); Total Cells Counted 100
[2021-05-26 09:26] LABS: Anisocytosis (M) Present
[2021-05-26 12:36] LABS: HCT 40.4 % (39.6-50.0); HGB 13.1 g/dL (13.0-17.0); MCHC 32.4 g/dL (32.0-37.0); MCV 95.5 fL (80.0-97.0); Mean Platelet Volume 9.6 fL (9.5-12.2); Platelet Count 169 X 10*3/uL (140-440); RBC 4.23 X 10*6/uL (4.40-5.60); RDW 11.9 % (11.5-14.5); WBC 4.79 X 10*3/uL (4.50-10.00)
[2021-05-26 12:55] LABS: African American GFR (CKD) 128.7 (60.0-200.0); Albumin 3.7 g/dL (3.8-4.9); Albumin/Globulin Ratio 1.16 (1.60-3.17); BUN/Creat Ratio 18.33 Ratio (12.00-20.00); Blood Urea Nitrogen 16.5 mg/dL (9.0-27.0); Calcium 8.6 mg/dL (8.7-10.3); Globulin 3.2 g/dL (1.6-3.3); Potassium 3.8 mmol/L (3.5-5.5); Total Bilirubin 0.4 mg/dL (0.30-1.20); Total Protein 6.9 g/dL (6.2-8.2)
--- NOTE | 2021-05-26 13:21 | P.PN ---
Subjective Progress Note Date: 05/26/21 HISTORY OF PRESENT ILLNESS 55-year-old male one of Dr. Rivera's patient with past medical history of non- Hodgkin lymphoma was diagnosed's past year who has history of Peter, history of pancreatitis, history of ulcerative colitis who was diagnosed with COVID-19 last week and had monoclonal antibiotic infusion. Patient had felt slightly but better till the lost 48 hours when he developed to have worsening symptom with worsening dyspnea and shortness of breath along with increased cough increased fever chills and generalized symptom with more fatigue and tiredness. Patient ended up coming to the emergency Department at [facility] where was seen and evaluated surprisingly his chest x-ray still showing Covid pneumonitis with fever running around 101. Patient was started on dexamethasone along with antibiotics to cover pneumonia his pulse ox is still running in the 90s when he doesn't exert himself patient will be admitted to the hospital will be seen hematology and pulmonary. Apparently patient had immunotherapy infusion this last week which can be contributing factor to was going on with his relapse from COVID-19 or worsening symptoms. Also patient been treated for non-Hodgkin lymphoma this last year which had brought his lymph node size down significantly. Patient also was told that he has moderately enlarged liver not explained with the? Off Peter. Patient has slightly higher diaphragm on the right side compared to the left side on his chest x-ray. 05/20: patient is not requiring oxygen and pulse ox is 94% on room air. He was running fevers yesterday and required IV Tylenol, Motrin [id number]. Fevers are improved today, heart rate 74, blood pressure 109/71.repeat blood work reveals WBC 2.3, hemoglobin 11.8, platelet count 134. D-dimer 0.92. Electrolytes and renal function normal. Calcium 7.6. ALT 69. Chest x-ray reveals patchy perihilar subsegmental infiltrate. Mediport catheter appears to be malpositioned and kinked. Correlate clinically. CTA of the chest reveals patchy and confluent bilateral groundglass, greatest in the lower lungs compatible with Covid pneumonia. Limited assessment for pulmonary embolus due to breathing motion. Equivocal for filling defects pulmonary emboli involving lobar and segmental branches of the left upper lobe. We favor breathing motion artifact. Consider short interval follow-up versus initiation of treatment depending on clinical suspicion. Partially visualized mid abdominal nii mesentery as seen on 11/22/2020. 05/21: Patient has been seen by Dr. Burns, patient is out of the therapeutic window for REM to severe and no evidence of secondary bacterial pneumonia, continue Decadron Lovenox think and vitamin C, droplet isolation. Patient is also seen by pulmonary medicine as well. Bilateral lower extremity ultrasound negative for DVT and thus CTA is inconclusive and patient is continued on DVT prophylaxis. IgG came back low at 401 and oncology as ordered immunoglobulin. Temperature max 102 this morning, heart rate 112, blood pressure 130/72, pulse ox 96% on room air. Patient is continued on Lovenox 40 mg subcu daily, dexamethasone 6 mg daily and vitamin supplements. Patient is reaching 1500 on incentive spirometry. 05/22:patient's breathing status is currently stable. He states he had about a 20 minute period during the night where he was coughing and felt short of breath and ended up wearing oxygen for couple hours. He states his pulse ox dropped down to 90%. He is currently 93% on room air. Patient has been afebrile now for greater than 24 hours, heart rate 96, blood pressure 131/77. Patient is currently receiving immunoglobulin scheduled for this afternoon. Anticipate completing this this evening, plan for discharge home tomorrow. 05/23: Anticipated that the patient would be ready for discharge today but unfortunately the patient has increased oxygen needs are currently on 4 L nasal cannula with pulse ox of 90%. He also has increasing cough and he feels short of breath with dyspnea on minimal exertion area and He did have a fever this morning of 101.5. Heart rate 92. Blood pressure 122/73. Patient has completed immunoglobulin infusion. Repeat chest x-ray ordered which shows stable bilateral pleural effusion. 05/24: Patient continues to have shortness of breath and having some chest pain with movement. He reports being a tiny bit better from yesterday. He appears to be quite fatigued at rest. Patient continues to be febrile with temperature 102.3, heart rate 105, blood pressure 126/77, pulse ox 93% on 4 L nasal cannula. LDH 866, C-reactive protein 13.4. Repeat CTA of the chest ordered to rule out pulmonary embolism. 05/25: Patient still not doing that well he is on 5 L O2 pulse ox running around 93-94%, continued to have significant shortness of breath and dyspnea with minimal exertion continued to have severe hypoxia this point. CT was reviewed from yesterday showed no sign of pulmonary embolism. Covid marker and chest x- ray will be done tomorrow the meanwhile continue current management. 05/26: Patient is still having slight hypoxia and shortness of breath he is little bit better compared to yesterday, his having less cough less fever and chills at this point. Still not recovering as fast as expected so far continue current treatment management continue supportive care he still seen pulmonary marcia mendoza. REVIEW OF SYSTEMS Constitutional: Reports fever and chills with night sweats, mild weight loss, generalized fatigue and tiredness no lethargy and daytime sleepiness. EENT: No headache. No dizziness. No nasal drainage or congestion. No epistaxis. No sore throat. Lungs: Reports shortness of breath with cough and wheezes with sputum production and worsening dyspnea with minimal exertion. Cardiovascular: No chest pain, no lower extremity edema. No palpitations. No paroxysmal nocturnal dyspnea. No orthopnea. No lightheadedness or dizziness. No syncopal episodes. Abdominal: Mild abdominal discomfort with nausea no vomiting positive loss of appetite no tarry stool mild constipation. Genitourinary: No dysuria, increased frequency, urgency. No urinary retention. Musculoskeletal: Positive myalgia and muscle achiness and discomfort. Integumentary: No wounds, no lesions. No rash or pruritus. No unusual bruising. Neurologic: No aphasia. No facial droop. No change in mentation. No head injury. No headache. No paralysis. No paresthesia. Psychiatric: No depression. No anxiety. No mood swings. Endocrine: No abnormal blood sugars. No weight change. PHYSICAL EXAMINATION Gen: This is a 35-year-old male resting in bed and appears to be in no respiratory distress. HEENT: Head is atraumatic, normocephalic. Pupils equal, round. Sclerae is anicteric. NECK: Supple. No JVD. Positive lymphadenopathy. No thyromegaly. LUNGS: Decreased breath sound bilaterally with fine rhonchi positive mild crackles in the bases positive mild expiratory wheezes. HEART: Regular rate and rhythm. No murmur. ABDOMEN: Soft. Bowel sounds are present. No rebound or rigidity. EXTREMITIES: No pedal edema. No calf tenderness. NEUROLOGICAL: Patient is awake, alert and oriented x3. Cranial nerves 2 through 12 are grossly intact. ASSESSMENT AND PLAN 1 acute hypoxic respiratory failure requiring O2 at 5 L secondary to COVID-19 pneumonitis, no sign of pulmonary embolism, patient still having significant decreased lung volume both side. He is not able take a deep breath or suppressive encourage will continue incentive spirometry and more frequent. 2 COVID-19 pneumonitis: Patient had quite comorbidity despite using the monoclonal antibiotic infusion still sick his marker at this point with history to 1322, C-reactive protein 7.3, LDH was 595 and pro-calcitonin 0.18. Patient be seen pulmonary and infectious disease and possible still can benefit from [id number] treatment. 3. Sepsis with SIRS: Multiple code to be factor from his lymphoma, chemoimmunotherapy, recent COVID-19 pneumonitis with worsening symptoms. Significantly elevated temperature with lactic acid of 2.7 chest x-ray showed patchy airspace up his station consistent with pneumonia specially COVID-19 pneumonitis. Still on aggressive management at this point with a site Vera, dexamethasone, off antibiotic this point. 4. Fever. Ended COVID-19 pneumonitis along with pneumonia much better so far continue with Tylenol and Motrin. 5 debility: Secondary to the severity of the COVID-19 in the hypoxia, patient to continue current management still doing limited PT. 6. Non-Hodgkin lymphoma: Patient remain on active treatment he seen hematology regular basis. immunoglobulin infusion. 7. Reactive airway/asthma: This chest x-ray just look like lost of lung volume mostly continue incentive spirometry regime AV pulmonary physical therapy. 8. Mild anxiety attacks: Remain on alprazolam on as needed basis. 9. GI prophylaxis: Patient will be on pantoprazole 40 mg twice a day while he still on the ibuprofen for now. 10. DVT prophylaxis: Patient will be on Lovenox 40 mg subcutaneous daily. CODE STATUS: Full code. Prognosis: Still guarded. Objective - Vital Signs Vital signs: Vital Signs Temp 97.8 F 05/26/21 09:00 Pulse 83 05/26/21 09:00 Resp 18 05/26/21 09:00 BP 113/72 05/26/21 09:00 Pulse Ox 93 L 05/26/21 09:00 Intake & Output 05/25/21 05/26/21 05/26/21 19:59 06:59 18:59 Output Total Balance Output: Urine Other: Voiding Method Toilet Urinal # Voids - Labs CBC & Chem 7: 11/07/21 08:19 05/26/21 08:19 Labs: Abnormal Lab Results - Last 24 Hours (Table) 05/25/21 05/25/21 05/26/21 Range/Units 07:08 07:08 08:19 RBC 3.90 L (4.30-5.90) m/uL Hgb 12.9 L (13.0-17.5) gm/dL Hct 38.4 L (39.0-53.0) % Lymphocytes # (Manual) 0.13 L (1.0-4.8) k/uL D-Dimer 1.04 H (<0.60) mg/L FEU Anion Gap 15.50 H (4.00-12.00) mmol/L AST 67 H (14-35) U/L ALT 108 H (10-49) U/L Albumin 3.6 L (3.8-4.9) g/dL Albumin/Globulin Ratio 1.13 L (1.60-3.17) g/dL Microbiology - Last 24 Hours (Table) 05/19/21 11:45 Blood Culture - Final Blood No Growth after 144 hours 05/19/21 12:00 Blood Culture - Final Blood No Growth after 144 hours 05/24/21 20:49 Gram Stain - Preliminary Sputum Sputum Culture - Preliminary
[2021-05-26 14:35] LABS: Erythrocyte Sedimentation Rate 92 mm/Hr (0-15)
--- NOTE | 2021-05-26 15:07 | P.PN ---
Subjective Progress Note Date: 05/26/21 Principal diagnosis: Coronavirus pneumonia. COVID-19 infection 35-year-old male seen in the emergency department yesterday with a history of non-Hodgkin some foam a, diffuse large B-cell lymphoma, who presents to the emergency department with fever, and mild shortness of breath. The patient did receive monoclonal antibody about 3-4 days prior to admission. He tested positive for coronavirus about 2 weeks ago. Over the last day or so prior to admission, he had elevated temperature, which she had a hard time controlling at home. In addition, his saturations at home were borderline. For that reason he came into the hospital to be evaluated. He was seen initially by the PA, and then was admitted to the hospital. Currently, he's on room air. His saturations are fine. He is not manifesting any signs or symptoms of respiratory distress. His chest x-ray was not particularly impressive, but his computed tomography scan did show diffuse bilateral patchy groundglass opacities consistent with coronavirus associated pneumonia. He was beyond the window for REM. White count 2.37, hemoglobin 11.8, hematocrit 36.5, platelet count 134,000. D-dimer was 0.9 to electrolytes were normal. Ferritin was 1126. Pro- calcitonin was 0.18. C-reactive protein was 7.3. LDH was 215. Chest x-ray and CT angiogram were evaluated. There is no evidence of pulmonary embolism. The patient is seen today 05/21/2021 in follow-up on the regular medical floor. He is currently sitting up in a chair at the bedside. Awake and alert in no acute distress. 18 O2 saturations in the mid 90s on room air. He is dyspneic with minimal exertion however. Currently afebrile with temperature of 102. Doppler of the lower extremities negative for DVT. CT angiogram negative for PE. Blood cultures revealing no growth. No new labs today. He is continued on Decadron, Lovenox, vitamin supplements. He is receiving IVIG for his hypogammaglobulinemia. 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 No antibiotics currently per ID services. The patient is seen today 05/22/2021 in follow-up on the regular medical floor. He is currently sitting up in a chair at the bedside. Awake and alert in no acute distress. No worsening shortness of breath. He has an occasional dry nonproductive cough and then he applies his oxygen. Currently in the 2% on room air. He is afebrile. Hemodynamically stable. Blood cultures reveal no growth. No new labs today. Remains on Decadron, Lovenox, vitamin supplements. He is requesting follow-up CoVID anders he was diagnosed 2 weeks ago. He is hoping to have visitors. The patient is seen today 05/23/2021 in follow-up on the regular medical floor. He is awake and alert in no acute distress. Sitting up in chair at the bedside. Having some increasing cough, congestion, dyspnea on minimal exertion. O2 saturation room air 90%. Improved on 4 L nasal cannula. He is currently afebrile though did have a temperature again early this morning at 101.5. X-ray showing bilateral patchy infiltrates. Follow-up rapid coronavirus test positive still. He remains on Decadron, Lovenox, vitamin supplements. He is received IVIG yesterday. Patient is seen today 05/24/2021 in follow-up on the regular medical floor. Currently sitting up in a chair at the bedside. Awake and alert in no acute distress. Continues to maintain O2 saturations in the 90s on 4 L/m per nasal cannula. Fever again this morning at 102.3, currently afebrile. Blood cultures reveal no growth. LDH 866. C-reactive protein 13.4. A second CT angiogram again revealed no acute pulmonary embolism. Continues with diffuse bilateral infiltrates consistent with multifocal pneumonia secondary to COVID-19. He is continued on Decadron, Lovenox, vitamin supplements. The patient is seen today 05/25/2021 in follow-up on the regular medical floor. He is currently resting comfortably in bed. Awake and alert in no acute distress. He is maintaining O2 saturations in the low 90s on 5 L/m per nasal cannula. Still temping at 100.3. Hemodynamically stable. Cultures revealed no growth. Sputum culture pending. Sodium 140. Potassium 3.9. Creatinine 0.9. AST 67. ALT 108. He is continued on Decadron, Lovenox, vitamin supplements. Progress note dated 05/26/2021. 35-year-old male admitted with a diagnosis of coronavirus associated pneumonia. The patient also carries with him a diagnosis of diffuse large B-cell lymphoma. Currently, the patient is on 5 L nasal cannula. He appears to be doing a bit better. Laboratory data from today includes a white count of 4.79, hemoglobin 13.1, hematocrit 40.4, and platelet count 169,000. Sed rate is 92. Fibrinogen level 752 D-dimer is 1.04. Sodium 140, potassium 3.8, chlorides 102, CO2 23, anion gap 15, BUN 16.5, and creatinine 0.9. LDH is 388. Chest x-ray continues to show diffuse bilateral infiltrates. Lung volumes are small. Objective - Vital Signs Vital signs: Vital Signs Temp 97.8 F 05/26/21 09:00 Pulse 83 05/26/21 09:00 Resp 18 05/26/21 09:00 BP 113/72 05/26/21 09:00 Pulse Ox 93 L 05/26/21 09:00 Intake & Output 05/25/21 05/26/21 05/26/21 19:59 06:59 18:59 Output Total Balance Output: Urine Other: Voiding Method Toilet Urinal # Voids - Exam No acute distress, oriented 3. No use of accessory muscles or conversational dyspnea. Patient currently on 5 L. HEENT examination is grossly unremarkable. Neck supple. Full range of motion. No adenopathy thyromegaly or neck vein distention. Cardiovascular examination reveals regular rhythm rate. S1-S2 normal. No S3 or S4. No discernible murmur noted. Heart rate 83 bpm. Lungs reveal bilateral coarse rhonchi. No wheezes or crackles. Breath sounds equal bilaterally. The patient coughs on deep inspiration. Saturations 93% on 5 L. Abdomen soft bowel sounds are heard. No masses or tenderness. Extremities are intact. No cyanosis clubbing or edema. Skin is without rash or lesion. Neurologic examination is brief but nonfocal. - Labs CBC & Chem 7: 05/26/21 08:19 05/26/21 08:19 Labs: Abnormal Lab Results - Last 24 Hours (Table) 05/25/21 05/26/21 05/26/21 Range/Units 07:08 08:19 08:19 RBC 3.90 L 4.23 L (4.30-5.90) m/uL Hgb 12.9 L (13.0-17.5) gm/dL Hct 38.4 L (39.0-53.0) % Lymphocytes # (Manual) 0.13 L (1.0-4.8) k/uL ESR 92 H (0-15) mm/Hr D-Dimer 1.04 H (<0.60) mg/L FEU Anion Gap (4.00-12.00) mmol/L Glucose (70-110) mg/dL Calcium (8.7-10.3) mg/dL Ferritin (22.0-322.0) ng/mL AST (14-35) U/L ALT (10-49) U/L Lactate Dehydrogenase (120-246) U/L Albumin (3.8-4.9) g/dL Albumin/Globulin Ratio (1.60-3.17) g/dL 05/26/21 Range/Units 08:19 RBC (4.30-5.90) m/uL Hgb (13.0-17.5) gm/dL Hct (39.0-53.0) % Lymphocytes # (Manual) (1.0-4.8) k/uL ESR (0-15) mm/Hr D-Dimer (<0.60) mg/L FEU Anion Gap 15.00 H (4.00-12.00) mmol/L Glucose 133 H (70-110) mg/dL Calcium 8.6 L (8.7-10.3) mg/dL Ferritin 3749.0 H (22.0-322.0) ng/mL AST 82 H (14-35) U/L ALT 146 H (10-49) U/L Lactate Dehydrogenase 388 H (120-246) U/L Albumin 3.7 L (3.8-4.9) g/dL Albumin/Globulin Ratio 1.16 L (1.60-3.17) g/dL Microbiology - Last 24 Hours (Table) 05/24/21 20:49 Gram Stain - Preliminary Sputum Sputum Culture - Preliminary 05/19/21 11:45 Blood Culture - Final Blood No Growth after 144 hours 05/19/21 12:00 Blood Culture - Final Blood No Growth after 144 hours Assessment and Plan Assessment: Acute hypoxemic respiratory failure secondary to coronavirus associated pne umonia. No evidence of pulmonary embolism on CT angiogram. Hypogammaglobulinemia, patient receives IVIG. Diffuse large B cell lymphoma (NHL). Status post 6 rounds of R-CHOP chemotherapy. Gastroesophageal reflux disease. History of pancreatitis. History of ulcerative colitis. Plan: Plan dated 05/20/2021. The patient has minimal respiratory complaints. Clinically he looks well. We recommended vitamins, normal doses of Lovenox, and Decadron 10 mg a day. He is beyond the window for REM. Hopeful discharge in next 24-48 hours. No additional recommendations are made. Antibiotics can be discontinued. We will continue to follow make recommendations where appropriate. Plan dated 05/26/2021. The patient seems be doing just a bit better. We encourage him to take deep br eaths, and use his incentive spirometer. The patient is on appropriate medications including vitamins, Lovenox, and Decadron. The patient was beyond the window for REM. Additional recommendations and suggestions are forthcoming. Prognosis is guarded. We'll follow the patient and make recommendations where appropriate. Time with Patient: Less than 30
[2021-05-26] MEDS: FLUTICASONE 220 MCG INHALER INHALATION SCH ×2 (15:50→20:09)
[2021-05-26] MEDS: ALPRAZolam 0.25 MG TAB PO PRN (16:35)
--- NOTE | 2021-05-26 19:54 | P.PN ---
Subjective Progress Note Date: 05/26/21 Principal diagnosis: Increased Shortness of breath over night, states he feels more tightness in chest and complaints of subjective fevers that are not improved. He did receive 25grams IVIG yesterday, due for 25 grams today as well to help additional immune support. He is sitting by window, difficult breathing is evident with conversation. Oxygenation while I was at bedside and patient at rest 88-90% on 6L, slowly increased to 90-91%. I spoke to Dr. Burns and with his continued slow decline in oxygenation will attempt to obtain approval for Baricitinab. Objective - Vital Signs Vital signs: Vital Signs Temp 97.8 F 05/26/21 09:00 Pulse 83 05/26/21 09:00 Resp 18 05/26/21 09:00 BP 113/72 05/26/21 09:00 Pulse Ox 93 L 05/26/21 09:00 Intake & Output 05/25/21 05/26/21 05/26/21 19:59 06:59 18:59 Output Total Balance Output: Urine Other: Voiding Method Toilet Urinal # Voids - Exam alert and oriented NAD Head: NCAT Mucus membranes dry Lungs: Rhonchi and bibasilar bilateral diminished Abd: soft Heart reg tachy - Labs CBC & Chem 7: 05/26/21 08:19 05/26/21 08:19 Labs: Abnormal Lab Results - Last 24 Hours (Table) 05/25/21 05/25/21 05/26/21 Range/Units 07:08 07:08 08:19 RBC 3.90 L (4.30-5.90) m/uL Hgb 12.9 L (13.0-17.5) gm/dL Hct 38.4 L (39.0-53.0) % Lymphocytes # (Manual) 0.13 L (1.0-4.8) k/uL D-Dimer 1.04 H (<0.60) mg/L FEU Anion Gap 15.50 H (4.00-12.00) mmol/L AST 67 H (14-35) U/L ALT 108 H (10-49) U/L Albumin 3.6 L (3.8-4.9) g/dL Albumin/Globulin Ratio 1.13 L (1.60-3.17) g/dL Microbiology - Last 24 Hours (Table) 05/19/21 11:45 Blood Culture - Final Blood No Growth after 144 hours 05/19/21 12:00 Blood Culture - Final Blood No Growth after 144 hours 05/24/21 20:49 Gram Stain - Preliminary Sputum Sputum Culture - Preliminary Assessment and Plan (1) Fever Current Visit: Yes Status: Acute Code(s): R50.9 - FEVER, UNSPECIFIED SNOMED Code(s): 220073377 (2) COVID Current Visit: Yes Status: Acute Priority: High Code(s): U07.1 - COVID-19 SNOMED Code(s): 699280568 (3) Lymphoma Current Visit: Yes Status: Acute Code(s): C85.90 - NON-HODGKIN LYMPHOMA, UNSPECIFIED, UNSPECIFIED SITE SNOMED Code(s): 595165958 (4) Pneumonia Current Visit: Yes Status: Acute Code(s): J18.9 - PNEUMONIA, UNSPECIFIED ORGANISM SNOMED Code(s): 479238682 (5) Shortness of breath Current Visit: Yes Status: Acute Code(s): R06.02 - SHORTNESS OF BREATH SNOMED Code(s): 169795434 Plan: Assessment and Recommendations: Acute Respiratory Distress, Fever, Post Covid Pneumonia: - Recent positive test - Received Regeneron and improved, then recurrent high fevers and worsening respiratory symptoms - Infectious disease to follow, Pulmonary to Follow are recommended - Status post 2/2 25 grams of IVIG for additional immune support COVID PCR and Rapid remains positive, he remains symptomatic. Repeat CTA - Re-demonstration of bilateral multifocal pneumonia Febrile: - stable with ATC Acetaminophen Overall concern of the slow progressive declining oxygen status. He does not appear to be improving. Reminded nursing of sputum culture ordered in ER, ?secondary bacterial. Defer next steps to Pulmonary and ID to assist with second treatment recs . Thursday evening Oxygen 90-91%2-3L, today 6L and at rest while I was at chairside 88-90% with clear increased effort and difficulty with conversation. updated. She has been vaccinated and cleared from recent infection 4 weeks ago, they were both tested positive 23 days prior. Hope to be able to have her allowed to be with patient given his anxiety and worry is concerning for his recovery.
--- NOTE | 2021-05-26 20:25 | PN ---
PROGRESS NOTE DATE OF SERVICE: 05/26/2021 REASON FOR FOLLOWUP: COVID-19 pneumonia. INTERVAL HISTORY: The patient is afebrile. The patient is still complaining of shortness of breath. He did have a dry hacking cough, not bringing up any sputum. Some nausea but no vomiting. No abdominal pain or diarrhea. PHYSICAL EXAMINATION: Blood pressure 113/72 with a pulse of 73, temperature of 98.3. He is 92% on 6 L nasal cannula. General description is a middle-aged male up in the chair in no distress. RESPIRATORY SYSTEM: Unlabored breathing. Decreased intensity of breath sounds. No wheeze. HEART: S1, S2. Regular rate and rhythm. ABDOMEN: Soft. No tenderness. LABS: Hemoglobin is 13.1, white count 4.79. Creatinine 0.9. DIAGNOSTIC IMPRESSION AND PLAN: Patient with acute COVID-19 pneumonia in this patient whose clinical condition remains critical. No significant worsening or improvement either. Patient is currently covered with Lovenox, dexamethasone, zinc and ascorbic acid; to continue along with respiratory support. Multiple questions were all answered. MMODL / IJN: [id number] /
[2021-05-27] MEDS: ACETAMINOPHEN TAB 500 MG TAB PO PRN ×2 (02:57→17:04)
[2021-05-27] MEDS: BENZONATATE 100 MG CAP PO PRN ×2 (02:58→17:04)
[2021-05-27] MEDS: FLUTICASONE 220 MCG INHALER INHALATION SCH ×2 (07:07→20:03)
[2021-05-27] MEDS: ALBUTEROL HFA INHALER INHALATION PRN ×3 (07:07→20:03)
[2021-05-27] MEDS: dexAMETHasone 2 MG TAB PO SCH (08:52)
[2021-05-27] MEDS: ENOXAPARIN 40 MG/0.4 ML SYRINGE SQ SCH (08:52)
[2021-05-27] MEDS: PANTOPRAZOLE 40 MG TABLET PO SCH ×2 (08:52→17:04)
[2021-05-27] MEDS: CHOLECALCIFEROL 25 MCG (1000 IU) TABLET PO SCH (08:52)
[2021-05-27] MEDS: CALCIUM CARBONATE 500 MG CHEWABLE PO SCH (08:52)
[2021-05-27] MEDS: ASCORBIC ACID 500 MG TAB PO SCH ×2 (08:53→19:59)
[2021-05-27] MEDS: ZINC SULFATE 220 MG CAP PO SCH (08:53)
[2021-05-27] MEDS: IBUPROFEN 600 MG TAB PO PRN (08:57)
--- NOTE | 2021-05-27 11:36 | P.PN ---
Subjective Progress Note Date: 05/27/21 Principal diagnosis: Increased Shortness of breath over night, states he feels more tightness in chest and complaints of subjective fevers that are not improved. He did receive 25grams IVIG yesterday, due for 25 grams today as well to help additional immune support. Continues on 6L of oxygen. CBC remains stable, LDH improving. Objective - Vital Signs Vital signs: Vital Signs Temp 98.3 F 05/27/21 05:14 Pulse 69 05/27/21 05:14 Resp 19 05/27/21 02:53 BP 122/74 05/27/21 05:14 Pulse Ox 93 L 05/27/21 05:14 Intake & Output 05/26/21 05/27/21 05/27/21 18:59 06:59 18:59 Other: Voiding Method Toilet Urinal # Voids 8 2 - Exam alert and oriented NAD Head: NCAT Mucus membranes dry Lungs: Rhonchi and bibasilar bilateral diminished Abd: soft Heart reg tachy - Labs CBC & Chem 7: 05/26/21 08:19 05/26/21 08:19 Labs: Abnormal Lab Results - Last 24 Hours (Table) 05/26/21 05/26/21 Range/Units 08:19 08:19 RBC 4.23 L (4.40-5.60) X 10*6/uL ESR 92 H (0-15) mm/Hr Anion Gap 15.00 H (4.00-12.00) mmol/L Glucose 133 H (70-110) mg/dL Calcium 8.6 L (8.7-10.3) mg/dL Ferritin 3749.0 H (22.0-322.0) ng/mL AST 82 H (14-35) U/L ALT 146 H (10-49) U/L Lactate Dehydrogenase 388 H (120-246) U/L Albumin 3.7 L (3.8-4.9) g/dL Albumin/Globulin Ratio 1.16 L (1.60-3.17) g/dL Microbiology - Last 24 Hours (Table) 05/24/21 20:49 Gram Stain - Final Sputum Sputum Culture - Final Assessment and Plan (1) Fever Current Visit: Yes Status: Acute Code(s): R50.9 - FEVER, UNSPECIFIED SNOMED Code(s): 283998864 (2) COVID Current Visit: Yes Status: Acute Priority: High Code(s): U07.1 - COVID-19 SNOMED Code(s): 371768517 (3) Lymphoma Current Visit: Yes Status: Acute Code(s): C85.90 - NON-HODGKIN LYMPHOMA, UNSPECIFIED, UNSPECIFIED SITE SNOMED Code(s): 133423390 (4) Pneumonia Current Visit: Yes Status: Acute Code(s): J18.9 - PNEUMONIA, UNSPECIFIED ORGANISM SNOMED Code(s): 892438197 (5) Shortness of breath Current Visit: Yes Status: Acute Code(s): R06.02 - SHORTNESS OF BREATH SNOMED Code(s): 529203712 Plan: Assessment and Recommendations: Acute Respiratory Distress, Fever, Post Covid Pneumonia: - Recent positive test - Received Regeneron and improved, then recurrent high fevers and worsening respiratory symptoms - Infectious disease to follow, Pulmonary to Follow are recommended - Status post 2/2 25 grams of IVIG for additional immune support COVID PCR and Rapid remains positive, he remains symptomatic. Repeat CTA - Re-demonstration of bilateral multifocal pneumonia Reviewed Chest Xray 05/26/21 - no significant change Febrile: - stable with ATC Acetaminophen Await further review and intervention from ID and Pulm. His oxygen status continues to slowly worsen. Discussed adddition treatment to assist recovery in imuno-compromised patient, attempt for approval. Spoke with pulmonary and at this time concern of additional medication related to his lymphoma diagnosis, continue to monitor respiratory status, encourage to increase activity and deep breathe.
--- NOTE | 2021-05-27 13:05 | P.PN ---
Subjective Progress Note Date: 05/27/21 On today's evaluation of 05/27/2021, I'm seeing this patient for a follow-up. A pleasant 35-year-old male patient with history of non-Hodgkin's lymphoma, diffuse large B-cell lymphoma, who was infected with Covid 19. The patient received monoclonal antibodies and subsequently his condition progressed and ultimately the patient was hospitalized for Covid 19 related pneumonia. The patient underwent Doppler of the lower extremity that showed no evidence of any DVT. CT angiogram showed no evidence of any pulmonary embolism. He was started on Decadron and Lovenox and multivitamins. He does receive IVIG regarding chronic hypogammaglobulinemia. As mentioned, he has history of lymphoma the patient is currently on immunotherapy. Currently is on oxygen at 6 L of the current pulse ox is around 94%. He is doing well. His condition is stable. Hemodynamically stable. No worsening in his breathing since yesterday. The most recent chest x-ray and this was done yesterday showed poor inspiratory efforts. No significant interval change and the patient had some increased vascular markings bilaterally. The blood work was showing a white cell count of 4.7, he was 13.1, his sed rate is at 92, d-dimer is at 1.04, the patient has a ferritin level of 3749, he is LDH level is at 388 and a CRP level is at 13.4. Normal renal function. His globulin level is at 3.2. Objective - Vital Signs Vital signs: Vital Signs Temp 98.5 F 05/27/21 11:39 Pulse 86 05/27/21 11:39 Resp 20 05/27/21 11:39 BP 117/63 05/27/21 11:39 Pulse Ox 94 L 05/27/21 11:39 Intake & Output 05/26/21 05/27/21 05/27/21 18:59 06:59 18:59 Other: Voiding Method Toilet Urinal # Voids 8 2 - Exam No acute distress, oriented 3. No use of accessory muscles or conversational dyspnea. Patient currently on 6 L. HEENT examination is grossly unremarkable. Neck supple. Full range of motion. No adenopathy thyromegaly or neck vein distention. Cardiovascular examination reveals regular rhythm rate. S1-S2 normal. No S3 or S4. No discernible murmur noted. Heart rate 83 bpm. Lungs reveal bilateral coarse rhonchi. No wheezes or crackles. Breath sounds equal bilaterally. The patient coughs on deep inspiration. Saturations 93% on 5 L. Abdomen soft bowel sounds are heard. No masses or tenderness. Extremities are intact. No cyanosis clubbing or edema. Skin is without rash or lesion. Neurologic examination is brief but nonfocal. - Labs CBC & Chem 7: 05/26/21 08:19 05/26/21 08:19 Labs: Abnormal Lab Results - Last 24 Hours (Table) 05/26/21 05/26/21 Range/Units 08:19 08:19 ESR 92 H (0-15) mm/Hr Ferritin 3749.0 H (22.0-322.0) ng/mL Microbiology - Last 24 Hours (Table) 05/24/21 20:49 Gram Stain - Final Sputum Sputum Culture - Final Assessment and Plan Plan: Acute hypoxemic respiratory failure secondary to coronavirus associated pneumonia. Patient has Coumadin. Pneumonia the patient is currently on 6 L of oxygen by nasal cannula. The patient was hospitalized after he failed monoclonal antibodies. He is currently on Decadron. LDH level is not elevated. Ferritin is high. No evidence of pulmonary embolism on CT angiog.nura. Hypogammaglobulinemia, patient receives IVIG. Diffuse large B cell lymphoma (NHL). Status post 6 rounds of R-CHOP chemotherapy. The patient is currently receiving immunotherapy Gastroesophageal reflux disease. History of pancreatitis. History of ulcerative colitis. Plan: Condition is stable the patient remains on 6 L of O2 nasal cannula continue Decadron IVIG was given monitor the oxygenation Continue anticoagulation with Lovenox Repeat chest x-ray in the morning Continue using incentive spirometer We'll continue to follow
--- NOTE | 2021-05-27 15:33 | P.PN ---
Subjective Progress Note Date: 05/27/21 HISTORY OF PRESENT ILLNESS 35-year-old male one of Dr. Rivera's patient with past medical history of non- Hodgkin lymphoma was diagnosed's past year who has history of Peter, history of pancreatitis, history of ulcerative colitis who was diagnosed with COVID-19 last week and had monoclonal antibiotic infusion. Patient had felt slightly but better till the lost 48 hours when he developed to have worsening symptom with worsening dyspnea and shortness of breath along with increased cough increased fever chills and generalized symptom with more fatigue and tiredness. Patient ended up coming to the emergency Department at [facility] where was seen and evaluated surprisingly his chest x-ray still showing Covid pneumonitis with fever running around 101. Patient was started on dexamethasone along with antibiotics to cover pneumonia his pulse ox is still running in the 90s when he doesn't exert himself patient will be admitted to the hospital will be seen hematology and pulmonary. Apparently patient had immunotherapy infusion this last week which can be contributing factor to was going on with his relapse from COVID-19 or worsening symptoms. Also patient been treated for non-Hodgkin lymphoma this last year which had brought his lymph node size down significantly. Patient also was told that he has moderately enlarged liver not explained with the? Off Peter. Patient has slightly higher diaphragm on the right side compared to the left side on his chest x-ray. 05/20: patient is not requiring oxygen and pulse ox is 94% on room air. He was running fevers yesterday and required IV Tylenol, Motrin [id number]. Fevers are improved today, heart rate 74, blood pressure 109/71.repeat blood work reveals WBC 2.3, hemoglobin 11.8, platelet count 134. D-dimer 0.92. Electrolytes and renal function normal. Calcium 7.6. ALT 69. Chest x-ray reveals patchy perihilar subsegmental infiltrate. Mediport catheter appears to be malpositioned and kinked. Correlate clinically. CTA of the chest reveals patchy and confluent bilateral groundglass, greatest in the lower lungs compatible with Covid pneumonia. Limited assessment for pulmonary embolus due to breathing motion. Equivocal for filling defects pulmonary emboli involving lobar and segmental branches of the left upper lobe. We favor breathing motion artifact. Consider short interval follow-up versus initiation of treatment depending on clinical suspicion. Partially visualized mid abdominal nii mesentery as seen on 11/22/2020. 05/21: Patient has been seen by Dr. Burns, patient is out of the therapeutic window for REM to severe and no evidence of secondary bacterial pneumonia, continue Decadron Lovenox think and vitamin C, droplet isolation. Patient is also seen by pulmonary medicine as well. Bilateral lower extremity ultrasound negative for DVT and thus CTA is inconclusive and patient is continued on DVT prophylaxis. IgG came back low at 401 and oncology as ordered immunoglobulin. Temperature max 102 this morning, heart rate 112, blood pressure 130/72, pulse ox 96% on room air. Patient is continued on Lovenox 40 mg subcu daily, dexamethasone 6 mg daily and vitamin supplements. Patient is reaching 1500 on incentive spirometry. 05/22:patient's breathing status is currently stable. He states he had about a 20 minute period during the night where he was coughing and felt short of breath and ended up wearing oxygen for couple hours. He states his pulse ox dropped down to 90%. He is currently 93% on room air. Patient has been afebrile now for greater than 24 hours, heart rate 96, blood pressure 131/77. Patient is currently receiving immunoglobulin scheduled for this afternoon. Anticipate completing this this evening, plan for discharge home tomorrow. 05/23: Anticipated that the patient would be ready for discharge today but unfortunately the patient has increased oxygen needs are currently on 4 L nasal cannula with pulse ox of 90%. He also has increasing cough and he feels short of breath with dyspnea on minimal exertion area and He did have a fever this morning of 101.5. Heart rate 92. Blood pressure 122/73. Patient has completed immunoglobulin infusion. Repeat chest x-ray ordered which shows stable bilateral pleural effusion. 05/24: Patient continues to have shortness of breath and having some chest pain with movement. He reports being a tiny bit better from yesterday. He appears to be quite fatigued at rest. Patient continues to be febrile with temperature 102.3, heart rate 105, blood pressure 126/77, pulse ox 93% on 4 L nasal cannula. LDH 866, C-reactive protein 13.4. Repeat CTA of the chest ordered to rule out pulmonary embolism. 05/25: Patient still not doing that well he is on 5 L O2 pulse ox running around 93-94%, continued to have significant shortness of breath and dyspnea with minimal exertion continued to have severe hypoxia this point. CT was reviewed from yesterday showed no sign of pulmonary embolism. Covid marker and chest x- ray will be done tomorrow the meanwhile continue current management. 05/26: Patient is still having slight hypoxia and shortness of breath he is little bit better compared to yesterday, his having less cough less fever and chills at this point. Still not recovering as fast as expected so far continue current treatment management continue supportive care he still seen pulmonary marcia mendoza. 05/27: She continues to have shortness of breath and oxygen increased to 6 L overnight. Patient received IVIG yesterday. WBC 4.7 Patient is continued on Decadron, Lovenox and supplements. REVIEW OF SYSTEMS Constitutional: Reports fever and chills with night sweats, mild weight loss, generalized fatigue and tiredness no lethargy and daytime sleepiness. EENT: No headache. No dizziness. No nasal drainage or congestion. No epistaxis. No sore throat. Lungs: Reports shortness of breath with cough and wheezes with sputum production and worsening dyspnea with minimal exertion. Cardiovascular: No chest pain, no lower extremity edema. No palpitations. No paroxysmal nocturnal dyspnea. No orthopnea. No lightheadedness or dizziness. No syncopal episodes. Abdominal: Mild abdominal discomfort with nausea no vomiting positive loss of appetite no tarry stool mild constipation. Genitourinary: No dysuria, increased frequency, urgency. No urinary retention. Musculoskeletal: Positive myalgia and muscle achiness and discomfort. Integumentary: No wounds, no lesions. No rash or pruritus. No unusual bruising. Neurologic: No aphasia. No facial droop. No change in mentation. No head injury. No headache. No paralysis. No paresthesia. Psychiatric: No depression. No anxiety. No mood swings. Endocrine: No abnormal blood sugars. No weight change. PHYSICAL EXAMINATION Gen: This is a 35-year-old male resting in bed and appears to be in no respiratory distress. HEENT: Head is atraumatic, normocephalic. Pupils equal, round. Sclerae is anicteric. NECK: Supple. No JVD. Positive lymphadenopathy. No thyromegaly. LUNGS: Decreased breath sound bilaterally with fine rhonchi positive mild crackles in the bases positive mild expiratory wheezes. HEART: Regular rate and rhythm. No murmur. ABDOMEN: Soft. Bowel sounds are present. No rebound or rigidity. EXTREMITIES: No pedal edema. No calf tenderness. NEUROLOGICAL: Patient is awake, alert and oriented x3. Cranial nerves 2 through 12 are grossly intact. ASSESSMENT AND PLAN 1 acute hypoxic respiratory failure requiring O2 at 6 L secondary to COVID-19 pneumonitis, no sign of pulmonary embolism, patient still having significant dec reased lung volume both side. He is not able take a deep breath or suppressive encourage will continue incentive spirometry and more frequent. 2 COVID-19 pneumonitis. Patient is followed by pulmonary medicine and infectious disease. Status post monoclonal antibodies infusion. Continue oxygen support, dexamethasone, Lovenox, supplements. 3. Sepsis with SIRS: Multiple code to be factor from his lymphoma, chemoimmunotherapy, recent COVID-19 pneumonitis with worsening symptoms. Significantly elevated temperature with lactic acid of 2.7 chest x-ray showed patchy airspace up his station consistent with pneumonia specially COVID-19 pneumonitis. Still on aggressive management at this point with a site [place], dexamethasone, off antibiotic this point. 4. Fever. Secondary to COVID-19 pneumonitis continue with Tylenol and Motrin. 5. Lactic acidosis secondary to sepsis. 6. Non-Hodgkin lymphoma: Patient remain on active treatment he seen hematology regular basis. immunoglobulin infusion. 7. Reactive airway/asthma: This chest x-ray just look like lost of lung volume mostly continue incentive spirometry regime AV pulmonary physical therapy. 8. Mild anxiety attacks: Remain on alprazolam on as needed basis. 9. Chronic hypo-gammaglobinemia. Patient is status post 2 doses of IVIG. 10. GI prophylaxis: Patient will be on pantoprazole 40 mg twice a day while he still on the ibuprofen for now. 10. DVT prophylaxis: Patient will be on Lovenox 40 mg subcutaneous daily. CODE STATUS: Full code. Prognosis: Still guarded. DISCHARGE PLAN Home Impression and plan of care have been directed as dictated by the signing physician. Nevin Madera nurse practitioner acting as scribe for signing physician. Objective - Vital Signs Vital signs: Vital Signs Temp 98.3 F 05/27/21 05:14 Pulse 69 05/27/21 05:14 Resp 19 05/27/21 02:53 BP 122/74 05/27/21 05:14 Pulse Ox 93 L 05/27/21 05:14 Intake & Output 05/26/21 05/27/21 05/27/21 18:59 06:59 18:59 Other: Voiding Method Toilet Urinal # Voids 8 2 - Labs CBC & Chem 7: 05/26/21 08:19 05/26/21 08:19 Labs: Abnormal Lab Results - Last 24 Hours (Table) 05/26/21 05/26/21 Range/Units 08:19 08:19 RBC 4.23 L (4.40-5.60) X 10*6/uL ESR 92 H (0-15) mm/Hr Anion Gap 15.00 H (4.00-12.00) mmol/L Glucose 133 H (70-110) mg/dL Calcium 8.6 L (8.7-10.3) mg/dL Ferritin 3749.0 H (22.0-322.0) ng/mL AST 82 H (14-35) U/L ALT 146 H (10-49) U/L Lactate Dehydrogenase 388 H (120-246) U/L Albumin 3.7 L (3.8-4.9) g/dL Albumin/Globulin Ratio 1.16 L (1.60-3.17) g/dL Microbiology - Last 24 Hours (Table) 05/24/21 20:49 Gram Stain - Preliminary Sputum Sputum Culture - Preliminary
[2021-05-27] MEDS: ALPRAZolam 0.25 MG TAB PO PRN (17:04)
--- NOTE | 2021-05-27 22:49 | PN ---
PROGRESS NOTE DATE OF SERVICE: 05/27/2021 REASON FOR FOLLOWUP: COVID-19 pneumonia. INTERVAL HISTORY: The patient has been afebrile. Patient was breathing more comfortably . The patient denies having any chest pain. No worsening cough. No abdominal pain. No diarrhea. PHYSICAL EXAMINATION: Blood pressure 120/76, pulse of 75, temp is 97.7. He is 92% on 6 L nasal cannula. General description is a middle-aged male up in the room in no distress. Respiratory system unlabored breathing, decreased intensity of breath sounds. No wheeze. Heart S1, S2. Regular rate and rhythm. Abdomen soft, no tenderness. LABS: No new labs have been obtained today. DIAGNOSTIC IMPRESSION AND PLAN: Patient with acute COVID-19 pneumonia. Minimal clinical improvement currently on dexamethasone, Lovenox, zinc and ascorbic acid to continue along with respiratory support and encouraged incentive spirometry and continue supportive care. MMODL / IJN: [id number] /
[2021-05-28] MEDS: ALPRAZolam 0.25 MG TAB PO PRN ×2 (00:55→16:48)
[2021-05-28] MEDS: CHOLECALCIFEROL 25 MCG (1000 IU) TABLET PO SCH (08:29)
[2021-05-28] MEDS: ASCORBIC ACID 500 MG TAB PO SCH ×2 (08:29→21:16)
[2021-05-28] MEDS: CALCIUM CARBONATE 500 MG CHEWABLE PO SCH (08:29)
[2021-05-28] MEDS: ZINC SULFATE 220 MG CAP PO SCH (08:30)
[2021-05-28] MEDS: PANTOPRAZOLE 40 MG TABLET PO SCH ×2 (08:30→16:48)
[2021-05-28] MEDS: ENOXAPARIN 40 MG/0.4 ML SYRINGE SQ SCH (08:30)
[2021-05-28] MEDS: dexAMETHasone 2 MG TAB PO SCH (08:30)
[2021-05-28] MEDS: ACETAMINOPHEN TAB 500 MG TAB PO PRN (08:35)
[2021-05-28 08:44] LABS: Basophils % (A) 0 %; Eosinophils % (A) 0 %; HCT 37.5 % (39.0-53.0); HGB 12.9 gm/dL (13.0-17.5); Lymphocytes # (A) 0.1 k/uL (1.0-4.8); Lymphocytes % (A) 2 %; MCH 32.6 pg (25.0-35.0); MCHC 34.3 g/dL (31.0-37.0); Mean Platelet Volume 7.6; Monocytes # (A) 0.2 k/uL (0-1.0); Monocytes % (A) 4 %; Neutrophils # (A) 3.4 k/uL (1.3-7.7); Neutrophils % (A) 93 %; Platelet Count 214 k/uL (150-450); RBC 3.95 m/uL (4.30-5.90); RDW 12.6 % (11.5-15.5); WBC 3.7 k/uL (3.8-10.6)
[2021-05-28 09:00] LABS: African American GFR (CKD) >90 (>60 ml/min/1.73 sqM); Anion Gap 8 mmol/L; Blood Urea Nitrogen 18 mg/dL (9-20); C Reactive Protein 4.8 mg/dL (<1.0); Calcium 8.8 mg/dL (8.4-10.2); Carbon Dioxide 30 mmol/L (22-30); Chloride 99 mmol/L (98-107); Glucose 92 mg/dL (74-99); LDH 1028 U/L (313-618); Non-African American GFR(CKD) >90 (>60 ml/min/1.73 sqM); Potassium 4.4 mmol/L (3.5-5.1); Sodium 137 mmol/L (137-145)
[2021-05-28] MEDS: ALBUTEROL HFA INHALER INHALATION PRN ×3 (09:02→20:16)
[2021-05-28] MEDS: FLUTICASONE 220 MCG INHALER INHALATION SCH ×2 (09:02→20:16)
--- NOTE | 2021-05-28 09:03 | XR ---
EXAMINATION TYPE: XR chest 1V portable DATE OF EXAM: 05/28/2021 COMPARISON: Chest x-ray 05/26/2021 HISTORY: Covid, abnormal chest x-ray, pneumonia TECHNIQUE: Single frontal view of the chest is obtained. FINDINGS: Findings are similar to prior exam. IMPRESSION: Findings consistent with patient's history of Covid pneumonia
[2021-05-28] MEDS: IBUPROFEN 600 MG TAB PO PRN (10:29)
[2021-05-28] MEDS: guaiFENesin-Coden 100-10MG/5ML 10 ML CUP PO PRN ×2 (10:33→16:47)
[2021-05-28] MEDS ORDERED: MORPHINE SULFATE 2 MG/ML SYRINGE IVP PRN (10:33)
[2021-05-28 12:01] LABS: Glucose,Whole Blood 117 mg/dL (75-99)
--- NOTE | 2021-05-28 13:39 | P.PN ---
Subjective Progress Note Date: 05/28/21 Principal diagnosis: COVID-19 infection 35-year-old male seen in the emergency department yesterday with a history of non-Hodgkin some foam a, diffuse large B-cell lymphoma, who presents to the emergency department with fever, and mild shortness of breath. The patient did receive monoclonal antibody about 3-4 days prior to admission. He tested positive for coronavirus about 2 weeks ago. Over the last day or so prior to admission, he had elevated temperature, which she had a hard time controlling at home. In addition, his saturations at home were borderline. For that reason he came into the hospital to be evaluated. He was seen initially by the PA, and then was admitted to the hospital. Currently, he's on room air. His saturations are fine. He is not manifesting any signs or symptoms of respiratory distress. His chest x-ray was not particularly impressive, but his computed tomography scan did show diffuse bilateral patchy groundglass opacities consistent with coronavirus associated pneumonia. He was beyond the window for REM. White count 2.37, hemoglobin 11.8, hematocrit 36.5, platelet count 134,000. D-dimer was 0.9 to electrolytes were normal. Ferritin was 1126. Pro- calcitonin was 0.18. C-reactive protein was 7.3. LDH was 215. Chest x-ray and CT angiogram were evaluated. There is no evidence of pulmonary embolism. The patient is seen today 05/21/2021 in follow-up on the regular medical floor. He is currently sitting up in a chair at the bedside. Awake and alert in no acute distress. 18 O2 saturations in the mid 90s on room air. He is dyspneic with minimal exertion however. Currently afebrile with temperature of 102. Doppler of the lower extremities negative for DVT. CT angiogram negative for PE. Blood cultures revealing no growth. No new labs today. He is continued on Decadron, Lovenox, vitamin supplements. He is receiving IVIG for his hypogammaglobulinemia. 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 No ant ibiotics currently per ID services. The patient is seen today 05/22/2021 in follow-up on the regular medical floor. He is currently sitting up in a chair at the bedside. Awake and alert in no acute distress. No worsening shortness of breath. He has an occasional dry nonproductive cough and then he applies his oxygen. Currently in the 2% on room air. He is afebrile. Hemodynamically stable. Blood cultures reveal no growth. No new labs today. Remains on Decadron, Lovenox, vitamin supplements. He is requesting follow-up CoVODELL mcnamara he was diagnosed 2 weeks ago. He is hoping to have visitors. The patient is seen today 05/23/2021 in follow-up on the regular medical floor. He is awake and alert in no acute distress. Sitting up in chair at the bedside. Having some increasing cough, congestion, dyspnea on minimal exertion. O2 saturation room air 90%. Improved on 4 L nasal cannula. He is currently afebrile though did have a temperature again early this morning at 101.5. X-ray showing bilateral patchy infiltrates. Follow-up rapid coronavirus test positive still. He remains on Decadron, Lovenox, vitamin supplements. He is received IVIG yesterday. Patient is seen today 05/24/2021 in follow-up on the regular medical floor. Currently sitting up in a chair at the bedside. Awake and alert in no acute distress. Continues to maintain O2 saturations in the 90s on 4 L/m per nasal cannula. Fever again this morning at 102.3, currently afebrile. Blood cultures reveal no growth. LDH 866. C-reactive protein 13.4. A second CT angiogram again revealed no acute pulmonary embolism. Continues with diffuse bilateral infiltrates consistent with multifocal pneumonia secondary to COVID-19. He is continued on Decadron, Lovenox, vitamin supplements. The patient is seen today 05/25/2021 in follow-up on the regular medical floor. He is currently resting comfortably in bed. Awake and alert in no acute distress. He is maintaining O2 saturations in the low 90s on 5 L/m per nasal cannula. Still temping at 100.3. Hemodynamically stable. Cultures revealed no growth. Sputum culture pending. Sodium 140. Potassium 3.9. Creatinine 0.9. AST 67. ALT 108. He is continued on Decadron, Lovenox, vitamin supplements. Patient is seen today 05/28/21 in follow-up he has a of non-Hodgkin's lymphoma, diffuse large B-cell lymphoma, who was infected with Covid 19. The patient underwent Doppler of the lower extremity that showed no evidence of any DVT. CT angiogram showed no evidence of any pulmonary embolism. He was started on Decadron and Lovenox and multivitamins. He does receive IVIG regarding chronic hypogammaglobulinemia. As mentioned, he has history of lymphoma the patient is currently on immunotherapy. His oxygen requirements have continued to rise. He is currently on AirVo at 55 L and 80% oxygen to maintain O2 saturation in the high 90s. He is afebrile. This x-ray continues to show bilateral patchy airspace disease consistent with Covid pneumonia. Underlying pneumocystis pneumonia cannot be ruled out based on his immune compromised system. Oncology is considering adding Bactrim. Lead and sputum cultures have revealed no growth. In the interim the patient will be transferred to the ICU for closer monitoring. White count 3.7. Hemoglobin 12.9. Lymphocytes 0.1. D-dimer 0.78. Sodium 137. Potassium 4.4. Creatinine 0.91. Glucose 117. LDH 1028. C- reactive protein 4.8. Pro-calcitonin 0.11. He is continued on Decadron, Zahra enox, vitamin supplements, bronchodilators Objective - Vital Signs Vital signs: Vital Signs Temp 98.7 F 05/28/21 10:02 Pulse 94 05/28/21 10:02 Resp 18 05/28/21 10:02 BP 115/75 05/28/21 10:02 Pulse Ox 99 05/28/21 10:02 Intake & Output 05/27/21 05/28/21 05/28/21 18:59 06:59 18:59 Other: # Voids 2 3 - Exam GENERAL EXAM: Alert, very pleasant 35-year-old gentleman, on AirVo high flow oxygen at 55 L and 80% FiO2, fairly comfortable in no apparent distress. HEAD: Normocephalic. EYES: Normal reaction of pupils, equal size. NOSE: Clear with pink turbinates. THROAT: No erythema or exudates. NECK: No masses, no JVD. CHEST: No chest wall deformity. LUNGS: Equal air entry with crackles in the bilateral bases CVS: S1 and S2 normal with no audible murmur, regular rhythm. ABDOMEN: No hepatosplenomegaly, normal bowel sounds, no guarding or rigidity. SPINE: No scoliosis or deformity SKIN: No rashes CENTRAL NERVOUS SYSTEM: No focal deficits, tone is normal in all 4 extremities. EXTREMITIES: There is no peripheral edema. No clubbing, no cyanosis. Peripheral pulses are intact. - Labs CBC & Chem 7: 05/28/21 08:11 05/28/21 08:11 Labs: Abnormal Lab Results - Last 24 Hours (Table) 05/28/21 05/28/21 05/28/21 Range/Units 08:11 08:11 08:11 WBC 3.7 L (3.8-10.6) k/uL RBC 3.95 L (4.30-5.90) m/uL Hgb 12.9 L (13.0-17.5) gm/dL Hct 37.5 L (39.0-53.0) % Lymphocytes # 0.1 L (1.0-4.8) k/uL D-Dimer 0.78 H (<0.60) mg/L FEU POC Glucose (mg/dL) (75-99) mg/dL Lactate Dehydrogenase 1028 H (313-618) U/L C-Reactive Protein 4.8 H (<1.0) mg/dL Procalcitonin (0.02-0.09) ng/mL 05/28/21 05/28/21 Range/Units 08:11 11:59 WBC (3.8-10.6) k/uL RBC (4.30-5.90) m/uL Hgb (13.0-17.5) gm/dL Hct (39.0-53.0) % Lymphocytes # (1.0-4.8) k/uL D-Dimer (<0.60) mg/L FEU POC Glucose (mg/dL) 117 H (75-99) mg/dL Lactate Dehydrogenase (313-618) U/L C-Reactive Protein (<1.0) mg/dL Procalcitonin 0.11 H (0.02-0.09) ng/mL Microbiology - Last 24 Hours (Table) 05/24/21 20:49 Gram Stain - Final Sputum Sputum Culture - Final Assessment and Plan Assessment: 1 Acute COVID-19 pneumonia, outside the window for Remdesivir, prior to admission had received monoclonal antibodies. He is currently on AirVo high flow oxygen at 55 L and 80% FiO2. Second CT angiogram ruled out pulmonary embolism. Continues with diffuse bilateral patchy infiltrates consistent with COVID-19 pneumonia. He was transferred to the ICU on 05/28/2021 for closer monitoring 2 Diffuse large B-cell lymphoma. Status post 6 rounds of R CHOP chemotherapy, on immunotherapy 3 Hypogammaglobulinemia, receiving IVIG 4 History of gastroesophageal reflux disease 5 History of pancreatitis 6 History of ulcerative colitis. Plan: The patient was seen and evaluated by Dr. Hurt Chest x-ray and labs reviewed Blood cultures and sputum cultures revealed no growth Continue on Lovenox, Decadron, vitamin supplements Titrate the FiO2 as tolerated Oncology and infectious disease is on the cyanide case hardener closely in the intensive care unit We will continue to follow I, the cosigning physician, performed a history & physical examination of the patient. Lungs sounds with crackles in the bases. Maintaining good O2 saturations in the 90s on AirVo high flow oxygen at 55 L and 80% FiO2. I discussed the assessment and plan of care with my nurse practitioner, Ailyn Acosta. I attest to the above note as dictated by her.
--- NOTE | 2021-05-28 17:07 | P.PN ---
Subjective Progress Note Date: 05/28/21 Principal diagnosis: Increased Shortness of breath over night, states he feels more tightness in chest and complaints of subjective fevers that are not improved. He did receive 25grams IVIG yesterday, due for 25 grams today as well to help additional immune support. Respiratory status significantly declined overnight and patient is being transferred to ICU. Objective - Vital Signs Vital signs: Vital Signs Temp 98.7 F 05/28/21 10:02 Pulse 94 05/28/21 10:02 Resp 18 05/28/21 10:02 BP 115/75 05/28/21 10:02 Pulse Ox 99 05/28/21 10:02 Intake & Output 05/27/21 05/28/21 05/28/21 18:59 06:59 18:59 Other: # Voids 2 3 - Exam alert and oriented mild distress Non Rebreather Head: NCAT Mucus membranes dry Lungs: Rhonchi and bibasilar bilateral diminished Abd: soft Heart reg tachy - Labs CBC & Chem 7: 05/28/21 08:11 05/28/21 08:11 Labs: Abnormal Lab Results - Last 24 Hours (Table) 05/28/21 05/28/21 05/28/21 Range/Units 08:11 08:11 08:11 WBC 3.7 L (3.8-10.6) k/uL RBC 3.95 L (4.30-5.90) m/uL Hgb 12.9 L (13.0-17.5) gm/dL Hct 37.5 L (39.0-53.0) % Lymphocytes # 0.1 L (1.0-4.8) k/uL D-Dimer 0.78 H (<0.60) mg/L FEU Lactate Dehydrogenase 1028 H (313-618) U/L C-Reactive Protein 4.8 H (<1.0) mg/dL Microbiology - Last 24 Hours (Table) 05/24/21 20:49 Gram Stain - Final Sputum Sputum Culture - Final Assessment and Plan (1) Fever Current Visit: Yes Status: Acute Code(s): R50.9 - FEVER, UNSPECIFIED SNOMED Code(s): 249324877 (2) COVID Current Visit: Yes Status: Acute Priority: High Code(s): U07.1 - COVID-19 SNOMED Code(s): 012434645 (3) Lymphoma Current Visit: Yes Status: Acute Code(s): C85.90 - NON-HODGKIN LYMPHOMA, UNSPECIFIED, UNSPECIFIED SITE SNOMED Code(s): 788672643 (4) Pneumonia Current Visit: Yes Status: Acute Code(s): J18.9 - PNEUMONIA, UNSPECIFIED ORGANISM SNOMED Code(s): 501091609 (5) Shortness of breath Current Visit: Yes Status: Acute Code(s): R06.02 - SHORTNESS OF BREATH SNOMED Code(s): 002790588 Plan: Assessment and Recommendations: Acute Respiratory Distress, Fever, Post Covid Pneumonia: Acute Respiratory Failure - initial positive test on 05/06 - Received Regeneron and improved, then recurrent high fevers and worsening respiratory symptoms - Infectious disease to follow, Pulmonary to Follow are recommended - Status post / 25 grams of IVIG for additional immune support COVID PCR and Rapid remains positive, he remains symptomatic. Repeat CTA - Re-demonstration of bilateral multifocal pneumonia Reviewed Chest Xray 05/26/21 - no significant change NHL: Follicular Lymphoma: = Recent Rituxan Infusion Febrile: - stable with ATC Acetaminophen He is now in ICU on Non-Rebreather Concern of continued decline in oxygen status Consideration for opportunist infections secondary to NHL Such as PCP - Rec starting Bactrim ?secondary infection Will recheck IgG Recheck DIC Panel Aggressive supportive care please
[2021-05-28] MEDS: SODIUM CHLORIDE 0.9% 1,000 ML IV SCH (18:24)
[2021-05-28] MEDS: BENZONATATE 100 MG CAP PO PRN (18:25)
[2021-05-28] MEDS: busPIRone HCl 5 MG TAB PO SCH ×2 (18:25→23:45)
[2021-05-28] MEDS ORDERED: REMDESIVIR 200 MG in SODIUM CHLORIDE 0.9% 250 ML IVPB ONE (20:00)
[2021-05-28] MEDS ORDERED: IMMUNE GLOBULIN (GAMMAGARD) 5 GM in EMPTY BAG 1 BAG IV NR (22:00)
[2021-05-28] MEDS ORDERED: IMMUNE GLOBULIN (GAMMAGARD) 20 GM in EMPTY BAG 1 BAG IV NR (22:00)
--- NOTE | 2021-05-28 22:54 | PN ---
PROGRESS NOTE DATE OF SERVICE: 05/28/2021 REASON FOR FOLLOWUP: COVID-19 pneumonia. INTERVAL HISTORY: The patient did have slight worsening of his respiratory status, has been on partial non-rebreather and has been transferred to the ICU. The patient is hemodynamically stable, not on pressor support. Denies any chest pain or worsening cough. No vomiting. No abdominal pain or diarrhea. PHYSICAL EXAMINATION: Blood pressure 110/71 with a pulse of 63, temperature 97.5. He is 95% on 10 L non- rebreather. General description is a middle-aged male up in the bed in no distress. Respiratory system: Unlabored breathing. Coarse breath sounds bilaterally. No wheeze. Heart S1, S2. Regular rate and rhythm. Abdomen soft, no tenderness. Extremities no edema of the feet. LABS: Hemoglobin is 12.8, white count 3.7, BUN of 18, creatinine 0.91. Procalcitonin 0.11. CRP is down to 4.8. LDH is elevated. DIAGNOSTIC IMPRESSION AND PLAN: Patient with acute respiratory failure secondary to COVID-19 pneumonia in this patient who did have slight worsening of his clinical condition. Patient is considered to be high risk with baricitinib as per discussion with Pulmonary. Patient is currently on dexamethasone, Lovenox, zinc and ascorbic acid; to continue. Clinical suspicion is low for secondary bacterial pneumonia. Will monitor closely. Continue supportive care. MMODL / IJN: [id number] /
[2021-05-29] MEDS: guaiFENesin-Coden 100-10MG/5ML 10 ML CUP PO PRN ×4 (00:33→18:46)
[2021-05-29] MEDS: ALPRAZolam 0.25 MG TAB PO PRN ×3 (01:31→16:22)
[2021-05-29 06:15] LABS: ALT 183 U/L (4-49); AST 85 U/L (17-59); African American GFR (CKD) >90 (>60 ml/min/1.73 sqM); Albumin 3.3 g/dL (3.5-5.0); Alkaline Phosphatase 118 U/L (38-126); Anion Gap 8 mmol/L; Blood Urea Nitrogen 18 mg/dL (9-20); Calcium 8.2 mg/dL (8.4-10.2); Carbon Dioxide 27 mmol/L (22-30); Chloride 100 mmol/L (98-107); Glucose 131 mg/dL (74-99); Non-African American GFR(CKD) >90 (>60 ml/min/1.73 sqM); Potassium 4.4 mmol/L (3.5-5.1); Sodium 135 mmol/L (137-145); Total Bilirubin 0.4 mg/dL (0.2-1.3); Total Protein 6.9 g/dL (6.3-8.2)
[2021-05-29 06:21] LABS: Basophils % (A) 0 %; Eosinophils % (A) 0 %; HCT 36.5 % (39.0-53.0); HGB 12.3 gm/dL (13.0-17.5); Lymphocytes # (A) 0.1 k/uL (1.0-4.8); Lymphocytes % (A) 2 %; MCH 32.1 pg (25.0-35.0); MCHC 33.6 g/dL (31.0-37.0); MCV 95.7 fL (80.0-100.0); Mean Platelet Volume 7.6; Monocytes # (A) 0.2 k/uL (0-1.0); Monocytes % (A) 4 %; Neutrophils # (A) 3.8 k/uL (1.3-7.7); Neutrophils % (A) 93 %; Platelet Count 210 k/uL (150-450); RBC 3.82 m/uL (4.30-5.90); RDW 11.8 % (11.5-15.5); WBC 4.1 k/uL (3.8-10.6)
[2021-05-29 06:29] LABS: Prothrombin Time 10.5 sec (9.0-12.0)
[2021-05-29] MEDS: SODIUM CHLORIDE 0.9% 1,000 ML IV SCH ×2 (06:34→20:02)
[2021-05-29] MEDS: PANTOPRAZOLE 40 MG TABLET PO SCH ×2 (06:34→16:25)
[2021-05-29] MEDS: IBUPROFEN 600 MG TAB PO PRN ×2 (06:35→20:03)
[2021-05-29] MEDS: BENZONATATE 100 MG CAP PO PRN ×2 (06:35→20:03)
[2021-05-29 06:53] LABS: Glucose,Whole Blood 197 mg/dL (75-99)
[2021-05-29] MEDS: ENOXAPARIN 40 MG/0.4 ML SYRINGE SQ SCH (08:49)
[2021-05-29] MEDS: CHOLECALCIFEROL 25 MCG (1000 IU) TABLET PO SCH (08:50)
[2021-05-29] MEDS: ACETAMINOPHEN TAB 500 MG TAB PO PRN (08:51)
[2021-05-29] MEDS: CALCIUM CARBONATE 500 MG CHEWABLE PO SCH (08:51)
[2021-05-29] MEDS: dexAMETHasone 2 MG TAB PO SCH (08:53)
[2021-05-29] MEDS: ASCORBIC ACID 500 MG TAB PO SCH ×2 (08:54→20:03)
[2021-05-29] MEDS: busPIRone HCl 5 MG TAB PO SCH ×3 (08:54→22:22)
[2021-05-29] MEDS: ZINC SULFATE 220 MG CAP PO SCH (08:56)
[2021-05-29] MEDS: FLUTICASONE 220 MCG INHALER INHALATION SCH ×2 (09:37→22:23)
[2021-05-29] MEDS: ALBUTEROL HFA INHALER INHALATION PRN ×3 (09:37→22:23)
--- NOTE | 2021-05-29 10:13 | P.PN ---
Subjective Progress Note Date: 05/29/21 35-year-old male seen in the emergency department yesterday with a history of non-Hodgkin some foam a, diffuse large B-cell lymphoma, who presents to the emergency department with fever, and mild shortness of breath. The patient did receive monoclonal antibody about 3-4 days prior to admission. He tested positive for coronavirus about 2 weeks ago. Over the last day or so prior to admission, he had elevated temperature, which she had a hard time controlling at home. In addition, his saturations at home were borderline. For that reason he came into the hospital to be evaluated. He was seen initially by the PA, and then was admitted to the hospital. Currently, he's on room air. His saturatio ns are fine. He is not manifesting any signs or symptoms of respiratory distress. His chest x-ray was not particularly impressive, but his computed tomography scan did show diffuse bilateral patchy groundglass opacities consistent with coronavirus associated pneumonia. He was beyond the window for REM. White count 2.37, hemoglobin 11.8, hematocrit 36.5, platelet count 134,000. D-dimer was 0.9 to electrolytes were normal. Ferritin was 1126. Pro- calcitonin was 0.18. C-reactive protein was 7.3. LDH was 215. Chest x-ray and CT angiogram were evaluated. There is no evidence of pulmonary embolism. The patient is seen today 05/21/2021 in follow-up on the regular medical floor. He is currently sitting up in a chair at the bedside. Awake and alert in no acute distress. 18 O2 saturations in the mid 90s on room air. He is dyspneic with minimal exertion however. Currently afebrile with temperature of 102. Doppler of the lower extremities negative for DVT. CT angiogram negative for PE. Blood cultures revealing no growth. No new labs today. He is continued on Decadron, Lovenox, vitamin supplements. He is receiving IVIG for his hypogammaglobulinemia. 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 No antibiotics currently per ID services. The patient is seen today 05/22/2021 in follow-up on the regular medical floor. He is currently sitting up in a chair at the bedside. Awake and alert in no acute distress. No worsening shortness of breath. He has an occasional dry nonproductive cough and then he applies his oxygen. Currently in the 2% on room air. He is afebrile. Hemodynamically stable. Blood cultures reveal no growth. No new labs today. Remains on Decadron, Lovenox, vitamin supplements. He is requesting follow-up CoVID enilsa he was diagnosed 2 weeks ago. He is hoping to have visitors. The patient is seen today 05/23/2021 in follow-up on the regular medical floor. He is awake and alert in no acute distress. Sitting up in chair at the bedside. Having some increasing cough, congestion, dyspnea on minimal exertion. O2 saturation room air 90%. Improved on 4 L nasal cannula. He is currently afebrile though did have a temperature again early this morning at 101.5. X-ray showing bilateral patchy infiltrates. Follow-up rapid coronavirus test positive still. He remains on Decadron, Lovenox, vitamin supplements. He is received IVIG yesterday. Patient is seen today 05/24/2021 in follow-up on the regular medical floor. Currently sitting up in a chair at the bedside. Awake and alert in no acute distress. Continues to maintain O2 saturations in the 90s on 4 L/m per nasal cannula. Fever again this morning at 102.3, currently afebrile. Blood cultures reveal no growth. LDH 866. C-reactive protein 13.4. A second CT angiogram again revealed no acute pulmonary embolism. Continues with diffuse bilateral infiltrates consistent with multifocal pneumonia secondary to COVID-19. He is continued on Decadron, Lovenox, vitamin supplements. The patient is seen today 05/25/2021 in follow-up on the regular medical floor. He is currently resting comfortably in bed. Awake and alert in no acute distress. He is maintaining O2 saturations in the low 90s on 5 L/m per nasal cannula. Still temping at 100.3. Hemodynamically stable. Cultures revealed no growth. Sputum culture pending. Sodium 140. Potassium 3.9. Creatinine 0.9. AST 67. ALT 108. He is continued on Decadron, Lovenox, vitamin supplements. Patient is seen today 05/28/21 in follow-up he has a of non-Hodgkin's lymphoma, diffuse large B-cell lymphoma, who was infected with Covid 19. The patient underwent Doppler of the lower extremity that showed no evidence of any DVT. CT angiogram showed no evidence of any pulmonary embolism. He was started on Decadron and Lovenox and multivitamins. He does receive IVIG regarding chronic hypogammaglobulinemia. As mentioned, he has history of lymphoma the patient is currently on immunotherapy. His oxygen requirements have continued to rise. He is currently on AirVo at 55 L and 80% oxygen to maintain O2 saturation in the high 90s. He is afebrile. This x-ray continues to show bilateral patchy airspa ce disease consistent with Covid pneumonia. Underlying pneumocystis pneumonia cannot be ruled out based on his immune compromised system. Oncology is considering adding Bactrim. Lead and sputum cultures have revealed no growth. In the interim the patient will be transferred to the ICU for closer monitoring. White count 3.7. Hemoglobin 12.9. Lymphocytes 0.1. D-dimer 0.78. Sodium 137. Potassium 4.4. Creatinine 0.91. Glucose 117. LDH 1028. C-reactive protein 4.8. Pro-calcitonin 0.11. He is continued on Decadron, Lovenox, vitamin supplements, bronchodilators 05/29/2021, the patient is being seen for a follow-up. The patient is a case of non-Hodgkin's lymphoma, diffuse large B cell lymphoma who was treated with a combination of CHOP regimen and Rituxan. Subsequently, the patient developed Covid 19 related pneumonia with respiratory failure. The patient a chest to the intensive care unit yesterday for further monitoring. He was on Airvo which she was unable to tolerate as the patient is unable to breathe through his nose. He prefers the nonrebreather facemask which she is using it and his pulse ox is around 97-98%. He goes into coughing spells anytime when he tries to breathe in deep we'll does more activity. He panics and he gets anxious and he requires Xanax which essentially works good for him. He remains on Decadron. As mentioned to the family, he is not a candidate for Remdesivir because of his high oxygen requirements and his way out of the window for Remdesivir therapy. I offered to the family and he ultimately declined. For that reason, I think is reasonable to take Remdesivir out of his MAR. His white cell count is at 4.1 with hemoglobin of 12.3. Coagulation profile is within normal with an INR of 1.0 and a d-dimer of 1.23, his inflammatory markers need to be rechecked. Renal function is stable. Electrolytes are all within normal limits. He remains on Decadron. Discussed the case with the team at [facility]. He agre ed on the treatment plan and no adjustments were recommended. They've declined transfer at this point in time. The same discussion took place with [facility]. I have already informed this to the patient and to the family. Remains on Lovenox 40 mg subcu on a daily basis. Remains on multivitamins. Remains on Xanax on as needed basis. Inflammatory markers need to be rechecked. Objective - Vital Signs Vital signs: Vital Signs Temp 99.1 F 05/29/21 08:00 Pulse 69 05/29/21 08:00 Resp 20 05/29/21 08:00 BP 121/77 05/29/21 08:00 Pulse Ox 97 05/29/21 08:00 Intake & Output 05/28/21 05/29/21 05/29/21 18:59 06:59 18:59 Intake Total 340 1675 75 Output Total 350 730 Balance -10 945 75 Weight 106.2 kg 106 kg Intake: IV 1075 75 0.9 NaCl 825 75 IGG 250 Oral 340 400 Tube Feeding 200 Output: Urine 350 730 Other: Voiding Method Toilet Urinal Urinal # Bowel Movements 1 - Exam No acute distress, oriented 3. No use of accessory muscles or conversational dyspnea. Patient currently on 100 NRB HEENT examination is grossly unremarkable. Neck supple. Full range of motion. No adenopathy thyromegaly or neck vein distention. Cardiovascular examination reveals regular rhythm rate. S1-S2 normal. No S3 or S4. No discernible murmur noted. Heart rate 83 bpm. Lungs reveal bilateral coarse rhonchi. No wheezes or crackles. Breath sounds equal bilaterally. The patient coughs on deep inspiration. Saturations 93% on with a partial nonrebreather facemask, breath sounds are quite diminished in lung bases bilaterally. Abdomen soft bowel sounds are heard. No masses or tenderness. Extremities are intact. No cyanosis clubbing or edema. Skin is without rash or lesion. Neurologic examination is brief but nonfocal. - Labs CBC & Chem 7: 05/29/21 05:13 11/10/21 05:13 Labs: Abnormal Lab Results - Last 24 Hours (Table) 05/28/21 05/28/21 05/29/21 Range/Units 08:11 11:59 05:13 RBC (4.30-5.90) m/uL Hgb (13.0-17.5) gm/dL Hct (39.0-53.0) % Lymphocytes # (1.0-4.8) k/uL D-Dimer 1.23 H (<0.60) mg/L FEU Sodium (137-145) mmol/L Glucose (74-99) mg/dL POC Glucose (mg/dL) 117 H (75-99) mg/dL Calcium (8.4-10.2) mg/dL AST (17-59) U/L ALT (4-49) U/L Albumin (3.5-5.0) g/dL Procalcitonin 0.11 H (0.02-0.09) ng/mL 05/29/21 05/29/21 05/29/21 Range/Units 05:13 05:13 06:50 RBC 3.82 L (4.30-5.90) m/uL Hgb 12.3 L (13.0-17.5) gm/dL Hct 36.5 L (39.0-53.0) % Lymphocytes # 0.1 L (1.0-4.8) k/uL D-Dimer (<0.60) mg/L FEU Sodium 135 L (137-145) mmol/L Glucose 131 H (74-99) mg/dL POC Glucose (mg/dL) 197 H (75-99) mg/dL Calcium 8.2 L (8.4-10.2) mg/dL AST 85 H (17-59) U/L ALT 183 H (4-49) U/L Albumin 3.3 L (3.5-5.0) g/dL Procalcitonin (0.02-0.09) ng/mL Assessment and Plan Plan: Acute hypoxemic respiratory failure secondary to coronavirus associated pneumonia. Patient has Coumadin. Pneumonia the patient is currently on a partial nonrebreather facemask. The patient got transferred to the intensive care unit. He remains on Decadron. He remains on Lovenox. Upon family's wishes, we contacted other facility such as [facility] and [facility] system for potential transfer. Based on our discussions with the transfer teams and the physicians of the other end, there was no reason for the transfer and the opted to keep the patient our facility for ongoing treatment. He is currently on a partial nonrebreather facemask for now. He is calm and comfortable. Oxygenation is stable. D-dimer is not elevated. Affirmative markers needs to be repeated. Follow-up chest x-ray needs to be done. No evidence of pulmonary embolism on CT angiog.nura. Hypogammaglobulinemia, patient receives IVIG. Diffuse large B cell lymphoma (NHL). Status post 6 rounds of R-CHOP chemothera py. The patient is currently receiving immunotherapy Gastroesophageal reflux disease. History of pancreatitis. History of ulcerative colitis. Plan: Condition is stable Will be maintained on a partial nonrebreather continue Decadron IVIG was given monitor the oxygenation Continue anticoagulation with Lovenox Repeat chest x-ray in the morning Continue using incentive spirometer We'll continue to follow See above-mentioned visitations regarding potential transfer. Transfer was declined. I'm not going to give this patient Baricitinib knowing that he has been excessively immunosuppressed with lymphoma, chemotherapeutic agents and Decadron.
[2021-05-29 10:36] LABS: C Reactive Protein 3.9 mg/dL (<1.0)
--- NOTE | 2021-05-29 10:37 | XR ---
EXAMINATION TYPE: XR chest 1V portable DATE OF EXAM: 05/29/2021 COMPARISON: 05/28/2021 HISTORY: Respiratory distress TECHNIQUE: Single frontal view of the chest is obtained. FINDINGS: Mediport catheter seen with bilateral infiltrate stable. Small effusions. No pneumothorax. Heart size normal. IMPRESSION: Bilateral infiltrate stable
--- NOTE | 2021-05-29 14:55 | P.PN ---
Subjective Progress Note Date: 05/28/21 HISTORY OF PRESENT ILLNESS 35-year-old male one of Dr. Rivera's patient with past medical history of non- Hodgkin lymphoma was diagnosed's past year who has history of Peter, history of pancreatitis, history of ulcerative colitis who was diagnosed with COVID-19 last week and had monoclonal antibiotic infusion. Patient had felt slightly but better till the lost 48 hours when he developed to have worsening symptom with worsening dyspnea and shortness of breath along with increased cough increased fever chills and generalized symptom with more fatigue and tiredness. Patient ended up coming to the emergency Department at [facility] where was seen and evaluated surprisingly his chest x-ray still showing Covid pneumonitis with fever running around 101. Patient was started on dexamethasone along with antibiotics to cover pneumonia his pulse ox is still running in the 90s when he doesn't exert himself patient will be admitted to the hospital will be seen hematology and pulmonary. Apparently patient had immunotherapy infusion this last week which can be contributing factor to was going on with his relapse from COVID-19 or worsening symptoms. Also patient been treated for non-Hodgkin lymphoma this last year which had brought his lymph node size down significantly. Patient also was told that he has moderately enlarged liver not explained with the? Off Peter. Patient has slightly higher diaphragm on the right side compared to the left side on his chest x-ray. 05/20: patient is not requiring oxygen and pulse ox is 94% on room air. He was running fevers yesterday and required IV Tylenol, Motrin [id number]. Fevers are improved today, heart rate 74, blood pressure 109/71.repeat blood work reveals WBC 2.3, hemoglobin 11.8, platelet count 134. D-dimer 0.92. Electrolytes and renal function normal. Calcium 7.6. ALT 69. Chest x-ray reveals patchy perihilar subsegmental infiltrate. Mediport catheter appears to be malpositioned and kinked. Correlate clinically. CTA of the chest reveals patchy and confluent bilateral groundglass, greatest in the lower lungs compatible with Covid pneumonia. Limited assessment for pulmonary embolus due to breathing motion. Equivocal for filling defects pulmonary emboli involving lobar and segmental branches of the left upper lobe. We favor breathing motion artifact. Consider short interval follow-up versus initiation of treatment depending on clinical suspicion. Partially visualized mid abdominal nii mesentery as seen on 11/22/2020. 05/21: Patient has been seen by Dr. Burns, patient is out of the therapeutic window for REM to severe and no evidence of secondary bacterial pneumonia, continue Decadron Lovenox think and vitamin C, droplet isolation. Patient is also seen by pulmonary medicine as well. Bilateral lower extremity ultrasound negative for DVT and thus CTA is inconclusive and patient is continued on DVT prophylaxis. IgG came back low at 401 and oncology as ordered immunoglobulin. Temperature max 102 this morning, heart rate 112, blood pressure 130/72, pulse ox 96% on room air. Patient is continued on Lovenox 40 mg subcu daily, dexamethasone 6 mg daily and vitamin supplements. Patient is reaching 1500 on incentive spirometry. 05/22:patient's breathing status is currently stable. He states he had about a 20 minute period during the night where he was coughing and felt short of breath and ended up wearing oxygen for couple hours. He states his pulse ox dropped down to 90%. He is currently 93% on room air. Patient has been afebrile now for greater than 24 hours, heart rate 96, blood pressure 131/77. Patient is currently receiving immunoglobulin scheduled for this afternoon. Anticipate completing this this evening, plan for discharge home tomorrow. 05/23: Anticipated that the patient would be ready for discharge today but unfortunately the patient has increased oxygen needs are currently on 4 L nasal cannula with pulse ox of 90%. He also has increasing cough and he feels short of breath with dyspnea on minimal exertion area and He did have a fever this morning of 101.5. Heart rate 92. Blood pressure 122/73. Patient has completed immunoglobulin infusion. Repeat chest x-ray ordered which shows stable bilateral pleural effusion. 05/24: Patient continues to have shortness of breath and having some chest pain with movement. He reports being a tiny bit better from yesterday. He appears to be quite fatigued at rest. Patient continues to be febrile with temperature 102.3, heart rate 105, blood pressure 126/77, pulse ox 93% on 4 L nasal cannula. LDH 866, C-reactive protein 13.4. Repeat CTA of the chest ordered to rule out pulmonary embolism. 05/25: Patient still not doing that well he is on 5 L O2 pulse ox running around 93-94%, continued to have significant shortness of breath and dyspnea with minimal exertion continued to have severe hypoxia this point. CT was reviewed from yesterday showed no sign of pulmonary embolism. Covid marker and chest x- ray will be done tomorrow the meanwhile continue current management. 05/26: Patient is still having slight hypoxia and shortness of breath he is little bit better compared to yesterday, his having less cough less fever and chills at this point. Still not recovering as fast as expected so far continue current treatment management continue supportive care he still seen pulmonary marcia mendoza. 05/27: Patient continues to have shortness of breath and oxygen increased to 6 L overnight. Patient received IVIG yesterday. Patient is followed closely by pulmonary medicine. Patient is continued on Decadron, Lovenox and supplements. 05/28: Patient developed increasing shortness of breath as well as increased anxiety overnight. Patient states that he could not take another panic attack l kriss he had last night. We are increasing Xanax to 3 times daily and adding in BuSpar. Patient has been transitioned to AirVo. WBC 4.7, hemoglobin 13.1, platelet count 169. Sed rate 92. D-dimer 1.04. Calcium 8.6. Ferritin 3749. AST 82, ALT 146, alkaline phosphatase 107. LDH 388. Patient has been afebrile, heart rate 94, blood pressure 115/75, pulse ox 99%. He is continued on Decadron, Lovenox, vitamin supplements, bronchodilators REVIEW OF SYSTEMS Constitutional: Reports fever and chills with night sweats, mild weight loss, generalized fatigue and tiredness no lethargy and daytime sleepiness. EENT: No headache. No dizziness. No nasal drainage or congestion. No epistaxis. No sore throat. Lungs: Reports shortness of breath worsening with cough and wheezes with sputum production and worsening dyspnea with minimal exertion. Cardiovascular: No chest pain, no lower extremity edema. No palpitations. No paroxysmal nocturnal dyspnea. No orthopnea. No lightheadedness or dizziness. No syncopal episodes. Abdominal: Mild abdominal discomfort with nausea no vomiting positive loss of appetite no tarry stool mild constipation. Genitourinary: No dysuria, increased frequency, urgency. No urinary retention. Musculoskeletal: Positive myalgia and muscle achiness and discomfort. Integumentary: No wounds, no lesions. No rash or pruritus. No unusual b ruising. Neurologic: No aphasia. No facial droop. No change in mentation. No head injury. No headache. No paralysis. No paresthesia. Psychiatric: No depresreports panic attack and increasing anxiety. No mood swings. Endocrine: No abnormal blood sugars. No weight change. PHYSICAL EXAMINATION Gen: This is a 35-year-old male resting reclinerand appears to be in mild respiratory distress. HEENT: Head is atraumatic, normocephalic. Pupils equal, round. Sclerae is anicteric. NECK: Supple. No JVD. Positive lymphadenopathy. No thyromegaly. LUNGS: Decreased breath sound bilaterally with fine rhonchi positive mild crackles in the bases positive mild expiratory wheezes. HEART: Regular rate and rhythm. No murmur. ABDOMEN: Soft. Bowel sounds are present. No rebound or rigidity. EXTREMITIES: No pedal edema. No calf tenderness. NEUROLOGICAL: Patient is awake, alert and oriented x3. Cranial nerves 2 through 12 are grossly intact. ASSESSMENT AND PLAN 1 acute hypoxic respiratory failure requiring O2 at 6 L secondary to COVID-19 pneumonitis, no sign of pulmonary embolism, patient still having significant decreased lung volume both side. He is not able take a deep breath or suppressive encourage will continue incentive spirometry. He is continued on Decadron, Lovenox, vitamin supplements, bronchodilators. Patient is currently on AirVo. 2 COVID-19 pneumonitis. Patient is followed by pulmonary medicine and infectio us disease. Status post monoclonal antibodies infusion. Continue oxygen support, dexamethasone, Lovenox, supplements. 3. Sepsis with SIRS: Multiple code to be factor from his lymphoma, chemoimmuno therapy, recent COVID-19 pneumonitis with worsening symptoms. Significantly elevated temperature with lactic acid of 2.7 chest x-ray showed patchy airspace up his station consistent with pneumonia specially COVID-19 pneumonitis. Still on aggressive management at this point with a site Center, dexamethasone, off antibiotic this point. 4. Fever. Secondary to COVID-19 pneumonitis continue with Tylenol and Motrin. 5. Lactic acidosis secondary to sepsis. 6. Non-Hodgkin lymphoma: Patient remain on active treatment he seen hematology regular basis. 7. Reactive airway/asthma: This chest x-ray just look like lost of lung volume mostly continue incentive spirometry regime AV pulmonary physical therapy. 8. Mild anxiety attacks: Remain on alprazolam on as needed basis. 9. Chronic hypo-gammaglobinemia. Patient is status post 2 doses of IVIG. 10. GI prophylaxis: Patient will be on pantoprazole 40 mg twice a day while he still on the ibuprofen for now. 10. DVT prophylaxis: Patient will be on Lovenox 40 mg subcutaneous daily. CODE STATUS: Full code. Prognosis: Still guarded. DISCHARGE PLAN Home Impression and plan of care have been directed as dictated by the signing physician. Nevin Madera nurse practitioner acting as scribe for signing loco hassanian. Objective - Vital Signs Vital signs: Vital Signs Temp 98.7 F 05/28/21 10:02 Pulse 94 05/28/21 10:02 Resp 18 05/28/21 10:02 BP 115/75 05/28/21 10:02 Pulse Ox 99 05/28/21 10:02 Intake & Output 05/27/21 05/28/21 05/28/21 18:59 06:59 18:59 Other: # Voids 2 3 - Labs CBC & Chem 7: 05/29/21 05:13 05/29/21 05:13 Labs: Abnormal Lab Results - Last 24 Hours (Table) 05/28/21 05/28/21 05/28/21 Range/Units 08:11 08:11 08:11 WBC 3.7 L (3.8-10.6) k/uL RBC 3.95 L (4.30-5.90) m/uL Hgb 12.9 L (13.0-17.5) gm/dL Hct 37.5 L (39.0-53.0) % Lymphocytes # 0.1 L (1.0-4.8) k/uL D-Dimer 0.78 H (<0.60) mg/L FEU Lactate Dehydrogenase 1028 H (313-618) U/L C-Reactive Protein 4.8 H (<1.0) mg/dL Microbiology - Last 24 Hours (Table) 05/24/21 20:49 Gram Stain - Final Sputum Sputum Culture - Final
--- NOTE | 2021-05-29 15:04 | P.PN ---
Subjective Progress Note Date: 05/29/21 HISTORY OF PRESENT ILLNESS 35-year-old male one of Dr. Rivera's patient with past medical history of non- Hodgkin lymphoma was diagnosed's past year who has history of Peter, history of pancreatitis, history of ulcerative colitis who was diagnosed with COVID-19 last week and had monoclonal antibiotic infusion. Patient had felt slightly but better till the lost 48 hours when he developed to have worsening symptom with worsening dyspnea and shortness of breath along with increased cough increased fever chills and generalized symptom with more fatigue and tiredness. Patient ended up coming to the emergency Department at [facility] where was seen and evaluated surprisingly his chest x-ray still showing Covid pneumonitis with fever running around 101. Patient was started on dexamethasone along with antibiotics to cover pneumonia his pulse ox is still running in the 90s when he doesn't exert himself patient will be admitted to the hospital will be seen hematology and pulmonary. Apparently patient had immunotherapy infusion this last week which can be contributing factor to was going on with his relapse from COVID-19 or worsening symptoms. Also patient been treated for non-Hodgkin lymphoma this last year which had brought his lymph node size down significantly. Patient also was told that he has moderately enlarged liver not explained with the? Off Peter. Patient has slightly higher diaphragm on the right side compared to the left side on his chest x-ray. 05/20: patient is not requiring oxygen and pulse ox is 94% on room air. He was running fevers yesterday and required IV Tylenol, Motrin [id number]. Fevers are improved today, heart rate 74, blood pressure 109/71.repeat blood work reveals WBC 2.3, hemoglobin 11.8, platelet count 134. D-dimer 0.92. Electrolytes and renal function normal. Calcium 7.6. ALT 69. Chest x-ray reveals patchy perihilar subsegmental infiltrate. Mediport catheter appears to be malpositioned and kinked. Correlate clinically. CTA of the chest reveals patchy and confluent bilateral groundglass, greatest in the lower lungs compatible with Covid pneumonia. Limited assessment for pulmonary embolus due to breathing motion. Equivocal for filling defects pulmonary emboli involving lobar and segmental branches of the left upper lobe. We favor breathing motion artifact. Consider short interval follow-up versus initiation of treatment depending on clinical suspicion. Partially visualized mid abdominal nii mesentery as seen on 11/22/2020. 05/21: Patient has been seen by Dr. Burns, patient is out of the therapeutic window for REM to severe and no evidence of secondary bacterial pneumonia, continue Decadron Lovenox think and vitamin C, droplet isolation. Patient is also seen by pulmonary medicine as well. Bilateral lower extremity ultrasound negative for DVT and thus CTA is inconclusive and patient is continued on DVT prophylaxis. IgG came back low at 401 and oncology as ordered immunoglobulin. Temperature max 102 this morning, heart rate 112, blood pressure 130/72, pulse ox 96% on room air. Patient is continued on Lovenox 40 mg subcu daily, dexamethasone 6 mg daily and vitamin supplements. Patient is reaching 1500 on incentive spirometry. 05/22:patient's breathing status is currently stable. He states he had about a 20 minute period during the night where he was coughing and felt short of breath and ended up wearing oxygen for couple hours. He states his pulse ox dropped down to 90%. He is currently 93% on room air. Patient has been afebrile now for greater than 24 hours, heart rate 96, blood pressure 131/77. Patient is currently receiving immunoglobulin scheduled for this afternoon. Anticipate completing this this evening, plan for discharge home tomorrow. 05/23: Anticipated that the patient would be ready for discharge today but unfortunately the patient has increased oxygen needs are currently on 4 L nasal cannula with pulse ox of 90%. He also has increasing cough and he feels short of breath with dyspnea on minimal exertion area and He did have a fever this morning of 101.5. Heart rate 92. Blood pressure 122/73. Patient has completed immunoglobulin infusion. Repeat chest x-ray ordered which shows stable bilateral pleural effusion. 05/24: Patient continues to have shortness of breath and having some chest pain with movement. He reports being a tiny bit better from yesterday. He appears to be quite fatigued at rest. Patient continues to be febrile with temperature 102.3, heart rate 105, blood pressure 126/77, pulse ox 93% on 4 L nasal cannula. LDH 866, C-reactive protein 13.4. Repeat CTA of the chest ordered to rule out pulmonary embolism. 05/25: Patient still not doing that well he is on 5 L O2 pulse ox running around 93-94%, continued to have significant shortness of breath and dyspnea with minimal exertion continued to have severe hypoxia this point. CT was reviewed from yesterday showed no sign of pulmonary embolism. Covid marker and chest x- ray will be done tomorrow the meanwhile continue current management. 05/26: Patient is still having slight hypoxia and shortness of breath he is little bit better compared to yesterday, his having less cough less fever and chills at this point. Still not recovering as fast as expected so far continue current treatment management continue supportive care he still seen pulmonary marcia mendoza. 05/27: Patient continues to have shortness of breath and oxygen increased to 6 L overnight. Patient received IVIG yesterday. Patient is followed closely by pulmonary medicine. Patient is continued on Decadron, Lovenox and supplements. 05/28: Patient developed increasing shortness of breath as well as increased anxiety overnight. Patient states that he could not take another panic attack l kriss he had last night. We are increasing Xanax to 3 times daily and adding in BuSpar. Patient has been transitioned to AirVo. WBC 4.7, hemoglobin 13.1, platelet count 169. Sed rate 92. D-dimer 1.04. Calcium 8.6. Ferritin 3749. AST 82, ALT 146, alkaline phosphatase 107. LDH 388. Patient has been afebrile, heart rate 94, blood pressure 115/75, pulse ox 99%. He is continued on Decadron, Lovenox, vitamin supplements, bronchodilators. 05/29: Patient was transferred into the intensive care unit yesterday, he is currently on AirVo with FiO2 75 with partial nonrebreather. Pulse ox is 96-98%. He's been afebrile, heart rate 81. Repeat blood work reveals WBC 4.1, hemoglobin 12.3, platelet count 210. D-dimer 1.23. Sodium 135. Blood sugars are running between 117 and 197. AST 85, ALT 183, alkaline phosphatase 118. LDH 858. IgG 1581. Repeat chest x-ray reveals bilateral infiltrates stable. Patient's is at the bedside and Dr. Rivera spent time answering all of her questions and concerns. At this time, patient appears to be stable but still prognosis is guarded. REVIEW OF SYSTEMS Constitutional: Reports fever and chills with night sweats, mild weight loss, generalized fatigue and tiredness no lethargy and daytime sleepiness. EENT: No headache. No dizziness. No nasal drainage or congestion. No epistaxis. No sore throat. Lungs: Reports shortness of breath worsening with cough and wheezes with sputum production and worsening dyspnea with minimal exertion. Cardiovascular: No chest pain, no lower extremity edema. No palpitations. No paroxysmal nocturnal dyspnea. No orthopnea. No lightheadedness or dizziness. No syncopal episodes. Abdominal: Mild abdominal discomfort with nausea no vomiting positive loss of appetite no tarry stool mild constipation. Genitourinary: No dysuria, increased frequency, urgency. No urinary retention. Musculoskeletal: Positive myalgia and muscle achiness and discomfort. Integumentary: No wounds, no lesions. No rash or pruritus. No unusual bruising. Neurologic: No aphasia. No facial droop. No change in mentation. No head injury. No headache. No paralysis. No paresthesia. Psychiatric: No depresreports panic attack and increasing anxiety. Endocrine: No abnormal blood sugars. No weight change. PHYSICAL EXAMINATION Gen: This is a 35-year-old male resting in ICU bed appears to be in mild respiratory distress with AirVo and mask. HEENT: Head is atraumatic, normocephalic. Pupils equal, round. Sclerae is anicteric. NECK: Supple. No JVD. Positive lymphadenopathy. No thyromegaly. LUNGS: Decreased breath sound bilaterally with fine rhonchi positive mild crackles in the bases positive mild expiratory wheezes. HEART: Regular rate and rhythm. No murmur. ABDOMEN: Soft. Bowel sounds are present. No rebound or rigidity. EXTREMITIES: No pedal edema. No calf tenderness. NEUROLOGICAL: Patient is awake, alert and oriented x3. Cranial nerves 2 through 12 are grossly intact. ASSESSMENT AND PLAN 1 acute hypoxic respiratory failure requiring O2 at 6 L secondary to COVID-19 pneumonitis, no sign of pulmonary embolism, patient still having significant decreased lung volume both side. He is not able take a deep breath or suppressive encourage will continue incentive spirometry. He is continued on Decadron, Lovenox, vitamin supplements, bronchodilators. Patient is currently on AirVo and mask. Patient has been transferred into the intensive care unit. 2 COVID-19 pneumonitis. Patient is followed by pulmonary medicine and infectious disease. Status post monoclonal antibodies infusion. Continue oxygen support, dexamethasone, Lovenox, supplements. 3. Sepsis with SIRS: Multiple code to be factor from his lymphoma, chemoimmunotherapy, recent COVID-19 pneumonitis with worsening symptoms. Significantly elevated temperature with lactic acid of 2.7 chest x-ray showed patchy airspace up his station consistent with pneumonia specially COVID-19 pneumonitis. Still on aggressive management at this point with a site [place], dexamethasone, off antibiotic this point. 4. Fever. Secondary to COVID-19 pneumonitis continue with Tylenol and Motrin. 5. Lactic acidosis secondary to sepsis. 6. Non-Hodgkin lymphoma: Patient remain on active treatment he seen hematology regular basis. 7. Reactive airway/asthma: This chest x-ray just look like lost of lung volume mostly continue incentive spirometry regime AV pulmonary physical therapy. 8. Panic attacks and generalized anxiety disorder. Continue Xanax 0.25 mg 3 times daily and BuSpar started at 5 mg 3 times daily. 9. Chronic hypo-gammaglobinemia. Patient is status post 2 doses of IVIG. 10. GI prophylaxis: Patient will be on pantoprazole 40 mg twice a day. 10. DVT prophylaxis: Patient will be on Lovenox 40 mg subcutaneous daily. CODE STATUS: Full code. Prognosis: Still guarded. DISCHARGE PLAN Home Impression and plan of care have been directed as dictated by the signing physician. Nevin Madera nurse practitioner acting as scribe for signing physician. Objective - Vital Signs Vital signs: Vital Signs Temp 99.1 F 05/29/21 08:00 Pulse 69 05/29/21 08:00 Resp 20 05/29/21 08:00 BP 121/77 05/29/21 08:00 Pulse Ox 97 05/29/21 08:00 Intake & Output 05/28/21 05/29/21 05/29/21 18:59 06:59 18:59 Intake Total 340 1675 75 Output Total 350 730 Balance -10 945 75 Weight 106.2 kg 106 kg Intake: IV 1075 75 0.9 NaCl 825 75 IGG 250 Oral 340 400 Tube Feeding 200 Output: Urine 350 730 Other: Voiding Method Toilet Urinal Urinal # Bowel Movements 1 - Labs CBC & Chem 7: 05/29/21 05:13 05/29/21 05:13 Labs: Abnormal Lab Results - Last 24 Hours (Table) 05/29/21 05/29/21 05/29/21 Range/Units 05:13 05:13 05:13 RBC 3.82 L (4.30-5.90) m/uL Hgb 12.3 L (13.0-17.5) gm/dL Hct 36.5 L (39.0-53.0) % Lymphocytes # 0.1 L (1.0-4.8) k/uL D-Dimer 1.23 H (<0.60) mg/L FEU Sodium 135 L (137-145) mmol/L Glucose 131 H (74-99) mg/dL POC Glucose (mg/dL) (75-99) mg/dL Calcium 8.2 L (8.4-10.2) mg/dL AST 85 H (17-59) U/L ALT 183 H (4-49) U/L Lactate Dehydrogenase (313-618) U/L C-Reactive Protein (<1.0) mg/dL Albumin 3.3 L (3.5-5.0) g/dL 05/29/21 05/29/21 Range/Units 05:13 06:50 RBC (4.30-5.90) m/uL Hgb (13.0-17.5) gm/dL Hct (39.0-53.0) % Lymphocytes # (1.0-4.8) k/uL D-Dimer (<0.60) mg/L FEU Sodium (137-145) mmol/L Glucose (74-99) mg/dL POC Glucose (mg/dL) 197 H (75-99) mg/dL Calcium (8.4-10.2) mg/dL AST (17-59) U/L ALT (4-49) U/L Lactate Dehydrogenase 858 H (313-618) U/L C-Reactive Protein 3.9 H (<1.0) mg/dL Albumin (3.5-5.0) g/dL
[2021-05-29] MEDS ORDERED: REMDESIVIR 200 MG in SODIUM CHLORIDE 0.9% 250 ML IVPB ONE (16:00)
--- NOTE | 2021-05-29 18:43 | P.PN ---
Subjective Progress Note Date: 05/25/21 Principal diagnosis: Increased Shortness of breath over night, states he feels more tightness in chest and complaints of subjective fevers that are not improved. He did receive 25grams IVIG yesterday, due for 25 grams today as well to help additional immune support. Objective - Vital Signs Vital signs: Vital Signs Temp 98.8 F 05/25/21 05:38 Pulse 94 05/25/21 05:38 Resp 21 05/25/21 05:38 BP 135/83 05/25/21 05:38 Pulse Ox 93 L 05/25/21 05:38 Intake & Output 05/24/21 05/25/21 05/25/21 18:59 06:59 18:59 Output Total 600 Balance -600 Output: Urine 600 Other: Voiding Method Toilet Toilet Toilet Urinal Urinal Urinal - Exam alert and oriented NAD Head: NCAT Mucus membranes dry Lungs: Rhonchi and bibasilar bilateral diminished Abd: soft Heart reg tachy - Labs CBC & Chem 7: 05/22/21 14:17 05/22/21 14:17 Labs: Abnormal Lab Results - Last 24 Hours (Table) 05/23/21 05/24/21 05/25/21 Range/Units 15:40 08:03 07:08 Fibrinogen 752 H (200-500) mg/dL Lactate Dehydrogenase 866 H (313-618) U/L C-Reactive Protein 13.4 H (<1.0) mg/dL Coronavirus (PCR) Detected A (Not Detected) Microbiology - Last 24 Hours (Table) 05/24/21 20:49 Gram Stain - Preliminary Sputum Sputum Culture - Preliminary 05/19/21 12:00 Blood Culture - Preliminary Blood No Growth after 120 hours 05/19/21 11:45 Blood Culture - Preliminary Blood No Growth after 120 hours Assessment and Plan (1) Fever Current Visit: Yes Status: Acute Code(s): R50.9 - FEVER, UNSPECIFIED SNOMED Code(s): 363973384 (2) COVID Current Visit: Yes Status: Acute Priority: High Code(s): U07.1 - COVID-19 SNOMED Code(s): 766118409 (3) Lymphoma Current Visit: Yes Status: Acute Code(s): C85.90 - NON-HODGKIN LYMPHOMA, UNSPECIFIED, UNSPECIFIED SITE SNOMED Code(s): 859406479 (4) Pneumonia Current Visit: Yes Status: Acute Code(s): J18.9 - PNEUMONIA, UNSPECIFIED ORGANISM SNOMED Code(s): 554134812 (5) Shortness of breath Current Visit: Yes Status: Acute Code(s): R06.02 - SHORTNESS OF BREATH SNOMED Code(s): 208247172
--- NOTE | 2021-05-29 18:57 | P.PN ---
Subjective Progress Note Date: 05/29/21 Principal diagnosis: Increased Shortness of breath over night, states he feels more tightness in chest and complaints of subjective fevers that are not improved. He did receive 25grams IVIG yesterday, due for 25 grams today as well to help additional immune support. Patient is doing better today, weaning on oxygen. Objective - Vital Signs Vital signs: Vital Signs Temp 99.1 F 05/29/21 08:00 Pulse 69 05/29/21 08:00 Resp 20 05/29/21 08:00 BP 121/77 05/29/21 08:00 Pulse Ox 97 05/29/21 08:00 Intake & Output 05/28/21 05/29/21 05/29/21 18:59 06:59 18:59 Intake Total 340 1675 75 Output Total 350 730 Balance -10 945 75 Weight 106.2 kg 106 kg Intake: IV 1075 75 0.9 NaCl 825 75 IGG 250 Oral 340 400 Tube Feeding 200 Output: Urine 350 730 Other: Voiding Method Toilet Urinal Urinal # Bowel Movements 1 - Exam alert and oriented mild distress Non Rebreather Head: NCAT Mucus membranes dry Lungs: Rhonchi and bibasilar bilateral diminished Abd: soft Heart reg tachy - Labs CBC & Chem 7: 05/29/21 05:13 05/29/21 05:13 Labs: Abnormal Lab Results - Last 24 Hours (Table) 05/28/21 05/28/21 05/29/21 Range/Units 08:11 11:59 05:13 RBC (4.30-5.90) m/uL Hgb (13.0-17.5) gm/dL Hct (39.0-53.0) % Lymphocytes # (1.0-4.8) k/uL D-Dimer 1.23 H (<0.60) mg/L FEU Sodium (137-145) mmol/L Glucose (74-99) mg/dL POC Glucose (mg/dL) 117 H (75-99) mg/dL Calcium (8.4-10.2) mg/dL AST (17-59) U/L ALT (4-49) U/L Albumin (3.5-5.0) g/dL Procalcitonin 0.11 H (0.02-0.09) ng/mL 05/29/21 05/29/21 05/29/21 Range/Units 05:13 05:13 06:50 RBC 3.82 L (4.30-5.90) m/uL Hgb 12.3 L (13.0-17.5) gm/dL Hct 36.5 L (39.0-53.0) % Lymphocytes # 0.1 L (1.0-4.8) k/uL D-Dimer (<0.60) mg/L FEU Sodium 135 L (137-145) mmol/L Glucose 131 H (74-99) mg/dL POC Glucose (mg/dL) 197 H (75-99) mg/dL Calcium 8.2 L (8.4-10.2) mg/dL AST 85 H (17-59) U/L ALT 183 H (4-49) U/L Albumin 3.3 L (3.5-5.0) g/dL Procalcitonin (0.02-0.09) ng/mL Assessment and Plan (1) Fever Current Visit: Yes Status: Acute Code(s): R50.9 - FEVER, UNSPECIFIED SNOMED Code(s): 677429587 (2) COVID Current Visit: Yes Status: Acute Priority: High Code(s): U07.1 - COVID-19 SNOMED Code(s): 181350042 (3) Lymphoma Current Visit: Yes Status: Acute Code(s): C85.90 - NON-HODGKIN LYMPHOMA, UNSPECIFIED, UNSPECIFIED SITE SNOMED Code(s): 574096870 (4) Pneumonia Current Visit: Yes Status: Acute Code(s): J18.9 - PNEUMONIA, UNSPECIFIED ORGANISM SNOMED Code(s): 999043194 (5) Shortness of breath Current Visit: Yes Status: Acute Code(s): R06.02 - SHORTNESS OF BREATH SNOMED Code(s): 777803973 Plan: Assessment and Recommendations: Acute Respiratory Distress, Fever, Post Covid Pneumonia: Acute Respiratory Failure - initial positive test on 05/06 - Received Regeneron and improved, then recurrent high fevers and worsening respiratory symptoms - Infectious disease to follow, Pulmonary to Follow are recommended - Status post 2/2 25 grams of IVIG for additional immune support - Another round of IVIG ordered on 05/28/21 and 05/29/21 - IMPROVED TODAY COVID PCR and Rapid remains positive, he remains symptomatic. Reviewed Chest Xray 05/26/21 - no significant change NHL: Follicular Lymphoma: - Recent Rituxan Infusion, receives [id number] for maintenance Now in ICU Care: Weaning down on Oxygen today. He is responding a little to the IVIG. With his underlying co-morbidities and the fact he has received Rituxan multiple times in the past chema his B cell protection is not present to assist in fighting off the virus. Continued aggressive support given per ICU and Pulmonology. Discussed with patient and today.
[2021-05-29] MEDS ORDERED: REMDESIVIR 100 MG in SODIUM CHLORIDE 0.9% 250 ML IVPB SCH (20:00)
[2021-05-29] MEDS ORDERED: IMMUNE GLOBULIN (GAMMAGARD) 20 GM in EMPTY BAG 1 BAG IV NR (22:00)
[2021-05-29] MEDS ORDERED: IMMUNE GLOBULIN (GAMMAGARD) 5 GM in EMPTY BAG 1 BAG IV NR (22:00)
[2021-05-29] MEDS: ALPRAZolam 0.25 MG TAB PO SCH (22:22)
--- NOTE | 2021-05-29 22:28 | PN ---
PROGRESS NOTE DATE OF SERVICE: 05/29/2021 REASON FOR FOLLOWUP: COVID-19 pneumonia. INTERVAL HISTORY: The patient is afebrile. The patient is breathing more comfortably. The patient denies having any chest pain or worsening cough. No nausea, no vomiting. No abdominal pain or diarrhea. PHYSICAL EXAMINATION: Blood pressure 115/74 with a pulse of 64, temperature of 98.1. He is 100% on 8 L nasal cannula. General description is a middle-aged male up in the bed in no distress. Respiratory system: Unlabored breathing, decreased intensity of breath sounds. No wheeze. Heart S1, S2. Regular rate and rhythm. Abdomen soft, no tenderness. LABS: Hemoglobin is 12.3, white count 4.1, BUN of 18, creatinine 0.79. DIAGNOSTIC IMPRESSION AND PLAN: Patient with acute COVID-19 pneumonia this patient who seems to have shown some clinical improvement compared to yesterday. Patient is covered with dexamethasone, Lovenox, zinc and ascorbic acid; to continue along with respiratory support. Family at the bedside. Multiple questions were answered in layman's terms. MMODL / IJN: [id number] /
[2021-05-30 05:21] LABS: C Reactive Protein 2.8 mg/dL (<1.0)
[2021-05-30] MEDS: ACETAMINOPHEN TAB 500 MG TAB PO PRN (05:29)
[2021-05-30] MEDS: PANTOPRAZOLE 40 MG TABLET PO SCH ×2 (05:29→18:01)
[2021-05-30] MEDS: guaiFENesin-Coden 100-10MG/5ML 10 ML CUP PO PRN ×3 (05:30→18:04)
[2021-05-30] MEDS: ALPRAZolam 0.25 MG TAB PO PRN ×2 (05:32→15:01)
[2021-05-30] MEDS: FLUTICASONE 220 MCG INHALER INHALATION SCH ×2 (07:57→19:36)
[2021-05-30] MEDS: ALBUTEROL HFA INHALER INHALATION PRN ×4 (07:57→19:36)
[2021-05-30] MEDS: ASCORBIC ACID 500 MG TAB PO SCH ×2 (08:01→20:23)
[2021-05-30] MEDS: CALCIUM CARBONATE 500 MG CHEWABLE PO SCH (08:01)
[2021-05-30] MEDS: dexAMETHasone 2 MG TAB PO SCH (08:01)
[2021-05-30] MEDS: ALPRAZolam 0.25 MG TAB PO SCH ×2 (08:01→20:22)
[2021-05-30] MEDS: ZINC SULFATE 220 MG CAP PO SCH (08:01)
[2021-05-30] MEDS: CHOLECALCIFEROL 25 MCG (1000 IU) TABLET PO SCH (08:02)
[2021-05-30] MEDS: ENOXAPARIN 40 MG/0.4 ML SYRINGE SQ SCH (08:02)
[2021-05-30] MEDS: busPIRone HCl 5 MG TAB PO SCH ×3 (08:11→20:22)
[2021-05-30] MEDS: BENZONATATE 100 MG CAP PO PRN (08:19)
--- NOTE | 2021-05-30 09:51 | P.PN ---
Subjective Progress Note Date: 05/30/21 05/29/2021, the patient is being seen for a follow-up. The patient is a case of non-Hodgkin's lymphoma, diffuse large B cell lymphoma who was treated with a combination of CHOP regimen and Rituxan. Subsequently, the patient developed Covid 19 related pneumonia with respiratory failure. The patient a chest to the intensive care unit yesterday for further monitoring. He was on Airvo which she was unable to tolerate as the patient is unable to breathe through his nose. He prefers the nonrebreather facemask which she is using it and his pulse ox is around 97-98%. He goes into coughing spells anytime when he tries to breathe in deep we'll does more activity. He panics and he gets anxious and he requires Xanax which essentially works good for him. He remains on Decadron. As mentioned to the family, he is not a candidate for Remdesivir because of his high oxygen requirements and his way out of the window for Remdesivir therapy. I offered to the family and he ultimately declined. For that reason, I think is reasonable to take Remdesivir out of his MAR. His white cell count is at 4.1 with hemoglobin of 12.3. Coagulation profile is within normal with an INR of 1.0 and a d-dimer of 1.23, his inflammatory markers need to be rechecked. Renal function is stable. Electrolytes are all within normal limits. He remains on Decadron. Discussed the case with the team at [facility]. He agreed on the treatment plan and no adjustments were recommended. They've declined transfer at this point in time. The same discussion took place with [facility]. I have already informed this to the patient and to the family. Remains on Lovenox 40 mg subcu on a daily basis. Remains on multivitamins. Remains on Xanax on as needed basis. Inflammatory markers need to be rechecked. On 05/30/2021 patient seen in follow-up in intensive care unit, his breathing comfortably this morning, less dyspneic, hypoxic, FiO2 is currently down to 5 L, and his pulse ox is 99-100%, vital signs are stable, but his blood pressure is 120/74, hemodynamically has not required any vasopressor support, is in sinus mechanism, he is afebrile. His 0.9 normal saline at a rate of 75 ML per hour. This is chest x-ray showed bilateral infiltrates stable in appearance, no pneumothorax, small effusions, heart size was normal. Follow-up chest x-ray will be ordered for tomorrow. Otherwise clinically patient is improving. Today's labs have been reviewed, LDH is slightly improved and is down to 807, and CRP is down to 2.8 d-dimer from yesterday was 1.23. Gen. Dopplers were negative for DVT, CTA chest Limited related to breathing motion, we will go for filling defects/pulmonary emboli involving lobar mental branches of the left upper lobe however in view of negative floor extremity Doppler our suspicion for underlying pulmonary embolism is low. he is resting comfortably in bed, he is awake and alert, breathing comfortably, no tachypnea, no use of accessory muscles of breathing, he is calm, he is eating his breakfast, appetite is fair Objective - Vital Signs Vital signs: Vital Signs Temp 98.1 F 05/30/21 00:00 Pulse 77 05/30/21 07:00 Resp 24 05/30/21 07:00 BP 122/83 05/30/21 07:00 Pulse Ox 100 05/30/21 07:00 Intake & Output 05/29/21 05/30/21 05/30/21 18:59 06:59 18:59 Intake Total 2260 1150 75 Output Total 1700 1050 400 Balance 560 100 -325 Weight 107.8 kg Intake: IV 900 1150 75 0.9 NaCl 900 900 75 IGG 250 Oral 1360 Output: Urine 1700 1050 400 Other: Voiding Method Urinal Urinal - Exam GENERAL EXAM: Alert, very pleasant 35 yo white male on 5 l/min with pulse ox of 100%, comfortable in no apparent distress. HEAD: Normocephalic/atraumatic. EYES: Normal reaction of pupils, equal size. Conjunctiva pink, sclera white. NOSE: Clear with pink turbinates. THROAT: No erythema or exudates. NECK: No masses, no JVD, no thyroid enlargement, no adenopathy. CHEST: No chest wall deformity. Symmetrical expansion. LUNGS: Equal air entry with bibasilar rales CVS: Regular rate and rhythm, normal S1 and S2, no gallops, no murmurs, no rubs ABDOMEN: Soft, nontender. No hepatosplenomegaly, normal bowel sounds, no guarding or rigidity. EXTREMITIES: No clubbing, no edema, no cyanosis, 2+ pulses and upper and lower extremities. MUSCULOSKELETAL: Muscle strength and tone normal. SPINE: No scoliosis or deformity SKIN: No rashes CENTRAL NERVOUS SYSTEM: Alert and oriented -3. No focal deficits, tone is normal in all 4 extremities. PSYCHIATRIC: Alert and oriented -3. Appropriate affect. Intact judgment and insight. - Labs CBC & Chem 7: 05/29/21 05:13 05/29/21 05:13 Labs: Abnormal Lab Results - Last 24 Hours (Table) 05/29/21 05/29/21 05/30/21 Range/Units 05:13 05:13 04:14 Lactate Dehydrogenase 858 H 807 H (313-618) U/L C-Reactive Protein 3.9 H 2.8 H (<1.0) mg/dL CMV IgG Ab Reactive A (Nonreactive) Assessment and Plan Plan: #1. Acute hypoxemic respiratory failure secondary to coronavirus associated pneumonia. Currently improved and patient is down to 5l/min of oxygen #2. Elevated d-dimer, with no evidence of pulmonary embolism on CT angiog.nura. #3. Hypogammaglobulinemia, patient receives IVIG. #4. Diffuse large B cell lymphoma (NHL). Status post 6 rounds of R-CHOP chemotherapy. The patient is currently receiving immunotherapy #5. Gastroesophageal reflux disease. #6. History of pancreatitis. #7. History of ulcerative colitis. Plan: Condition is stable and improving Currently down to 5 l/min Maintaining o2 sats above 95% Continue weaning Fio2 Continue Decadron Continue anticoagulation with Lovenox Repeat chest x-ray in the morning Continue using incentive spirometer We'll continue to follow Follow up CXR, labs, LDH and CRP I performed a history & physical examination of the patient and discussed their management with my nurse practitioner, Mary Ann Bates. I reviewed the nurse practitioner's note and agree with the documented findings and plan of care. Lung sounds are positive for dim breath sounds throughout the lung perez. The findings and the impression was discussed with the patient. I attest to the documentation by the nurse practitioner. Time with Patient: Greater than 30
--- NOTE | 2021-05-30 10:26 | P.PN ---
Subjective Progress Note Date: 05/30/21 (Patient seen at 1015 ) Principal diagnosis: shortness of breath Patient is a 35-year-old male patient of Dr. Rivera was with non-Hodgkin's lymphoma treated wt CHOP and Rituxin, Peter, pancreatitis, and ulcerative colitis who was diagnosed with coated one week prior to admission and given antibiotic monoclonal antibodies. He presented to the emergency department due to worsening shortness of breath. He was found have a chest x-ray consistent with covert pneumonitis, fever of 101, and arrangements are made for admission. He was started on dexamethasone and hematology and pulmonary were consulted area and patient had immunotherapy for his non-Hodgkin's lymphoma last week. CTA of the chest was initially done which was equivocal for pulmonary embolism. Nakia ent underwent an echocardiogram which showed no signs of right heart strain, lower extremity venous Dopplers were negative, and repeat CT of the chest again showed no central pulmonary embolism and wrists were determined to be greater than benefits for therapeutic anticoagulation. It was determined that patient did not have significant pulmonary embolism. Patient was out of the window for Remdesivir. He had worsening oxygenation on 05/23. Patient received IVIG on 05/26 but oxygenation continued to worsen. He had worsening anxiety requiring Xanax and BuSpar. He was transitioned to an AirVo on 05/28 and by 05/29 was in the ICU requiring AirVo plus nonrebreather. Pulmonary did discuss the case with [facility] but they've declined transfer. They also discussed with [facility] who again declined transfer. His oxygen requirements rapidly improved over 05/29 and 05/30. Imaging: Abdominal ultrasound-hepatic steatosis with hepatomegaly CTA chest-patchy and confluent bilateral groundglass greatest in the lower lung, limited assessment for PE with equivocal defects in the left upper lobe Lower extremity venous Dopplers- no evidence of DVT, prominent left inguinal lymphadenopathy Repeat CT of the chest: No obvious central PE on the distal branches limited secondary to motion artifact Echocardiogram: Ejection fraction 55-60%, moderate concentric LVH Patient seen and examined at bedside with present. Requesting ensure. States that his breathing is much improved compared to yesterday. Still feeling very tired and weak. Denies any nausea or vomiting. Has been taking in small amounts of food. General: ill appearing , no distress, appears at stated age Derm: warm, dry Head: atraumatic, normocephalic, symmetric Eyes: EOMI, no lid lag, anicteric sclera Mouth: no lip lesion, mucus membranes moist Cardiovascular: S1S2 reg, no murmur, positive posterior tibial pulse bilateral, Lungs: Course bilateral, no rhonchi, no rales , no accessory muscle use, no conversational dyspnea Abdominal: soft, nontender to palpation, no guarding, no appreciable organomegaly Ext: no gross muscle atrophy, no edema, no contractures Neuro: CN II-XI grossly intact, no focal neuro deficits Psych: Alert, oriented, appropriate affect Assessment/plan: COVID-19 pneumonitis Acute hypoxic respiratory failure Reactive airway disease - Pulmonary/cc recs appreciated: not a candidate for Baricitinib given his immunosupression from lymphoma treatment and his chronic gammaglobenumia - Vit C, Vit D, zinc - Desamethasone D # 10 - flovent - follow COVID labs - wean O2 as able Non-Hodgkin's lymphoma - heme/onc recs appreciated: on acyclovir - outpatient follow-up Transaminitis - likely secondary to COVID as normal on admission but will need to be followed in outpatient setting given steatohepatitis seen on abdominal US Generalized anxiety disorder with panic attacks - Xanax, Buspar Chronic hypogammaglobulinemia - s/p IVIG on 05/21, 05/22, 05/28, and 05/29 Lactic acidosis, resolved GERD - protonix - prn tums Chronic: Pancreatitis Ulcerative colitis DVT prophylaxis: Lovenox Discussed with: Anticipated discharge: Anticipated discharge place: A total of 45 minutes was spent on the care of this complex patient more than 50% of the time was spent in counseling and care coordination. Objective - Vital Signs Vital signs: Vital Signs Temp 98.1 F 05/30/21 00:00 Pulse 77 05/30/21 07:00 Resp 24 05/30/21 07:00 BP 122/83 05/30/21 07:00 Pulse Ox 100 05/30/21 07:00 Intake & Output 05/29/21 05/30/21 05/30/21 18:59 06:59 18:59 Intake Total 2260 1150 75 Output Total 1700 1050 400 Balance 560 100 -325 Weight 107.8 kg Intake: IV 900 1150 75 0.9 NaCl 900 900 75 IGG 250 Oral 1360 Output: Urine 1700 1050 400 Other: Voiding Method Urinal Urinal - Labs CBC & Chem 7: 05/29/21 05:13 05/29/21 05:13 Labs: Abnormal Lab Results - Last 24 Hours (Table) 05/29/21 05/29/21 05/30/21 Range/Units 05:13 05:13 04:14 Lactate Dehydrogenase 858 H 807 H (313-618) U/L C-Reactive Protein 3.9 H 2.8 H (<1.0) mg/dL CMV IgG Ab Reactive A (Nonreactive)
[2021-05-30] MEDS: SODIUM CHLORIDE 0.9% 1,000 ML IV SCH (11:34)
--- NOTE | 2021-05-30 13:15 | P.PN ---
Subjective Progress Note Date: 05/30/21 Principal diagnosis: covid improving after 3rd and 4th ivig, plan to transfer from ICU today. Objective - Vital Signs Vital signs: Vital Signs Temp 98.1 F 05/30/21 00:00 Pulse 77 05/30/21 07:00 Resp 24 05/30/21 07:00 BP 122/83 05/30/21 07:00 Pulse Ox 100 05/30/21 07:00 Intake & Output 05/29/21 05/30/21 05/30/21 18:59 06:59 18:59 Intake Total 2260 1150 75 Output Total 1700 1050 400 Balance 560 100 -325 Weight 107.8 kg Intake: IV 900 1150 75 0.9 NaCl 900 900 75 IGG 250 Oral 1360 Output: Urine 1700 1050 400 Other: Voiding Method Urinal Urinal - Exam alert and oriented mild distress Non Rebreather Head: NCAT Mucus membranes dry Lungs: Rhonchi and bibasilar bilateral diminished Abd: soft Heart reg tachy - Labs CBC & Chem 7: 05/29/21 05:13 05/29/21 05:13 Labs: Abnormal Lab Results - Last 24 Hours (Table) 05/29/21 05/29/21 05/30/21 Range/Units 05:13 05:13 04:14 Lactate Dehydrogenase 858 H 807 H (313-618) U/L C-Reactive Protein 3.9 H 2.8 H (<1.0) mg/dL CMV IgG Ab Reactive A (Nonreactive) Assessment and Plan (1) Fever Current Visit: Yes Status: Acute Code(s): R50.9 - FEVER, UNSPECIFIED SNOMED Code(s): 671559303 (2) COVID Current Visit: Yes Status: Acute Priority: High Code(s): U07.1 - COVID-19 SNOMED Code(s): 361939628 (3) Lymphoma Current Visit: Yes Status: Acute Code(s): C85.90 - NON-HODGKIN LYMPHOMA, UNSPECIFIED, UNSPECIFIED SITE SNOMED Code(s): 724213017 (4) Pneumonia Current Visit: Yes Status: Acute Code(s): J18.9 - PNEUMONIA, UNSPECIFIED ORGANISM SNOMED Code(s): 701694460 (5) Shortness of breath Current Visit: Yes Status: Acute Code(s): R06.02 - SHORTNESS OF BREATH SNOMED Code(s): 274134342 Plan: Assessment and Recommendations: Acute Respiratory Distress, Fever, Post Covid Pneumonia: Acute Respiratory Failure - initial positive test on 05/06 - Received Regeneron and improved, then recurrent high fevers and worsening respiratory symptoms - Infectious disease to follow, Pulmonary to Follow are recommended - Status post 2/ 25 grams of IVIG for additional immune support - Another round of IVIG ordered on 05/28/21 and 05/29/21 - IMPROVED TODAY and transferring to medical floor COVID PCR and Rapid remains positive, he remains symptomatic. Reviewed Chest Xray 05/26/21 - no significant change NHL: Follicular Lymphoma: - Recent Rituxan Infusion, receives g8sowti for maintenance Discussed with patient and today.
[2021-05-30] MEDS ORDERED: REMDESIVIR 100 MG in SODIUM CHLORIDE 0.9% 250 ML IVPB SCH (16:00)
--- NOTE | 2021-05-30 23:26 | PN ---
PROGRESS NOTE DATE OF SERVICE: 05/30/2021 REASON FOR FOLLOWUP: Acute COVID-19 pneumonia. INTERVAL HISTORY: The patient is afebrile. The patient is breathing more comfortably. The patient denies having any chest pain. Cough has decreased in intensity. No nausea, no vomiting. No abdominal pain or diarrhea. PHYSICAL EXAMINATION: Blood pressure is 121/75 with a pulse of 77, temperature 97.5. He is 99% on 5 L nasal cannula. General description is a middle-aged male up in the bed in no distress. Respiratory system: Unlabored breathing, decreased intensity of breath sounds. No wheeze. Heart S1, S2. Regular rate and rhythm. Abdomen soft, no tenderness. LABS: CRP is 2.8. DIAGNOSTIC IMPRESSION AND PLAN: Patient with acute COVID-19 pneumonia in this patient who seems to have shown overall clinical improvement. Patient requiring less oxygen. Covered with dexamethasone, Lovenox, zinc and ascorbic acid; to continue. Slowly wean off his oxygen. Encourage incentive spirometry. at the bedside. Questions were answered. MMODL / IJN: [id number] /
[2021-05-31] MEDS: guaiFENesin-Coden 100-10MG/5ML 10 ML CUP PO PRN ×4 (00:32→20:26)
[2021-05-31] MEDS: SODIUM CHLORIDE 0.9% 1,000 ML IV SCH ×2 (00:58→20:24)
[2021-05-31] MEDS: ACETAMINOPHEN TAB 500 MG TAB PO PRN ×2 (04:22→20:25)
[2021-05-31] MEDS: ALPRAZolam 0.25 MG TAB PO PRN ×2 (04:25→13:59)
[2021-05-31] MEDS: PANTOPRAZOLE 40 MG TABLET PO SCH ×2 (07:06→17:45)
[2021-05-31 07:23] LABS: Basophils % (A) 0 %; Eosinophils % (A) 0 %; HCT 37.3 % (39.0-53.0); HGB 12.6 gm/dL (13.0-17.5); Lymphocytes # (A) 0.1 k/uL (1.0-4.8); Lymphocytes % (A) 2 %; MCH 31.8 pg (25.0-35.0); MCHC 33.6 g/dL (31.0-37.0); MCV 94.4 fL (80.0-100.0); Mean Platelet Volume 7.4; Monocytes # (A) 0.2 k/uL (0-1.0); Monocytes % (A) 3 %; Neutrophils # (A) 5.3 k/uL (1.3-7.7); Neutrophils % (A) 94 %; Platelet Count 223 k/uL (150-450); RBC 3.95 m/uL (4.30-5.90); RDW 11.7 % (11.5-15.5); WBC 5.6 k/uL (3.8-10.6)
[2021-05-31] MEDS: FLUTICASONE 220 MCG INHALER INHALATION SCH ×2 (07:28→20:06)
[2021-05-31] MEDS: ALBUTEROL HFA INHALER INHALATION PRN ×3 (07:28→15:32)
--- NOTE | 2021-05-31 08:58 | XR ---
EXAMINATION TYPE: XR chest 1V portable DATE OF EXAM: 05/31/2021 COMPARISON: 05/29/2021 HISTORY: Cough TECHNIQUE: Single frontal view of the chest is obtained. FINDINGS: Mediport catheter seen with bilateral infiltrate stable. Small effusions. No pneumothorax. Heart size normal. IMPRESSION: Stable bilateral infiltrate
[2021-05-31] MEDS: CALCIUM CARBONATE 500 MG CHEWABLE PO SCH (09:15)
[2021-05-31] MEDS: busPIRone HCl 5 MG TAB PO SCH ×3 (09:15→20:25)
[2021-05-31] MEDS: ALPRAZolam 0.25 MG TAB PO SCH ×2 (09:15→20:24)
[2021-05-31] MEDS: CHOLECALCIFEROL 25 MCG (1000 IU) TABLET PO SCH (09:15)
[2021-05-31] MEDS: dexAMETHasone 2 MG TAB PO SCH (09:15)
[2021-05-31] MEDS: ASCORBIC ACID 500 MG TAB PO SCH ×2 (09:15→20:24)
[2021-05-31] MEDS: ENOXAPARIN 40 MG/0.4 ML SYRINGE SQ SCH (09:16)
[2021-05-31] MEDS: ZINC SULFATE 220 MG CAP PO SCH (09:16)
[2021-05-31 11:23] LABS: Magnesium 2.1 mg/dL (1.5-2.4)
[2021-05-31 11:46] LABS: African American GFR (CKD) 136.9 (60.0-200.0); Albumin 3.2 g/dL (3.8-4.9); Albumin/Globulin Ratio 0.91 (1.60-3.17); Anion Gap 13.6 mmol/L (4.00-12.00); BUN/Creat Ratio 19.35 Ratio (12.00-20.00); Calcium 8.2 mg/dL (8.7-10.3); Carbon Dioxide 22.7 mmol/L (21.6-31.8); Globulin 3.5 g/dL (1.6-3.3); Non-African American GFR(CKD) 118.1 (60.0-200.0); Potassium 4.2 mmol/L (3.5-5.5); Total Bilirubin 0.3 mg/dL (0.30-1.20); Total Protein 6.8 g/dL (6.2-8.2)
--- NOTE | 2021-05-31 13:29 | P.PN ---
Subjective Progress Note Date: 05/31/21 Principal diagnosis: shortness of breath Patient is a 35-year-old male patient of Dr. Rivera was with non-Hodgkin's lymphoma treated wt CHOP and Rituxin, Peter, pancreatitis, and ulcerative colitis who was diagnosed with coated one week prior to admission and given ant ibiotic monoclonal antibodies. He presented to the emergency department due to worsening shortness of breath. He was found have a chest x-ray consistent with covert pneumonitis, fever of 101, and arrangements are made for admission. He was started on dexamethasone and hematology and pulmonary were consulted area and patient had immunotherapy for his non-Hodgkin's lymphoma last week. CTA of the chest was initially done which was equivocal for pulmonary embolism. Patient underwent an echocardiogram which showed no signs of right heart strain, lower extremity venous Dopplers were negative, and repeat CT of the chest again showed no central pulmonary embolism and wrists were determined to be greater than benefits for therapeutic anticoagulation. It was determined that patient did not have significant pulmonary embolism. Patient was out of the window for Remdesivir. He had worsening oxygenation on 05/23. Patient received IVIG on 05/26 but oxygenation continued to worsen. He had worsening anxiety requiring Xanax and BuSpar. He was transitioned to an AirVo on 05/28 and by 05/29 was in the ICU requiring AirVo plus nonrebreather. Pulmonary did discuss the case with [facility] but they've declined transfer. They also discussed with [facility] who again declined transfer. His oxygen requirements rapidly improved over 05/29 and 05/30. Imaging: Abdominal ultrasound-hepatic steatosis with hepatomegaly CTA chest-patchy and confluent bilateral groundglass greatest in the lower lung, limited assessment for PE with equivocal defects in the left upper lobe Lower extremity venous Dopplers- no evidence of DVT, prominent left inguinal lymphadenopathy Repeat CT of the chest: No obvious central PE on the distal branches limited secondary to motion artifact Echocardiogram: Ejection fraction 55-60%, moderate concentric LVH Patient seen and examined at bedside with present. Today Consult to the bathroom. He reports his breathing feels improved from yesterday. His appetite has improved. He denies any diarrhea or constipation is having normal bowel movements. General: ill appearing , no distress, appears at stated age Derm: warm, dry Head: atraumatic, normocephalic, symmetric Eyes: EOMI, no lid lag, anicteric sclera Mouth: no lip lesion, mucus membranes dry Cardiovascular: S1S2 reg, no murmur, positive posterior tibial pulse bilateral, Lungs: Course bilateral, no rhonchi, no rales, no accessory muscle use, no conversational dyspnea Abdominal: soft, nontender to palpation, no guarding, no appreciable organomegaly Ext: no gross muscle atrophy, no edema, no contractures Neuro: CN II-XI grossly intact, no focal neuro deficits Psych: Alert, oriented, appropriate affect Assessment/plan: COVID-19 pneumonitis Acute hypoxic respiratory failure Reactive airway disease - Pulmonary/cc recs appreciated: not a candidate for Baricitinib given his immunosupression from lymphoma treatment and his chronic gammaglobenumia - Vit C, Vit D, zinc - Desamethasone D # 11 - flovent - follow COVID labs - wean O2 as able Non-Hodgkin's lymphoma - heme/onc recs appreciated: on acyclovir - outpatient follow-up Transaminitis - likely secondary to COVID as normal on admission but will need to be followed in outpatient setting given steatohepatitis seen on abdominal US - increased will need to monitor closely. Generalized anxiety disorder with panic attacks - Xanax, Buspar Chronic hypogammaglobulinemia - s/p IVIG on 05/21, 05/22, 05/28, and 05/29 Lactic acidosis, resolved GERD - protonix - prn tums Chronic: Pancreatitis Ulcerative colitis DVT prophylaxis: Lovenox Discussed with: Anticipated discharge: Anticipated discharge place: A total of 45 minutes was spent on the care of this complex patient more than 50% of the time was spent in counseling and care coordination. Active Medications Generic Name Dose Route Start Last Admin Trade Name Freq PRN Reason Stop Dose Admin Acetaminophen 500 mg 05/19/21 19:58 05/31/21 04:22 Acetaminophen Tab 500 Mg Tab PO 500 mg Q6HR PRN Administration Fever and/ or Pain Acyclovir 400 mg 05/19/21 15:30 Acyclovir 200 Mg Cap PO BID PRN immune Albuterol Sulfate 2 puff 05/19/21 15:30 05/31/21 11:23 Albuterol Hfa Inhaler INHALATION 2 puff RT-Q4H PRN Administration Shortness Of Breath Alprazolam 0.25 mg 05/28/21 10:28 05/31/21 04:25 Alprazolam 0.25 Mg Tab PO 0.25 mg TID PRN Administration Anxiety Alprazolam 0.25 mg 05/29/21 21:00 05/31/21 09:15 Alprazolam 0.25 Mg Tab PO 0.25 mg BID TARIQ Administration Ascorbic Acid 500 mg 05/20/21 13:15 05/31/21 09:15 Ascorbic Acid 500 Mg Tab PO 500 mg BID TARIQ Administration Benzonatate 100 mg 05/24/21 21:37 05/30/21 08:19 Benzonatate 100 Mg Cap PO 100 mg TID PRN Administration Cough Buspirone HCl 5 mg 05/28/21 16:00 05/31/21 09:15 Buspirone Hcl 5 Mg Tab PO 5 mg TID TARIQ Administration Calcium Carbonate/Glycine 500 mg 05/20/21 09:00 05/31/21 09:15 Calcium Carbonate 500 Mg Chewable PO 500 mg DAILY TARIQ Administration Cholecalciferol 125 mcg 05/24/21 14:00 05/31/21 09:15 Cholecalciferol 25 Mcg (1000 Iu) Tablet PO 125 mcg DAILY TARIQ Administration Dexamethasone 6 mg 05/20/21 13:15 05/31/21 09:15 Dexamethasone 2 Mg Tab PO 6 mg DAILY TARIQ Administration Enoxaparin Sodium 40 mg 05/20/21 09:00 05/31/21 09:16 Enoxaparin 40 Mg/0.4 Ml Syringe SQ 40 mg DAILY TARIQ Administration Fluticasone Propionate 2 puff 05/26/21 12:00 05/31/21 07:28 Fluticasone 220 Mcg Inhaler INHALATION 2 puff RT-BID TARIQ Administration Guaifenesin/Codeine Phosphate 10 ml 05/27/21 10:08 05/31/21 07:06 Guaifenesin-Coden 100-10mg/5ml 10 Ml Cup PO 10 ml Q6H PRN Administration Cough Sodium Chloride 1,000 mls @ 75 mls/hr 05/28/21 18:30 05/31/21 00:58 Saline 0.9% IV Not Given .[id number] TARIQ Ibuprofen 600 mg 05/20/21 04:14 05/29/21 20:03 Ibuprofen 600 Mg Tab PO 600 mg QID PRN Administration Breakthrough Pain Miscellaneous Information 1 each 05/19/21 11:07 Pneumonia Protocol Utilized 1 Each Misc PO ONCE PRN Per Protocol Morphine Sulfate 2 mg 05/28/21 10:33 Morphine Sulfate 2 Mg/Ml Syringe IVP Q6HR PRN Pain/Discomfort Ondansetron HCl 4 mg 05/19/21 15:30 Ondansetron 4 Mg Tab PO Q4H PRN Nausea Pantoprazole Sodium 40 mg 05/20/21 07:30 05/31/21 07:06 Pantoprazole 40 Mg Tablet PO 40 mg AC-BID TARIQ Administration Sodium Chloride 1 applic 05/24/21 20:58 Saline Nasal Gel 14.1 Gm Tube NASAL Q4HR PRN Dry Nasal Passages Zinc Sulfate 220 mg 05/20/21 09:00 05/31/21 09:16 Zinc Sulfate 220 Mg Cap PO 220 mg DAILY TARIQ Administration Objective - Vital Signs Vital signs: Vital Signs Temp 98 F 05/31/21 13:03 Pulse 102 H 05/31/21 13:03 Resp 18 05/31/21 13:03 BP 129/79 05/31/21 13:03 Pulse Ox 92 L 05/31/21 13:03 Intake & Output 05/30/21 05/31/21 05/31/21 18:59 06:59 18:59 Intake Total 625 100 Output Total 1700 Balance -1075 100 Intake: IV 375 0.9 NaCl 375 Oral 250 100 Output: Urine 1700 Other: Voiding Method Urinal Bedside Commode Bedside Commode Urinal Urinal # Voids 3 - Labs CBC & Chem 7: 05/31/21 06:53 05/31/21 06:53 Labs: Abnormal Lab Results - Last 24 Hours (Table) 05/31/21 05/31/21 05/31/21 Range/Units 06:53 06:53 06:53 RBC 3.95 L (4.30-5.90) m/uL Hgb 12.6 L (13.0-17.5) gm/dL Hct 37.3 L (39.0-53.0) % Lymphocytes # 0.1 L (1.0-4.8) k/uL D-Dimer 1.49 H (<0.60) mg/L FEU Anion Gap 13.60 H (4.00-12.00) mmol/L Glucose 111 H (70-110) mg/dL Calcium 8.2 L (8.7-10.3) mg/dL AST 103 H (14-35) U/L ALT 262 H (10-49) U/L Alkaline Phosphatase 136 H (41-126) U/L Lactate Dehydrogenase 332 H (120-246) U/L C-Reactive Protein 3.00 H (0.00-0.80) mg/dL Albumin 3.2 L (3.8-4.9) g/dL Globulin 3.5 H (1.6-3.3) g/dL Albumin/Globulin Ratio 0.91 L (1.60-3.17) g/dL
--- NOTE | 2021-05-31 13:43 | P.PN ---
Subjective Progress Note Date: 05/31/21 Principal diagnosis: COVID-19 infection 35-year-old male seen in the emergency department yesterday with a history of non-Hodgkin some foam a, diffuse large B-cell lymphoma, who presents to the emergency department with fever, and mild shortness of breath. The patient did receive monoclonal antibody about 3-4 days prior to admission. He tested positive for coronavirus about 2 weeks ago. Over the last day or so prior to admission, he had elevated temperature, which she had a hard time controlling at home. In addition, his saturations at home were borderline. For that reason he came into the hospital to be evaluated. He was seen initially by the PA, and then was admitted to the hospital. Currently, he's on room air. His saturations are fine. He is not manifesting any signs or symptoms of respiratory distress. His chest x-ray was not particularly impressive, but his computed tomography scan did show diffuse bilateral patchy groundglass opacities consistent with coronavirus associated pneumonia. He was beyond the window for REM. White count 2.37, hemoglobin 11.8, hematocrit 36.5, platelet count 134,000. D-dimer was 0.9 to electrolytes were normal. Ferritin was 1126. Pro- calcitonin was 0.18. C-reactive protein was 7.3. LDH was 215. Chest x-ray and CT angiogram were evaluated. There is no evidence of pulmonary embolism. The patient is seen today 05/21/2021 in follow-up on the regular medical floor. He is currently sitting up in a chair at the bedside. Awake and alert in no acute distress. 18 O2 saturations in the mid 90s on room air. He is dyspneic with minimal exertion however. Currently afebrile with temperature of 102. Doppler of the lower extremities negative for DVT. CT angiogram negative for PE. Blood cultures revealing no growth. No new labs today. He is continued on Decadron, Lovenox, vitamin supplements. He is receiving IVIG for his hypogammaglobulinemia. 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 No ant ibiotics currently per ID services. The patient is seen today 05/22/2021 in follow-up on the regular medical floor. He is currently sitting up in a chair at the bedside. Awake and alert in no acute distress. No worsening shortness of breath. He has an occasional dry nonproductive cough and then he applies his oxygen. Currently in the 2% on room air. He is afebrile. Hemodynamically stable. Blood cultures reveal no growth. No new labs today. Remains on Decadron, Lovenox, vitamin supplements. He is requesting follow-up CoVODELL mcnamara he was diagnosed 2 weeks ago. He is hoping to have visitors. The patient is seen today 05/23/2021 in follow-up on the regular medical floor. He is awake and alert in no acute distress. Sitting up in chair at the bedside. Having some increasing cough, congestion, dyspnea on minimal exertion. O2 saturation room air 90%. Improved on 4 L nasal cannula. He is currently afebrile though did have a temperature again early this morning at 101.5. X-ray showing bilateral patchy infiltrates. Follow-up rapid coronavirus test positive still. He remains on Decadron, Lovenox, vitamin supplements. He is received IVIG yesterday. Patient is seen today 05/24/2021 in follow-up on the regular medical floor. Currently sitting up in a chair at the bedside. Awake and alert in no acute distress. Continues to maintain O2 saturations in the 90s on 4 L/m per nasal cannula. Fever again this morning at 102.3, currently afebrile. Blood cultures reveal no growth. LDH 866. C-reactive protein 13.4. A second CT angiogram again revealed no acute pulmonary embolism. Continues with diffuse bilateral infiltrates consistent with multifocal pneumonia secondary to COVID-19. He is continued on Decadron, Lovenox, vitamin supplements. The patient is seen today 05/25/2021 in follow-up on the regular medical floor. He is currently resting comfortably in bed. Awake and alert in no acute distress. He is maintaining O2 saturations in the low 90s on 5 L/m per nasal cannula. Still temping at 100.3. Hemodynamically stable. Cultures revealed no growth. Sputum culture pending. Sodium 140. Potassium 3.9. Creatinine 0.9. AST 67. ALT 108. He is continued on Decadron, Lovenox, vitamin supplements. Patient is seen today 05/28/21 in follow-up he has a of non-Hodgkin's lymphoma, diffuse large B-cell lymphoma, who was infected with Covid 19. The patient underwent Doppler of the lower extremity that showed no evidence of any DVT. CT angiogram showed no evidence of any pulmonary embolism. He was started on Decadron and Lovenox and multivitamins. He does receive IVIG regarding chronic hypogammaglobulinemia. As mentioned, he has history of lymphoma the patient is currently on immunotherapy. His oxygen requirements have continued to rise. He is currently on AirVo at 55 L and 80% oxygen to maintain O2 saturation in the high 90s. He is afebrile. This x-ray continues to show bilateral patchy airspace disease consistent with Covid pneumonia. Underlying pneumocystis pneumonia cannot be ruled out based on his immune compromised system. Oncology is considering adding Bactrim. Lead and sputum cultures have revealed no growth. In the interim the patient will be transferred to the ICU for closer monitoring. White count 3.7. Hemoglobin 12.9. Lymphocytes 0.1. D-dimer 0.78. Sodium 137. Potassium 4.4. Creatinine 0.91. Glucose 117. LDH 1028. C- reactive protein 4.8. Pro-calcitonin 0.11. He is continued on Decadron, Zahra enox, vitamin supplements, bronchodilators Seen today 05/31/2021 in follow-up on the oncology unit. He is sitting up in a chair at the bedside. Awake and alert in no acute distress doing better. Taking O2 saturations in the low 90s on 5 L/m per nasal cannula. His been afebrile. Hemodynamically stable. X-ray is revealing stable bilateral infiltrates. Sputum culture revealed no growth. Blood cultures reveal no growth. White count count 5.6. Hemoglobin 12.6. D-dimer 1.49. Sodium 136. Potassium 4.2. Creatinine 0.8. AST 103. ALT 262. LDH 332. C-reactive protein 3.00. He is continued on bronchodilators, Decadron, Lovenox, vitamin supplements. Objective - Vital Signs Vital signs: Vital Signs Temp 98 F 05/31/21 13:03 Pulse 102 H 05/31/21 13:03 Resp 18 05/31/21 13:03 BP 129/79 05/31/21 13:03 Pulse Ox 92 L 05/31/21 13:03 Intake & Output 05/30/21 05/31/21 05/31/21 18:59 06:59 18:59 Intake Total 625 100 Output Total 1700 Balance -1075 100 Intake: IV 375 0.9 NaCl 375 Oral 250 100 Output: Urine 1700 Other: Voiding Method Urinal Bedside Commode Bedside Commode Urinal Urinal # Voids 3 - Exam GENERAL EXAM: Alert, very pleasant 35-year-old gentleman, on 5 L high flow nasal cannula, fairly comfortable in no apparent distress. HEAD: Normocephalic. EYES: Normal reaction of pupils, equal size. NOSE: Clear with pink turbinates. THROAT: No erythema or exudates. NECK: No masses, no JVD. CHEST: No chest wall deformity. LUNGS: Equal air entry with crackles in the bilateral bases CVS: S1 and S2 normal with no audible murmur, regular rhythm. ABDOMEN: No hepatosplenomegaly, normal bowel sounds, no guarding or rigidity. SPINE: No scoliosis or deformity SKIN: No rashes CENTRAL NERVOUS SYSTEM: No focal deficits, tone is normal in all 4 extremities. EXTREMITIES: There is no peripheral edema. No clubbing, no cyanosis. Peripheral pulses are intact. - Labs CBC & Chem 7: 05/31/21 06:53 05/31/21 06:53 Labs: Abnormal Lab Results - Last 24 Hours (Table) 05/31/21 05/31/21 05/31/21 Range/Units 06:53 06:53 06:53 RBC 3.95 L (4.30-5.90) m/uL Hgb 12.6 L (13.0-17.5) gm/dL Hct 37.3 L (39.0-53.0) % Lymphocytes # 0.1 L (1.0-4.8) k/uL D-Dimer 1.49 H (<0.60) mg/L FEU Anion Gap 13.60 H (4.00-12.00) mmol/L Glucose 111 H (70-110) mg/dL Calcium 8.2 L (8.7-10.3) mg/dL AST 103 H (14-35) U/L ALT 262 H (10-49) U/L Alkaline Phosphatase 136 H (41-126) U/L Lactate Dehydrogenase 332 H (120-246) U/L C-Reactive Protein 3.00 H (0.00-0.80) mg/dL Albumin 3.2 L (3.8-4.9) g/dL Globulin 3.5 H (1.6-3.3) g/dL Albumin/Globulin Ratio 0.91 L (1.60-3.17) g/dL Assessment and Plan Assessment: 1 Acute COVID-19 pneumonia, outside the window for Remdesivir, prior to admission had received monoclonal antibodies. He is currently on 5 L nasal cannula and continues to improve. Second CT angiogram ruled out pulmonary embolism. His chest x-ray shows stable bilateral patchy infiltrates consistent with COVID-19 pneumonia. 2 Diffuse large B-cell lymphoma. Status post 6 rounds of R CHOP chemotherapy, on immunotherapy 3 Hypogammaglobulinemia, receiving IVIG 4 History of gastroesophageal reflux disease 5 History of pancreatitis 6 History of ulcerative colitis. Plan: The patient was seen and evaluated by Dr. Hurt Chest x-ray and labs reviewed Blood cultures and sputum cultures revealed no growth Continue on Lovenox, Decadron, vitamin supplements Titrate the FiO2 as tolerated Increase his activity as tolerated We will continue to follow I, the cosigning physician, performed a history & physical examination of the patient. Lungs sounds with crackles in the bases. Maintaining good O2 saturations in the 90s on 5 liters high flow nasal cannula. I discussed the assessment and plan of care with my nurse practitioner, Ailyn Acosta. I attest to the above note as dictated by her.
--- NOTE | 2021-05-31 14:41 | P.PN ---
Subjective Progress Note Date: 05/31/21 Principal diagnosis: covid infection In f/u today pt is on Onc unit, he is on O2 but breathing is only mildly labored. He is starting to eat and drink better, he states this is the best he has felt since admit. Objective - Vital Signs Vital signs: Vital Signs Temp 98 F 05/31/21 13:03 Pulse 102 H 05/31/21 13:03 Resp 18 05/31/21 13:03 BP 129/79 05/31/21 13:03 Pulse Ox 92 L 05/31/21 13:03 Intake & Output 05/30/21 05/31/21 05/31/21 18:59 06:59 18:59 Intake Total 625 100 Output Total 1700 Balance -1075 100 Intake: IV 375 0.9 NaCl 375 Oral 250 100 Output: Urine 1700 Other: Voiding Method Urinal Bedside Commode Bedside Commode Urinal Urinal # Voids 3 - Constitutional General appearance: Present: average body habitus, cooperative, no acute distress - EENT Eyes: Present: anicteric sclerae, EOMI ENT: Present: hearing grossly normal - Respiratory Respiratory: bilateral: diminished, wheezing (few scattered) - Cardiovascular Rhythm: regular Heart sounds: normal: S1, S2 Abnormal Heart Sounds: Absent: systolic murmur, diastolic murmur, rub, S3 Gallop, S4 Gallop, click, other - Peripheral edema leg Peripheral Edema: bilateral: None - Gastrointestinal General gastrointestinal: Present: normal bowel sounds, soft - Neurologic Neurologic: Present: CNII-XII intact - Musculoskeletal Musculoskeletal Comment(s): decreased endurance 2/2 resp status Musculoskeletal: Present: strength equal bilaterally - Psychiatric Psychiatric: Present: A&O x's 3, appropriate affect, intact judgment & insight - Labs CBC & Chem 7: 05/31/21 06:53 05/31/21 06:53 Labs: Abnormal Lab Results - Last 24 Hours (Table) 05/31/21 05/31/21 05/31/21 Range/Units 06:53 06:53 06:53 RBC 3.95 L (4.30-5.90) m/uL Hgb 12.6 L (13.0-17.5) gm/dL Hct 37.3 L (39.0-53.0) % Lymphocytes # 0.1 L (1.0-4.8) k/uL D-Dimer 1.49 H (<0.60) mg/L FEU Anion Gap 13.60 H (4.00-12.00) mmol/L Glucose 111 H (70-110) mg/dL Calcium 8.2 L (8.7-10.3) mg/dL AST 103 H (14-35) U/L ALT 262 H (10-49) U/L Alkaline Phosphatase 136 H (41-126) U/L Lactate Dehydrogenase 332 H (120-246) U/L C-Reactive Protein 3.00 H (0.00-0.80) mg/dL Albumin 3.2 L (3.8-4.9) g/dL Globulin 3.5 H (1.6-3.3) g/dL Albumin/Globulin Ratio 0.91 L (1.60-3.17) g/dL Assessment and Plan (1) Hypogammaglobulinemia Narrative/Plan: Pt has received 4 doses throughout his hospitalization. IgG levels are normal Current Visit: Yes Status: Acute Priority: High Code(s): D80.1 - NONFA MILIAL HYPOGAMMAGLOBULINEMIA SNOMED Code(s): 136662906 (2) COVID Narrative/Plan: Pt is admitted for covid infection. He has had quite a hospitalization. He states he feels better today then he has since admit. Current Visit: Yes Status: Acute Priority: High Code(s): U07.1 - COVID-19 SNOMED Code(s): 415236090 (3) Follicular lymphoma Narrative/Plan: Pt is on maintenance gazyva every other month. Next dose due end of Jun/early Jul. Pt will f/u with Dr. Hess before resuming any maintenance therapy Current Visit: Yes Status: Chronic Priority: Medium Code(s): C82.90 - FOLLICULAR LYMPHOMA, UNSPECIFIED, UNSPECIFIED SITE SNOMED Code(s): 076933917 Plan: Melatonin for sleep and bed overaly ordered Pt encouraged to deep breathe, cough, use IS, get out of bed- and mother at bedside to get him motivated
--- NOTE | 2021-05-31 18:39 | PN ---
PROGRESS NOTE DATE OF SERVICE: 05/31/2021 REASON FOR FOLLOWUP: COVID-19 pneumonia. INTERVAL HISTORY: The patient is afebrile. The patient is breathing comfortably. The patient denies having any chest pain or worsening cough. No abdominal pain or diarrhea. PHYSICAL EXAMINATION: Blood pressure 129/79 with a pulse of 102, temperature 98. He is 92% on 5 L nasal cannula. General description is a middle-aged male up in the bed in no distress. Respiratory system: Unlabored breathing, decreased intensity of breath sounds. No wheeze. Heart S1, S2. Regular rate and rhythm. Abdomen soft, no tenderness. LABS: Hemoglobin is , white count of 5.6, creatinine 0.8. DIAGNOSTIC IMPRESSION AND PLAN: Patient with acute COVID-19 pneumonia in this patient with overall slow clinical improvement. To continue with the dexamethasone, Lovenox, zinc and ascorbic acid. Family at the bedside. Questions and concerns were answered. MMODL / IJN: [id number] /
[2021-05-31] MEDS: MELATONIN 3 MG TABLET PO SCH (20:26)
[2021-06-01] MEDS: ACETAMINOPHEN TAB 500 MG TAB PO PRN (04:44)
[2021-06-01] MEDS: ALPRAZolam 0.25 MG TAB PO PRN ×2 (04:44→15:33)
[2021-06-01] MEDS: guaiFENesin-Coden 100-10MG/5ML 10 ML CUP PO PRN ×3 (04:44→18:01)
[2021-06-01] MEDS: SODIUM CHLORIDE 0.9% 1,000 ML IV SCH ×3 (05:55→21:10)
[2021-06-01] MEDS: FLUTICASONE 220 MCG INHALER INHALATION SCH ×2 (07:35→19:38)
[2021-06-01] MEDS: ALBUTEROL HFA INHALER INHALATION PRN ×4 (07:35→19:38)
[2021-06-01 08:10] LABS: Basophils % (A) 0 %; Eosinophils % (A) 0 %; HCT 38.4 % (39.0-53.0); HGB 13.1 gm/dL (13.0-17.5); Lymphocytes # (A) 0.1 k/uL (1.0-4.8); Lymphocytes % (A) 1 %; MCV 94.1 fL (80.0-100.0); Mean Platelet Volume 7.2; Monocytes # (A) 0.2 k/uL (0-1.0); Monocytes % (A) 3 %; Neutrophils # (A) 5.6 k/uL (1.3-7.7); Neutrophils % (A) 95 %; Platelet Count 213 k/uL (150-450); RBC 4.08 m/uL (4.30-5.90); RDW 11.7 % (11.5-15.5); WBC 5.9 k/uL (3.8-10.6)
[2021-06-01 08:26] LABS: ALT 248 U/L (4-49); AST 91 U/L (17-59); African American GFR (CKD) >90 (>60 ml/min/1.73 sqM); Albumin 3.3 g/dL (3.5-5.0); Albumin/Globulin Ratio 0.9; Alkaline Phosphatase 142 U/L (38-126); Anion Gap 7 mmol/L; Blood Urea Nitrogen 15 mg/dL (9-20); Calcium 8.7 mg/dL (8.4-10.2); Carbon Dioxide 28 mmol/L (22-30); Chloride 101 mmol/L (98-107); Globulin 3.7 g/dL; Glucose 100 mg/dL (74-99); Magnesium 2.1 mg/dL (1.6-2.3); Non-African American GFR(CKD) >90 (>60 ml/min/1.73 sqM); Potassium 4.5 mmol/L (3.5-5.1); Sodium 136 mmol/L (137-145); Total Bilirubin 0.4 mg/dL (0.2-1.3)
[2021-06-01] MEDS: ZINC SULFATE 220 MG CAP PO SCH (09:01)
[2021-06-01] MEDS: CALCIUM CARBONATE 500 MG CHEWABLE PO SCH (09:01)
[2021-06-01] MEDS: busPIRone HCl 5 MG TAB PO SCH ×3 (09:01→21:11)
[2021-06-01] MEDS: PANTOPRAZOLE 40 MG TABLET PO SCH ×2 (09:01→18:01)
[2021-06-01] MEDS: CHOLECALCIFEROL 25 MCG (1000 IU) TABLET PO SCH (09:01)
[2021-06-01] MEDS: ASCORBIC ACID 500 MG TAB PO SCH ×2 (09:01→21:11)
[2021-06-01] MEDS: ALPRAZolam 0.25 MG TAB PO SCH ×2 (09:01→21:10)
[2021-06-01] MEDS: ENOXAPARIN 40 MG/0.4 ML SYRINGE SQ SCH (09:02)
[2021-06-01] MEDS: dexAMETHasone 2 MG TAB PO SCH (09:02)
--- NOTE | 2021-06-01 12:04 | P.PN ---
Subjective Progress Note Date: 06/01/21 Principal diagnosis: covid infection In f/u today pt is up, eating and drinking, using his incentive spirometry, continues on oxygen at 5 L, have been trying to wean down to 4L. Patient does notice that if he has any episodes of coughing that his breathing can get very labored. He is denying any nausea, fevers, chest pain, he reports normal bowel movements. Denies swelling or pain in the legs. Objective - Vital Signs Vital signs: Vital Signs Temp 98.2 F 06/01/21 04:45 Pulse 88 06/01/21 04:45 Resp 20 06/01/21 04:45 BP 137/92 06/01/21 04:45 Pulse Ox 95 06/01/21 08:08 Intake & Output 05/31/21 06/01/21 06/01/21 18:59 06:59 18:59 Output Total 675 1000 Balance -675 -1000 Output: Urine 675 1000 Other: Voiding Method Toilet Toilet Urinal Urinal - Constitutional General appearance: Present: average body habitus, cooperative, no acute distress - EENT Eyes: Present: anicteric sclerae, EOMI ENT: Present: hearing grossly normal - Respiratory Respiratory: bilateral: CTA (inspiration<expiration, mild tachypnea) - Cardiovascular Rhythm: regular Heart sounds: normal: S1, S2 Abnormal Heart Sounds: Absent: systolic murmur, diastolic murmur, rub, S3 Gallop, S4 Gallop, click, other - Peripheral edema leg Peripheral Edema: bilateral: None - Gastrointestinal General gastrointestinal: Present: normal bowel sounds, soft - Neurologic Neurologic: Present: CNII-XII intact - Musculoskeletal Musculoskeletal: Present: strength equal bilaterally - Psychiatric Psychiatric: Present: A&O x's 3, appropriate affect, intact judgment & insight - Labs CBC & Chem 7: 06/01/21 07:45 06/01/21 07:45 Labs: Abnormal Lab Results - Last 24 Hours (Table) 06/01/21 06/01/21 Range/Units 07:45 07:45 RBC 4.08 L (4.30-5.90) m/uL Hct 38.4 L (39.0-53.0) % Lymphocytes # 0.1 L (1.0-4.8) k/uL Sodium 136 L (137-145) mmol/L Glucose 100 H (74-99) mg/dL AST 91 H (17-59) U/L ALT 248 H (4-49) U/L Alkaline Phosphatase 142 H (38-126) U/L Albumin 3.3 L (3.5-5.0) g/dL Assessment and Plan (1) Hypogammaglobulinemia Narrative/Plan: Pt has received 4 doses throughout his hospitalization. IgG levels are normal Current Visit: Yes Status: Acute Priority: High Code(s): D80.1 - NONFAMILIAL HYPOGAMMAGLOBULINEMIA SNOMED Code(s): 815601212 (2) COVID Narrative/Plan: Pt is admitted for covid infection. He has had quite a hospitalization. He reports that he continues to feel better the last few days. Current Visit: Yes Status: Acute Priority: High Code(s): U07.1 - COVID-19 SNOMED Code(s): 846623095 (3) Follicular lymphoma Narrative/Plan: Pt is on maintenance gazyva every other month. Next dose due end of Jun/early Jul. Pt will f/u with Dr. Hess before resuming any maintenance therapy Current Visit: Yes Status: Chronic Priority: Medium Code(s): C82.90 - FOLLICULAR LYMPHOMA, UNSPECIFIED, UNSPECIFIED SITE SNOMED Code(s): 441346810 Plan: Pt encouraged to deep breathe, cough, use IS, get out of bed- and mother at bedside to get him motivated
--- NOTE | 2021-06-01 13:44 | P.PN ---
Subjective Progress Note Date: 06/01/21 HISTORY OF PRESENT ILLNESS 35-year-old male one of Dr. Rivera's patient with past medical history of non- Hodgkin lymphoma was diagnosed's past year who has history of Peter, history of pancreatitis, history of ulcerative colitis who was diagnosed with COVID-19 last week and had monoclonal antibiotic infusion. Patient had felt slightly but better till the lost 48 hours when he developed to have worsening symptom with worsening dyspnea and shortness of breath along with increased cough increased fever chills and generalized symptom with more fatigue and tiredness. Patient ended up coming to the emergency Department at [facility] where was seen and evaluated surprisingly his chest x-ray still showing Covid pneumonitis with fever running around 101. Patient was started on dexamethasone along with antibiotics to cover pneumonia his pulse ox is still running in the 90s when he doesn't exert himself patient will be admitted to the hospital will be seen hematology and pulmonary. Apparently patient had immunotherapy infusion this last week which can be contributing factor to was going on with his relapse from COVID-19 or worsening symptoms. Also patient been treated for non-Hodgkin lymphoma this last year which had brought his lymph node size down significantly. Patient also was told that he has moderately enlarged liver not explained with the? Off Peter. Patient has slightly higher diaphragm on the right side compared to the left side on his chest x-ray. 05/20: patient is not requiring oxygen and pulse ox is 94% on room air. He was running fevers yesterday and required IV Tylenol, Motrin [id number]. Fevers are improved today, heart rate 74, blood pressure 109/71.repeat blood work reveals WBC 2.3, hemoglobin 11.8, platelet count 134. D-dimer 0.92. Electrolytes and renal function normal. Calcium 7.6. ALT 69. Chest x-ray reveals patchy perihilar subsegmental infiltrate. Mediport catheter appears to be malpositioned and kinked. Correlate clinically. CTA of the chest reveals patchy and confluent bilateral groundglass, greatest in the lower lungs compatible with Covid pneumonia. Limited assessment for pulmonary embolus due to breathing motion. Equivocal for filling defects pulmonary emboli involving lobar and segmental branches of the left upper lobe. We favor breathing motion artifact. Consider short interval follow-up versus initiation of treatment depending on clinical suspicion. Partially visualized mid abdominal nii mesentery as seen on 11/22/2020. 05/21: Patient has been seen by Dr. Burns, patient is out of the therapeutic window for REM to severe and no evidence of secondary bacterial pneumonia, continue Decadron Lovenox think and vitamin C, droplet isolation. Patient is also seen by pulmonary medicine as well. Bilateral lower extremity ultrasound negative for DVT and thus CTA is inconclusive and patient is continued on DVT prophylaxis. IgG came back low at 401 and oncology as ordered immunoglobulin. Temperature max 102 this morning, heart rate 112, blood pressure 130/72, pulse ox 96% on room air. Patient is continued on Lovenox 40 mg subcu daily, dexamethasone 6 mg daily and vitamin supplements. Patient is reaching 1500 on incentive spirometry. 05/22:patient's breathing status is currently stable. He states he had about a 20 minute period during the night where he was coughing and felt short of breath and ended up wearing oxygen for couple hours. He states his pulse ox dropped down to 90%. He is currently 93% on room air. Patient has been afebrile now for greater than 24 hours, heart rate 96, blood pressure 131/77. Patient is currently receiving immunoglobulin scheduled for this afternoon. Anticipate completing this this evening, plan for discharge home tomorrow. 05/23: Anticipated that the patient would be ready for discharge today but unfortunately the patient has increased oxygen needs are currently on 4 L nasal cannula with pulse ox of 90%. He also has increasing cough and he feels short of breath with dyspnea on minimal exertion area and He did have a fever this morning of 101.5. Heart rate 92. Blood pressure 122/73. Patient has completed immunoglobulin infusion. Repeat chest x-ray ordered which shows stable bilateral pleural effusion. 05/24: Patient continues to have shortness of breath and having some chest pain with movement. He reports being a tiny bit better from yesterday. He appears to be quite fatigued at rest. Patient continues to be febrile with temperature 102.3, heart rate 105, blood pressure 126/77, pulse ox 93% on 4 L nasal cannula. LDH 866, C-reactive protein 13.4. Repeat CTA of the chest ordered to rule out pulmonary embolism. 05/25: Patient still not doing that well he is on 5 L O2 pulse ox running around 93-94%, continued to have significant shortness of breath and dyspnea with minimal exertion continued to have severe hypoxia this point. CT was reviewed from yesterday showed no sign of pulmonary embolism. Covid marker and chest x- ray will be done tomorrow the meanwhile continue current management. 05/26: Patient is still having slight hypoxia and shortness of breath he is little bit better compared to yesterday, his having less cough less fever and chills at this point. Still not recovering as fast as expected so far continue current treatment management continue supportive care he still seen pulmonary daily. 05/27: Patient continues to have shortness of breath and oxygen increased to 6 L overnight. Patient received IVIG yesterday. Patient is followed closely by pulmonary medicine. Patient is continued on Decadron, Lovenox and supplements. 05/28: Patient developed increasing shortness of breath as well as increased anxiety overnight. Patient states that he could not take another panic attack like he had last night. We are increasing Xanax to 3 times daily and adding in BuSpar. Patient has been transitioned to AirVo. WBC 4.7, hemoglobin 13.1, platelet count 169. Sed rate 92. D-dimer 1.04. Calcium 8.6. Ferritin 3749. AST 82, ALT 146, alkaline phosphatase 107. LDH 388. Patient has been afebrile, heart rate 94, blood pressure 115/75, pulse ox 99%. He is continued on Decadron, Lovenox, vitamin supplements, bronchodilators. 05/29: Patient was transferred into the intensive care unit yesterday, he is currently on AirVo with FiO2 75 with partial nonrebreather. Pulse ox is 96-98%. He's been afebrile, heart rate 81. Repeat blood work reveals WBC 4.1, hemoglobin 12.3, platelet count 210. D-dimer 1.23. Sodium 135. Blood sugars are running between 117 and 197. AST 85, ALT 183, alkaline phosphatase 118. LDH 858. IgG 1581. Repeat chest x-ray reveals bilateral infiltrates stable. Patient's is at the bedside and Dr. Rivera spent time answering all of her questions and concerns. At this time, patient appears to be stable but still prognosis is guarded. 06/01: Patient is seen on 5 N. sitting up in bed in no acute distress. He is currently on 5 L of oxygen via nasal cannula. Attempt to wean patient to 4 L last night was unsuccessful with pulse ox dropping into the low 80s. Plan is for patient to be discharged sometime this week. Patient remains afebrile, pulse rate 93, respirations 20, blood pressure 117/75, O2 saturation 92% on high flow nasal cannula 5 L. REVIEW OF SYSTEMS Constitutional: Reports fever and chills with night sweats, mild weight loss, generalized fatigue and tiredness no lethargy and daytime sleepiness. EENT: No headache. No dizziness. No nasal drainage or congestion. No epistaxis. No sore throat. Lungs: Reports shortness of breath worsening with cough and wheezes with sputum production and worsening dyspnea with minimal exertion. Cardiovascular: No chest pain, no lower extremity edema. No palpitations. No paroxysmal nocturnal dyspnea. No orthopnea. No lightheadedness or dizziness. No syncopal episodes. Abdominal: Mild abdominal discomfort with nausea no vomiting positive loss of appetite no tarry stool mild constipation. Genitourinary: No dysuria, increased frequency, urgency. No urinary retention. Musculoskeletal: Positive myalgia and muscle achiness and discomfort. Integumentary: No wounds, no lesions. No rash or pruritus. No unusual bruising. Neurologic: No aphasia. No facial droop. No change in mentation. No head injury. No headache. No paralysis. No paresthesia. Psychiatric: No depresreports panic attack and increasing anxiety. Endocrine: No abnormal blood sugars. No weight change. PHYSICAL EXAMINATION Gen: This is a 35-year-old male resting in ICU bed appears to be in mild respiratory distress with AirVo and mask. HEENT: Head is atraumatic, normocephalic. Pupils equal, round. Sclerae is anicteric. NECK: Supple. No JVD. Positive lymphadenopathy. No thyromegaly. LUNGS: Decreased breath sound bilaterally with fine rhonchi positive mild crackles in the bases positive mild expiratory wheezes. HEART: Regular rate and rhythm. No murmur. ABDOMEN: Soft. Bowel sounds are present. No rebound or rigidity. EXTREMITIES: No pedal edema. No calf tenderness. NEUROLOGICAL: Patient is awake, alert and oriented x3. Cranial nerves 2 through 12 are grossly intact. ASSESSMENT AND PLAN 1. acute hypoxic respiratory failure requiring O2 at 6 L secondary to COVID-19 pneumonitis, no sign of pulmonary embolism, patient still having significant decreased lung volume both side. He is not able take a deep breath or suppressive encourage will continue incentive spirometry. He is continued on D ecadron, Lovenox, vitamin supplements, bronchodilators. Patient is currently on AirVo and mask. Patient has been transferred into the intensive care unit. 2 COVID-19 pneumonitis. Patient is followed by pulmonary medicine and infectious disease. Status post monoclonal antibodies infusion. Continue oxygen support, dexamethasone, Lovenox, supplements. 3. Sepsis with SIRS: Multiple code to be factor from his lymphoma, chemoimmunotherapy, recent COVID-19 pneumonitis with worsening symptoms. Significantly elevated temperature with lactic acid of 2.7 chest x-ray showed patchy airspace up his station consistent with pneumonia specially COVID-19 pneumonitis. Still on aggressive management at this point with a site [place], dexamethasone, off antibiotic this point. 4. Fever. Secondary to COVID-19 pneumonitis continue with Tylenol and Motrin. 5. Lactic acidosis secondary to sepsis. 6. Non-Hodgkin lymphoma: Patient remain on active treatment he seen hematology regular basis. 7. Reactive airway/asthma: This chest x-ray just look like lost of lung volume mostly continue incentive spirometry regime AV pulmonary physical therapy. 8. Panic attacks and generalized anxiety disorder. Continue Xanax 0.25 mg 3 times daily and BuSpar started at 5 mg 3 times daily. 9. Chronic hypo-gammaglobinemia. Patient is status post 2 doses of IVIG. 10. GI prophylaxis: Patient will be on pantoprazole 40 mg twice a day. 10. DVT prophylaxis: Patient will be on Lovenox 40 mg subcutaneous daily. CODE STATUS: Full code. Prognosis: Still guarded. DISCHARGE PLAN Home Impression and plan of care have been directed as dictated by the signing physician. Jeannie Miles nurse practitioner acting as scribe for signing physician. Objective - Vital Signs Vital signs: Vital Signs Temp 97.4 F L 06/01/21 13:10 Pulse 93 06/01/21 13:10 Resp 20 06/01/21 13:10 BP 117/75 06/01/21 13:10 Pulse Ox 92 L 06/01/21 13:10 Intake & Output 05/31/21 06/01/21 06/01/21 18:59 06:59 18:59 Output Total 675 1000 Balance -675 -1000 Output: Urine 675 1000 Other: Voiding Method Toilet Toilet Urinal Urinal - Labs CBC & Chem 7: 06/01/21 07:45 06/01/21 07:45 Labs: Abnormal Lab Results - Last 24 Hours (Table) 06/01/21 06/01/21 Range/Units 07:45 07:45 RBC 4.08 L (4.30-5.90) m/uL Hct 38.4 L (39.0-53.0) % Lymphocytes # 0.1 L (1.0-4.8) k/uL Sodium 136 L (137-145) mmol/L Glucose 100 H (74-99) mg/dL AST 91 H (17-59) U/L ALT 248 H (4-49) U/L Alkaline Phosphatase 142 H (38-126) U/L Albumin 3.3 L (3.5-5.0) g/dL
--- NOTE | 2021-06-01 14:16 | P.PN ---
Subjective Progress Note Date: 06/01/21 The patient is a case of non-Hodgkin's lymphoma, diffuse large B cell lymphoma who was treated with a combination of CHOP regimen and Rituxan. On today's evaluation of 06/01/2021, patient is being seen for a follow-up. The patient was admitted intensive care unit and the patient got transferred out of the patient was showing signs of improvement. He is currently short of breath. He seems to be recovering from his COVID 19 related pneumonia. He is less anxious. Breathing easier. Able to speak in full sentences. His blood work shows a white cell count of 5.9 with hemoglobin of 13. D-dimer from yesterday was 1.49. His rectal blood work essentially within normal limits. LFTs are mildly elevated at their improving. AST is 91, ALT is 248, alkaline phosphatase 142, his LDH level was down to 3 on 32 and the CRP level is down to 3. The patient is currently on 5 L of oxygen by nasal cannula with a pulse ox of 92%. His last chest x-ray was from yesterday where the patient showed stable bilateral pulmonary infiltrates consistent with COVID 19 related pneumonia. No nausea. No vomiting. Tolerating his diet. In terms of treatment, he remains on Decadron 6 mg by mouth daily and he is also on Lovenox 40 mg subcu every 24 hours. Objective - Vital Signs Vital signs: Vital Signs Temp 97.4 F L 06/01/21 13:10 Pulse 93 06/01/21 13:10 Resp 20 06/01/21 13:10 BP 117/75 06/01/21 13:10 Pulse Ox 92 L 06/01/21 13:10 Intake & Output 05/31/21 06/01/21 06/01/21 18:59 06:59 18:59 Output Total 675 1000 Balance -675 -1000 Output: Urine 675 1000 Other: Voiding Method Toilet Toilet Urinal Urinal - Exam No acute distress, oriented 3. No use of accessory muscles or conversational dyspnea. Patient is currently comfortable on5 L of oxygen by nasal cannula HEENT examination is grossly unremarkable. Neck supple. Full range of motion. No adenopathy thyromegaly or neck vein distention. Cardiovascular examination reveals regular rhythm rate. S1-S2 normal. No S3 or S4. No discernible murmur noted. Heart rate 83 bpm. Lungs reveal bilateral coarse rhonchi. No wheezes or crackles. Breath sounds equal bilaterally. The patient coughs on deep inspiration. Saturations 93% on with a partial nonrebreather facemask, breath sounds are quite diminished in lung bases bilaterally. Abdomen soft bowel sounds are heard. No masses or tenderness. Extremities are intact. No cyanosis clubbing or edema. Skin is without rash or lesion. Neurologic examination is brief but nonfocal. - Labs CBC & Chem 7: 06/01/21 07:45 06/01/21 07:45 Labs: Abnormal Lab Results - Last 24 Hours (Table) 06/01/21 06/01/21 Range/Units 07:45 07:45 RBC 4.08 L (4.30-5.90) m/uL Hct 38.4 L (39.0-53.0) % Lymphocytes # 0.1 L (1.0-4.8) k/uL Sodium 136 L (137-145) mmol/L Glucose 100 H (74-99) mg/dL AST 91 H (17-59) U/L ALT 248 H (4-49) U/L Alkaline Phosphatase 142 H (38-126) U/L Albumin 3.3 L (3.5-5.0) g/dL Assessment and Plan Plan: 1 Acute COVID-19 pneumonia, outside the window for Remdesivir, prior to admission had received monoclonal antibodies. He is currently on 5 L nasal cannula and continues to improve. Second CT angiogram ruled out pulmonary embolism. His chest x-ray shows stable bilateral patchy infiltrates consistent with COVID-19 pneumonia. the patient got transferred out of the intensive care unit and the patient is currently stable on the medical floor on 5 L and the patient continues to be on Decadron. Inflammatory markers are low. Condition stable. 2 Diffuse large B-cell lymphoma. Status post 6 rounds of R CHOP chemotherapy, on immunotherapy 3 Hypogammaglobulinemia, receiving IVIG 4 History of gastroesophageal reflux disease 5 History of pancreatitis 6 History of ulcerative colitis. Plan: Continue on Lovenox, Decadron, vitamin supplements Titrate the FiO2 as tolerated Increase his activity as tolerated We will continue to follow
[2021-06-01] MEDS: BENZONATATE 100 MG CAP PO PRN (15:33)
[2021-06-01 16:34] LABS: Glucose,Whole Blood 188 mg/dL (75-99)
[2021-06-01] MEDS: MELATONIN 3 MG TABLET PO SCH (21:11)
--- NOTE | 2021-06-01 22:09 | PN ---
PROGRESS NOTE DATE OF SERVICE: 06/01/2021. REASON FOR FOLLOWUP: COVID-19 pneumonia. INTERVAL HISTORY: The patient is afebrile. The patient is breathing more comfortably, still on 5 L nasal cannula. The patient denies having any chest pain or worsening cough. No abdominal pain or diarrhea. PHYSICAL EXAMINATION: Blood pressure 122/73 with a pulse of 71, temperature 98.3. He is 97% on 5 L nasal cannula. General description is a middle-aged male up in the chair in no distress. Respiratory system: Unlabored breathing, decreased intensity of breath sounds. No wheeze. Heart S1, S2. Regular rate and rhythm. Abdomen soft, no tenderness. LABS: Hemoglobin is 13.1, white count 5.9, creatinine 0.81. DIAGNOSTIC IMPRESSION AND PLAN: Patient with acute COVID-19 pneumonia with slow clinical improvement. Patient is currently covered with dexamethasone, Lovenox, zinc and ascorbic acid along with respiratory support. Monitor his clinical course closely. MMODL / MELISSAN: [id number] /
[2021-06-02] MEDS: guaiFENesin-Coden 100-10MG/5ML 10 ML CUP PO PRN ×4 (00:18→18:17)
[2021-06-02] MEDS: BENZONATATE 100 MG CAP PO PRN (05:51)
[2021-06-02] MEDS: SODIUM CHLORIDE 0.9% 1,000 ML IV SCH (05:53)
[2021-06-02 06:48] LABS: Glucose,Whole Blood 192 mg/dL (75-99)
[2021-06-02] MEDS: ALBUTEROL HFA INHALER INHALATION PRN ×4 (07:29→20:10)
[2021-06-02] MEDS: FLUTICASONE 220 MCG INHALER INHALATION SCH ×2 (07:29→20:10)
[2021-06-02] MEDS: ASCORBIC ACID 500 MG TAB PO SCH ×2 (09:30→21:09)
[2021-06-02] MEDS: CALCIUM CARBONATE 500 MG CHEWABLE PO SCH (09:30)
[2021-06-02] MEDS: ZINC SULFATE 220 MG CAP PO SCH (09:30)
[2021-06-02] MEDS: CHOLECALCIFEROL 25 MCG (1000 IU) TABLET PO SCH (09:30)
[2021-06-02] MEDS: PANTOPRAZOLE 40 MG TABLET PO SCH ×2 (09:30→17:15)
[2021-06-02] MEDS: busPIRone HCl 5 MG TAB PO SCH ×3 (09:31→21:09)
[2021-06-02] MEDS: dexAMETHasone 2 MG TAB PO SCH (09:31)
[2021-06-02] MEDS: ALPRAZolam 0.25 MG TAB PO SCH ×2 (09:31→21:09)
[2021-06-02] MEDS: ENOXAPARIN 40 MG/0.4 ML SYRINGE SQ SCH (09:31)
[2021-06-02] MEDS: ACETAMINOPHEN TAB 500 MG TAB PO PRN (09:54)
--- NOTE | 2021-06-02 11:20 | P.PN ---
Subjective Progress Note Date: 06/02/21 Principal diagnosis: covid infection In f/u today pt is continues to tolerate eating and drinking, good amounts, using his incentive spirometry, O2 5 L. No fever. Cough can be severe at times but, he is trying to minimize coughing "fits" where he looses his breath. Objective - Vital Signs Vital signs: Vital Signs Temp 98.2 F 06/02/21 11:00 Pulse 88 06/02/21 11:00 Resp 20 06/02/21 11:00 BP 114/70 06/02/21 11:00 Pulse Ox 95 06/02/21 11:00 Intake & Output 06/01/21 06/02/21 06/02/21 18:59 06:59 18:59 Intake Total 1440 900 Output Total 600 Balance 1440 300 Intake: Intake, IV Titration 900 Amount Sodium Chloride 0.9% 1, 900 000 ml @ 75 mls/hr IV . [id number] TARIQ Rx#:[id number] Oral 1440 Output: Urine 600 Other: Voiding Method Toilet Toilet Toilet Urinal Urinal Urinal - Constitutional General appearance: Present: average body habitus, cooperative, mild distress - EENT Eyes: Present: anicteric sclerae, EOMI ENT: Present: hearing grossly normal - Respiratory Details: Diminished throughout, inspiration is short, LLL crackles cleared with cough - Cardiovascular Rhythm: regular Heart sounds: normal: S1, S2 Abnormal Heart Sounds: Absent: systolic murmur, diastolic murmur, rub, S3 Gallop, S4 Gallop, click, other - Peripheral edema leg Peripheral Edema: bilateral: None - Gastrointestinal General gastrointestinal: Present: normal bowel sounds, soft - Neurologic Neurologic: Present: CNII-XII intact - Musculoskeletal Musculoskeletal: Present: generalized weakness, strength equal bilaterally - Psychiatric Psychiatric: Present: A&O x's 3, appropriate affect, intact judgment & insight - Labs CBC & Chem 7: 06/01/21 07:45 06/01/21 07:45 Labs: Abnormal Lab Results - Last 24 Hours (Table) 06/01/21 06/02/21 Range/Units 16:32 06:45 POC Glucose (mg/dL) 188 H 192 H (75-99) mg/dL Assessment and Plan (1) Hypogammaglobulinemia Narrative/Plan: Pt has received 4 doses throughout his hospitalization. IgG levels are normal Current Visit: Yes Status: Acute Priority: High Code(s): D80.1 - NONFAMILIAL HYPOGAMMAGLOBULINEMIA SNOMED Code(s): 073577779 (2) COVID Narrative/Plan: Pt is admitted for covid infection. He has had quite a hospitalization. Cont to be followed by Pulmonary and ID. Current Visit: Yes Status: Acute Priority: High Code(s): U07.1 - COVID-19 SNOMED Code(s): 045927105 (3) Follicular lymphoma Narrative/Plan: Pt is on maintenance gazyva every other month. Last dose was in late Apr. Next dose due end of Jun/early Jul. Pt will f/u with Dr. Hess before resuming any maintenance therapy Current Visit: Yes Status: Chronic Priority: Medium Code(s): C82.90 - FOLLICULAR LYMPHOMA, UNSPECIFIED, UNSPECIFIED SITE SNOMED Code(s): 596570114 Plan: Pt told to minimize coughing that causes chest pain, harsh episodes. Mild cough to clear and to cont to try and deep breath without causing severe cough. Labs and CXR f/u in AM
--- NOTE | 2021-06-02 12:13 | P.PN ---
Subjective Progress Note Date: 06/02/21 HISTORY OF PRESENT ILLNESS 35-year-old male one of Dr. Rivera's patient with past medical history of non- Hodgkin lymphoma was diagnosed's past year who has history of Peter, history of pancreatitis, history of ulcerative colitis who was diagnosed with COVID-19 last week and had monoclonal antibiotic infusion. Patient had felt slightly but better till the lost 48 hours when he developed to have worsening symptom with worsening dyspnea and shortness of breath along with increased cough increased fever chills and generalized symptom with more fatigue and tiredness. Patient ended up coming to the emergency Department at [facility] where was seen and evaluated surprisingly his chest x-ray still showing Covid pneumonitis with fever running around 101. Patient was started on dexamethasone along with antibiotics to cover pneumonia his pulse ox is still running in the 90s when he doesn't exert himself patient will be admitted to the hospital will be seen hematology and pulmonary. Apparently patient had immunotherapy infusion this last week which can be contributing factor to was going on with his relapse from COVID-19 or worsening symptoms. Also patient been treated for non-Hodgkin lymphoma this last year which had brought his lymph node size down significantly. Patient also was told that he has moderately enlarged liver not explained with the? Off Peter. Patient has slightly higher diaphragm on the right side compared to the left side on his chest x-ray. 05/20: patient is not requiring oxygen and pulse ox is 94% on room air. He was running fevers yesterday and required IV Tylenol, Motrin [id number]. Fevers are improved today, heart rate 74, blood pressure 109/71.repeat blood work reveals WBC 2.3, hemoglobin 11.8, platelet count 134. D-dimer 0.92. Electrolytes and renal function normal. Calcium 7.6. ALT 69. Chest x-ray reveals patchy perihilar subsegmental infiltrate. Mediport catheter appears to be malpositioned and kinked. Correlate clinically. CTA of the chest reveals patchy and confluent bilateral groundglass, greatest in the lower lungs compatible with Covid pneumonia. Limited assessment for pulmonary embolus due to breathing motion. Equivocal for filling defects pulmonary emboli involving lobar and segmental branches of the left upper lobe. We favor breathing motion artifact. Consider short interval follow-up versus initiation of treatment depending on clinical suspicion. Partially visualized mid abdominal nii mesentery as seen on 11/22/2020. 05/21: Patient has been seen by Dr. Burns, patient is out of the therapeutic window for REM to severe and no evidence of secondary bacterial pneumonia, continue Decadron Lovenox think and vitamin C, droplet isolation. Patient is also seen by pulmonary medicine as well. Bilateral lower extremity ultrasound negative for DVT and thus CTA is inconclusive and patient is continued on DVT prophylaxis. IgG came back low at 401 and oncology as ordered immunoglobulin. Temperature max 102 this morning, heart rate 112, blood pressure 130/72, pulse ox 96% on room air. Patient is continued on Lovenox 40 mg subcu daily, dexamethasone 6 mg daily and vitamin supplements. Patient is reaching 1500 on incentive spirometry. 05/22:patient's breathing status is currently stable. He states he had about a 20 minute period during the night where he was coughing and felt short of breath and ended up wearing oxygen for couple hours. He states his pulse ox dropped down to 90%. He is currently 93% on room air. Patient has been afebrile now for greater than 24 hours, heart rate 96, blood pressure 131/77. Patient is currently receiving immunoglobulin scheduled for this afternoon. Anticipate completing this this evening, plan for discharge home tomorrow. 05/23: Anticipated that the patient would be ready for discharge today but unfortunately the patient has increased oxygen needs are currently on 4 L nasal cannula with pulse ox of 90%. He also has increasing cough and he feels short of breath with dyspnea on minimal exertion area and He did have a fever this morning of 101.5. Heart rate 92. Blood pressure 122/73. Patient has completed immunoglobulin infusion. Repeat chest x-ray ordered which shows stable bilateral pleural effusion. 05/24: Patient continues to have shortness of breath and having some chest pain with movement. He reports being a tiny bit better from yesterday. He appears to be quite fatigued at rest. Patient continues to be febrile with temperature 102.3, heart rate 105, blood pressure 126/77, pulse ox 93% on 4 L nasal cannula. LDH 866, C-reactive protein 13.4. Repeat CTA of the chest ordered to rule out pulmonary embolism. 05/25: Patient still not doing that well he is on 5 L O2 pulse ox running around 93-94%, continued to have significant shortness of breath and dyspnea with minimal exertion continued to have severe hypoxia this point. CT was reviewed from yesterday showed no sign of pulmonary embolism. Covid marker and chest x- ray will be done tomorrow the meanwhile continue current management. 05/26: Patient is still having slight hypoxia and shortness of breath he is little bit better compared to yesterday, his having less cough less fever and chills at this point. Still not recovering as fast as expected so far continue current treatment management continue supportive care he still seen pulmonary daily. 05/27: Patient continues to have shortness of breath and oxygen increased to 6 L overnight. Patient received IVIG yesterday. Patient is followed closely by pulmonary medicine. Patient is continued on Decadron, Lovenox and supplements. 05/28: Patient developed increasing shortness of breath as well as increased anxiety overnight. Patient states that he could not take another panic attack like he had last night. We are increasing Xanax to 3 times daily and adding in BuSpar. Patient has been transitioned to AirVo. WBC 4.7, hemoglobin 13.1, platelet count 169. Sed rate 92. D-dimer 1.04. Calcium 8.6. Ferritin 3749. AST 82, ALT 146, alkaline phosphatase 107. LDH 388. Patient has been afebrile, heart rate 94, blood pressure 115/75, pulse ox 99%. He is continued on Decadron, Lovenox, vitamin supplements, bronchodilators. 05/29: Patient was transferred into the intensive care unit yesterday, he is currently on AirVo with FiO2 75 with partial nonrebreather. Pulse ox is 96-98%. He's been afebrile, heart rate 81. Repeat blood work reveals WBC 4.1, hemoglobin 12.3, platelet count 210. D-dimer 1.23. Sodium 135. Blood sugars are running between 117 and 197. AST 85, ALT 183, alkaline phosphatase 118. LDH 858. IgG 1581. Repeat chest x-ray reveals bilateral infiltrates stable. Patient's is at the bedside and Dr. Rivera spent time answering all of her questions and concerns. At this time, patient appears to be stable but still prognosis is guarded. 06/01: Patient is seen on 5 N. sitting up in bed in no acute distress. He is currently on 5 L of oxygen via nasal cannula. Attempt to wean patient to 4 L last night was unsuccessful with pulse ox dropping into the low 80s. Plan is for patient to be discharged sometime this week. Patient remains afebrile, pulse rate 93, respirations 20, blood pressure 117/75, O2 saturation 92% on high flow nasal cannula 5 L. 06/02: Patient is found sitting up in bed in no acute distress. He remains on 5 L of oxygen via nasal cannula. We will again attempt to wean him to 4 L. Discussion about additional dose of IgG prior to discharge. We'll refer to oncology for recommendations. Patient remains afebrile, respirations 20, heart rate 88, blood pressure 114/70, pulse ox 95% on 5 L high flow nasal cannula. REVIEW OF SYSTEMS Constitutional: Reports fever and chills with night sweats, mild weight loss, generalized fatigue and tiredness no lethargy and daytime sleepiness. EENT: No headache. No dizziness. No nasal drainage or congestion. No epistaxis. No sore throat. Lungs: Reports shortness of breath - improved with cough and wheezes with sputum production - improved and worsening dyspnea with minimal exertion - improved. Cardiovascular: No chest pain, no lower extremity edema. No palpitations. No paroxysmal nocturnal dyspnea. No orthopnea. No lightheadedness or dizziness. No syncopal episodes. Abdominal: Mild abdominal discomfort with nausea no vomiting positive loss of appetite no tarry stool mild constipation. Genitourinary: No dysuria, increased frequency, urgency. No urinary retention. Musculoskeletal: Positive myalgia and muscle achiness and discomfort. Integumentary: No wounds, no lesions. No rash or pruritus. No unusual bruising. Neurologic: No aphasia. No facial droop. No change in mentation. No head injury. No headache. No paralysis. No paresthesia. Psychiatric: No depresreports panic attack and increasing anxiety. Endocrine: No abnormal blood sugars. No weight change. PHYSICAL EXAMINATION Gen: This is a 35-year-old male resting in bed on 5 N. in no acute distress HEENT: Head is atraumatic, normocephalic. Pupils equal, round. Sclerae is anicteric. NECK: Supple. No JVD. Positive lymphadenopathy. No thyromegaly. LUNGS: Decreased breath sound bilaterally with fine rhonchi positive mild crackles in the bases positive mild expiratory wheezes. HEART: Regular rate and rhythm. No murmur. ABDOMEN: Soft. Bowel sounds are present. No rebound or rigidity. EXTREMITIES: No pedal edema. No calf tenderness. NEUROLOGICAL: Patient is awake, alert and oriented x3. Cranial nerves 2 through 12 are grossly intact. ASSESSMENT AND PLAN 1. acute hypoxic respiratory failure requiring O2 at 6 L secondary to COVID-19 pneumonitis, no sign of pulmonary embolism, encourage to continue incentive spirometry. He is continued on Decadron, Lovenox, vitamin supplements, bronc hodilators. Patient is currently on high flow nasal cannula. 2 COVID-19 pneumonitis. Patient is followed by pulmonary medicine and infectious disease. Status post monoclonal antibodies infusion. Continue oxygen support, dexamethasone, Lovenox, supplements. 3. Sepsis with SIRS: Multiple code to be factor from his lymphoma, chemoimmunotherapy, recent COVID-19 pneumonitis with worsening symptoms. chest x-ray showed patchy airspace up his station consistent with pneumonia specially COVID-19 pneumonitis. Still on aggressive management at this point with a site [place], dexamethasone, off antibiotic this point. 4. Fever. Secondary to COVID-19 pneumonitis continue with Tylenol and Motrin. 5. Lactic acidosis secondary to sepsis. 6. Non-Hodgkin lymphoma: Patient remain on active treatment he seen hematology regular basis. 7. Reactive airway/asthma: This chest x-ray just look like lost of lung volume mostly continue incentive spirometry regime AV pulmonary physical therapy. 8. Panic attacks and generalized anxiety disorder. Continue Xanax 0.25 mg 3 times daily and BuSpar started at 5 mg 3 times daily. 9. Chronic hypo-gammaglobinemia. Patient is status post 2 doses of IVIG. 10. GI prophylaxis: Patient will be on pantoprazole 40 mg twice a day. 10. DVT prophylaxis: Patient will be on Lovenox 40 mg subcutaneous daily. CODE STATUS: Full code. Prognosis: Still guarded. DISCHARGE PLAN Home Impression and plan of care have been directed as dictated by the signing physician. Jeannie Miles nurse practitioner acting as scribe for signing physician. Objective - Vital Signs Vital signs: Vital Signs Temp 98.2 F 06/02/21 11:00 Pulse 88 06/02/21 11:00 Resp 20 06/02/21 11:00 BP 114/70 06/02/21 11:00 Pulse Ox 95 06/02/21 11:00 Intake & Output 06/01/21 06/02/21 06/02/21 18:59 06:59 18:59 Intake Total 1440 900 Output Total 600 Balance 1440 300 Intake: Intake, IV Titration 900 Amount Sodium Chloride 0.9% 1, 900 000 ml @ 75 mls/hr IV . [id number] [facility] Rx#:[id number] Oral 1440 Output: Urine 600 Other: Voiding Method Toilet Toilet Toilet Urinal Urinal Urinal - Labs CBC & Chem 7: 06/01/21 07:45 06/01/21 07:45 Labs: Abnormal Lab Results - Last 24 Hours (Table) 06/01/21 06/02/21 Range/Units 16:32 06:45 POC Glucose (mg/dL) 188 H 192 H (75-99) mg/dL
--- NOTE | 2021-06-02 14:17 | P.PN ---
Subjective Progress Note Date: 06/02/21 06/02/2021, the patient is on oncology floor. Doing extremely well on 5 L approximately nasal cannula with a pulse ox of 96%. Sitting up on a chair. Communicating. No fever or chills. He is a some non-Hodgkin's lymphoma with diffuse large B cell disease and the patient has received CHOP regimen followed by Rituxan. He remains on Lovenox 4 mg subcu for DVT prophylaxis. He is also on Decadron 6 mg by mouth on a daily basis. No other significant events. Breathing is gradually improving and the patient continues to use incentive spirometer. His labs from yesterday were noted. Objective - Vital Signs Vital signs: Vital Signs Temp 98.2 F 06/02/21 11:00 Pulse 88 06/02/21 11:00 Resp 20 06/02/21 11:00 BP 114/70 06/02/21 11:00 Pulse Ox 95 06/02/21 11:00 Intake & Output 06/01/21 06/02/21 06/02/21 18:59 06:59 18:59 Intake Total 1440 900 Output Total 600 Balance 1440 300 Intake: Intake, IV Titration 900 Amount Sodium Chloride 0.9% 1, 900 000 ml @ 75 mls/hr IV . [id number] [facility] Rx#:[id number] Oral 1440 Output: Urine 600 Other: Voiding Method Toilet Toilet Toilet Urinal Urinal Urinal - Exam No acute distress, oriented 3. No use of accessory muscles or conversational dyspnea. Patient is currently comfortable on5 L of oxygen by nasal cannula HEENT examination is grossly unremarkable. Neck supple. Full range of motion. No adenopathy thyromegaly or neck vein distention. Cardiovascular examination reveals regular rhythm rate. S1-S2 normal. No S3 or S4. No discernible murmur noted. Heart rate 83 bpm. Lungs reveal bilateral coarse rhonchi. No wheezes or crackles. Breath sounds equal bilaterally. The patient coughs on deep inspiration. Saturations 93% on with a partial nonrebreather facemask, breath sounds are quite diminished in lung bases bilaterally. Abdomen soft bowel sounds are heard. No masses or tenderness. Extremities are intact. No cyanosis clubbing or edema. Skin is without rash or lesion. Neurologic examination is brief but nonfocal. - Labs CBC & Chem 7: 06/01/21 07:45 06/01/21 07:45 Labs: Abnormal Lab Results - Last 24 Hours (Table) 06/01/21 06/02/21 Range/Units 16:32 06:45 POC Glucose (mg/dL) 188 H 192 H (75-99) mg/dL Assessment and Plan Plan: 1 Acute COVID-19 pneumonia, outside the window for Remdesivir, prior to admission had received monoclonal antibodies. He is currently on 5 L nasal cannula and continues to improve. Second CT angiogram ruled out pulmonary embolism. His chest x-ray shows stable bilateral patchy infiltrates consistent with COVID-19 pneumonia. the patient got transferred out of the intensive care unit and the patient is currently stable on the medical floor on 5 L and the patient continues to be on Decadron. Inflammatory markers are low. Condition stable. 2 Diffuse large B-cell lymphoma. Status post 6 rounds of R CHOP chemotherapy, on immunotherapy 3 Hypogammaglobulinemia, receiving IVIG 4 History of gastroesophageal reflux disease 5 History of pancreatitis 6 History of ulcerative colitis. Plan: Clinically stable Should be able to wean down the oxygen on the 5 L knowing that his pulse ox currently at 96% Continue on Lovenox, Decadron, vitamin supplements Titrate the FiO2 as tolerated Increase his activity as tolerated We will continue to follow on an as need basis. Now for now pulmonary critical care services will sign off and please contact us back should there be any worsening shortness of breath. Anticipate going home within the next few days on home oxygen.
[2021-06-02 16:19] LABS: Glucose,Whole Blood 260 mg/dL (75-99)
[2021-06-02] MEDS: MELATONIN 3 MG TABLET PO SCH (21:09)
--- NOTE | 2021-06-02 23:39 | PN ---
PROGRESS NOTE DATE OF SERVICE: 06/02/2021 REASON FOR FOLLOWUP: COVID-19 pneumonia. INTERVAL HISTORY: The patient is afebrile. The patient is currently breathing comfortably. The patient is down to 4 L nasal cannula. Denying any chest pain or worsening cough. No abdominal pain and no diarrhea. PHYSICAL EXAMINATION: Blood pressure 116/72 with a pulse of 75, temperature 97.9. He is 95% on 4 L nasal cannula. General description is a middle-aged male up in the bed in no distress. Respiratory system: Unlabored breathing, decreased intensity of breath sounds. No wheeze. Heart S1, S2. Regular rate and rhythm. Abdomen soft, no tenderness. LABS: No new labs have been obtained today. DIAGNOSTIC IMPRESSION AND PLAN: Patient with acute COVID-19 pneumonia in this patient who overall has shown clinical improvement. Patient is currently on dexamethasone, Lovenox, zinc and ascorbic acid; to continue along with respiratory support and monitor clinical course closely. MMODL / IJN: [id number] /
[2021-06-03] MEDS: guaiFENesin-Coden 100-10MG/5ML 10 ML CUP PO PRN ×3 (02:42→18:12)
[2021-06-03] MEDS: ACETAMINOPHEN TAB 500 MG TAB PO PRN ×2 (06:11→21:02)
[2021-06-03 07:04] LABS: Basophils % (A) 0 %; Eosinophils % (A) 0 %; Lymphocytes # (A) 0.1 k/uL (1.0-4.8); Lymphocytes % (A) 2 %; MCH 32.3 pg (25.0-35.0); MCV 92.2 fL (80.0-100.0); Mean Platelet Volume 7.2; Monocytes # (A) 0.2 k/uL (0-1.0); Monocytes % (A) 4 %; Neutrophils # (A) 5.3 k/uL (1.3-7.7); Neutrophils % (A) 93 %; Platelet Count 266 k/uL (150-450); RBC 4.34 m/uL (4.30-5.90); RDW 12.6 % (11.5-15.5); WBC 5.7 k/uL (3.8-10.6)
[2021-06-03 07:18] LABS: ALT 238 U/L (4-49); AST 88 U/L (17-59); African American GFR (CKD) >90 (>60 ml/min/1.73 sqM); Albumin 3.5 g/dL (3.5-5.0); Albumin/Globulin Ratio 0.9; Alkaline Phosphatase 157 U/L (38-126); Anion Gap 9 mmol/L; Blood Urea Nitrogen 17 mg/dL (9-20); Calcium 9.2 mg/dL (8.4-10.2); Carbon Dioxide 32 mmol/L (22-30); Chloride 96 mmol/L (98-107); Globulin 3.7 g/dL; Glucose 107 mg/dL (74-99); Non-African American GFR(CKD) >90 (>60 ml/min/1.73 sqM); Potassium 4.6 mmol/L (3.5-5.1); Sodium 137 mmol/L (137-145); Total Bilirubin 0.6 mg/dL (0.2-1.3); Total Protein 7.2 g/dL (6.3-8.2)
[2021-06-03 07:34] LABS: Glucose,Whole Blood 186 mg/dL (75-99)
[2021-06-03] MEDS: ALBUTEROL HFA INHALER INHALATION PRN ×4 (07:42→19:04)
[2021-06-03] MEDS: FLUTICASONE 220 MCG INHALER INHALATION SCH ×2 (07:43→19:04)
[2021-06-03] MEDS: busPIRone HCl 5 MG TAB PO SCH ×3 (08:19→21:01)
[2021-06-03] MEDS: ASCORBIC ACID 500 MG TAB PO SCH ×2 (08:19→21:01)
[2021-06-03] MEDS: ZINC SULFATE 220 MG CAP PO SCH (08:19)
[2021-06-03] MEDS: CALCIUM CARBONATE 500 MG CHEWABLE PO SCH (08:19)
[2021-06-03] MEDS: ALPRAZolam 0.25 MG TAB PO SCH ×2 (08:19→21:01)
[2021-06-03] MEDS: PANTOPRAZOLE 40 MG TABLET PO SCH ×2 (08:19→17:55)
[2021-06-03] MEDS: CHOLECALCIFEROL 25 MCG (1000 IU) TABLET PO SCH (08:19)
[2021-06-03] MEDS: dexAMETHasone 2 MG TAB PO SCH (08:19)
[2021-06-03] MEDS: ENOXAPARIN 40 MG/0.4 ML SYRINGE SQ SCH (08:20)
--- NOTE | 2021-06-03 13:08 | P.PN ---
Subjective Progress Note Date: 06/03/21 Principal diagnosis: covid infection In f/u today pt is is feeling good, he was up and around his room yesterday, he feels slightly less SOB with activity. Tolerating oral intake, no acute changes in bowel habits. Objective - Vital Signs Vital signs: Vital Signs Temp 98.3 F 06/03/21 04:51 Pulse 81 06/03/21 04:51 Resp 18 06/03/21 04:51 BP 114/72 06/03/21 04:51 Pulse Ox 92 L 06/03/21 04:51 Intake & Output 06/02/21 06/03/21 06/03/21 18:59 06:59 18:59 Output Total 550 Balance -550 Output: Urine 550 Other: Voiding Method Toilet Toilet Toilet Urinal Urinal Urinal # Voids 1 - Constitutional General appearance: Present: average body habitus, cooperative, no acute distress - EENT Eyes: Present: anicteric sclerae, EOMI ENT: Present: hearing grossly normal - Respiratory Respiratory: bilateral: diminished - Cardiovascular Rhythm: regular Heart sounds: normal: S1, S2 Abnormal Heart Sounds: Absent: systolic murmur, diastolic murmur, rub, S3 Gallop, S4 Gallop, click, other - Peripheral edema leg Peripheral Edema: bilateral: None - Gastrointestinal General gastrointestinal: Present: normal bowel sounds, soft - Neurologic Neurologic: Present: CNII-XII intact - Musculoskeletal Musculoskeletal: Present: generalized weakness, strength equal bilaterally - Psychiatric Psychiatric: Present: A&O x's 3, appropriate affect, intact judgment & insight - Labs CBC & Chem 7: 06/03/21 06:22 06/03/21 06:22 Labs: Abnormal Lab Results - Last 24 Hours (Table) 06/02/21 06/03/21 06/03/21 Range/Units 16:13 06:22 06:22 Lymphocytes # 0.1 L (1.0-4.8) k/uL Chloride 96 L (98-107) mmol/L Carbon Dioxide 32 H (22-30) mmol/L Glucose 107 H (74-99) mg/dL POC Glucose (mg/dL) 260 H (75-99) mg/dL AST 88 H (17-59) U/L ALT 238 H (4-49) U/L Alkaline Phosphatase 157 H (38-126) U/L Lactate Dehydrogenase (313-618) U/L 06/03/21 06/03/21 Range/Units 06:22 07:30 Lymphocytes # (1.0-4.8) k/uL Chloride (98-107) mmol/L Carbon Dioxide (22-30) mmol/L Glucose (74-99) mg/dL POC Glucose (mg/dL) 186 H (75-99) mg/dL AST (17-59) U/L ALT (4-49) U/L Alkaline Phosphatase (38-126) U/L Lactate Dehydrogenase 735 H (313-618) U/L - Imaging and Cardiology Chest x-ray: pending Assessment and Plan (1) Hypogammaglobulinemia Narrative/Plan: Pt has received 4 doses throughout his hospitalization. IgG levels are normal Current Visit: Yes Status: Acute Priority: High Code(s): D80.1 - NONFAMILIAL HYPOGAMMAGLOBULINEMIA SNOMED Code(s): 894772614 (2) COVID Narrative/Plan: Pt is admitted for covid infection. He has had quite a hospitalization. Cont to be followed by Pulmonary and ID. Improving Current Visit: Yes Status: Acute Priority: High Code(s): U07.1 - COVID-19 SNOMED Code(s): 520734357 (3) Follicular lymphoma Narrative/Plan: Pt is on maintenance gazyva every other month. Last dose was in late Apr. Next dose due end of Jun/early Jul. Pt will f/u with Dr. Hess before resuming any maintenance therapy Current Visit: Yes Status: Chronic Priority: Medium Code(s): C82.90 - FOLLICULAR LYMPHOMA, UNSPECIFIED, UNSPECIFIED SITE SNOMED Code(s): 987013361 Plan: From Labs that have resulted, LFTs are stable, d-dimer now normal, pending a few others. Pending CXR done for today as a f/u study.
--- NOTE | 2021-06-03 13:53 | XR ---
EXAMINATION TYPE: XR chest 2V DATE OF EXAM: 06/03/2021 COMPARISON: NONE TECHNIQUE: PA and lateral views submitted. HISTORY: Shortness of breath FINDINGS: Mediport catheter noted stable in position there is diffuse bilateral infiltrates. Limited inspiratio n. Biapical pleural thickening. Small bilateral effusions. Heart size stable. IMPRESSION: 1. Bilateral infiltrates and pleural effusion are stable.
[2021-06-03] MEDS: ALPRAZolam 0.25 MG TAB PO PRN (14:18)
--- NOTE | 2021-06-03 14:24 | P.PN ---
Subjective Progress Note Date: 06/03/21 HISTORY OF PRESENT ILLNESS 35-year-old male one of Dr. Rivera's patient with past medical history of non- Hodgkin lymphoma was diagnosed's past year who has history of Peter, history of pancreatitis, history of ulcerative colitis who was diagnosed with COVID-19 last week and had monoclonal antibiotic infusion. Patient had felt slightly but better till the lost 48 hours when he developed to have worsening symptom with worsening dyspnea and shortness of breath along with increased cough increased fever chills and generalized symptom with more fatigue and tiredness. Patient ended up coming to the emergency Department at [facility] where was seen and evaluated surprisingly his chest x-ray still showing Covid pneumonitis with fever running around 101. Patient was started on dexamethasone along with antibiotics to cover pneumonia his pulse ox is still running in the 90s when he doesn't exert himself patient will be admitted to the hospital will be seen hematology and pulmonary. Apparently patient had immunotherapy infusion this last week which can be contributing factor to was going on with his relapse from COVID-19 or worsening symptoms. Also patient been treated for non-Hodgkin lymphoma this last year which had brought his lymph node size down significantly. Patient also was told that he has moderately enlarged liver not explained with the? Off Peter. Patient has slightly higher diaphragm on the right side compared to the left side on his chest x-ray. 05/20: patient is not requiring oxygen and pulse ox is 94% on room air. He was running fevers yesterday and required IV Tylenol, Motrin [id number]. Fevers are improved today, heart rate 74, blood pressure 109/71.repeat blood work reveals WBC 2.3, hemoglobin 11.8, platelet count 134. D-dimer 0.92. Electrolytes and renal function normal. Calcium 7.6. ALT 69. Chest x-ray reveals patchy perihilar subsegmental infiltrate. Mediport catheter appears to be malpositioned and kinked. Correlate clinically. CTA of the chest reveals patchy and confluent bilateral groundglass, greatest in the lower lungs compatible with Covid pneumonia. Limited assessment for pulmonary embolus due to breathing motion. Equivocal for filling defects pulmonary emboli involving lobar and segmental branches of the left upper lobe. We favor breathing motion artifact. Consider short interval follow-up versus initiation of treatment depending on clinical suspicion. Partially visualized mid abdominal nii mesentery as seen on 11/22/2020. 05/21: Patient has been seen by Dr. Burns, patient is out of the therapeutic window for REM to severe and no evidence of secondary bacterial pneumonia, continue Decadron Lovenox think and vitamin C, droplet isolation. Patient is also seen by pulmonary medicine as well. Bilateral lower extremity ultrasound negative for DVT and thus CTA is inconclusive and patient is continued on DVT prophylaxis. IgG came back low at 401 and oncology as ordered immunoglobulin. Temperature max 102 this morning, heart rate 112, blood pressure 130/72, pulse ox 96% on room air. Patient is continued on Lovenox 40 mg subcu daily, dexamethasone 6 mg daily and vitamin supplements. Patient is reaching 1500 on incentive spirometry. 05/22:patient's breathing status is currently stable. He states he had about a 20 minute period during the night where he was coughing and felt short of breath and ended up wearing oxygen for couple hours. He states his pulse ox dropped down to 90%. He is currently 93% on room air. Patient has been afebrile now for greater than 24 hours, heart rate 96, blood pressure 131/77. Patient is currently receiving immunoglobulin scheduled for this afternoon. Anticipate completing this this evening, plan for discharge home tomorrow. 05/23: Anticipated that the patient would be ready for discharge today but unfortunately the patient has increased oxygen needs are currently on 4 L nasal cannula with pulse ox of 90%. He also has increasing cough and he feels short of breath with dyspnea on minimal exertion area and He did have a fever this morning of 101.5. Heart rate 92. Blood pressure 122/73. Patient has completed immunoglobulin infusion. Repeat chest x-ray ordered which shows stable bilateral pleural effusion. 05/24: Patient continues to have shortness of breath and having some chest pain with movement. He reports being a tiny bit better from yesterday. He appears to be quite fatigued at rest. Patient continues to be febrile with temperature 102.3, heart rate 105, blood pressure 126/77, pulse ox 93% on 4 L nasal cannula. LDH 866, C-reactive protein 13.4. Repeat CTA of the chest ordered to rule out pulmonary embolism. 05/25: Patient still not doing that well he is on 5 L O2 pulse ox running around 93-94%, continued to have significant shortness of breath and dyspnea with minimal exertion continued to have severe hypoxia this point. CT was reviewed from yesterday showed no sign of pulmonary embolism. Covid marker and chest x- ray will be done tomorrow the meanwhile continue current management. 05/26: Patient is still having slight hypoxia and shortness of breath he is little bit better compared to yesterday, his having less cough less fever and chills at this point. Still not recovering as fast as expected so far continue current treatment management continue supportive care he still seen pulmonary marcia mendoza. 05/27: Patient continues to have shortness of breath and oxygen increased to 6 L overnight. Patient received IVIG yesterday. Patient is followed closely by pulmonary medicine. Patient is continued on Decadron, Lovenox and supplements. 05/28: Patient developed increasing shortness of breath as well as increased anxiety overnight. Patient states that he could not take another panic attack l kriss he had last night. We are increasing Xanax to 3 times daily and adding in BuSpar. Patient has been transitioned to AirVo. WBC 4.7, hemoglobin 13.1, platelet count 169. Sed rate 92. D-dimer 1.04. Calcium 8.6. Ferritin 3749. AST 82, ALT 146, alkaline phosphatase 107. LDH 388. Patient has been afebrile, heart rate 94, blood pressure 115/75, pulse ox 99%. He is continued on Decadron, Lovenox, vitamin supplements, bronchodilators. 05/29: Patient was transferred into the intensive care unit yesterday, he is currently on AirVo with FiO2 75 with partial nonrebreather. Pulse ox is 96-98%. He's been afebrile, heart rate 81. Repeat blood work reveals WBC 4.1, hemoglobin 12.3, platelet count 210. D-dimer 1.23. Sodium 135. Blood sugars are running between 117 and 197. AST 85, ALT 183, alkaline phosphatase 118. LDH 858. IgG 1581. Repeat chest x-ray reveals bilateral infiltrates stable. Patient's is at the bedside and Dr. Rivera spent time answering all of her questions and concerns. At this time, patient appears to be stable but still prognosis is guarded. 06/01: Patient is seen on 5 N. sitting up in bed in no acute distress. He is currently on 5 L of oxygen via nasal cannula. Attempt to wean patient to 4 L last night was unsuccessful with pulse ox dropping into the low 80s. Plan is for patient to be discharged sometime this week. Patient remains afebrile, pulse rate 93, respirations 20, blood pressure 117/75, O2 saturation 92% on high flow nasal cannula 5 L. 06/02: Patient is found sitting up in bed in no acute distress. He remains on 5 L of oxygen via nasal cannula. We will again attempt to wean him to 4 L. Discussion about additional dose of IgG prior to discharge. We'll refer to oncology for recommendations. Patient remains afebrile, respirations 20, heart rate 88, blood pressure 114/70, pulse ox 95% on 5 L high flow nasal cannula. 06/03: The patient is down to 4 L nasal cannula with pulse ox of 92-95%. He's been afebrile, heart rate 81, blood pressure 114/72. Patient is reaching 2500 on incentive spirometry. Home oxygen assessment to be done today. Repeat chest x-ray reveals Repeat blood work reveals CBC unremarkable. CO2 32, BUN 17 and creatinine 0.84. Blood sugars are running between 186 and 260. AST 88, ALT 238, alkaline phosphatase 157, LDH 735. Repeat chest x-ray feels bilateral infiltrates and pleural effusion stable. Patient may have repeat IVIG ordered by oncology. Plan is for discharge home tomorrow. REVIEW OF SYSTEMS Constitutional: Reports fever and chills with night sweats, mild weight loss, generalized fatigue and tiredness no lethargy and daytime sleepiness. EENT: No headache. No dizziness. No nasal drainage or congestion. No epistaxis. No sore throat. Lungs: Reports shortness of breath - improved with cough and wheezes with sputum production - improved and worsening dyspnea with minimal exertion - improved. Cardiovascular: No chest pain, no lower extremity edema. No palpitations. No paroxysmal nocturnal dyspnea. No orthopnea. No lightheadedness or dizziness. No syncopal episodes. Abdominal: no abdominal discomfort no nausea no vomiting positive loss of appetite no tarry stool mild constipation. Genitourinary: No dysuria, increased frequency, urgency. No urinary retention. Musculoskeletal: Positive myalgia and muscle achiness and discomfort. Integumentary: No wounds, no lesions. No rash or pruritus. No unusual bruising. Neurologic: No aphasia. No facial droop. No change in mentation. No head injury. No headache. No paralysis. No paresthesia. Psychiatric: No depresreports panic attack and increasing anxiety. Endocrine: No abnormal blood sugars. No weight change. PHYSICAL EXAMINATION Gen: This is a 35-year-old male resting in bed on 5 N. in no acute distress HEENT: Head is atraumatic, normocephalic. Pupils equal, round. Sclerae is anicteric. NECK: Supple. No JVD. Positive lymphadenopathy. No thyromegaly. LUNGS: Decreased breath sound bilaterally with fine rhonchi positive mild c rackles in the bases positive mild expiratory wheezes. HEART: Regular rate and rhythm. No murmur. ABDOMEN: Soft. Bowel sounds are present. No rebound or rigidity. EXTREMITIES: No pedal edema. No calf tenderness. NEUROLOGICAL: Patient is awake, alert and oriented x3. Cranial nerves 2 through 12 are grossly intact. ASSESSMENT AND PLAN 1. acute hypoxic respiratory failure requiring O2 at 4 L secondary to COVID-19 pneumonitis, no sign of pulmonary embolism, encourage to continue incentive spirometry. He is continued on Decadron, Lovenox, vitamin supplements, bronch odilators. Patient is currently 4 liters nasal cannula. 2 COVID-19 pneumonitis. Patient is followed by pulmonary medicine and infectious disease. Status post monoclonal antibodies infusion. Continue oxygen support, dexamethasone, Lovenox, supplements. 3. Sepsis with SIRS: Multiple code to be factor from his lymphoma, chemoimmunotherapy, recent COVID-19 pneumonitis with worsening symptoms. chest x-ray showed patchy airspace up his station consistent with pneumonia specially COVID-19 pneumonitis. 4. Fever. Secondary to COVID-19 pneumonitis continue with Tylenol and Motrin. 5. Lactic acidosis secondary to sepsis. 6. Non-Hodgkin lymphoma: Patient remain on active treatment he seen hematology regular basis. 7. Reactive airway/asthma: This chest x-ray just look like lost of lung volume mostly continue incentive spirometry regime AV pulmonary physical therapy. 8. Panic attacks and generalized anxiety disorder. Continue Xanax 0.25 mg 3 times daily and BuSpar started at 5 mg 3 times daily. 9. Chronic hypo-gammaglobinemia. Patient is status post 2 doses of IVIG. 10. GI prophylaxis: Patient will be on pantoprazole 40 mg twice a day. 10. DVT prophylaxis: Patient will be on Lovenox 40 mg subcutaneous daily. 11. Chronic hypoxic respiratory failure. Anticipate home oxygen therapy needs. Home oxygen assessment to be done today. CODE STATUS: Full code. Prognosis: Still guarded. DISCHARGE PLAN Home on Thursday Impression and plan of care have been directed as dictated by the signing physician. Nevin Madera nurse practitioner acting as scribe for signing physician. Objective - Vital Signs Vital signs: Vital Signs Temp 98.3 F 06/03/21 04:51 Pulse 81 06/03/21 04:51 Resp 18 06/03/21 04:51 BP 114/72 06/03/21 04:51 Pulse Ox 92 L 06/03/21 04:51 Intake & Output 06/02/21 06/03/21 06/03/21 18:59 06:59 18:59 Output Total 550 Balance -550 Output: Urine 550 Other: Voiding Method Toilet Toilet Urinal Urinal # Voids 1 - Labs CBC & Chem 7: 06/03/21 06:22 06/03/21 06:22 Labs: Abnormal Lab Results - Last 24 Hours (Table) 06/02/21 06/03/21 06/03/21 Range/Units 16:13 06:22 06:22 Lymphocytes # 0.1 L (1.0-4.8) k/uL Chloride 96 L (98-107) mmol/L Carbon Dioxide 32 H (22-30) mmol/L Glucose 107 H (74-99) mg/dL POC Glucose (mg/dL) 260 H (75-99) mg/dL AST 88 H (17-59) U/L ALT 238 H (4-49) U/L Alkaline Phosphatase 157 H (38-126) U/L Lactate Dehydrogenase (313-618) U/L 06/03/21 06/03/21 Range/Units 06:22 07:30 Lymphocytes # (1.0-4.8) k/uL Chloride (98-107) mmol/L Carbon Dioxide (22-30) mmol/L Glucose (74-99) mg/dL POC Glucose (mg/dL) 186 H (75-99) mg/dL AST (17-59) U/L ALT (4-49) U/L Alkaline Phosphatase (38-126) U/L Lactate Dehydrogenase 735 H (313-618) U/L
--- NOTE | 2021-06-03 19:42 | PN ---
PROGRESS NOTE DATE OF SERVICE: 06/03/2021 REASON FOR FOLLOWUP: COVID-19 pneumonia. INTERVAL HISTORY: The patient is afebrile. The patient is breathing comfortably. He is currently down to 4 L nasal cannula. The patient denies having any chest pain. No worsening cough. No abdominal pain or diarrhea. PHYSICAL EXAMINATION: Blood pressure is 114/77, pulse of 103, temperature 98. He is 93% on 4 L nasal cannula. General description is a middle-aged male lying in bed in no distress. Respiratory system: Unlabored breathing, decreased intensity of breath sounds. No wheeze or crackle. Heart S1, S2. Regular rate and rhythm. Abdomen soft, no tenderness. LABS: Hemoglobin is 14, white count 5.7, creatinine 0.84. DIAGNOSTIC IMPRESSION AND PLAN: Patient with acute COVID-19 pneumonia in this patient who seems to have shown overall clinical improvement. Patient's chest x-ray stable. No worsening. is slowly decreasing. Patient will continue with dexamethasone, Lovenox, zinc and ascorbic acid continue with supportive care. MMODL / IJN: [id number] /
[2021-06-03] MEDS: MELATONIN 3 MG TABLET PO SCH (21:01)
[2021-06-04] MEDS: guaiFENesin-Coden 100-10MG/5ML 10 ML CUP PO PRN ×3 (02:49→17:08)
[2021-06-04] MEDS: ZINC SULFATE 220 MG CAP PO SCH (08:27)
[2021-06-04] MEDS: CALCIUM CARBONATE 500 MG CHEWABLE PO SCH (08:27)
[2021-06-04] MEDS: ALPRAZolam 0.25 MG TAB PO SCH ×2 (08:27→20:34)
[2021-06-04] MEDS: CHOLECALCIFEROL 25 MCG (1000 IU) TABLET PO SCH (08:27)
[2021-06-04] MEDS: dexAMETHasone 2 MG TAB PO SCH (08:27)
[2021-06-04] MEDS: ASCORBIC ACID 500 MG TAB PO SCH ×2 (08:27→20:34)
[2021-06-04] MEDS: PANTOPRAZOLE 40 MG TABLET PO SCH ×2 (08:27→17:08)
[2021-06-04] MEDS: busPIRone HCl 5 MG TAB PO SCH ×3 (08:28→20:34)
[2021-06-04] MEDS: ENOXAPARIN 40 MG/0.4 ML SYRINGE SQ SCH (08:28)
[2021-06-04] MEDS: ALBUTEROL HFA INHALER INHALATION PRN ×3 (08:41→20:02)
[2021-06-04] MEDS: FLUTICASONE 220 MCG INHALER INHALATION SCH ×2 (08:42→20:02)
[2021-06-04 11:47] LABS: Ferritin >2000.0 ng/mL (22.0-322.0)
[2021-06-04] MEDS: ALPRAZolam 0.25 MG TAB PO PRN (14:08)
--- NOTE | 2021-06-04 15:14 | P.PN ---
Subjective Progress Note Date: 06/04/21 HISTORY OF PRESENT ILLNESS 35-year-old male one of Dr. Rivera's patient with past medical history of non- Hodgkin lymphoma was diagnosed's past year who has history of Peter, history of pancreatitis, history of ulcerative colitis who was diagnosed with COVID-19 last week and had monoclonal antibiotic infusion. Patient had felt slightly but better till the lost 48 hours when he developed to have worsening symptom with worsening dyspnea and shortness of breath along with increased cough increased fever chills and generalized symptom with more fatigue and tiredness. Patient ended up coming to the emergency Department at [facility] where was seen and evaluated surprisingly his chest x-ray still showing Covid pneumonitis with fever running around 101. Patient was started on dexamethasone along with antibiotics to cover pneumonia his pulse ox is still running in the 90s when he doesn't exert himself patient will be admitted to the hospital will be seen hematology and pulmonary. Apparently patient had immunotherapy infusion this last week which can be contributing factor to was going on with his relapse from COVID-19 or worsening symptoms. Also patient been treated for non-Hodgkin lymphoma this last year which had brought his lymph node size down significantly. Patient also was told that he has moderately enlarged liver not explained with the? Off Peter. Patient has slightly higher diaphragm on the right side compared to the left side on his chest x-ray. 05/20: patient is not requiring oxygen and pulse ox is 94% on room air. He was running fevers yesterday and required IV Tylenol, Motrin [id number]. Fevers are improved today, heart rate 74, blood pressure 109/71.repeat blood work reveals WBC 2.3, hemoglobin 11.8, platelet count 134. D-dimer 0.92. Electrolytes and renal function normal. Calcium 7.6. ALT 69. Chest x-ray reveals patchy perihilar subsegmental infiltrate. Mediport catheter appears to be malpositioned and kinked. Correlate clinically. CTA of the chest reveals patchy and confluent bilateral groundglass, greatest in the lower lungs compatible with Covid pneumonia. Limited assessment for pulmonary embolus due to breathing motion. Equivocal for filling defects pulmonary emboli involving lobar and segmental branches of the left upper lobe. We favor breathing motion artifact. Consider short interval follow-up versus initiation of treatment depending on clinical suspicion. Partially visualized mid abdominal nii mesentery as seen on 11/22/2020. 05/21: Patient has been seen by Dr. Burns, patient is out of the therapeutic window for REM to severe and no evidence of secondary bacterial pneumonia, continue Decadron Lovenox think and vitamin C, droplet isolation. Patient is also seen by pulmonary medicine as well. Bilateral lower extremity ultrasound negative for DVT and thus CTA is inconclusive and patient is continued on DVT prophylaxis. IgG came back low at 401 and oncology as ordered immunoglobulin. Temperature max 102 this morning, heart rate 112, blood pressure 130/72, pulse ox 96% on room air. Patient is continued on Lovenox 40 mg subcu daily, dexamethasone 6 mg daily and vitamin supplements. Patient is reaching 1500 on incentive spirometry. 05/22:patient's breathing status is currently stable. He states he had about a 20 minute period during the night where he was coughing and felt short of breath and ended up wearing oxygen for couple hours. He states his pulse ox dropped down to 90%. He is currently 93% on room air. Patient has been afebrile now for greater than 24 hours, heart rate 96, blood pressure 131/77. Patient is currently receiving immunoglobulin scheduled for this afternoon. Anticipate completing this this evening, plan for discharge home tomorrow. 05/23: Anticipated that the patient would be ready for discharge today but unfortunately the patient has increased oxygen needs are currently on 4 L nasal cannula with pulse ox of 90%. He also has increasing cough and he feels short of breath with dyspnea on minimal exertion area and He did have a fever this morning of 101.5. Heart rate 92. Blood pressure 122/73. Patient has completed immunoglobulin infusion. Repeat chest x-ray ordered which shows stable bilateral pleural effusion. 05/24: Patient continues to have shortness of breath and having some chest pain with movement. He reports being a tiny bit better from yesterday. He appears to be quite fatigued at rest. Patient continues to be febrile with temperature 102.3, heart rate 105, blood pressure 126/77, pulse ox 93% on 4 L nasal cannula. LDH 866, C-reactive protein 13.4. Repeat CTA of the chest ordered to rule out pulmonary embolism. 05/25: Patient still not doing that well he is on 5 L O2 pulse ox running around 93-94%, continued to have significant shortness of breath and dyspnea with minimal exertion continued to have severe hypoxia this point. CT was reviewed from yesterday showed no sign of pulmonary embolism. Covid marker and chest x- ray will be done tomorrow the meanwhile continue current management. 05/26: Patient is still having slight hypoxia and shortness of breath he is little bit better compared to yesterday, his having less cough less fever and chills at this point. Still not recovering as fast as expected so far continue current treatment management continue supportive care he still seen pulmonary marcia mendoza. 05/27: Patient continues to have shortness of breath and oxygen increased to 6 L overnight. Patient received IVIG yesterday. Patient is followed closely by pulmonary medicine. Patient is continued on Decadron, Lovenox and supplements. 05/28: Patient developed increasing shortness of breath as well as increased anxiety overnight. Patient states that he could not take another panic attack l kriss he had last night. We are increasing Xanax to 3 times daily and adding in BuSpar. Patient has been transitioned to AirVo. WBC 4.7, hemoglobin 13.1, platelet count 169. Sed rate 92. D-dimer 1.04. Calcium 8.6. Ferritin 3749. AST 82, ALT 146, alkaline phosphatase 107. LDH 388. Patient has been afebrile, heart rate 94, blood pressure 115/75, pulse ox 99%. He is continued on Decadron, Lovenox, vitamin supplements, bronchodilators. 05/29: Patient was transferred into the intensive care unit yesterday, he is currently on AirVo with FiO2 75 with partial nonrebreather. Pulse ox is 96-98%. He's been afebrile, heart rate 81. Repeat blood work reveals WBC 4.1, hemoglobin 12.3, platelet count 210. D-dimer 1.23. Sodium 135. Blood sugars are running between 117 and 197. AST 85, ALT 183, alkaline phosphatase 118. LDH 858. IgG 1581. Repeat chest x-ray reveals bilateral infiltrates stable. Patient's is at the bedside and Dr. Rivera spent time answering all of her questions and concerns. At this time, patient appears to be stable but still prognosis is guarded. 06/01: Patient is seen on 5 N. sitting up in bed in no acute distress. He is currently on 5 L of oxygen via nasal cannula. Attempt to wean patient to 4 L last night was unsuccessful with pulse ox dropping into the low 80s. Plan is for patient to be discharged sometime this week. Patient remains afebrile, pulse rate 93, respirations 20, blood pressure 117/75, O2 saturation 92% on high flow nasal cannula 5 L. 06/02: Patient is found sitting up in bed in no acute distress. He remains on 5 L of oxygen via nasal cannula. We will again attempt to wean him to 4 L. Discussion about additional dose of IgG prior to discharge. We'll refer to oncology for recommendations. Patient remains afebrile, respirations 20, heart rate 88, blood pressure 114/70, pulse ox 95% on 5 L high flow nasal cannula. 06/03: The patient is down to 4 L nasal cannula with pulse ox of 92-95%. He's been afebrile, heart rate 81, blood pressure 114/72. Patient is reaching 2500 on incentive spirometry. Home oxygen assessment to be done today. Repeat chest x-ray reveals Repeat blood work reveals CBC unremarkable. CO2 32, BUN 17 and creatinine 0.84. Blood sugars are running between 186 and 260. AST 88, ALT 238, alkaline phosphatase 157, LDH 735. Repeat chest x-ray feels bilateral infiltrates and pleural effusion stable. Patient may have repeat IVIG ordered by oncology. Plan is for discharge home tomorrow. 06/04: Patient is continuing to improve with improvement of his respiratory status, less shortness of breath. He is followed closely by oncology, IVIG was not ordered yesterday. He remains afebrile, heart rate 88, blood pressure 118/76, pulse ox 96% on 4 L nasal cannula. Anticipate possible discharge tomorrow pending oncology input. REVIEW OF SYSTEMS Constitutional: Reports fever and chills with night sweats, mild weight loss, generalized fatigue and tiredness no lethargy and daytime sleepiness. EENT: No headache. No dizziness. No nasal drainage or congestion. No epistaxis. No sore throat. Lungs: Reports shortness of breath - improved with cough and wheezes with sputum production - improved and worsening dyspnea with minimal exertion - improved. Cardiovascular: No chest pain, no lower extremity edema. No palpitations. No paroxysmal nocturnal dyspnea. No orthopnea. No lightheadedness or dizziness. No syncopal episodes. Abdominal: no abdominal discomfort no nausea no vomiting positive loss of appetite no tarry stool mild constipation. Genitourinary: No dysuria, increased frequency, urgency. No urinary retention. Musculoskeletal: Positive myalgia and muscle achiness and discomfort. Integumentary: No wounds, no lesions. No rash or pruritus. No unusual bruising. Neurologic: No aphasia. No facial droop. No change in mentation. No head injury. No headache. No paralysis. No paresthesia. Psychiatric: No depresreports panic attack and increasing anxiety. Endocrine: No abnormal blood sugars. No weight change. PHYSICAL EXAMINATION Gen: This is a 35-year-old male resting in bed on 5 N. in no acute distress HEENT: Head is atraumatic, normocephalic. Pupils equal, round. Sclerae is anicteric. NECK: Supple. No JVD. Positive lymphadenopathy. No thyromegaly. LUNGS: Decreased breath sound bilaterally with fine rhonchi positive mild crackles in the bases positive mild expiratory wheezes. HEART: Regular rate and rhythm. No murmur. ABDOMEN: Soft. Bowel sounds are present. No rebound or rigidity. EXTREMITIES: No pedal edema. No calf tenderness. NEUROLOGICAL: Patient is awake, alert and oriented x3. Cranial nerves 2 through 12 are grossly intact. ASSESSMENT AND PLAN 1. acute hypoxic respiratory failure requiring O2 at 4 L secondary to COVID-19 pneumonitis, no sign of pulmonary embolism, encourage to continue incentive spirometry. He is continued on Decadron, Lovenox, vitamin supplements, bronchodilators. Patient is currently 4 liters nasal cannula. 2 COVID-19 pneumonitis. Patient is followed by pulmonary medicine and infectious disease. Status post monoclonal antibodies infusion. Continue oxygen support, dexamethasone, Lovenox, supplements. 3. Sepsis with SIRS: Multiple code to be factor from his lymphoma, chemoimmunotherapy, recent COVID-19 pneumonitis with worsening symptoms. chest x-ray showed patchy airspace up his station consistent with pneumonia specially COVID-19 pneumonitis. 4. Fever. Secondary to COVID-19 pneumonitis continue with Tylenol and Motrin. 5. Lactic acidosis secondary to sepsis. 6. Non-Hodgkin lymphoma: Patient remain on active treatment he seen hematology regular basis. 7. Reactive airway/asthma: This chest x-ray just look like lost of lung volume mostly continue incentive spirometry regime AV pulmonary physical therapy. 8. Panic attacks and generalized anxiety disorder. Continue Xanax 0.25 mg 3 times daily and BuSpar started at 5 mg 3 times daily. 9. Chronic hypo-gammaglobinemia. Patient is status post 4 doses of IVIG. 10. GI prophylaxis: Patient will be on pantoprazole 40 mg twice a day. 10. DVT prophylaxis: Patient will be on Lovenox 40 mg subcutaneous daily. 11. Chronic hypoxic respiratory failure. Anticipate home oxygen therapy needs. Home oxygen assessment to be done today. CODE STATUS: Full code. Prognosis: Still guarded. DISCHARGE PLAN Home on Thursday Impression and plan of care have been directed as dictated by the signing physician. Nevin Madera nurse practitioner acting as scribe for signing physician. Objective - Vital Signs Vital signs: Vital Signs Temp 97.9 F 06/04/21 04:30 Pulse 56 L 06/04/21 04:30 Resp 20 06/04/21 04:30 BP 135/86 06/04/21 04:30 Pulse Ox 96 06/04/21 04:30 Intake & Output 06/03/21 06/04/21 06/04/21 18:59 06:59 18:59 Intake Total 600 320 Balance 600 320 Intake: Oral 600 320 Other: Voiding Method Toilet Toilet Urinal Urinal # Voids 3 3 - Labs CBC & Chem 7: 06/03/21 06:22 06/03/21 06:22 Labs: Abnormal Lab Results - Last 24 Hours (Table) 06/03/21 Range/Units 06:22 Procalcitonin 0.11 H (0.02-0.09) ng/mL
--- NOTE | 2021-06-04 17:48 | P.PN ---
Subjective Progress Note Date: 06/04/21 Principal diagnosis: covid infection In f/u today pt cont to feel decent, he walked in the hallway! He continues to work very hard on his deep breathing. Good appetite, no chest pain. No acute changes in bowel habits. Objective - Vital Signs Vital signs: Vital Signs Temp 97.8 F 06/04/21 13:00 Pulse 88 06/04/21 13:00 Resp 17 06/04/21 13:00 BP 118/76 06/04/21 13:00 Pulse Ox 96 06/04/21 13:00 Intake & Output 06/03/21 06/04/21 06/04/21 18:59 06:59 18:59 Intake Total 600 320 Balance 600 320 Intake: Oral 600 320 Other: Voiding Method Toilet Toilet Toilet Urinal Urinal Urinal # Voids 3 3 - Constitutional General appearance: Present: average body habitus, cooperative, no acute distress - EENT Eyes: Present: anicteric sclerae, EOMI ENT: Present: hearing grossly normal - Respiratory Respiratory: bilateral: CTA (inspiration is getting longer and stronger, chest expansion in increasing) - Cardiovascular Rhythm: regular Heart sounds: normal: S1, S2 Abnormal Heart Sounds: Absent: systolic murmur, diastolic murmur, rub, S3 Gallop, S4 Gallop, click, other - Peripheral edema leg Peripheral Edema: bilateral: None - Gastrointestinal General gastrointestinal: Present: soft - Integumentary Integumentary: Present: normal - Neurologic Neurologic: Present: CNII-XII intact - Musculoskeletal Musculoskeletal: Present: generalized weakness, strength equal bilaterally - Psychiatric Psychiatric: Present: A&O x's 3, appropriate affect, intact judgment & insight - Labs CBC & Chem 7: 06/03/21 06:22 06/03/21 06:22 Labs: Abnormal Lab Results - Last 24 Hours (Table) 06/03/21 06/03/21 Range/Units 06:22 06:22 Ferritin >2000.0 H (22.0-322.0) ng/mL Procalcitonin 0.11 H (0.02-0.09) ng/mL - Imaging and Cardiology Chest x-ray: report reviewed (stable) Assessment and Plan (1) Hypogammaglobulinemia Narrative/Plan: Pt has received 4 doses throughout his hospitalization. IgG levels are normal Current Visit: Yes Status: Acute Priority: High Code(s): D80.1 - NONFAMILIAL HYPOGAMMAGLOBULINEMIA SNOMED Code(s): 570490872 (2) COVID Narrative/Plan: Pt is admitted for covid infection. He has had quite a hospitalization. Cont to be followed by Pulmonary and ID. He continues to improve Current Visit: Yes Status: Acute Priority: High Code(s): U07.1 - COVID-19 SNOMED Code(s): 078391898 (3) Follicular lymphoma Narrative/Plan: Pt is on maintenance gazyva every other month. Last dose was in late Apr. Next dose due end of Jun/early Jul. Pt will f/u with Dr. Hess before resuming any maintenance therapy Current Visit: Yes Status: Chronic Priority: Medium Code(s): C82.90 - FOLLICULAR LYMPHOMA, UNSPECIFIED, UNSPECIFIED SITE SNOMED Code(s): 389453293
[2021-06-04] MEDS: ACETAMINOPHEN TAB 500 MG TAB PO PRN (20:34)
[2021-06-04] MEDS: MELATONIN 3 MG TABLET PO SCH (20:34)
[2021-06-04] MEDS: BENZONATATE 100 MG CAP PO PRN (20:34)
--- NOTE | 2021-06-04 22:18 | PN ---
PROGRESS NOTE DATE OF SERVICE: 06/04/2021 REASON FOR FOLLOWUP: COVID-19 pneumonia. INTERVAL HISTORY: Patient is afebrile. The patient is currently breathing comfortably, currently on 4 L nasal cannula. The patient denies any chest pain. No worsening cough. No vomiting. No abdominal pain. No diarrhea. PHYSICAL EXAMINATION: Blood pressure 116/76, pulse of 87, temperature 97.9. He is 97% on 4 L nasal cannula. General description is a middle-aged male up in the chair in no distress. Respiratory system: Unlabored breathing, decreased intensity of breath sounds, no wheeze. Heart S1, S2. Regular rate and rhythm. Abdomen soft, no tenderness. LABS: Hemoglobin is 14.3, white count 5.7, creatinine 0.84. DIAGNOSTIC IMPRESSION AND PLAN: Patient with acute COVID-19 pneumonia in this patient who has shown overall clinical improvement, currently on dexamethasone, Lovenox, zinc and ascorbic acid and slowly weaned off his oxygen. Encourage incentive spirometer. MMODL / IJN: [id number] /
[2021-06-05] MEDS: guaiFENesin-Coden 100-10MG/5ML 10 ML CUP PO PRN (01:41)
[2021-06-05] MEDS: PANTOPRAZOLE 40 MG TABLET PO SCH (07:13)
[2021-06-05] MEDS: FLUTICASONE 220 MCG INHALER INHALATION SCH (07:36)
[2021-06-05] MEDS: ALBUTEROL HFA INHALER INHALATION PRN ×3 (07:38→16:18)
[2021-06-05] MEDS: ALPRAZolam 0.25 MG TAB PO SCH (08:24)
[2021-06-05] MEDS: busPIRone HCl 5 MG TAB PO SCH ×2 (08:24→16:45)
[2021-06-05] MEDS: CALCIUM CARBONATE 500 MG CHEWABLE PO SCH (08:24)
[2021-06-05] MEDS: ASCORBIC ACID 500 MG TAB PO SCH (08:24)
[2021-06-05] MEDS: CHOLECALCIFEROL 25 MCG (1000 IU) TABLET PO SCH (08:24)
[2021-06-05] MEDS: dexAMETHasone 2 MG TAB PO SCH (08:24)
[2021-06-05] MEDS: ZINC SULFATE 220 MG CAP PO SCH (08:25)
[2021-06-05] MEDS: ENOXAPARIN 40 MG/0.4 ML SYRINGE SQ SCH (08:25)
--- NOTE | 2021-06-05 11:18 | P.PN ---
Subjective Progress Note Date: 06/05/21 Principal diagnosis: covid infection In f/u today pt cont to feel decent, breathing is stable, O2 at 4L, he is up in the chair during the day, he is ambulating in the room and epperson with walker just for safety. Appetite is still good, denies chest pain. Cough can still be harsh at times. No acute changes in bowel habits. Objective - Vital Signs Vital signs: Vital Signs Temp 97.8 F 06/05/21 04:40 Pulse 61 06/05/21 04:40 Resp 20 06/05/21 04:40 BP 130/83 06/05/21 04:40 Pulse Ox 95 06/05/21 07:39 Intake & Output 06/04/21 06/05/21 06/05/21 18:59 06:59 18:59 Intake Total 300 Output Total 400 Balance -100 Intake: Oral 300 Output: Urine 400 Other: Voiding Method Toilet Toilet Toilet Urinal Urinal Urinal # Voids 2 - Constitutional General appearance: Present: average body habitus, cooperative, no acute distress - EENT Eyes: Present: anicteric sclerae, EOMI ENT: Present: hearing grossly normal - Respiratory Respiratory: bilateral: diminished - Cardiovascular Heart sounds: normal: S1, S2 - Peripheral edema foot Peripheral Edema: bilateral: Trace - Integumentary Integumentary: Present: normal - Neurologic Neurologic: Present: CNII-XII intact - Musculoskeletal Musculoskeletal: Present: strength equal bilaterally - Psychiatric Psychiatric: Present: A&O x's 3, appropriate affect, intact judgment & insight - Labs CBC & Chem 7: 06/03/21 06:22 06/03/21 06:22 Labs: Abnormal Lab Results - Last 24 Hours (Table) 06/03/21 Range/Units 06:22 Ferritin >2000.0 H (22.0-322.0) ng/mL Assessment and Plan (1) Hypogammaglobulinemia Narrative/Plan: Pt has received 4 doses throughout his hospitalization. IgG levels were normal on recheck. Will be rechecked in ofc. IVIG infusions PRN Current Visit: Yes Status: Acute Priority: High Code(s): D80.1 - NONFAMILIAL HYPOGAMMAGLOBULINEMIA SNOMED Code(s): 039181481 (2) COVID Narrative/Plan: Persistent symptoms, slow to improve but, improving all the same. Current Visit: Yes Status: Acute Priority: High Code(s): U07.1 - COVID-19 SNOMED Code(s): 307210117 (3) Follicular lymphoma Narrative/Plan: Pt is on maintenance gazyva every other month. Last dose was in late Apr. Next dose due end of Jun/early Jul. Pt will f/u with Dr. Hess before resuming any maintenance therapy. Current Visit: Yes Status: Chronic Priority: Medium Code(s): C82.90 - FOLLICULAR LYMPHOMA, UNSPECIFIED, UNSPECIFIED SITE SNOMED Code(s): 143420150 Plan: Case discussed with Attending briefly. Handicap parking paperwork completed and given to pt. Discussed with Examination Scorer, O2 delivery pending. Cont DVT prophylactic dose of lovenox for at least 2 weeks. Pt will be reassessed to evaluate activity and see if continuation felt to be of benefit. Time with Patient: Greater than 30
[2021-06-05] MEDS: ALPRAZolam 0.25 MG TAB PO PRN (14:24)
[2021-06-05 15:29] VITALS: BP 122/79; PULSE 93; RESP 17; TEMP 98
--- NOTE | 2021-06-05 16:12 | P.DS ---
Providers Date of admission: 05/19/21 11:06 Expected date of discharge: 06/05/21 Attending physician: Misbah Card Consults: 05/19/21 16:54 Consult Physician Routine Consulting Provider: Dash Hess Consult Reason/Comments: Lymphoma, Fevere and Pneumonia Do you want consulting provider notified?: Yes 05/19/21 16:55 Consult Physician Routine Consulting Provider: Janel Ansari Consult Reason/Comments: SOB, COVID Pneumonitis. Do you want consulting provider notified?: Yes 05/20/21 09:53 Consult Physician Routine Consulting Provider: John Burns Consult Reason/Comments: Fevers, post covid Do you want consulting provider notified?: Yes Primary care physician: Newton Rivera MD Hospital Course: HISTORY OF PRESENT ILLNESS 35-year-old male one of Dr. Rivera's patient with past medical history of non- Hodgkin lymphoma was diagnosed's past year who has history of Peter, history of pancreatitis, history of ulcerative colitis who was diagnosed with COVID-19 last week and had monoclonal antibiotic infusion. Patient had felt slightly but better till the lost 48 hours when he developed to have worsening symptom with worsening dyspnea and shortness of breath along with increased cough increased fever chills and generalized symptom with more fatigue and tiredness. Patient ended up coming to the emergency Department at [facility] where was seen and evaluated surprisingly his chest x-ray still showing Covid pneumonitis with fever running around 101. Patient was started on dexamethasone along with antibiotics to cover pneumonia his pulse ox is still running in the 90s when he doesn't exert himself patient will be admitted to the hospital will be seen hematology and pulmonary. Apparently patient had immunotherapy infusion this last week which can be contributing factor to was going on with his relapse from COVID-19 or worsening symptoms. Also patient been treated for non-Hodgkin lymphoma this last year which had brought his lymph node size down significantly. Patient also was told that he has moderately enlarged liver not explained with the? Off Peter. Patient has slightly higher diaphragm on the right side compared to the left side on his chest x-ray. 05/20: patient is not requiring oxygen and pulse ox is 94% on room air. He was running fevers yesterday and required IV Tylenol, Motrin [id number]. Fevers are improved today, heart rate 74, blood pressure 109/71.repeat blood work reveals WBC 2.3, hemoglobin 11.8, platelet count 134. D-dimer 0.92. Electrolytes and renal function normal. Calcium 7.6. ALT 69. Chest x-ray reveals patchy perihilar subsegmental infiltrate. Mediport catheter appears to be malpositioned and kinked. Correlate clinically. CTA of the chest reveals patchy and confluent bilateral groundglass, greatest in the lower lungs compatible with Covid pneumonia. Limited assessment for pulmonary embolus due to breathing motion. Equivocal for filling defects pulmonary emboli involving lobar and segmental branches of the left upper lobe. We favor breathing motion artifact. Consider short interval follow-up versus initiation of treatment depending on clinical suspicion. Partially visualized mid abdominal nii mesentery as seen on 11/22/2020. 05/21: Patient has been seen by Dr. Burns, patient is out of the therapeutic window for REM to severe and no evidence of secondary bacterial pneumonia, continue Decadron Lovenox think and vitamin C, droplet isolation. Patient is also seen by pulmonary medicine as well. Bilateral lower extremity ultrasound negative for DVT and thus CTA is inconclusive and patient is continued on DVT prophylaxis. IgG came back low at 401 and oncology as ordered immunoglobulin. Temperature max 102 this morning, heart rate 112, blood pressure 130/72, pulse ox 96% on room air. Patient is continued on Lovenox 40 mg subcu daily, dexamethasone 6 mg daily and vitamin supplements. Patient is reaching 1500 on incentive spirometry. 05/22:patient's breathing status is currently stable. He states he had about a 20 minute period during the night where he was coughing and felt short of breath and ended up wearing oxygen for couple hours. He states his pulse ox dropped down to 90%. He is currently 93% on room air. Patient has been afebrile now for greater than 24 hours, heart rate 96, blood pressure 131/77. Patient is currently receiving immunoglobulin scheduled for this afternoon. Anticipate completing this this evening, plan for discharge home tomorrow. 05/23: Anticipated that the patient would be ready for discharge today but unf ortunately the patient has increased oxygen needs are currently on 4 L nasal cannula with pulse ox of 90%. He also has increasing cough and he feels short of breath with dyspnea on minimal exertion area and He did have a fever this morning of 101.5. Heart rate 92. Blood pressure 122/73. Patient has completed immunoglobulin infusion. Repeat chest x-ray ordered which shows stable bilateral pleural effusion. 05/24: Patient continues to have shortness of breath and having some chest pain with movement. He reports being a tiny bit better from yesterday. He appears to be quite fatigued at rest. Patient continues to be febrile with temperature 102.3, heart rate 105, blood pressure 126/77, pulse ox 93% on 4 L nasal cannula. LDH 866, C-reactive protein 13.4. Repeat CTA of the chest ordered to rule out pulmonary embolism. 05/25: Patient still not doing that well he is on 5 L O2 pulse ox running around 93-94%, continued to have significant shortness of breath and dyspnea with minimal exertion continued to have severe hypoxia this point. CT was reviewed from yesterday showed no sign of pulmonary embolism. Covid marker and chest x- ray will be done tomorrow the meanwhile continue current management. 05/26: Patient is still having slight hypoxia and shortness of breath he is little bit better compared to yesterday, his having less cough less fever and chills at this point. Still not recovering as fast as expected so far continue current treatment management continue supportive care he still seen pulmonary daily. 05/27: Patient continues to have shortness of breath and oxygen increased to 6 L overnight. Patient received IVIG yesterday. Patient is followed closely by pulmonary medicine. Patient is continued on Decadron, Lovenox and supplements. 05/28: Patient developed increasing shortness of breath as well as increased anxiety overnight. Patient states that he could not take another panic attack like he had last night. We are increasing Xanax to 3 times daily and adding in BuSpar. Patient has been transitioned to AirVo. WBC 4.7, hemoglobin 13.1, platelet count 169. Sed rate 92. D-dimer 1.04. Calcium 8.6. Ferritin 3749. AST 82, ALT 146, alkaline phosphatase 107. LDH 388. Patient has been afebrile, heart rate 94, blood pressure 115/75, pulse ox 99%. He is continued on Decadron, Lovenox, vitamin supplements, bronchodilators. 05/29: Patient was transferred into the intensive care unit yesterday, he is currently on AirVo with FiO2 75 with partial nonrebreather. Pulse ox is 96-98%. He's been afebrile, heart rate 81. Repeat blood work reveals WBC 4.1, hemoglobin 12.3, platelet count 210. D-dimer 1.23. Sodium 135. Blood sugars are running between 117 and 197. AST 85, ALT 183, alkaline phosphatase 118. LDH 858. IgG 1581. Repeat chest x-ray reveals bilateral infiltrates stable. Patient's is at the bedside and Dr. Rivera spent time answering all of her questions and concerns. At this time, patient appears to be stable but still pr ognosis is guarded. 06/01: Patient is seen on 5 N. sitting up in bed in no acute distress. He is currently on 5 L of oxygen via nasal cannula. Attempt to wean patient to 4 L last night was unsuccessful with pulse ox dropping into the low 80s. Plan is for patient to be discharged sometime this week. Patient remains afebrile, pulse rate 93, respirations 20, blood pressure 117/75, O2 saturation 92% on high flow nasal cannula 5 L. 06/02: Patient is found sitting up in bed in no acute distress. He remains on 5 L of oxygen via nasal cannula. We will again attempt to wean him to 4 L. Discussion about additional dose of IgG prior to discharge. We'll refer to oncology for recommendations. Patient remains afebrile, respirations 20, heart rate 88, blood pressure 114/70, pulse ox 95% on 5 L high flow nasal cannula. 06/03: The patient is down to 4 L nasal cannula with pulse ox of 92-95%. He's been afebrile, heart rate 81, blood pressure 114/72. Patient is reaching 2500 on incentive spirometry. Home oxygen assessment to be done today. Repeat chest x-ray reveals Repeat blood work reveals CBC unremarkable. CO2 32, BUN 17 and creatinine 0.84. Blood sugars are running between 186 and 260. AST 88, ALT 238, alkaline phosphatase 157, LDH 735. Repeat chest x-ray feels bilateral infiltrates and pleural effusion stable. Patient may have repeat IVIG ordered by oncology. Plan is for discharge home tomorrow. 06/04: Patient is continuing to improve with improvement of his respiratory status, less shortness of breath. He is followed closely by oncology, IVIG was not ordered yesterday. He remains afebrile, heart rate 88, blood pressure 118/76, pulse ox 96% on 4 L nasal cannula. Anticipate possible discharge tomorrow pending oncology input. 06/05: Patient's breathing status is stable. He has not with oncology this morning and is cleared for discharge with plan to follow up in 2 days in the office and have lab work done at that time, if IVIG as needed they will order t his. Patient's discharge Lantus changed to go to his parent's home and protective services case worker will make arrangements for oxygen to be delivered. Patient complains of soreness in his knees. No fever or chills. No lightheadedness or dizziness. He has been afebrile, heart rate 93, blood pressure 122/79, pulse ox 94% on 4 L nasal cannula. Patient will be discharged home today in stable condition. REVIEW OF SYSTEMS Constitutional: Reports fever and chills with night sweats, mild weight loss, generalized fatigue and tiredness no lethargy and daytime sleepiness. EENT: No headache. No dizziness. No nasal drainage or congestion. No epistaxis. No sore throat. Lungs: Reports shortness of breath - improved with cough and wheezes with sputum production - improved and worsening dyspnea with minimal exertion - improved. Cardiovascular: No chest pain, no lower extremity edema. No palpitations. No paroxysmal nocturnal dyspnea. No orthopnea. No lightheadedness or dizziness. No syncopal episodes. Abdominal: no abdominal discomfort no nausea no vomiting positive loss of appetite no tarry stool mild constipation. Genitourinary: No dysuria, increased frequency, urgency. No urinary retention. Musculoskeletal: Positive myalgia and muscle achiness and discomfort. Integumentary: No wounds, no lesions. No rash or pruritus. No unusual bruising. Neurologic: No aphasia. No facial droop. No change in mentation. No head injury. No headache. No paralysis. No paresthesia. Psychiatric: No depresreports panic attack and increasing anxiety. Endocrine: No abnormal blood sugars. No weight change. PHYSICAL EXAMINATION Gen: This is a 35-year-old male resting in bed on 5 N. in no acute distress HEENT: Head is atraumatic, normocephalic. Pupils equal, round. Sclerae is anicteric. NECK: Supple. No JVD. Positive lymphadenopathy. No thyromegaly. LUNGS: Decreased breath sound bilaterally with fine rhonchi positive mild crackles in the bases positive mild expiratory wheezes. HEART: Regular rate and rhythm. No murmur. ABDOMEN: Soft. Bowel sounds are present. No rebound or rigidity. EXTREMITIES: No pedal edema. No calf tenderness. NEUROLOGICAL: Patient is awake, alert and oriented x3. Cranial nerves 2 through 12 are grossly intact. ASSESSMENT AND PLAN 1. acute hypoxic respiratory failure requiring O2 at 4 L secondary to COVID-19 pneumonitis 2 COVID-19 pneumonitis. 3. Sepsis with SIRS with multiple risk factors: lymphoma, chemoimmunotherapy, recent COVID-19 pneumonitis with worsening symptoms. 4. Fever. Secondary to COVID-19 pneumonitis 5. Lactic acidosis secondary to sepsis. 6. Non-Hodgkin lymphoma 7. Reactive airway/asthma 8. Panic attacks and generalized anxiety disorder. 9. Chronic hypo-gammaglobinemia. 10. Chronic hypoxic respiratory failure. Anticipate home oxygen therapy needs. Home oxygen assessment to be done today. DISCHARGE PLAN Home with [facility] Greater than 35 minutes was utilized and coordinating patient's discharge. Impression and plan of care have been directed as dictated by the signing physician. Nevin Madera nurse practitioner acting as scribe for signing physician. Patient Condition at Discharge: Stable Plan - Discharge Summary Discharge Rx Participant: No New Discharge Prescriptions: New Benzonatate [Tessalon Perles] 100 mg PO TID PRN #60 cap PRN Reason: Cough Acetaminophen Tab [Tylenol] 500 mg PO Q6HR PRN tab PRN Reason: Fever And/ Or Pain busPIRone HCl [Buspar] 5 mg PO TID #60 tab Dexamethasone [Decadron] 6 mg PO DAILY #5 tablet Ibuprofen [Motrin] 600 mg PO QID PRN tab PRN Reason: Breakthrough Pain Pantoprazole [Protonix] 40 mg PO AC-BID #60 tab Ascorbic Acid [Vitamin C] 500 mg PO BID tab Enoxaparin [Lovenox] 40 mg SQ DAILY #30 each Continue Acyclovir 400 mg PO BID PRN PRN Reason: immune Calcium Carbonate [Calcium] 600 mg PO DAILY Ascorbic Acid/Elderberry Fruit [Elderberry-Vit C 50-100 mg Chw] 1 tab PO NADEGE Y Albuterol Sulfate [Proventil Hfa] 2 puff INHALATION RT-Q4H PRN PRN Reason: Shortness Of Breath ALPRAZolam [Xanax] 0.25 mg PO DAILY PRN PRN Reason: Anxiety Zinc 50 mg PO DAILY Ondansetron [Zofran] 4 mg PO Q4H PRN PRN Reason: Nausea Cholecalciferol [Vitamin D3 (25 Mcg = 1000 Iu)] 50 mcg PO DAILY Discharge Medication List ALPRAZolam [Xanax] 0.25 mg PO DAILY PRN 03/15/21 [History] Acyclovir 400 mg PO BID PRN 03/15/21 [History] Albuterol Sulfate [Proventil Hfa] 2 puff INHALATION RT-Q4H PRN 05/19/21 [History] Ascorbic Acid/Elderberry Fruit [Elderberry-Vit C 50-100 mg Chw] 1 tab PO DAILY 05/19/21 [History] Calcium Carbonate [Calcium] 600 mg PO DAILY 05/19/21 [History] Cholecalciferol [Vitamin D3 (25 Mcg = 1000 Iu)] 50 mcg PO DAILY 05/19/21 [History] Ondansetron [Zofran] 4 mg PO Q4H PRN 05/19/21 [History] Zinc 50 mg PO DAILY 05/19/21 [History] Acetaminophen Tab [Tylenol] 500 mg PO Q6HR PRN tab 06/05/21 [Rx] Ascorbic Acid [Vitamin C] 500 mg PO BID tab 06/05/21 [Rx] Benzonatate [Tessalon Perles] 100 mg PO TID PRN #60 cap 06/05/21 [Rx] Dexamethasone [Decadron] 6 mg PO DAILY #5 tablet 06/05/21 [Rx] Enoxaparin [Lovenox] 40 mg SQ DAILY #30 each 06/05/21 [Rx] Ibuprofen [Motrin] 600 mg PO QID PRN tab 06/05/21 [Rx] Pantoprazole [Protonix] 40 mg PO AC-BID #60 tab 06/05/21 [Rx] busPIRone HCl [Buspar] 5 mg PO TID #60 tab 06/05/21 [Rx] Follow up Appointment(s)/Referral(s): Newton Rivera MD [Primary Care Provider] - 06/11/21 1:00 pm (This appointment will be a televisit with NP. Alysa) Dash Hess MD [STAFF PHYSICIAN] - 06/07/21 8:45 am [facility] [NON-STAFF] - 1 Week [facility], [NON-STAFF] - As Needed Patient Instructions/Handouts: Coronavirus Disease 2019 (COVID-19), How to Use an Incentive Spirometer (DC), Using Oxygen at Home (DC) Discharge Disposition: HOME WITH HOME HEALTH SERVICES
== END 2021-06-05 16:50 | disposition home health service (06) | DRG 871 ==
LOC: EC 08:58 → 4SSUR 11:06 → 2SICU 05-28 11:53 → 5NMEDONC 05-30 14:50
PROVIDERS: ADMIT Internal Medicine Geriatric Medicine; ATTEND Internal Medicine Geriatric Medicine
PROC: 30233S1 Transfusion of Nonautologous Globulin into Peripheral Vein, Percutaneous Approach (ICD-10-PCS; 2021-05-21)
PROC: XW033E5 Introduction of Remdesivir Anti-infective into Peripheral Vein, Percutaneous Approach, New Technology Group 5 (ICD-10-PCS; principal; 2021-05-28)
DX: A41.89 Other specified sepsis (principal); U07.1 COVID-19; J12.82 Pneumonia due to coronavirus disease 2019; J96.21 Acute and chronic respiratory failure with hypoxia; C83.30 Diffuse large B-cell lymphoma, unspecified site; E87.2 Acidosis; C82.90 Follicular lymphoma, unspecified, unspecified site; D80.1 Nonfamilial hypogammaglobulinemia; K51.90 Ulcerative colitis, unspecified, without complications; Z79.899 Other long term (current) drug therapy; Z80.8 Family history of malignant neoplasm of other organs or systems; Z79.01 Long term (current) use of anticoagulants; K21.9 Gastro-esophageal reflux disease without esophagitis; F41.0 Panic disorder [episodic paroxysmal anxiety]; F41.1 Generalized anxiety disorder; K76.0 Fatty (change of) liver, not elsewhere classified; J45.909 Unspecified asthma, uncomplicated; R59.9 Enlarged lymph nodes, unspecified
CPT/HCPCS: 36415; 71045; 71046; 71275; 76700; 80048; 80053; 82728; 82784; 83605; 83615; 83735; 83880; 84145; 84550; 85025; 85027; 85379; 85384; 85610; 85652; 85730; 86140; 86644; 86645; 86738; 87040; 87070; 87205; 87635; 93005; 93306; 93970; 94640; 94760; 96360; 96361; 99285

== ENCOUNTER 2021-06-24 14:55 | Inpatient (IN) | payer MEDICAID ==
[2021-06-24] MEDS ORDERED: ACETAMINOPHEN TAB 500 MG TAB PO STA (16:01)
[2021-06-24] MEDS ORDERED: IBUPROFEN 600 MG TAB PO STA (16:01)
[2021-06-24] MEDS ORDERED: cefTRIAXone IN SWFI 1,000 MG/10 ML SYRINGE IVP STA (16:03)
--- NOTE | 2021-06-24 16:10 | ED ---
General Adult HPI - General Chief complaint: Shortness of Breath Stated complaint: sob/high HR Time Seen by Provider: 06/24/21 15:15 Source: patient, RN notes reviewed, old records reviewed Mode of arrival: wheelchair Limitations: no limitations - History of Present Illness Initial comments: This is a 35-year-old male presents emergency department with past medical history significant for non-Hodgkin's lymphoma. Patient was in the hospital with complications relative to his cancer and COVID. Patient was released mid- May approximately June 06. Patient states for 2 weeks she was homicidal he much better however in the last week or so he started having more difficulty breathing and was T oxygenating down into the 70s when he was walking into the got down into the 60s so he decided come to the emergency department. Patient denies having a fever chills that he knows of. Patient denies any chest pain. Patient states he's noticed his heart rate is fast when his pulse ox is low. Patient states that couple days ago he didn't get the influenza vaccine. Patient states he did get his vaccination 2 doses - Related Data Home Medications Medication Instructions Recorded Confirmed ALPRAZolam [Xanax] 0.25 - 0.5 mg PO TID PRN 03/15/21 06/24/21 Albuterol Sulfate [Proventil Hfa] 2 puff INHALATION RT-Q4H PRN 05/19/21 06/24/21 Ascorbic Acid/Elderberry Fruit 1 tab PO DAILY 05/19/21 06/24/21 [Elderberry-Vit C 50-100 mg w] Calcium Carbonate [Calcium] 600 mg PO DAILY 05/19/21 06/24/21 Cholecalciferol [Vitamin D3 (25 50 mcg PO DAILY 05/19/21 06/24/21 Mcg = 1000 Iu)] Zinc 50 mg PO DAILY 05/19/21 06/24/21 Apixaban [Eliquis] 2.5 mg PO BID 06/24/21 06/24/21 guaiFENesin-Coden 100-10MG/5ML 10 ml PO Q6H PRN 06/24/21 06/24/21 [Robitussin AC] Previous Rx's Medication Instructions Recorded Acetaminophen Tab [Tylenol] 500 mg PO Q6HR PRN tab 06/05/21 Ascorbic Acid [Vitamin C] 500 mg PO BID tab 06/05/21 Benzonatate [Tessalon Perles] 100 mg PO TID PRN #60 cap 06/05/21 Pantoprazole [Protonix] 40 mg PO AC-BID #60 tab 06/05/21 busPIRone HCl [Buspar] 5 mg PO TID #60 tab 06/05/21 Allergies Allergy/AdvReac Type Severity Reaction Status Date / Time No Known Allergies Allergy Verified 06/24/21 18:12 Review of Systems ROS Statement: Those systems with pertinent positive or pertinent negative responses have been documented in the HPI. ROS Other: All systems not noted in ROS Statement are negative. Past Medical History Past Medical History: Cancer, GERD/Reflux Additional Past Medical History / Comment(s): non-hodgkins lyphoma, multiple enlarged lymph nodes, elevated liver enzymes, hx pancreatitis , ulcerative colitis, covid History of Any Multi-Drug Resistant Organisms: None Reported Past Surgical History: No Surgical Hx Reported Additional Past Surgical History / Comment(s): wisdom teeth, lymph node removal from groin, mediport Past Anesthesia/Blood Transfusion Reactions: No Reported Reaction Past Psychological History: Anxiety Smoking Status: Never smoker Past Alcohol Use History: None Reported Past Drug Use History: None Reported - Past Family History Father Family Medical History: Cancer Additional Family Medical History / Comment(s): melanoma General Exam - General Exam Comments Initial Comments: GENERAL: Patient is well-developed and well-nourished. Patient is nontoxic and well- hydrated and is in mild distress. ENT: Neck is soft and supple. No significant lymphadenopathy is noted. Oropharynx is clear. Moist mucous membranes. Neck has full range of motion without eliciting any pain. EYES: The sclera were anicteric and conjunctiva were pink and moist. Extraocular movements were intact and pupils were equal round and reactive to light. Eyelids were unremarkable. PULMONARY: Patient has crackles in the right base and in the left base right is greater than left. CARDIOVASCULAR: Patient is tachycardic at about 115 beats a minute ABDOMEN: Soft and nontender with normal bowel sounds. No palpable organomegaly was noted. SKIN: Skin is clear with no lesions or rashes and otherwise unremarkable. NEUROLOGIC: Patient is alert and oriented x3. Cranial nerves II through XII are grossly intact. Motor and sensory are also intact. Normal speech, volume and content. Symmetrical smile. MUSCULOSKELETAL: Normal extremities with adequate strength and full range of motion. LYMPHATICS: No significant lymphadenopathy is noted PSYCHIATRIC: Normal psychiatric evaluation. Limitations: no limitations Course Vital Signs 06/24/21 06/24/21 06/24/21 15:07 15:59 18:19 Temperature 98.4 F 101.4 F H Pulse Rate 114 H 104 H Respiratory 24 18 Rate Blood Pressure 124/76 129/85 O2 Sat by Pulse 95 97 Oximetry 06/24/21 06/24/21 06/24/21 18:37 18:51 19:55 Temperature 98.5 F Pulse Rate 102 H 100 Respiratory 18 18 16 Rate Blood Pressure 127/85 121/81 O2 Sat by Pulse 96 96 Oximetry Medical Decision Making - Medical Decision Making EKG shows sinus tachycardia at 112 bpm UT interval 242 QRS is 88 QT interval 320 QTC is 436 per patient's EKG shows no ST segment elevation or depression. Chest x-ray shows patient has bilateral infiltrate CT of the chest showed no PE. Continues to show bilateral infiltrates. I consulted Dr. Rendon he wanted the patient to be placed on antibiotics I consulted infectious disease as well. I spoke with Dr. Card he agreed to admit the patient admitted the patient wrote admitting orders. - Lab Data Result diagrams: 06/24/21 17:02 06/24/21 17:02 Lab Results 06/24/21 06/24/21 06/24/21 Range/Units 17:02 17:02 17:02 WBC 4.5 (3.8-10.6) k/uL RBC 3.99 L (4.30-5.90) m/uL Hgb 12.9 L (13.0-17.5) gm/dL Hct 37.0 L (39.0-53.0) % MCV 92.6 (80.0-100.0) fL MCH 32.2 (25.0-35.0) pg MCHC 34.8 (31.0-37.0) g/dL RDW 15.0 (11.5-15.5) % Plt Count 171 (150-450) k/uL MPV 6.6 Neutrophils % 91 % Lymphocytes % 3 % Monocytes % 4 % Eosinophils % 0 % Basophils % 1 % Neutrophils # 4.1 (1.3-7.7) k/uL Lymphocytes # 0.1 L (1.0-4.8) k/uL Monocytes # 0.2 (0-1.0) k/uL Eosinophils # 0.0 (0-0.7) k/uL Basophils # 0.0 (0-0.2) k/uL Poikilocytosis Slight PT 9.6 (9.0-12.0) sec INR 0.9 (<1.2) APTT 25.9 (22.0-30.0) sec D-Dimer 0.84 H (<0.60) mg/L FEU Sodium (137-145) mmol/L Potassium (3.5-5.1) mmol/L Chloride (98-107) mmol/L Carbon Dioxide (22-30) mmol/L Anion Gap mmol/L BUN (9-20) mg/dL Creatinine (0.66-1.25) mg/dL Est GFR (CKD-EPI)AfAm (>60 ml/min/1.73 sqM) Est GFR (CKD-EPI)NonAf (>60 ml/min/1.73 sqM) Glucose (74-99) mg/dL Plasma Lactic Acid Leonard (0.7-2.0) mmol/L Calcium (8.4-10.2) mg/dL Total Bilirubin (0.2-1.3) mg/dL AST (17-59) U/L ALT (4-49) U/L Alkaline Phosphatase (38-126) U/L Total Protein (6.3-8.2) g/dL Albumin (3.5-5.0) g/dL Urine Color Yellow Urine Appearance Clear (Clear) Urine pH 5.5 (5.0-8.0) Ur Specific Gordon 1.014 (1.001-1.035) Urine Protein Negative (Negative) Urine Glucose (UA) Negative (Negative) Urine Ketones Negative (Negative) Urine Blood Negative (Negative) Urine Nitrite Negative (Negative) Urine Bilirubin Negative (Negative) Urine Urobilinogen <2.0 (<2.0) mg/dL Ur Leukocyte Esterase Negative (Negative) Influenza Type A (PCR) (Not Detectd) Influenza Type B (PCR) (Not Detectd) RSV (PCR) (Not Detectd) SARS-CoV-2 (PCR) (Not Detectd) 06/24/21 06/24/21 06/24/21 Range/Units 17:02 17:02 17:02 WBC (3.8-10.6) k/uL RBC (4.30-5.90) m/uL Hgb (13.0-17.5) gm/dL Hct (39.0-53.0) % MCV (80.0-100.0) fL MCH (25.0-35.0) pg MCHC (31.0-37.0) g/dL RDW (11.5-15.5) % Plt Count (150-450) k/uL MPV Neutrophils % % Lymphocytes % % Monocytes % % Eosinophils % % Basophils % % Neutrophils # (1.3-7.7) k/uL Lymphocytes # (1.0-4.8) k/uL Monocytes # (0-1.0) k/uL Eosinophils # (0-0.7) k/uL Basophils # (0-0.2) k/uL Poikilocytosis PT (9.0-12.0) sec INR (<1.2) APTT (22.0-30.0) sec D-Dimer (<0.60) mg/L FEU Sodium 134 L (137-145) mmol/L Potassium 4.3 (3.5-5.1) mmol/L Chloride 96 L (98-107) mmol/L Carbon Dioxide 31 H (22-30) mmol/L Anion Gap 7 mmol/L BUN 14 (9-20) mg/dL Creatinine 0.72 (0.66-1.25) mg/dL Est GFR (CKD-EPI)AfAm >90 (>60 ml/min/1.73 sqM) Est GFR (CKD-EPI)NonAf >90 (>60 ml/min/1.73 sqM) Glucose 117 H (74-99) mg/dL Plasma Lactic Acid Leonard 1.4 (0.7-2.0) mmol/L Calcium 8.7 (8.4-10.2) mg/dL Total Bilirubin 0.6 (0.2-1.3) mg/dL AST 70 H (17-59) U/L ALT 130 H (4-49) U/L Alkaline Phosphatase 125 (38-126) U/L Total Protein 6.8 (6.3-8.2) g/dL Albumin 3.7 (3.5-5.0) g/dL Urine Color Urine Appearance (Clear) Urine pH (5.0-8.0) Ur Specific Gordon (1.001-1.035) Urine Protein (Negative) Urine Glucose (UA) (Negative) Urine Ketones (Negative) Urine Blood (Negative) Urine Nitrite (Negative) Urine Bilirubin (Negative) Urine Urobilinogen (<2.0) mg/dL Ur Leukocyte Esterase (Negative) Influenza Type A (PCR) Not Detected (Not Detectd) Influenza Type B (PCR) Not Detected (Not Detectd) RSV (PCR) Not Detected (Not Detectd) SARS-CoV-2 (PCR) Detected A (Not Detectd) Disposition Clinical Impression: Pulmonary infiltrates, Dyspnea Disposition: ADMITTED IP TO THIS HOSP Referrals: Newton Rivera MD [Primary Care Provider] - 1-2 days Time of Disposition: 20:06
[2021-06-24 17:43] LABS: Basophils % (A) 1 %; Eosinophils % (A) 0 %; HGB 12.9 gm/dL (13.0-17.5); Lymphocytes # (A) 0.1 k/uL (1.0-4.8); Lymphocytes % (A) 3 %; MCH 32.2 pg (25.0-35.0); MCHC 34.8 g/dL (31.0-37.0); MCV 92.6 fL (80.0-100.0); Mean Platelet Volume 6.6; Monocytes # (A) 0.2 k/uL (0-1.0); Monocytes % (A) 4 %; Neutrophils # (A) 4.1 k/uL (1.3-7.7); Neutrophils % (A) 91 %; Platelet Count 171 k/uL (150-450); Poikilocytosis Slight; RBC 3.99 m/uL (4.30-5.90); WBC 4.5 k/uL (3.8-10.6)
--- NOTE | 2021-06-24 17:45 | XR ---
EXAMINATION TYPE: XR chest 2V DATE OF EXAM: 06/24/2021 COMPARISON: NONE HISTORY: Fever TECHNIQUE: 2 views FINDINGS: Heart and mediastinum are normal. . There is some patchy atelectasis in the lower lung fiel ds. There is right central venous catheter with tip in the superior vena cava. IMPRESSION: There is infiltrate and atelectasis at the lung bases with very poor inspiration. No reyez ge compared to old exam.
[2021-06-24 17:56] LABS: ALT 130 U/L (4-49); AST 70 U/L (17-59); African American GFR (CKD) >90 (>60 ml/min/1.73 sqM); Albumin 3.7 g/dL (3.5-5.0); Alkaline Phosphatase 125 U/L (38-126); Anion Gap 7 mmol/L; Blood Urea Nitrogen 14 mg/dL (9-20); Calcium 8.7 mg/dL (8.4-10.2); Carbon Dioxide 31 mmol/L (22-30); Chloride 96 mmol/L (98-107); Glucose 117 mg/dL (74-99); Non-African American GFR(CKD) >90 (>60 ml/min/1.73 sqM); Potassium 4.3 mmol/L (3.5-5.1); Sodium 134 mmol/L (137-145); Total Bilirubin 0.6 mg/dL (0.2-1.3); Total Protein 6.8 g/dL (6.3-8.2)
[2021-06-24 18:06] LABS: INR 0.9 (<1.2); Partial Thromboplastin Time 25.9 sec (22.0-30.0); Prothrombin Time 9.6 sec (9.0-12.0)
[2021-06-24 18:33] LABS: Appearance,Urine Clear (Clear); Bilirubin,Urine Negative (Negative); Blood,Urine Negative (Negative); Color,Urine Yellow; Glucose,Urine (UA) Negative (Negative); Ketones,Urine Negative (Negative); Leukocyte Esterase,Urine Negative (Negative); Nitrite,Urine Negative (Negative); PH, Urine 5.5 (5.0-8.0); Protein,Urine Negative (Negative); Specific Gravity,Urine 1.014 (1.001-1.035); Urobilinogen,Urine <2.0 mg/dL (<2.0)
--- NOTE | 2021-06-24 19:14 | CT ---
EXAMINATION TYPE: CT chest angio for PE DATE OF EXAM: 06/24/2021 COMPARISON: 05/24/2021 HISTORY: Shortness of breath CT DLP: 544.1 mGycm Automated exposure control for dose reduction was used. CONTRAST: Performed with IV Contrast, patient injected with 100 mL of Isovue 300. Images obtained from the thoracic inlet to the diaphragm with IV contrast. There are 3-D post process ed images. There is patchy linear infiltrate and atelectasis in the upper and lower lobes bilaterally. There is no mediastinal adenopathy. There are no hilar masses. There is normal contrast opacification of the p ulmonary arteries. There are no filling defects. Thoracic aorta is intact. There is no aneurysm or di ssection. There is fatty infiltration of the liver. Thoracic spine is intact. There is no compression fracture. IMPRESSION: No evidence of pulmonary embolism. There is extensive patchy pneumonia and atelectasis in both lung f ields which is not significantly different overall compared to last exam.
[2021-06-24] MEDS ORDERED: PNEUMONIA PROTOCOL UTILIZED 1 EACH MISC PO PRN (20:07)
[2021-06-24] MEDS ORDERED: dexAMETHasone 2 MG TAB PO STA (20:09)
[2021-06-24] MEDS ORDERED: CEFEPIME 2 GM in SODIUM CHLORIDE 0.9% 100 ML IVPB STA (20:09)
[2021-06-24] MEDS ORDERED: VANCOMYCIN IV PER PHARMACY 1 EACH MISC MISCELLANE PRN (20:09)
[2021-06-24] MEDS ORDERED: VANCOMYCIN 2,000 MG in SODIUM CHLORIDE 0.9% 500 ML 500 ML IVPB ONE (22:00)
[2021-06-25] MEDS: CEFEPIME 2 GM in SODIUM CHLORIDE 0.9% 100 ML IVPB SCH ×3 (04:43→20:32)
[2021-06-25] MEDS: VANCOMYCIN 1,750 MG in SODIUM CHLORIDE 0.9% 500 ML 500 ML IVPB SCH ×3 (06:26→17:00)
[2021-06-25] MEDS: dexAMETHasone 2 MG TAB PO SCH (08:10)
--- NOTE | 2021-06-25 09:53 | XR ---
EXAMINATION TYPE: XR chest 1V DATE OF EXAM: 06/25/2021 COMPARISON: 06/24/2021 HISTORY: Cough TECHNIQUE: Single frontal view of the chest is obtained. FINDINGS: Mediport catheter seen there is limited inspiration with bilateral infiltrate and intersti tial pattern. Small bilateral effusions. No pneumothorax. IMPRESSION: Persistent bilateral areas of infiltrate are stable.
[2021-06-25] MEDS ORDERED: ACETAMINOPHEN TAB 500 MG TAB PO PRN (10:33)
--- NOTE | 2021-06-25 10:35 | P.CNPUL ---
History of Present Illness Consult date: 06/25/21 Requesting physician: Misbah Card Reason for consult: dyspnea, hypoxemia, abnormal CXR/CT Chief complaint: Shortness of breath, hypoxemia History of present illness: This is a very pleasant 35-year-old male patient who has a history of diffuse large B-cell lymphoma with previous 6 rounds of R CHOP chemotherapy, on immunotherapy, hypogammaglobulinemia receiving IVIG, gastroesophageal reflux dis ease, previous pancreatitis, ulcerative colitis. He had also recently been hospitalized in April for acute CoVID 19 pneumonia. He was subsequently discharged home on oxygen. He has been doing fairly well until the past 2-3 days when he was developing increasing shortness of breath with minimal activity. He was desaturating into the 70s while ambulating to the bathroom at home. He presented here to the emergency room yesterday for the same. Chest x- ray reveals infiltrate and atelectasis of the lung bases with poor inspiratory effort. CT angiogram ruled out pulmonary embolism. There is extensive patchy pneumonia and atelectasis in the lung perez bilaterally. Not significantly different compared to previous on 05/24/2021. He is still testing positive for smith virus. White count 4.5. Hemoglobin 12.9. Leukocyte 0.1. D-dimer 0.84. Sodium 134. Potassium 4.3. Creatinine 0.72. LDH 735. AST 70. ALT 130. Pro-calcitonin 0.14. He's been initiated on vancomycin and cefepime. On Decadron. Infectious disease has been consulted. Review of Systems REVIEW OF SYSTEMS: CONSTITUTIONAL: Denies any recent significant weight loss or weight gain. EYES: Denies change in vision. EARS, NOSE, MOUTH, THROAT: Denies headaches, denies sore throat. CARDIOVASCULAR: Denies chest pain, palpitations or syncopal episodes. RESPIRATORY: Positive for shortness of breath, cough, congestion no hemoptysis. GASTROINTESTINAL: Denies change in appetite, denies abdominal pain GENITOURINARY: Denies hematuria, denies infections. MUSKULOSKELETAL: Denies pain, denies swelling. INTEGUMENTARY: Denies rash, denies eczema. NEUROLOGICAL: Denies recent memory loss, no recent seizure activity. PSYCHIATRIC: Denies anxiety, denies depression. HEMATOLOGIC/LYMPHATIC: Denies anemia, denies enlarged lymph nodes. Past Medical History Past Medical History: Cancer, GERD/Reflux Additional Past Medical History / Comment(s): non-hodgkins lyphoma, multiple enlarged lymph nodes, elevated liver enzymes, hx pancreatitis , ulcerative colitis, covid History of Any Multi-Drug Resistant Organisms: None Reported Past Surgical History: No Surgical Hx Reported Additional Past Surgical History / Comment(s): wisdom teeth, lymph node removal from groin, mediport Past Anesthesia/Blood Transfusion Reactions: No Reported Reaction Past Psychological History: Anxiety Additional Psychological History / Comment(s): anxiety r/t health concerns Smoking Status: Never smoker Past Alcohol Use History: None Reported, Occasional Past Drug Use History: None Reported Additional Drug Use History / Comment(s): edibles - Past Family History Father Family Medical History: Cancer Additional Family Medical History / Comment(s): melanoma Medications and Allergies Home Medications Medication Instructions Recorded Confirmed Type ALPRAZolam [Xanax] 0.25 - 0.5 mg PO TID PRN 03/15/21 06/24/21 History Albuterol Sulfate [Proventil Hfa] 2 puff INHALATION RT-Q4H PRN 05/19/21 06/24/21 History Ascorbic Acid/Elderberry Fruit 1 tab PO DAILY 05/19/21 06/24/21 History [Elderberry-Vit C 50-100 mg Chw] Calcium Carbonate [Calcium] 600 mg PO DAILY 05/19/21 06/24/21 History Cholecalciferol [Vitamin D3 (25 50 mcg PO DAILY 05/19/21 06/24/21 History Mcg = 1000 Iu)] Zinc 50 mg PO DAILY 05/19/21 06/24/21 History Acetaminophen Tab [Tylenol] 500 mg PO Q6HR PRN tab 06/05/21 06/24/21 Rx Ascorbic Acid [Vitamin C] 500 mg PO BID tab 06/05/21 06/24/21 Rx Benzonatate [Tessalon Perles] 100 mg PO TID PRN #60 cap 06/05/21 06/24/21 Rx Pantoprazole [Protonix] 40 mg PO AC-BID #60 tab 06/05/21 06/24/21 Rx busPIRone HCl [Buspar] 5 mg PO TID #60 tab 06/05/21 06/24/21 Rx Apixaban [Eliquis] 2.5 mg PO BID 06/24/21 06/24/21 History guaiFENesin-Coden 100-10MG/5ML 10 ml PO Q6H PRN 06/24/21 06/24/21 History [Robitussin AC] Allergies Allergy/AdvReac Type Severity Reaction Status Date / Time No Known Allergies Allergy Verified 06/24/21 18:12 Physical Exam Vitals: Vital Signs Temp Pulse Pulse Resp BP BP Pulse Ox 06/25/21 09:18 97.8 F 97 18 126/78 94 L 06/25/21 05:54 98.2 F 82 18 131/85 96 06/25/21 02:19 87 97 06/25/21 00:57 97.2 F L 91 18 122/87 95 06/25/21 00:00 94 20 123/74 96 06/24/21 23:00 97 20 118/80 96 06/24/21 21:23 94 18 124/80 96 06/24/21 19:55 100 16 121/81 96 06/24/21 18:51 98.5 F 102 H 18 127/85 96 06/24/21 18:37 18 06/24/21 18:19 104 H 18 129/85 97 06/24/21 15:59 101.4 F H 06/24/21 15:07 98.4 F 114 H 24 124/76 95 Intake and Output 06/24/21 06/25/21 06/25/21 22:59 06:59 14:59 Output Total 550 Balance -550 Output: Urine 550 Other: Voiding Method Toilet Urinal Weight 104.326 kg GENERAL EXAM: Alert, very pleasant 35-year-old gentleman, on 3/2 L nasal cannula with O2 saturations in the mid 90s comfortable in no apparent distress. HEAD: Normocephalic. EYES: Normal reaction of pupils, equal size. NOSE: Clear with pink turbinates. THROAT: No erythema or exudates. NECK: No masses, no JVD. CHEST: No chest wall deformity. LUNGS: Equal air entry with basilar crackles more so on the right midlung. CVS: S1 and S2 normal with no audible murmur, regular rhythm. ABDOMEN: No hepatosplenomegaly, normal bowel sounds, no guarding or rigidity. SPINE: No scoliosis or deformity SKIN: No rashes CENTRAL NERVOUS SYSTEM: No focal deficits, tone is normal in all 4 extremities. EXTREMITIES: There is no peripheral edema. No clubbing, no cyanosis. Peripheral pulses are intact. Results - Laboratory Findings CBC and BMP: 06/24/21 17:02 06/24/21 17:02 PT/INR, D-dimer PT 9.6 sec (9.0-12.0) 06/24/21 17:02 INR 0.9 (<1.2) 06/24/21 17:02 D-Dimer 0.84 mg/L FEU (<0.60) H 06/24/21 17:02 Abnormal lab findings: Abnormal Labs 06/24/21 06/24/21 06/24/21 17:02 17:02 17:02 RBC 3.99 L Hgb 12.9 L Hct 37.0 L Lymphocytes # 0.1 L D-Dimer 0.84 H Sodium 134 L Chloride 96 L Carbon Dioxide 31 H Glucose 117 H AST 70 H ALT 130 H Procalcitonin SARS-CoV-2 (PCR) 06/24/21 06/24/21 17:02 20:05 RBC Hgb Hct Lymphocytes # D-Dimer Sodium Chloride Carbon Dioxide Glucose AST ALT Procalcitonin 0.14 H SARS-CoV-2 (PCR) Detected A - Diagnostic Findings Chest x-ray: image reviewed CT scan - chest: image reviewed Assessment and Plan Assessment: 1 Acute on chronic hypoxemic respiratory failure secondary to bilateral infiltrates, suspect continued COVID-19 pneumonia with possible underlying bacterial infection. Initiated on vancomycin and cefepime. Procalcitonin 0.14. Pulmonary embolism ruled out. On Eliquis in the outpatient setting. 2 Recent admission for COVID-19 pneumonia in April 2021 requiring home oxygen 3 History of large B-cell lymphoma received R CHOP, immunotherapy 4 Hypogammaglobulinemia, receiving IVIG 5 History of gastroesophageal reflux disease 6 History of pancreatitis 7 History of gastroesophageal reflux disease 8 History of ulcerative colitis Plan: The patient was seen and evaluated today Chest x-ray, CAT scans and labs reviewed Continue vancomycin and cefepime for now Infectious disease is on the case Continue Decadron and vitamin supplements Anticoagulated with Eliquis Titrate down the FiO2 as tolerated We will continue to follow and make further recommendations based on his clinical status I, the cosigning physician, performed a history & physical examination of the patient. Lungs sounds bilateral bases, right midlung. Maintaining good O2 saturations in the 90s on 3-1/2 L/m per nasal cannula. I discussed the assessment and plan of care with my nurse practitioner, Ailyn Acosta. I attest to the above consultation as dictated by her. Time with Patient: Greater than 30
[2021-06-25] MEDS ORDERED: BENZONATATE 100 MG CAP PO PRN (10:43)
[2021-06-25] MEDS ORDERED: guaiFENesin-Coden 100-10MG/5ML 10 ML CUP PO PRN (10:43)
[2021-06-25] MEDS ORDERED: ALPRAZolam 0.25 MG TAB PO PRN (10:43)
[2021-06-25] MEDS: APIXABAN 2.5 MG TABLET PO SCH ×2 (12:00→20:32)
[2021-06-25] MEDS: busPIRone HCl 5 MG TAB PO SCH ×2 (12:01→20:32)
[2021-06-25] MEDS: ASCORBIC ACID 500 MG TAB PO SCH ×2 (12:01→20:32)
[2021-06-25] MEDS: CHOLECALCIFEROL 25 MCG (1000 IU) TABLET PO SCH (12:01)
--- NOTE | 2021-06-25 14:45 | P.HPIM ---
History of Present Illness H&P Date: 06/25/21 HISTORY OF PRESENT ILLNESS 55-year-old male clinic patient of [facility] with past medical history of diffuse large B-cell lymphoma completed chemotherapy with R CHOP on immunotherapy which is currently on hold since patient received immunomodulatory drugs, hypogammaglobulinemia receiving IVIG since patient was treated for Covid, history of Peter, history of pancreatitis, history of ulcerative colitis had a prolonged course of hospital stay from 05/18/2021-06/05/2021 for Covid pneumonia. Patient was discharged on 3 L of oxygen at rest. Patient was followed in the clinic and was noticed to be doing better. He came to the ER with hypoxia and fever. Patient also endorses significant palpitation and worsening anxiety due to his palpitations In the ER patient had a temperature 101.4 pulse of 104 respiratory rate 18 blood pressure 129/85 oxylate again 9798% on 4 L of oxygen. Labs were reviewed with patient had a WBC of 4.5 hemoglobin 12.9 R d-dimer 0.8 for sodium 134 chloride 96 bicarb 31 creatinine 0.7 glucose 117 EST 70 ALT 1:30 pro-calcitonin 0.14 CT angiogram of the chest was obtained on 06/24 R no evidence of pulmonary embolism CT extensive patchy pneumonia and atelectasis in bothnoted otherwise normal sick disc and then previous imaging Patient was initiated on vancomycin and cefepime and infectious disease was consulted. Pulmonary consulted REVIEW OF SYSTEMS Constitutional: Positive fever and chills generalized fatigue and tiredness with lethargy EENT: No headache. No blurred vision or double vision, no loss of vision. No loss of Hearing, no ringing in the ears, no dizziness. No nasal drainage or congestion. No epistaxis. No sore throat. Lungs: Positive shortness of breath with cough and wheezes with sputum p roduction and worsening dyspnea with minimal exertion. Cardiovascular: No chest pain, no lower extremity edema. Positive for palpitations. No paroxysmal nocturnal dyspnea. No orthopnea. No light headedness or dizziness. No syncopal episodes. Abdominal: Mild abdominal discomfort with nausea no vomiting positive loss of appetite no tarry stool mild constipation. Genitourinary: No dysuria, increased frequency, urgency. No urinary retention. Musculoskeletal: Positive myalgia and muscle achiness and discomfort. Integumentary: No wounds, no lesions. No rash or pruritus. No unusual bruisin g. No change in hair or nails. Neurologic: No aphasia. No facial droop. No change in mentation. No head injury. No headache. No paralysis. No paresthesia. Psychiatric: No depression. Positive for anxiety due to uncontrolled heart rate. No mood swings. Endocrine: No abnormal blood sugars. No weight change. No excessive sweating or thirst. No cold intolerance. SOCIAL HISTORY He does not smoke, likely abuse, his irregular with his and he worked for the [employer] to his lymphoma was diagnosed patient is taking sometimes off for his treatment. FAMILY HISTORY Both parents are living with no major medical problem, patient has one sister is living and well patient also has 2 children with no major medical problem. PHYSICAL EXAMINATION Gen: This is a young gentleman laying in bed looks very tired does not look in any respiratory distress. HEENT: Head is atraumatic, normocephalic. Pupils equal, round. Sclerae is anicteric. Slight enlarged lymph nodes. NECK: Supple. No JVD. Positive lymphadenopathy. No thyromegaly. LUNGS: Decreased breath sound bilaterally with fine rhonchi positive mild crackles in the bases positive mild expiratory wheezes. HEART: Regular rate and rhythm. No murmur. ABDOMEN: Soft. Bowel sounds are present. Slight hepatomegaly with no rebound or rigidity. EXTREMITIES: No pedal edema. No calf tenderness. NEUROLOGICAL: Patient is awake, alert and oriented x3. Cranial nerves 2 through 12 are grossly intact. ASSESSMENT AND PLAN Sepsis with SIRS secondary to Covid pneumonia with possible coinfection with bacterial pneumonia - Pulmonary consulted - Infectious disease consulted - Empiric treatment with vancomycin and cefepime - Continue supplemental oxygen to keep sats above 90% - DuoNeb as needed for shortness of breath COVID-19 pneumonitis - On Decadron 6 mg IV daily - Continue zinc, vitamin C and vitamin D - Inflammation markers appeared improved compared to previous admission Sinus tachycardia - Likely secondary to Covid pneumonia -We will start on metoprolol 12.5 twice a day Diffuse large B-cell lymphoma - Follows with Dr. Hess as outpatient Immunotherapy currently on hold - reactive airway/asthma - Continue DuoNeb as needed for shortness of breath anxiety on Xanax as needed 3 times a day BuSpar increased to 10 twice a day DVT prophylaxi on Eliquis Patient to stay in the hospital for at least 1-2 inpatient Past Medical History Past Medical History: Cancer, GERD/Reflux Additional Past Medical History / Comment(s): non-hodgkins lyphoma, multiple enlarged lymph nodes, elevated liver enzymes, hx pancreatitis , ulcerative colitis, covid History of Any Multi-Drug Resistant Organisms: None Reported Past Surgical History: No Surgical Hx Reported Additional Past Surgical History / Comment(s): wisdom teeth, lymph node removal from groin, mediport Past Anesthesia/Blood Transfusion Reactions: No Reported Reaction Past Psychological History: Anxiety Additional Psychological History / Comment(s): anxiety r/t health concerns Smoking Status: Never smoker Past Alcohol Use History: None Reported, Occasional Past Drug Use History: None Reported Additional Drug Use History / Comment(s): edibles - Past Family History Father Family Medical History: Cancer Additional Family Medical History / Comment(s): melanoma Medications and Allergies Home Medications Medication Instructions Recorded Confirmed Type ALPRAZolam [Xanax] 0.25 - 0.5 mg PO TID PRN 03/15/21 06/24/21 History Albuterol Sulfate [Proventil Hfa] 2 puff INHALATION RT-Q4H PRN 05/19/21 06/24/21 History Ascorbic Acid/Elderberry Fruit 1 tab PO DAILY 05/19/21 06/24/21 History [Elderberry-Vit C 50-100 mg Chw] Calcium Carbonate [Calcium] 600 mg PO DAILY 05/19/21 06/24/21 History Cholecalciferol [Vitamin D3 (25 50 mcg PO DAILY 05/19/21 06/24/21 History Mcg = 1000 Iu)] Zinc 50 mg PO DAILY 05/19/21 06/24/21 History Acetaminophen Tab [Tylenol] 500 mg PO Q6HR PRN tab 06/05/21 06/24/21 Rx Ascorbic Acid [Vitamin C] 500 mg PO BID tab 06/05/21 06/24/21 Rx Benzonatate [Tessalon Perles] 100 mg PO TID PRN #60 cap 06/05/21 06/24/21 Rx Pantoprazole [Protonix] 40 mg PO AC-BID #60 tab 06/05/21 06/24/21 Rx busPIRone HCl [Buspar] 5 mg PO TID #60 tab 06/05/21 06/24/21 Rx Apixaban [Eliquis] 2.5 mg PO BID 06/24/21 06/24/21 History guaiFENesin-Coden 100-10MG/5ML 10 ml PO Q6H PRN 06/24/21 06/24/21 History [Jose Rafaelsin AC] Allergies Allergy/AdvReac Type Severity Reaction Status Date / Time No Known Allergies Allergy Verified 06/24/21 18:12 Physical Exam Vitals: Vital Signs Temp Pulse Pulse Resp BP BP Pulse Ox 06/25/21 09:18 97.8 F 97 18 126/78 94 L 06/25/21 05:54 98.2 F 82 18 131/85 96 06/25/21 02:19 87 97 06/25/21 00:57 97.2 F L 91 18 122/87 95 06/25/21 00:00 94 20 123/74 96 06/24/21 23:00 97 20 118/80 96 06/24/21 21:23 94 18 124/80 96 06/24/21 19:55 100 16 121/81 96 06/24/21 18:51 98.5 F 102 H 18 127/85 96 06/24/21 18:37 18 06/24/21 18:19 104 H 18 129/85 97 06/24/21 15:59 101.4 F H 06/24/21 15:07 98.4 F 114 H 24 124/76 95 Intake and Output 06/24/21 06/25/21 06/25/21 22:59 06:59 14:59 Output Total 550 Balance -550 Output: Urine 550 Other: Voiding Method Toilet Urinal Weight 104.326 kg Results CBC & Chem 7: 06/24/21 17:02 06/24/21 17:02 Labs: Abnormal Lab Results - Last 24 Hours (Table) 06/24/21 06/24/21 06/24/21 Range/Units 17:02 17:02 17:02 RBC 3.99 L (4.30-5.90) m/uL Hgb 12.9 L (13.0-17.5) gm/dL Hct 37.0 L (39.0-53.0) % Lymphocytes # 0.1 L (1.0-4.8) k/uL D-Dimer 0.84 H (<0.60) mg/L FEU Sodium 134 L (137-145) mmol/L Chloride 96 L (98-107) mmol/L Carbon Dioxide 31 H (22-30) mmol/L Glucose 117 H (74-99) mg/dL AST 70 H (17-59) U/L ALT 130 H (4-49) U/L Procalcitonin (0.02-0.09) ng/mL SARS-CoV-2 (PCR) (Not Detectd) 06/24/21 06/24/21 Range/Units 17:02 20:05 RBC (4.30-5.90) m/uL Hgb (13.0-17.5) gm/dL Hct (39.0-53.0) % Lymphocytes # (1.0-4.8) k/uL D-Dimer (<0.60) mg/L FEU Sodium (137-145) mmol/L Chloride (98-107) mmol/L Carbon Dioxide (22-30) mmol/L Glucose (74-99) mg/dL AST (17-59) U/L ALT (4-49) U/L Procalcitonin 0.14 H (0.02-0.09) ng/mL SARS-CoV-2 (PCR) Detected A (Not Detectd) Thrombosis Risk Factor Assmnt - Choose All That Apply Any of the Below Risk Factors Present?: Yes Each Factor Represents 1 point: Obesity (BMI >25), Serious lung disease incl. pneumonia (< 1month) Other Risk Factors: No Other congenital or acquired thrombophilia - If yes, enter type in comment: No Thrombosis Risk Factor Assessment Total Risk Factor Score: 2 Thrombosis Risk Factor Assessment Level: Low Risk
[2021-06-25] MEDS: ALBUTEROL HFA INHALER INHALATION PRN ×2 (15:12→19:41)
[2021-06-25] MEDS: PANTOPRAZOLE 40 MG TABLET PO SCH (17:01)
[2021-06-25] MEDS: METOPROLOL TARTRATE 12.5 MG TAB PO SCH (20:32)
--- NOTE | 2021-06-25 22:47 | P.CONS ---
History of Present Illness - Reason for Consult Consult date: 06/25/21 pneumonia Requesting physician: Newton Rivera - Chief Complaint shortness of breath x few days - History of Present Illness History of present illness : Patient is a 35-year-old male who was recently admitted at this facility and treated for COVID-19 pneumonia patient subsequently recovered and was discharged home patient mention that he was doing well however last few days the patient started having a increasing shortness of breath and the patient was having hard time keeping his oxygenation as he was dropping his O2 sats in the 70s with minimal exertion patient denies having any chest pain patient did have minimal cough but no sputum production. Denies any nausea no vomiting no choking on the food no abdominal pain or any diarrhea patient was noticed having some tachycardia with the symptoms the patient has been evaluated by the ER physician on arrival to the ER patient did have a fever of 101.4 degree form right patient was tachycardic did have mild hypoxemia requiring supplemental oxygen patient did have a normal white count with lymphopenia D-dimer was mildly elevated procalcitonin 0.14 creatinine 0.72 her urine is negative smith PCR was positive influenza and RSV was negative blood culture has been obtained patient did have a chest x-ray infiltrate atelectasis at lung bases with poor aspiration no change compared to old exam patient did have a CT angiogram of the chest no evidence of PE extensive patchy pneumonia atelectasis in both lung perez most significantly from overall compared to last exam patient was admitted to hospital has been started on vancomycin and cefepime infectious disease was consulted for further management Review of system: CONSTITUTIONAL: Positive for weakness along with the fever. EYES: No complaint. ENT: No complaint. RESPIRATORY: As per history of present illness. CARDIOVASCULAR: No complaint. GENITOURINARY: No complaint. GASTROINTESTINAL: No complaint. MUSCULOSKELETAL: No complaint. INTEGUMENTARY: No complaint. PSYCHOLOGIC: No complaint. ENDOCRINE: No complaint. NEUROLOGIC: No complaint. Past medical history : Reviewed, documented below Past surgical history : Reviewed, documented below Social history: Reviewed, documented below Medications: Reviewed, as documented below EXAMINATION: Vital sigans= Reviewed and documented below GENERAL DESCRIPTION: Middle-aged male lying in bed, no distress. No tachypnea or accessory muscle of respiration use. HEENT: Shows Pallor , no scleral icterus. Oral mucous membrane is dry. NECK: Trachea central, no thyromegaly. LUNGS: Unlabored breathing. Decreased distal breath sounds. No wheeze or crackle. HEART: S1, S2, regular rate and rhythm. ABDOMEN: Soft, no tenderness , guarding or rigidity EXTREMITIES: No edema of feet. SKIN: No rash, no masses palpable. NEUROLOGICAL: The patient is awake, alert, oriented x3, mood and affect normal. LABS AND RADIOLOGY: Reviewed results see below Assessment : Patient presented to hospital with increasing shortness of breath on minimal exertion patient also have a cough white count has been normal and no left shift in this patient recently recovered from a COVID-[address] of the chest and chest x-ray did not show significant change from the previous x-ray and has been ruled out for PE there would be high on the list concern for underlying secondary bacterial pneumonia not entirely excluded we will obtain his Plan: 1-we will obtain a sputum for Gram stain culture 2-check urine for Legionella antigen 3-vancomycin pharmacy to dose with a target trough of 15 while watching kidney function and Vanco trough closely. INPATIENT CODER will provide adequate antibiotic coverage We will follow on clinical condition and cultures to further adjust medication if needed Thank you for this consultation we will follow the patient along with you Past Medical History Past Medical History: Cancer, GERD/Reflux Additional Past Medical History / Comment(s): non-hodgkins lyphoma, multiple enlarged lymph nodes, elevated liver enzymes, hx pancreatitis , ulcerative colitis, covid History of Any Multi-Drug Resistant Organisms: None Reported Past Surgical History: No Surgical Hx Reported Additional Past Surgical History / Comment(s): wisdom teeth, lymph node removal from groin, mediport Past Anesthesia/Blood Transfusion Reactions: No Reported Reaction Past Psychological History: Anxiety Additional Psychological History / Comment(s): anxiety r/t health concerns Smoking Status: Never smoker Past Alcohol Use History: None Reported, Occasional Past Drug Use History: None Reported Additional Drug Use History / Comment(s): edibles - Past Family History Father Family Medical History: Cancer Additional Family Medical History / Comment(s): melanoma Medications and Allergies Home Medications Medication Instructions Recorded Confirmed Type ALPRAZolam [Xanax] 0.25 - 0.5 mg PO TID PRN 03/15/21 06/24/21 History Albuterol Sulfate [Proventil Hfa] 2 puff INHALATION RT-Q4H PRN 05/19/21 06/24/21 History Ascorbic Acid/Elderberry Fruit 1 tab PO DAILY 05/19/21 06/24/21 History [Elderberry-Vit C 50-100 mg Chw] Calcium Carbonate [Calcium] 600 mg PO DAILY 05/19/21 06/24/21 History Cholecalciferol [Vitamin D3 (25 50 mcg PO DAILY 05/19/21 06/24/21 History Mcg = 1000 Iu)] Zinc 50 mg PO DAILY 05/19/21 06/24/21 History Acetaminophen Tab [Tylenol] 500 mg PO Q6HR PRN tab 06/05/21 06/24/21 Rx Ascorbic Acid [Vitamin C] 500 mg PO BID tab 06/05/21 06/24/21 Rx Benzonatate [Tessalon Perles] 100 mg PO TID PRN #60 cap 06/05/21 06/24/21 Rx Pantoprazole [Protonix] 40 mg PO AC-BID #60 tab 06/05/21 06/24/21 Rx busPIRone HCl [Buspar] 5 mg PO TID #60 tab 06/05/21 06/24/21 Rx Apixaban [Eliquis] 2.5 mg PO BID 06/24/21 06/24/21 History guaiFENesin-Coden 100-10MG/5ML 10 ml PO Q6H PRN 06/24/21 06/24/21 History [Robitussin AC] Allergies Allergy/AdvReac Type Severity Reaction Status Date / Time No Known Allergies Allergy Verified 06/24/21 18:12 Physical Exam Vitals: Vital Signs Temp Pulse Pulse Resp BP BP Pulse Ox 06/25/21 09:18 97.8 F 97 18 126/78 94 L 06/25/21 05:54 98.2 F 82 18 131/85 96 06/25/21 02:19 87 97 06/25/21 00:57 97.2 F L 91 18 122/87 95 06/25/21 00:00 94 20 123/74 96 06/24/21 23:00 97 20 118/80 96 06/24/21 21:23 94 18 124/80 96 06/24/21 19:55 100 16 121/81 96 06/24/21 18:51 98.5 F 102 H 18 127/85 96 06/24/21 18:37 18 06/24/21 18:19 104 H 18 129/85 97 06/24/21 15:59 101.4 F H 06/24/21 15:07 98.4 F 114 H 24 124/76 95 Intake and Output 06/24/21 06/25/21 06/25/21 22:59 06:59 14:59 Output Total 550 Balance -550 Output: Urine 550 Other: Voiding Method Toilet Urinal Weight 104.326 kg Results CBC & Chem 7: 06/24/21 17:02 06/24/21 17:02 Labs: Abnormal Lab Results - Last 24 Hours (Table) 06/24/21 06/24/21 06/24/21 Range/Units 17:02 17:02 17:02 RBC 3.99 L (4.30-5.90) m/uL Hgb 12.9 L (13.0-17.5) gm/dL Hct 37.0 L (39.0-53.0) % Lymphocytes # 0.1 L (1.0-4.8) k/uL D-Dimer 0.84 H (<0.60) mg/L FEU Sodium 134 L (137-145) mmol/L Chloride 96 L (98-107) mmol/L Carbon Dioxide 31 H (22-30) mmol/L Glucose 117 H (74-99) mg/dL AST 70 H (17-59) U/L ALT 130 H (4-49) U/L Procalcitonin (0.02-0.09) ng/mL SARS-CoV-2 (PCR) (Not Detectd) 06/24/21 06/24/21 Range/Units 17:02 20:05 RBC (4.30-5.90) m/uL Hgb (13.0-17.5) gm/dL Hct (39.0-53.0) % Lymphocytes # (1.0-4.8) k/uL D-Dimer (<0.60) mg/L FEU Sodium (137-145) mmol/L Chloride (98-107) mmol/L Carbon Dioxide (22-30) mmol/L Glucose (74-99) mg/dL AST (17-59) U/L ALT (4-49) U/L Procalcitonin 0.14 H (0.02-0.09) ng/mL SARS-CoV-2 (PCR) Detected A (Not Detectd)
[2021-06-26] MEDS: VANCOMYCIN 1,750 MG in SODIUM CHLORIDE 0.9% 500 ML 500 ML IVPB SCH ×2 (03:31→09:15)
[2021-06-26] MEDS: CEFEPIME 2 GM in SODIUM CHLORIDE 0.9% 100 ML IVPB SCH ×2 (04:02→13:24)
[2021-06-26 06:17] LABS: Appearance,Urine Clear (Clear); Bilirubin,Urine Negative (Negative); Blood,Urine Negative (Negative); Color,Urine Yellow; Glucose,Urine (UA) Negative (Negative); Ketones,Urine Negative (Negative); Leukocyte Esterase,Urine Negative (Negative); Nitrite,Urine Negative (Negative); PH, Urine 6.5 (5.0-8.0); Protein,Urine Trace (Negative); Urobilinogen,Urine <2.0 mg/dL (<2.0)
[2021-06-26] MEDS: APIXABAN 2.5 MG TABLET PO SCH (08:00)
[2021-06-26] MEDS: dexAMETHasone 2 MG TAB PO SCH (08:00)
[2021-06-26] MEDS: busPIRone HCl 5 MG TAB PO SCH (08:00)
[2021-06-26] MEDS: ASCORBIC ACID 500 MG TAB PO SCH (08:00)
[2021-06-26] MEDS: PANTOPRAZOLE 40 MG TABLET PO SCH (08:00)
[2021-06-26] MEDS: CHOLECALCIFEROL 25 MCG (1000 IU) TABLET PO SCH (08:01)
[2021-06-26] MEDS: METOPROLOL TARTRATE 12.5 MG TAB PO SCH (08:01)
[2021-06-26] MEDS ORDERED: CALCIUM CARBONATE 500 MG CHEWABLE PO SCH (09:00)
[2021-06-26] MEDS ORDERED: ZINC SULFATE 220 MG CAP PO SCH (09:00)
[2021-06-26] MEDS: ALBUTEROL HFA INHALER INHALATION PRN ×2 (09:19→12:31)
[2021-06-26 10:23] VITALS: BP 112/71; PULSE 94; RESP 18; TEMP 98
--- NOTE | 2021-06-26 12:47 | P.DS ---
Providers Date of admission: 06/24/21 20:10 Expected date of discharge: 06/26/21 Attending physician: Misbah Card Consults: 06/24/21 20:07 Consult Physician Routine Consulting Provider: Janel Ansari Consult Reason/Comments: Pneumonia, hypoxia Do you want consulting provider notified?: Yes 06/24/21 20:08 Consult Physician Routine Consulting Provider: John Burns Consult Reason/Comments: Pneumonia Do you want consulting provider notified?: Yes Primary care physician: Newton Rivera MD Hospital Course: HISTORY OF PRESENT ILLNESS 55-year-old male clinic patient of [email or web address] with past medical history of diffuse large B-cell lymphoma completed chemotherapy with R CHOP on immunotherapy which is currently on hold since patient received immunomodulatory drugs, hypogammaglobulinemia receiving IVIG since patient was treated for Covid, history of Peter, history of pancreatitis, history of ulcerative colitis had a prolonged course of hospital stay from 05/18/2021-06/05/2021 for Covid pneumonia. Patient was discharged on 3 L of oxygen at rest. Patient was followed in the clinic and was noticed to be doing better. He came to the ER with hypoxia and fever. Patient also endorses significant palpitation and worsening anxiety due to his palpitations In the ER patient had a temperature 101.4 pulse of 104 respiratory rate 18 blood pressure 129/85 oxylate again 9798% on 4 L of oxygen. Labs were reviewed with patient had a WBC of 4.5 hemoglobin 12.9 R d-dimer 0.8 for sodium 134 chloride 96 bicarb 31 creatinine 0.7 glucose 117 EST 70 ALT 1:30 pro-calcitonin 0.14 CT angiogram of the chest was obtained on 06/24 R no evidence of pulmonary embolism CT extensive patchy pneumonia and atelectasis in bothnoted otherwise normal sick disc and then previous imaging Patient was initiated on vancomycin and cefepime and infectious disease was consulted. Pulmonary consulted 06/26: Patient remains afebrile, heart rate 94, blood pressure 112/71, pulse ox 97% on room air. Pro-calcitonin 0.14. Repeat urinalysis showed trace protein, no sign of infection. Blood culture no growth at 24 hours. Patient has been seen by infectious disease. Patient's breathing status is stable. He is anxious to be discharged home, is at bedside. Patient will be discharged today in stable condition. DISCHARGE DIAGNOSES Sepsis with SIRS secondary to Covid pneumonia with possible coinfection with bacterial pneumonia COVID-19 pneumonitis Sinus tachycardia Diffuse large B-cell lymphoma Reactive airway/asthma Generalized anxiety disorder Discharge plan: Home Greater than 35 minutes was utilized and coordinating patient's discharge. Impression and plan of care have been directed as dictated by the signing physician. Nevin Madera nurse practitioner acting as scribe for signing physician. Patient Condition at Discharge: Fair Plan - Discharge Summary New Discharge Prescriptions: New Amoxicillin/Potassium Clav [Augmentin 875-125 Tablet] 1 tab PO BID 7 Days #14 tab dexAMETHasone ORAL [Hexadrol] 6 mg PO DAILY #27 tab Metoprolol Tartrate [Lopressor] 12.5 mg PO BID #60 tab Continue Calcium Carbonate [Calcium] 600 mg PO DAILY Ascorbic Acid/Elderberry Fruit [Elderberry-Vit C 50-100 mg Chw] 1 tab PO DAILY Albuterol Sulfate [Proventil Hfa] 2 puff INHALATION RT-Q4H PRN PRN Reason: Shortness Of Breath Benzonatate [Tessalon Perles] 100 mg PO TID PRN #60 cap PRN Reason: Cough Acetaminophen Tab [Tylenol] 500 mg PO Q6HR PRN tab PRN Reason: Fever And/ Or Pain Apixaban [Eliquis] 2.5 mg PO BID busPIRone HCl [Buspar] 5 mg PO TID #270 tab ALPRAZolam [Xanax] 0.25 - 0.5 mg PO TID PRN PRN Reason: Anxiety Zinc 50 mg PO DAILY Cholecalciferol [Vitamin D3 (25 Mcg = 1000 Iu)] 50 mcg PO DAILY Pantoprazole [Protonix] 40 mg PO AC-BID #60 tab Ascorbic Acid [Vitamin C] 500 mg PO BID tab guaiFENesin-Coden 100-10MG/5ML [Robitussin AC] 10 ml PO Q6H PRN PRN Reason: Cough Discharge Medication List ALPRAZolam [Xanax] 0.25 - 0.5 mg PO TID PRN 03/15/21 [History] Albuterol Sulfate [Proventil Hfa] 2 puff INHALATION RT-Q4H PRN 05/19/21 [History] Ascorbic Acid/Elderberry Fruit [Elderberry-Vit C 50-100 mg Chw] 1 tab PO DAILY 05/19/21 [History] Calcium Carbonate [Calcium] 600 mg PO DAILY 05/19/21 [History] Cholecalciferol [Vitamin D3 (25 Mcg = 1000 Iu)] 50 mcg PO DAILY 05/19/21 [History] Zinc 50 mg PO DAILY 05/19/21 [History] Acetaminophen Tab [Tylenol] 500 mg PO Q6HR PRN tab 06/05/21 [Rx] Ascorbic Acid [Vitamin C] 500 mg PO BID tab 06/05/21 [Rx] Benzonatate [Tessalon Perles] 100 mg PO TID PRN #60 cap 06/05/21 [Rx] Pantoprazole [Protonix] 40 mg PO AC-BID #60 tab 06/05/21 [Rx] Apixaban [Eliquis] 2.5 mg PO BID 06/24/21 [History] guaiFENesin-Coden 100-10MG/5ML [Robitussin AC] 10 ml PO Q6H PRN 06/24/21 [History] Amoxicillin/Potassium Clav [Augmentin 875-125 Tablet] 1 tab PO BID 7 Days #14 tab 06/26/21 [Rx] Metoprolol Tartrate [Lopressor] 12.5 mg PO BID #60 tab 06/26/21 [Rx] busPIRone HCl [Buspar] 5 mg PO TID #270 tab 06/26/21 [Rx] dexAMETHasone ORAL [Hexadrol] 6 mg PO DAILY #27 tab 06/26/21 [Rx] Follow up Appointment(s)/Referral(s): [facility], [NON-STAFF] - 1-2 Days Newton Rivera MD [Primary Care Provider] - 1 Week Patient Instructions/Handouts: Viral Pneumonia (DC), Dyspnea (DC) Discharge Disposition: HOME WITH HOME HEALTH SERVICES
== END 2021-06-26 14:34 | disposition home health service (06) | DRG 871 ==
LOC: EC 14:55 → 3SCARD 20:10 → 1SOBS 22:55
PROVIDERS: ADMIT Internal Medicine Geriatric Medicine; ATTEND Internal Medicine Geriatric Medicine
DX: A41.89 Other specified sepsis (principal); J12.82 Pneumonia due to coronavirus disease 2019; J96.21 Acute and chronic respiratory failure with hypoxia; U07.1 COVID-19; J15.9 Unspecified bacterial pneumonia; D80.1 Nonfamilial hypogammaglobulinemia; C83.30 Diffuse large B-cell lymphoma, unspecified site; K51.90 Ulcerative colitis, unspecified, without complications; J98.11 Atelectasis; K21.9 Gastro-esophageal reflux disease without esophagitis; F41.1 Generalized anxiety disorder; J45.909 Unspecified asthma, uncomplicated; F06.4 Anxiety disorder due to known physiological condition; Z79.01 Long term (current) use of anticoagulants; Z79.899 Other long term (current) drug therapy; Z87.19 Personal history of other diseases of the digestive system; Z98.818 Other dental procedure status; Z90.89 Acquired absence of other organs; Z92.21 Personal history of antineoplastic chemotherapy; Z98.890 Other specified postprocedural states; Z80.8 Family history of malignant neoplasm of other organs or systems
CPT/HCPCS: 36415; 71045; 71046; 71275; 80053; 81003; 83605; 84145; 85025; 85379; 85610; 85730; 87040; 87449; 87636; 93005; 94640; 96374; 99285

== ENCOUNTER → 2021-07-30 | Outpatient (CLI) | payer MEDICAID ==
[2021-07-30 14:29] LABS: African American GFR (CKD) >90 (>60 ml/min/1.73 sqM); Blood Urea Nitrogen 11 mg/dL (9-20); Non-African American GFR(CKD) >90 (>60 ml/min/1.73 sqM)
--- NOTE | 2021-07-31 09:06 | CT ---
EXAMINATION TYPE: CT ChestAbdPelvis w con DATE OF EXAM: 07/30/2021 COMPARISON: Most recent full body CT November 22, 2020 and older studies. PET/CT June 22, 2020. CTA spike st 06/24/2021. HISTORY: Suspected mets, follicular lymphoma originally diagnosed June 05, 2020 on left groin bio psy. Hx Covid in April CT DLP: 2087 mGycm. Automated Exposure Control for Dose Reduction was Utilized. CONTRAST: CT scan of the thorax, abdomen and pelvis is performed with oral and with IV Contrast, patient inject ed with 100 mL of Isovue 300. FINDINGS: LUNGS: Diminished inspiration current study. Bilateral multifocal opacities and organizing consolidat ions redemonstrated. This has similar appearance to most recent CT June 24, 2021. No pleural effus ion or pneumothorax seen bilaterally. MEDIASTINUM: There are no new greater than 1 cm hilar or mediastinal lymph nodes. No cardiomegaly o r pericardial effusion is seen. Other:New Right internal jugular Mediport catheter terminates in SVC. No recurrent axillary adenopath y. LIVER/GB: Liver remains diffusely low dense consistent with diffuse fatty infiltration. PANCREAS: Stable mild prominence of the distal pancreatic body and tail. SPLEEN: No significant abnormality is seen. ADRENALS: No significant abnormality is seen. KIDNEYS: No significant abnormality is seen. BOWEL: No significant abnormality is seen. GENITAL ORGANS: No gross abnormality seen. LYMPH NODES: Persistent nii mesentery appearance in the upper to mid abdomen with few small subcent imeter lymph nodes. No new greater than 1 cm adenopathy. No significant change from most recent CT. OSSEOUS STRUCTURES: No significant abnormality is seen. OTHER: No significant additional abnormality is seen. IMPRESSION: 1. Mild nii mesentery appearance redemonstrated and stable. No new suspicious adenopathy identified . No significant change from most recent prior whole body CT November 22, 2020. 2. Persistent low lung volumes with bilateral multifocal groundglass opacities and organizing consoli dations not significant joint change from most recent CT June 24, 2021 could reflect product of po sttreatment change and/or recent covid-19 infection.
== END | disposition home or self-care (01) ==
LOC: RADPROMAIN 13:51
PROVIDERS: ATTEND Internal Medicine Hematology & Oncology
DX: C82.08 Follicular lymphoma grade I, lymph nodes of multiple sites (principal)
CPT/HCPCS: 82565; 84520; 71260; 74177; 36415; J1642; Q9967

== ENCOUNTER → 2021-10-07 | Outpatient (CLI) | payer MEDICAID ==
[2021-10-07 11:44] LABS: African American GFR (CKD) >90 (>60 ml/min/1.73 sqM); Blood Urea Nitrogen 4 mg/dL (9-20); Non-African American GFR(CKD) >90 (>60 ml/min/1.73 sqM)
--- NOTE | 2021-10-07 13:08 | CT ---
EXAMINATION TYPE: CT ChestAbdPelvis w con DATE OF EXAM: 10/07/2021 COMPARISON: CT dated 07/30/2021 HISTORY: Follow up for lymphoma. CT DLP: 2064 mGycm Automated exposure control for dose reduction was used. CONTRAST: CT scan of the chest, abdomen and pelvis is performed with Oral Contrast and with IV Contrast, patien t injected with 100ml mL of Isovue 300. FINDINGS: LUNGS: Significant interval improvement of the previously seen bilateral pulmonary patchy opacities a nd groundglass opacities with residual minimal atelectasis/fibrosis at the posterior aspect of the ri ght lower lung lobe superior segment. Residual minimal subtle groundglass opacities are seen in the l ungs. Grossly unremarkable lungs otherwise. Patent central airways. No pleural effusion. MEDIASTINUM: No pathologically enlarged or progressive lymph nodes in the chest. No gross cardiomegal y. Patent major mediastinal arteries. Right-sided Port-A-Cath with the tip is seen at the superior as pect of the SVC. No pericardial effusion. OTHER: No aggressive bone lesion. LIVER/GB: Diffuse hypodense hepatic parenchyma suggestive of hepatic steatosis. Subtle hypodensity is seen along the anterior aspect of the gallbladder within the liver likely representing a tiny hepati c cyst. No other definite hepatic focal lesion identified with the limitation of the hepatic steatosi s. The gallbladder is not distended. PANCREAS: No significant abnormality is seen. SPLEEN: No significant abnormality is seen. ADRENALS: No significant abnormality is seen. KIDNEYS: Grossly unremarkable. No hydroureter or hydronephrosis. Grossly unremarkable urinary bladder . BOWEL: No significant abnormality is seen. REPRODUCTIVE ORGANS: No gross abnormality seen. LYMPH NODES: Persistent nii root of mesentery without significant mesenteric lymph node enlargement , stable. No pathologically enlarged abdominal or pelvic lymph nodes. OSSEOUS STRUCTURES: No aggressive bone lesion. OTHER: No sizable ascites. Unremarkable abdominal aorta. Fat-containing umbilical hernia. IMPRESSION: 1. Stable nii root mesentery without interval progression. No pathologically enlarged or progressiv e lymph nodes in the chest, abdomen or the pelvis. 2. Significant interval improvement of the previously seen bilateral pulmonary infiltration and groun dglass opacities with residual changes as detailed above. 3. Diffuse hepatic hypodense parenchyma suggestive of hepatic steatosis with suspected tiny millimetr ic hepatic cyst, appreciated previously. Other incidental findings as described above.
== END | disposition home or self-care (01) ==
LOC: RADPROMAIN 10:40
PROVIDERS: ATTEND Internal Medicine Hematology & Oncology
DX: C82.08 Follicular lymphoma grade I, lymph nodes of multiple sites (principal); K76.0 Fatty (change of) liver, not elsewhere classified; R91.8 Other nonspecific abnormal finding of lung field
CPT/HCPCS: 82565; 84520; 71260; 74177; 36415; J1642; Q9967

== ENCOUNTER → 2022-01-24 | Outpatient (CLI) | payer MEDICAID ==
[2022-01-24 15:17] LABS: African American GFR (CKD) >90 (>60 ml/min/1.73 sqM); Blood Urea Nitrogen 10 mg/dL (9-20); Non-African American GFR(CKD) >90 (>60 ml/min/1.73 sqM)
--- NOTE | 2022-01-24 16:21 | CT ---
EXAMINATION TYPE: CT ChestAbdPelvis w con DATE OF EXAM: 01/24/2022 COMPARISON: 10/07/2021 and 07/30/2021 HISTORY: 36-year-old male C82.08, follicular lymphoma, observation for metastases. TECHNIQUE: Contiguous axial scanning of the chest, abdomen, and pelvis performed with IV Contrast, pa tient injected with 70 mL of Isovue 300. Delayed images through the kidneys were obtained. Coronal/sa gittal reconstructions performed. CT DLP: 2265.40 mGycm Automated exposure control for dose reduction was used. FINDINGS: CHEST: Right anterior chest wall injection port tip within the mid SVC. Heart normal size with trace anterior basilar pericardial fluid. Aorta normal caliber with conventional arch vessel branching anatomy. No thoracic lymphadenopathy by CT size criteria. Small focus of groundglass within the superior segment right lower lobe, axial image 30 is unchanged, likely postinfectious scarring. No consolidation or pleural effusion. ABDOMEN: Liver measures 21.8 cm low-attenuation compatible with hepatic steatosis. Portal venous system is pat ent. No biliary ductal dilatation. Gallbladder, adrenal glands, kidneys, spleen, and pancreas within normal limits. No dilated small bowel, free fluid, or free air. Tiny fatty umbilical hernia. Normal appendix. Mild stool burden. Oral contrast progressed to the descending colon. Mildly redundan t sigmoid colon. No pericolonic inflammatory change. Redemonstrated Central nii mesentery without any appreciable change. No associated mesenteric lymph adenopathy are seen. No retroperitoneal lymphadenopathy. PELVIS: Bladder distended. No abnormal fluid collection in the pelvis or pelvic lymphadenopathy. BONES: No osseous destructive process. IMPRESSION: 1. UNCHANGED CENTRAL ABDOMINAL NII MESENTERY. NO LYMPHADENOPATHY TO SUGGEST DISEASE PROGRESSION. 2. UNCHANGED GROUNDGLASS FOCUS SUPERIOR SEGMENT RIGHT LOWER LOBE, LIKELY POST INFECTIOUS SCARRING. 3. HEPATOMEGALY (21.8 CM) WITH HEPATIC STEATOSIS. CORRELATE WITH LFT's, LIPID PROFILE, AND PATIENT RI SK FACTORS.
== END | disposition home or self-care (01) ==
LOC: RADPROMAIN 12:57
PROVIDERS: ATTEND Internal Medicine Hematology & Oncology
DX: C82.08 Follicular lymphoma grade I, lymph nodes of multiple sites (principal); K76.0 Fatty (change of) liver, not elsewhere classified
CPT/HCPCS: 82565; 84520; 71260; 74177; 36415; Q9967

== ENCOUNTER → 2022-04-14 | Outpatient (CLI) | payer MEDICAID ==
[2022-04-14 09:43] LABS: Basophils % (A) 1 %; Eosinophils # (A) 0.1 k/uL (0-0.7); Eosinophils % (A) 2 %; HGB 13.8 gm/dL (13.0-17.5); Lymphocytes # (A) 0.6 k/uL (1.0-4.8); Lymphocytes % (A) 11 %; MCH 29.4 pg (25.0-35.0); MCHC 32.8 g/dL (31.0-37.0); MCV 89.7 fL (80.0-100.0); Mean Platelet Volume 6.8; Monocytes # (A) 0.5 k/uL (0-1.0); Monocytes % (A) 9 %; Neutrophils # (A) 3.8 k/uL (1.3-7.7); Neutrophils % (A) 75 %; Platelet Count 273 k/uL (150-450); RBC 4.68 m/uL (4.30-5.90); WBC 5.1 k/uL (3.8-10.6)
[2022-04-14 10:08] LABS: ALT 50 U/L (4-49); AST 42 U/L (17-59); African American GFR (CKD) >90 (>60 ml/min/1.73 sqM); Albumin 4.4 g/dL (3.5-5.0); Alkaline Phosphatase 104 U/L (38-126); Anion Gap 11 mmol/L; Blood Urea Nitrogen 10 mg/dL (9-20); Calcium 9.2 mg/dL (8.4-10.2); Carbon Dioxide 25 mmol/L (22-30); Chloride 101 mmol/L (98-107); Glucose 93 mg/dL (74-99); Non-African American GFR(CKD) >90 (>60 ml/min/1.73 sqM); Potassium 4.4 mmol/L (3.5-5.1); Sodium 137 mmol/L (137-145); Total Bilirubin 0.5 mg/dL (0.2-1.3); Total Protein 6.8 g/dL (6.3-8.2)
--- NOTE | 2022-04-14 11:11 | CT ---
EXAMINATION TYPE: CT ChestAbdPelvis w con DATE OF EXAM: 04/14/2022 COMPARISON: Most recent CT January 24, 2022 and older studies HISTORY: f/u lymphoma. Follicular lymphoma originally diagnosed June 05, 2020 on left groin biops y. CT DLP: 2277.1 mGycm. Automated Exposure Control for Dose Reduction was Utilized. CONTRAST: CT scan of the thorax, abdomen and pelvis is performed with oral and with IV Contrast, patient inject ed with 70cc mL of Isovue 300. FINDINGS: LUNGS: Persistent low lung volumes. Lungs currently clear. No pleural effusion or pneumothorax seen b ilaterally. No suspicious new nodules or masses. MEDIASTINUM: There are no new greater than 1 cm hilar or mediastinal lymph nodes. No cardiomegaly o r pericardial effusion is seen. Other: Stable Right internal jugular Mediport catheter. No recurrent suspicious axillary adenopathy. LIVER/GB: Liver remains diffusely low dense consistent with diffuse fatty infiltration. PANCREAS: No significant abnormality. SPLEEN: No significant abnormality is seen. ADRENALS: No significant abnormality is seen. KIDNEYS: No significant abnormality is seen. BOWEL: No significant abnormality is seen. GENITAL ORGANS: No gross abnormality seen. LYMPH NODES: Persistent nii mesentery appearance in the upper to mid abdomen with few small subcent imeter lymph nodes. Largest lymph node anterior to IVC measures 1.9 x 0.7 cm this likely growing over last 2 CTs. OSSEOUS STRUCTURES: No significant abnormality is seen. OTHER: Stable small fat-containing umbilical hernia. IMPRESSION: 1. Mild nii mesentery appearance redemonstrated and stable. Slow growing but subcentimeter lymph no de anterior to the IVC near the level of pancreatic head is nonspecific, active neoplastic recurrence cannot be excluded.
[2022-04-14 19:48] LABS: Immunoglobulin A 88.5 mg/dL (60.0-350.0)
[2022-04-14 20:24] LABS: Immunoglobulin M <25.0 mg/dL (40.0-280.0)
== END | disposition home or self-care (01) ==
LOC: RADPROMAIN 08:46
PROVIDERS: ATTEND Internal Medicine Hematology & Oncology
DX: C82.08 Follicular lymphoma grade I, lymph nodes of multiple sites (principal)
CPT/HCPCS: 80053; 85025; 82784 ×3; 71260; 74177; J1642; Q9967

== ENCOUNTER 2022-04-24 10:12 | Inpatient (IN) | payer MEDICAID ==
[2022-04-24] MEDS ORDERED: ACETAMINOPHEN TAB 500 MG TAB PO STA (13:07)
--- NOTE | 2022-04-24 13:09 | ED ---
Fever HPI - General Chief Complaint: Fever Stated Complaint: Fever, cancer pt, sent by Oncologist Time Seen by Provider: 04/24/22 11:48 Source: patient, RN notes reviewed Mode of arrival: ambulatory Limitations: no limitations - History of Present Illness Initial Comments: 36-year-old male presents emergency from for evaluation of fever. Patient states started on Thursday and Thursday. Patient did receive treatment for his non-Hodgkin lymphoma on . Patient did discuss case with oncologist in which they have been referred to the emergency from for evaluation of fever. Patient does complain of mild body aches no significant cough or cold-like symptoms denies any significant nausea vomiting diarrhea constipation does quite a headache and fever is present. Patient has been taking acetaminophen around the clock. Patient has no dysuria no sick contacts. - Related Data Home Medications Medication Instructions Recorded Confirmed ALPRAZolam [Xanax] 0.25 mg PO TID PRN 03/15/21 04/24/22 Ascorbic Acid/Elderberry Fruit 1 tab PO DAILY 05/19/21 04/24/22 [Elderberry-Vit C 50-100 mg Chw] Zinc 50 mg PO DAILY 05/19/21 04/24/22 Acetaminophen Tab [Tylenol] 1,000 mg PO Q6HR PRN 04/24/22 04/24/22 Ergocalciferol [Vitamin D2 (1250 1,250 mcg PO SA 04/24/22 04/24/22 Mcg = 28426 Iu)] Multivit-Min/Folic/Vit K/Lycop 1 tab PO DAILY 04/24/22 04/24/22 [Men's Multivitamin Tablet] Ondansetron Odt [Zofran Odt] 8 mg PO BID PRN 04/24/22 04/24/22 Pantoprazole [Protonix] 40 mg PO DAILY 04/24/22 04/24/22 Previous Rx's Medication Instructions Recorded Ascorbic Acid [Vitamin C] 500 mg PO BID tab 06/05/21 Allergies Allergy/AdvReac Type Severity Reaction Status Date / Time No Known Allergies Allergy Verified 04/24/22 13:19 Review of Systems ROS Statement: Those systems with pertinent positive or pertinent negative responses have been documented in the HPI. ROS Other: All systems not noted in ROS Statement are negative. Past Medical History Past Medical History: Cancer, GERD/Reflux Additional Past Medical History / Comment(s): non-hodgkins lyphoma, multiple enlarged lymph nodes, elevated liver enzymes, hx pancreatitis , ulcerative colitis, covid History of Any Multi-Drug Resistant Organisms: None Reported Past Surgical History: No Surgical Hx Reported Additional Past Surgical History / Comment(s): wisdom teeth, lymph node removal from groin, mediport Past Anesthesia/Blood Transfusion Reactions: No Reported Reaction Past Psychological History: Anxiety Smoking Status: Never smoker - Past Family History Father Family Medical History: Cancer Additional Family Medical History / Comment(s): melanoma General Exam Limitations: no limitations General appearance: alert, in no apparent distress Eye exam: Present: normal appearance, PERRL, EOMI. Absent: scleral icterus, conjunctival injection, periorbital swelling ENT exam: Present: normal exam, normal oropharynx, mucous membranes moist Neck exam: Present: normal inspection, full ROM. Absent: tenderness, meningismus, lymphadenopathy Respiratory exam: Present: normal lung sounds bilaterally. Absent: respiratory distress, wheezes, rales, rhonchi, stridor Cardiovascular Exam: Present: regular rate, normal rhythm, normal heart sounds. Absent: systolic murmur, diastolic murmur, rubs, gallop, clicks GI/Abdominal exam: Present: soft, normal bowel sounds. Absent: distended, tenderness, guarding, rebound, rigid Neurological exam: Present: alert, oriented X3, CN II-XII intact Skin exam: Present: warm, dry, intact, normal color. Absent: rash Course Vital Signs 04/24/22 04/24/22 11:36 11:48 Temperature 99.4 F Pulse Rate 96 Respiratory 20 16 Rate Blood Pressure 137/88 O2 Sat by Pulse 100 Oximetry Medical Decision Making - Medical Decision Making 36-year-old male presented for fever history of non-Hodgkin's lymphoma. I did discuss case with Dr. Hess recommends a antibiotics, pending blood cultures, infectious disease consult - Lab Data Result diagrams: 04/24/22 13:33 04/24/22 13:33 Lab Results 04/24/22 04/24/22 04/24/22 Range/Units 13:33 13:33 13:33 WBC 4.3 (3.8-10.6) k/uL RBC 4.96 (4.30-5.90) m/uL Hgb 14.7 (13.0-17.5) gm/dL Hct 43.0 (39.0-53.0) % MCV 86.8 (80.0-100.0) fL MCH 29.6 (25.0-35.0) pg MCHC 34.1 (31.0-37.0) g/dL RDW 12.5 (11.5-15.5) % Plt Count 152 (150-450) k/uL MPV 7.3 Neutrophils % 79 % Lymphocytes % 8 % Monocytes % 9 % Eosinophils % 1 % Basophils % 1 % Neutrophils # 3.4 (1.3-7.7) k/uL Lymphocytes # 0.4 L (1.0-4.8) k/uL Monocytes # 0.4 (0-1.0) k/uL Eosinophils # 0.1 (0-0.7) k/uL Basophils # 0.0 (0-0.2) k/uL Sodium 137 (137-145) mmol/L Potassium 3.5 (3.5-5.1) mmol/L Chloride 103 (98-107) mmol/L Carbon Dioxide 23 (22-30) mmol/L Anion Gap 11 mmol/L BUN 9 (9-20) mg/dL Creatinine 0.87 (0.66-1.25) mg/dL Est GFR (CKD-EPI)AfAm >90 (>60 ml/min/1.73 sqM) Est GFR (CKD-EPI)NonAf >90 (>60 ml/min/1.73 sqM) Glucose 85 (74-99) mg/dL Plasma Lactic Acid Leonard (0.7-2.0) mmol/L Calcium 8.0 L (8.4-10.2) mg/dL Total Bilirubin 0.5 (0.2-1.3) mg/dL AST 43 (17-59) U/L ALT 41 (4-49) U/L Alkaline Phosphatase 90 (38-126) U/L Lactate Dehydrogenase 505 (313-618) U/L C-Reactive Protein 8.1 H (<1.0) mg/dL Total Protein 7.0 (6.3-8.2) g/dL Albumin 4.0 (3.5-5.0) g/dL Lipase 87 (23-300) U/L Urine Color Yellow Urine Appearance Clear (Clear) Urine pH 6.0 (5.0-8.0) Ur Specific Deport 1.032 (1.001-1.035) Urine Protein 1+ H (Negative) Urine Glucose (UA) Negative (Negative) Urine Ketones 1+ H (Negative) Urine Blood Trace H (Negative) Urine Nitrite Negative (Negative) Urine Bilirubin Negative (Negative) Urine Urobilinogen 2.0 (<2.0) mg/dL Ur Leukocyte Esterase Negative (Negative) Urine RBC 2 (0-5) /hpf Urine WBC 1 (0-5) /hpf Urine Mucus Occasional H (None) /hpf Influenza Type A (PCR) (Not Detectd) Influenza Type B (PCR) (Not Detectd) RSV (PCR) (Not Detectd) SARS-CoV-2 (PCR) (Not Detectd) 04/24/22 04/24/22 Range/Units 13:33 13:33 WBC (3.8-10.6) k/uL RBC (4.30-5.90) m/uL Hgb (13.0-17.5) gm/dL Hct (39.0-53.0) % MCV (80.0-100.0) fL MCH (25.0-35.0) pg MCHC (31.0-37.0) g/dL RDW (11.5-15.5) % Plt Count (150-450) k/uL MPV Neutrophils % % Lymphocytes % % Monocytes % % Eosinophils % % Basophils % % Neutrophils # (1.3-7.7) k/uL Lymphocytes # (1.0-4.8) k/uL Monocytes # (0-1.0) k/uL Eosinophils # (0-0.7) k/uL Basophils # (0-0.2) k/uL Sodium (137-145) mmol/L Potassium (3.5-5.1) mmol/L Chloride (98-107) mmol/L Carbon Dioxide (22-30) mmol/L Anion Gap mmol/L BUN (9-20) mg/dL Creatinine (0.66-1.25) mg/dL Est GFR (CKD-EPI)AfAm (>60 ml/min/1.73 sqM) Est GFR (CKD-EPI)NonAf (>60 ml/min/1.73 sqM) Glucose (74-99) mg/dL Plasma Lactic Acid Leonard 0.8 (0.7-2.0) mmol/L Calcium (8.4-10.2) mg/dL Total Bilirubin (0.2-1.3) mg/dL AST (17-59) U/L ALT (4-49) U/L Alkaline Phosphatase (38-126) U/L Lactate Dehydrogenase (313-618) U/L C-Reactive Protein (<1.0) mg/dL Total Protein (6.3-8.2) g/dL Albumin (3.5-5.0) g/dL Lipase (23-300) U/L Urine Color Urine Appearance (Clear) Urine pH (5.0-8.0) Ur Specific Deport (1.001-1.035) Urine Protein (Negative) Urine Glucose (UA) (Negative) Urine Ketones (Negative) Urine Blood (Negative) Urine Nitrite (Negative) Urine Bilirubin (Negative) Urine Urobilinogen (<2.0) mg/dL Ur Leukocyte Esterase (Negative) Urine RBC (0-5) /hpf Urine WBC (0-5) /hpf Urine Mucus (None) /hpf Influenza Type A (PCR) Not Detected (Not Detectd) Influenza Type B (PCR) Not Detected (Not Detectd) RSV (PCR) Not Detected (Not Detectd) SARS-CoV-2 (PCR) Not Detected (Not Detectd) Disposition Clinical Impression: Fever, Non Hodgkin's lymphoma Disposition: ADMITTED IP TO THIS HOSP Condition: Fair Referrals: Misbah Card MD [Primary Care Provider] - 1-2 days Time of Disposition: 15:27
--- NOTE | 2022-04-24 13:12 | XR ---
EXAMINATION TYPE: XR chest 2V DATE OF EXAM: 04/24/2022 1:07 PM COMPARISON: Chest radiographs from 06/25/2021, CT chest abdomen pelvis 04/14/2022 TECHNIQUE: XR chest 2V Frontal and lateral views of the chest. CLINICAL INDICATION:Male, 36 years old with history of fever; FINDINGS: Lungs/Pleura: Low lung lines without evidence for focal consolidation, pneumothorax or pleural effusi on. Pulmonary vascularity: Unremarkable. Heart/mediastinum: Cardiomediastinal silhouette is unremarkable. Musculoskeletal: No acute osseous pathology. Other findings: None Lines/Tubes: Right IJ Mediport catheter terminates in the mid SVC, stable. IMPRESSION: Low lung volumes without evidence for acute cardiopulmonary process.
[2022-04-24 13:47] LABS: Basophils % (A) 1 %; Eosinophils # (A) 0.1 k/uL (0-0.7); Eosinophils % (A) 1 %; HGB 14.7 gm/dL (13.0-17.5); Lymphocytes # (A) 0.4 k/uL (1.0-4.8); Lymphocytes % (A) 8 %; MCH 29.6 pg (25.0-35.0); MCHC 34.1 g/dL (31.0-37.0); MCV 86.8 fL (80.0-100.0); Mean Platelet Volume 7.3; Monocytes # (A) 0.4 k/uL (0-1.0); Monocytes % (A) 9 %; Neutrophils # (A) 3.4 k/uL (1.3-7.7); Neutrophils % (A) 79 %; Platelet Count 152 k/uL (150-450); RBC 4.96 m/uL (4.30-5.90); RDW 12.5 % (11.5-15.5); WBC 4.3 k/uL (3.8-10.6)
[2022-04-24 13:50] LABS: Appearance,Urine Clear (Clear); Bilirubin,Urine Negative (Negative); Blood,Urine Trace (Negative); Color,Urine Yellow; Glucose,Urine (UA) Negative (Negative); Ketones,Urine 1+ (Negative); Leukocyte Esterase,Urine Negative (Negative); Mucus,Urine Occasional /hpf; Nitrite,Urine Negative (Negative); Protein,Urine 1+ (Negative); RBC,Urine 2 /hpf (0-5); Specific Gravity,Urine 1.032 (1.001-1.035); WBC,Urine 1 /hpf (0-5)
[2022-04-24 14:02] LABS: ALT 41 U/L (4-49); AST 43 U/L (17-59); African American GFR (CKD) >90 (>60 ml/min/1.73 sqM); Alkaline Phosphatase 90 U/L (38-126); Anion Gap 11 mmol/L; Blood Urea Nitrogen 9 mg/dL (9-20); C Reactive Protein 8.1 mg/dL (<1.0); Carbon Dioxide 23 mmol/L (22-30); Chloride 103 mmol/L (98-107); Glucose 85 mg/dL (74-99); LDH 505 U/L (313-618); Lipase 87 U/L (23-300); Non-African American GFR(CKD) >90 (>60 ml/min/1.73 sqM); Potassium 3.5 mmol/L (3.5-5.1); Sodium 137 mmol/L (137-145); Total Bilirubin 0.5 mg/dL (0.2-1.3)
[2022-04-24] MEDS ORDERED: CEFEPIME 2 GM in SODIUM CHLORIDE 0.9% 100 ML IVPB STA (15:27)
[2022-04-24] MEDS ORDERED: ONDANSETRON 4 MG/2 ML VIAL IVP PRN (15:28)
[2022-04-24] MEDS ORDERED: NALOXONE 0.4 MG/ML 1 ML VIAL IV PRN (15:28)
[2022-04-24] MEDS ORDERED: ONDANSETRON ODT 8 MG TAB.RAPDIS PO PRN (15:29)
[2022-04-24] MEDS: SODIUM CHLORIDE 0.9% 1,000 ML IV SCH (17:31)
[2022-04-24] MEDS: ACETAMINOPHEN TAB 500 MG TAB PO PRN (19:20)
[2022-04-24] MEDS: ASCORBIC ACID 500 MG TAB PO SCH (19:21)
[2022-04-24] MEDS ORDERED: VANCOMYCIN IV PER PHARMACY 1 EACH MISC MISCELLANE PRN (23:13)
[2022-04-24] MEDS ORDERED: VANCOMYCIN 1,750 MG in SODIUM CHLORIDE 0.9% 500 ML 500 ML IVPB ONE (23:30)
[2022-04-25] MEDS: ACETAMINOPHEN TAB 500 MG TAB PO PRN ×3 (02:49→18:48)
[2022-04-25] MEDS: CEFEPIME 2 GM in SODIUM CHLORIDE 0.9% 100 ML IVPB SCH ×3 (02:55→17:01)
[2022-04-25] MEDS: SODIUM CHLORIDE 0.9% 1,000 ML IV SCH ×2 (05:37→14:35)
[2022-04-25] MEDS: PANTOPRAZOLE 40 MG TABLET PO SCH (07:54)
[2022-04-25] MEDS: ASCORBIC ACID 500 MG TAB PO SCH ×2 (07:54→19:58)
[2022-04-25] MEDS: ZINC SULFATE 220 MG CAP PO SCH (07:55)
[2022-04-25] MEDS: VANCOMYCIN 1,750 MG in SODIUM CHLORIDE 0.9% 500 ML 500 ML IVPB SCH ×3 (07:55→23:42)
[2022-04-25] MEDS: MULTIVITAMINS, THERA 1 EACH TAB PO SCH (07:55)
[2022-04-25] MEDS ORDERED: NON FORMULARY DRUG (Ascorbic Acid/Elderberry Fruit [Elderberry-Vit C 50-100 Mg Chw] 1 EACH PO SCH (09:00)
[2022-04-25 09:25] LABS: Basophils % (A) 1 %; Eosinophils % (A) 1 %; HCT 37.3 % (39.0-53.0); HGB 12.7 gm/dL (13.0-17.5); Lymphocytes # (A) 0.3 k/uL (1.0-4.8); Lymphocytes % (A) 9 %; MCH 29.7 pg (25.0-35.0); MCHC 34.2 g/dL (31.0-37.0); MCV 86.8 fL (80.0-100.0); Mean Platelet Volume 7.6; Monocytes # (A) 0.3 k/uL (0-1.0); Monocytes % (A) 11 %; Neutrophils # (A) 2.5 k/uL (1.3-7.7); Neutrophils % (A) 76 %; Platelet Count 174 k/uL (150-450); RDW 12.9 % (11.5-15.5); WBC 3.3 k/uL (3.8-10.6)
[2022-04-25 09:48] LABS: ALT 39 U/L (4-49); AST 37 U/L (17-59); African American GFR (CKD) >90 (>60 ml/min/1.73 sqM); Albumin 3.8 g/dL (3.5-5.0); Albumin/Globulin Ratio 1.4; Alkaline Phosphatase 92 U/L (38-126); Anion Gap 10 mmol/L; Blood Urea Nitrogen 9 mg/dL (9-20); C Reactive Protein 8.6 mg/dL (<1.0); Calcium 8.5 mg/dL (8.4-10.2); Carbon Dioxide 24 mmol/L (22-30); Chloride 102 mmol/L (98-107); Globulin 2.7 g/dL; Glucose 125 mg/dL (74-99); Non-African American GFR(CKD) >90 (>60 ml/min/1.73 sqM); Potassium 3.9 mmol/L (3.5-5.1); Sodium 136 mmol/L (137-145); Total Bilirubin 0.5 mg/dL (0.2-1.3); Total Protein 6.5 g/dL (6.3-8.2)
--- NOTE | 2022-04-25 10:12 | P.CONS ---
History of Present Illness - Reason for Consult Consult date: 04/24/22 Fever, non-Hodgkin lymphoma Requesting physician: Gurjit Worley - Chief Complaint Fever 5 days - History of Present Illness Patient is a 36-year-old male with a past medical history significant for non-Hodgkin lymphoma patient last chemo was back in November 2021 and the patient did have right chest wall Mediport patient did mention that has been getting IVIG infusion monthly and the last transfusion was on 04/17/2022, patient started having a fever over the weekend with the patient has been treating it with the Tylenol patient complaining of some body aches however the patient denies having any headache no URI symptoms no chest pain or shortness of the culprit denies any abdominal pain and no diarrhea and no urinary symptoms patient subsequently has been advised to go to the hospital for management of his fever patient did have low-grade fever 100.4 today, on presentation to the hospital the patient did have a normal white count mildly foot pain and kidney function was normal he was able normal urine was negative patient did have negative SARS-CoV-2 and influenza PCR and chest x-ray was negative infectious he was consulted for further management of his fever Review of Systems Positive point has been mentioned in the HPI rest of the systems are negative Past Medical History Past Medical History: Cancer, GERD/Reflux Additional Past Medical History / Comment(s): non-hodgkins lyphoma, multiple enlarged lymph nodes, elevated liver enzymes, hx pancreatitis , ulcerative colitis, covid, pulmonary fibrosis History of Any Multi-Drug Resistant Organisms: None Reported Past Surgical History: No Surgical Hx Reported Additional Past Surgical History / Comment(s): wisdom teeth, lymph node removal from groin, mediport Past Anesthesia/Blood Transfusion Reactions: No Reported Reaction Past Psychological History: Anxiety Additional Psychological History / Comment(s): anxiety r/t health concerns Smoking Status: Never smoker Past Alcohol Use History: None Reported, Occasional Past Drug Use History: None Reported - Past Family History Father Family Medical History: Cancer Additional Family Medical History / Comment(s): melanoma Medications and Allergies Home Medications Medication Instructions Recorded Confirmed Type ALPRAZolam [Xanax] 0.25 mg PO TID PRN 03/15/21 04/24/22 History Ascorbic Acid/Elderberry Fruit 1 tab PO DAILY 05/19/21 04/24/22 History [Elderberry-Vit C 50-100 mg Chw] Zinc 50 mg PO DAILY 05/19/21 04/24/22 History Ascorbic Acid [Vitamin C] 500 mg PO BID tab 06/05/21 04/24/22 Rx Acetaminophen Tab [Tylenol] 1,000 mg PO Q6HR PRN 04/24/22 04/24/22 History Ergocalciferol [Vitamin D2 (1250 1,250 mcg PO SA 04/24/22 04/24/22 History Mcg = 73666 Iu)] Multivit-Min/Folic/Vit K/Lycop 1 tab PO DAILY 04/24/22 04/24/22 History [Men's Multivitamin Tablet] Ondansetron Odt [Zofran Odt] 8 mg PO BID PRN 04/24/22 04/24/22 History Pantoprazole [Protonix] 40 mg PO DAILY 04/24/22 04/24/22 History Allergies Allergy/AdvReac Type Severity Reaction Status Date / Time No Known Allergies Allergy Verified 04/24/22 13:19 Physical Exam Vitals: Vital Signs Temp Pulse Pulse Resp BP BP Pulse Ox 04/24/22 20:30 99.3 F 04/24/22 20:00 83 16 04/24/22 19:43 100.4 F H 83 16 126/78 97 04/24/22 17:12 98.1 F 81 16 118/78 96 04/24/22 16:52 70 16 98 04/24/22 11:48 16 04/24/22 11:36 99.4 F 96 20 137/88 100 Intake and Output 04/24/22 04/24/22 04/25/22 14:59 22:59 06:59 Other: Weight 113.398 kg 113.398 kg GENERAL DESCRIPTION: Middle-aged male lying in bed, no distress. No tachypnea or accessory muscle of respiration use. HEENT: Shows Pallor , no scleral icterus. Oral mucous membrane is dry. No pharyngeal erythema or thrush NECK: Trachea central, no thyromegaly. LUNGS: Unlabored breathing. Clear to auscultation anteriorly. No wheeze or crackle. HEART: S1, S2, regular rate and rhythm. No loud murmur ABDOMEN: Soft, no tenderness , guarding or rigidity, no organomegaly EXTREMITIES: No edema of feet. SKIN: No rash, no masses palpable. NEUROLOGICAL: The patient is awake, alert, oriented x3, mood and affect normal. Results CBC & Chem 7: 04/26/22 06:29 04/26/22 06:29 Labs: Abnormal Lab Results - Last 24 Hours (Table) 04/24/22 04/24/22 04/24/22 Range/Units 13:33 13:33 13:33 Lymphocytes # 0.4 L (1.0-4.8) k/uL Calcium 8.0 L (8.4-10.2) mg/dL C-Reactive Protein 8.1 H (<1.0) mg/dL Urine Protein 1+ H (Negative) Urine Ketones 1+ H (Negative) Urine Blood Trace H (Negative) Urine Mucus Occasional H (None) /hpf Assessment and Plan (1) Fever Current Visit: Yes Status: Acute Priority: High Code(s): R50.9 - FEVER, UNSPECIFIED SNOMED Code(s): 407807783 Plan: 1patient present to hospital with fever in this patient who do have a history of non-Hodgkin lymphoma and apparently has been getting monthly IVIG infusion the last infusion was on 04/17/2022 2 days later the patient started spiking fever in this patient with initial work-up has been negative with negative SARS-CoV-2 influenza PCR chest x-ray was negative urine is negative abdominal soft ankle examination no evidence of an cellulitis question of possible port infection. 2blood culture has been obtained and those will be followed. 3we will empirically add vancomycin and cefepime while waiting for the culture to finalize. We will follow on clinical condition and cultures to further adjust medication if needed Thank you for this consultation will follow this patient along with you Time with Patient: Greater than 30
--- NOTE | 2022-04-25 12:59 | P.HPIM ---
History of Present Illness H&P Date: 04/25/22 Chief Complaint: Fever History of present illness; patient is a 36-year-old gentleman with past medical history significant for Non-Hodgkin's lymphoma who presented to the ER for fever that has been going on for last week. Patient does complain of mild body aches no significant cough or cold-like symptoms. Patient denies any significant nausea vomiting diarrhea constipation . Patient complaining of headache when fever is present. Patient has been taking acetaminophen around the clock. Patient finished his chemotherapy in November but still has right chest wall MediPort from which patient is getting IVIG infusions with the last one being on . Cause of this persistent fever, oncologist recommended the patient to come to the ER of [facility]. Patient was worked up in the ER, initial workup showed a white count of 3.3 rest of the lab work was benign. COVID-19 was negative, influenza was also negative. Patient was started on broad- spectrum antibiotics and was admitted to the medicine team. REVIEW OF SYSTEMS: CONSTITUTIONAL: As mentioned in HPI HEENT: No recent visual problems or hearing problems. Denied any sore throat. CARDIOVASCULAR: No chest pain, orthopnea, PND, no palpitations, no syncope. PULMONARY: No shortness of breath, no cough, no hemoptysis. GASTROINTESTINAL: No diarrhea, no nausea, no vomiting, no abdominal pain. NEUROLOGICAL: No headaches, no weakness, no numbness. HEMATOLOGICAL: Denies any bleeding or petechiae. GENITOURINARY: Denies any burning micturition, frequency, or urgency. MUSCULOSKELETAL/RHEUMATOLOGICAL: Denies any joint pain, swelling, or any muscle pain. ENDOCRINE: Denies any polyuria or polydipsia. The rest of the 14-point review of systems is negative. PHYSICAL EXAMINATION: GENERAL: The patient is alert and oriented x3, not in any acute distress. Well developed, well nourished. HEENT: Pupils are round and equally reacting to light. EOMI. No scleral icterus. No conjunctival pallor. Normocephalic, atraumatic. No pharyngeal erythema. No thyromegaly. CARDIOVASCULAR: S1 and S2 present. No murmurs, rubs, or gallops. PULMONARY: Chest is clear to auscultation, no wheezing or crackles. ABDOMEN: Soft, nontender, nondistended, normoactive bowel sounds. No palpable organomegaly. MUSCULOSKELETAL: No joint swelling or deformity. EXTREMITIES: No cyanosis, clubbing, or pedal edema. NEUROLOGICAL: Gross neurological examination did not reveal any focal deficits. SKIN: No rashes. Assessment Fever of unknown origin Non-Hodgkin lymphoma Plan; Monitor vital signs Monitor CBC Monitor CMP Blood cultures ordered Continue IV cefepime and vancomycin for now Consult hematology oncology Consult ID DVT prophylaxis: SCDs Past Medical History Past Medical History: Cancer, GERD/Reflux Additional Past Medical History / Comment(s): non-hodgkins lyphoma, multiple en larged lymph nodes, elevated liver enzymes, hx pancreatitis , ulcerative colitis, covid, pulmonary fibrosis History of Any Multi-Drug Resistant Organisms: None Reported Past Surgical History: No Surgical Hx Reported Additional Past Surgical History / Comment(s): wisdom teeth, lymph node removal from groin, mediport Past Anesthesia/Blood Transfusion Reactions: No Reported Reaction Past Psychological History: Anxiety Additional Psychological History / Comment(s): anxiety r/t health concerns Smoking Status: Never smoker Past Alcohol Use History: None Reported, Occasional Past Drug Use History: None Reported - Past Family History Father Family Medical History: Cancer Additional Family Medical History / Comment(s): melanoma Medications and Allergies Home Medications Medication Instructions Recorded Confirmed Type ALPRAZolam [Xanax] 0.25 mg PO TID PRN 03/15/21 04/24/22 History Ascorbic Acid/Elderberry Fruit 1 tab PO DAILY 05/19/21 04/24/22 History [Elderberry-Vit C 50-100 mg Chw] Zinc 50 mg PO DAILY 05/19/21 04/24/22 History Ascorbic Acid [Vitamin C] 500 mg PO BID tab 06/05/21 04/24/22 Rx Acetaminophen Tab [Tylenol] 1,000 mg PO Q6HR PRN 04/24/22 04/24/22 History Ergocalciferol [Vitamin D2 (1250 1,250 mcg PO SA 04/24/22 04/24/22 History Mcg = 63173 Iu)] Multivit-Min/Folic/Vit K/Lycop 1 tab PO DAILY 04/24/22 04/24/22 History [Men's Multivitamin Tablet] Ondansetron Odt [Zofran Odt] 8 mg PO BID PRN 04/24/22 04/24/22 History Pantoprazole [Protonix] 40 mg PO DAILY 04/24/22 04/24/22 History Allergies Allergy/AdvReac Type Severity Reaction Status Date / Time No Known Allergies Allergy Verified 04/24/22 13:19 Physical Exam Vitals: Vital Signs Temp Pulse Pulse Resp BP Pulse Ox 04/25/22 11:38 98.2 F 84 18 119/72 99 04/25/22 10:31 98.5 F 04/25/22 03:48 98.5 F 89 16 115/67 94 L 04/25/22 02:45 99.2 F 04/24/22 20:30 99.3 F 04/24/22 20:00 83 16 04/24/22 19:43 100.4 F H 83 16 126/78 97 04/24/22 17:12 98.1 F 81 16 118/78 96 04/24/22 16:52 70 16 98 Intake and Output 04/24/22 04/25/22 04/25/22 22:59 06:59 14:59 Intake Total 2390 296 Balance 2390 296 Intake: Intake, IV Titration 1800 Amount Cefepime 2 gm In Sodium 100 Chloride 0.9% 100 ml @ 25 mls/hr IVPB Q8H [facility] Rx#: [id number] Sodium Chloride 0.9% 1, 1200 000 ml @ 100 mls/hr IV . Q10H [facility] Rx#:[id number] Vancomycin 1,750 mg In 500 Sodium Chloride 0.9% 500 ml 500 ml @ 167 mls/hr IVPB Q8H [facility] Rx#: [id number] Oral 590 296 Other: Voiding Method Toilet # Voids 3 1 Weight 113.398 kg Results CBC & Chem 7: 04/25/22 08:35 04/25/22 08:35 Labs: Abnormal Lab Results - Last 24 Hours (Table) 04/24/22 04/24/22 04/24/22 Range/Units 13:33 13:33 13:33 WBC (3.8-10.6) k/uL Hgb (13.0-17.5) gm/dL Hct (39.0-53.0) % Lymphocytes # 0.4 L (1.0-4.8) k/uL Sodium (137-145) mmol/L Glucose (74-99) mg/dL Calcium 8.0 L (8.4-10.2) mg/dL C-Reactive Protein 8.1 H (<1.0) mg/dL Urine Protein 1+ H (Negative) Urine Ketones 1+ H (Negative) Urine Blood Trace H (Negative) Urine Mucus Occasional H (None) /hpf 04/25/22 04/25/22 Range/Units 08:35 08:35 WBC 3.3 L (3.8-10.6) k/uL Hgb 12.7 L (13.0-17.5) gm/dL Hct 37.3 L (39.0-53.0) % Lymphocytes # 0.3 L (1.0-4.8) k/uL Sodium 136 L (137-145) mmol/L Glucose 125 H (74-99) mg/dL Calcium (8.4-10.2) mg/dL C-Reactive Protein 8.6 H (<1.0) mg/dL Urine Protein (Negative) Urine Ketones (Negative) Urine Blood (Negative) Urine Mucus (None) /hpf Thrombosis Risk Factor Assmnt - Choose All That Apply Any of the Below Risk Factors Present?: No Other Risk Factors: No Other congenital or acquired thrombophilia - If yes, enter type in comment: No Thrombosis Risk Factor Assessment Level: Very Low Risk
--- NOTE | 2022-04-25 14:26 | P.CONS ---
History of Present Illness - Reason for Consult Consult date: 04/25/22 NHL Requesting physician: Gurjit Worley - Chief Complaint fever - History of Present Illness Mr. Redmond is a very pleasant male pt of Dr. Hess who has been treated for NHL, diagnosed late 2019 (see below for cancer Hx). He is currently admitted with c/i fever, as high as 103F, he has been taking tylenol ATC but fever cont to return. He has notes a few drenching night sweats in the last week, fatigue in increasing. He denies oral irritation, sore throat, ear pain, cough, abd pain, N,V, dysuria, diarrhea, rashes, ill contacts. On admit CXR no acute process, UA neg, pending blood cultures from port and peripherally. He is on empiric abx, Tmax since admit 100.3F. He is eating and drinking. He received IVIG last week. He admits that he has been doing a lot recently, he is under stress because of recent imaging showing a slight increase in LAD. Malignancy Hx: Initially saw pt fall 2019, he had persistent bright red blood per rectum, progressive thrombocytopenia and possible left ax LN/mass. Hx hemorrhoids for the past 10 years, occasional bleeding, utilizing stool softeners, does cause pain in the rectum at times. About December/January 2020 bleeding became consistent, actually dripping at times. In March he is noticed petechiae on his legs after working in the yard. His platelets were in the 130s at that time. There was no anemia, previous CBCs were within normal limits. No other unusual bruising or bleeding, occasional right abdominal cramping,noticed swelling in the left axilla, could feel something in the tissue. Over the summer his energy levels declined, last few weeks he's had night sweats to the point of soaking the sheets and when his touches them he's clammy. [place] showed, positive DIALLO titer of 1:320, CT AP significant adenopathy involving the mesentery, bilateral iliac chains, as well as the left inguinal regions. Had a left inguinal lymph node biopsy on 06/05/20, positive for grade 1, B-cell follicular lymphoma. He received 6 cycles of Bendamustine- Gazyva, completing those on 11/15/20. He was then placed on maintenance immunotherapy. CT after cycle 3 showed an excellent response with only one measurable, mildly enlarged node noted in the abdomen. Had colonoscopy on 06/12/20 and was told that there appears to be inflammation in the distal colon/rectum. Biopsies showed early colitis. He was placed on maintenance mab. He had COVID mid 05/09, with symptomatic recovery prior to receiving C3 of maintenance. He had completed his initial set of vaccinations in 12/07. He then developed recurrent SOB, and lung infiltrates, with testing for coronavirus positive, he had a prolonged hospital admit, ultimately discharged 06/05/21, on 4 L of oxygen. Maintenance treatment was held at his visit in 06/09 and the patient placed on observation. In 07/09, while traveling in [place], the pat jami developed severe hypoxia, and was admitted to the hospital. He had a prolonged hospitalization with extensive pulmonary workup including lung biopsy. While biopsy is pending, he was treated for PCP, but workup for that ultimately came back negative. 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 He continued to test positive for Covid. 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 Pt was then evaluated at the [facility]. As he was still testing positive for Covid, he received Remdesivir and Regen MoAB. He also receive IVIG in early 08/10. As vasculitis appeared to be ruled out, he was started on a steroid taper. In Aug 2021, after spending time at [facility], seen at [facility], finally pt could sit without O2 on and maintain sats in mid-high 90's. At that time he had received IVIG, 5 doses remdesivir, 1 dose of regeneron. He finally cleared the virus aroun September, off O2, he reports he had a great summer, felt good, good energy. Last seen in ofc 04/21, reported some increased fatigue over the past few weeks, did admit to a lot of activity. CBC normal, IgG levels at his last visit were greater than 1000 mg/dL. CT CAP again shows some nii mesentery in the right lower quadrant, as before. However this mentions possibility of an enlarging lymph node, measuring 1.9 x 0.7 cm. Given overall minor degree of change, with no other adenopathy and no definite B symptoms-until the last few days-it was recommended that the patient continue on surveillance. Repeat CT scans at shorter interval, in 2 months. Patient was also advised to monitor himself carefully and let us know immediately if he developed any persistent B symptoms. Review of Systems 10 point ROS is neg except as stated in HPI Past Medical History Past Medical History: Cancer, GERD/Reflux Additional Past Medical History / Comment(s): non-hodgkins lyphoma, multiple enlarged lymph nodes, elevated liver enzymes, hx pancreatitis , ulcerative colitis, covid, pulmonary fibrosis History of Any Multi-Drug Resistant Organisms: None Reported Past Surgical History: No Surgical Hx Reported Additional Past Surgical History / Comment(s): wisdom teeth, lymph node removal from groin, mediport Past Anesthesia/Blood Transfusion Reactions: No Reported Reaction Past Psychological History: Anxiety Additional Psychological History / Comment(s): anxiety r/t health concerns Smoking Status: Never smoker Past Alcohol Use History: None Reported, Occasional Past Drug Use History: None Reported - Past Family History Father Family Medical History: Cancer Additional Family Medical History / Comment(s): melanoma Medications and Allergies Home Medications Medication Instructions Recorded Confirmed Type ALPRAZolam [Xanax] 0.25 mg PO TID PRN 03/15/21 04/24/22 History Ascorbic Acid/Elderberry Fruit 1 tab PO DAILY 05/19/21 04/24/22 History [Elderberry-Vit C 50-100 mg Chw] Zinc 50 mg PO DAILY 05/19/21 04/24/22 History Ascorbic Acid [Vitamin C] 500 mg PO BID tab 06/05/21 04/24/22 Rx Acetaminophen Tab [Tylenol] 1,000 mg PO Q6HR PRN 04/24/22 04/24/22 History Ergocalciferol [Vitamin D2 (1250 1,250 mcg PO SA 04/24/22 04/24/22 History Mcg = 04805 Iu)] Multivit-Min/Folic/Vit K/Lycop 1 tab PO DAILY 04/24/22 04/24/22 History [Men's Multivitamin Tablet] Ondansetron Odt [Zofran Odt] 8 mg PO BID PRN 04/24/22 04/24/22 History Pantoprazole [Protonix] 40 mg PO DAILY 04/24/22 04/24/22 History Allergies Allergy/AdvReac Type Severity Reaction Status Date / Time No Known Allergies Allergy Verified 04/24/22 13:19 Physical Exam Vitals: Vital Signs Temp Pulse Pulse Resp BP Pulse Ox 04/25/22 11:38 98.2 F 84 18 119/72 99 04/25/22 10:31 98.5 F 04/25/22 03:48 98.5 F 89 16 115/67 94 L 04/25/22 02:45 99.2 F 04/24/22 20:30 99.3 F 04/24/22 20:00 83 16 04/24/22 19:43 100.4 F H 83 16 126/78 97 04/24/22 17:12 98.1 F 81 16 118/78 96 04/24/22 16:52 70 16 98 Intake and Output 04/24/22 04/25/22 04/25/22 22:59 06:59 14:59 Intake Total 2390 296 Balance 2390 296 Intake: Intake, IV Titration 1800 Amount Cefepime 2 gm In Sodium 100 Chloride 0.9% 100 ml @ 25 mls/hr IVPB Q8H [facility] Rx#: [id number] Sodium Chloride 0.9% 1, 1200 000 ml @ 100 mls/hr IV . Q10H [facility] Rx#:[id number] Vancomycin 1,750 mg In 500 Sodium Chloride 0.9% 500 ml 500 ml @ 167 mls/hr IVPB Q8H [facility] Rx#: [id number] Oral 590 296 Other: Voiding Method Toilet # Voids 3 1 Weight 113.398 kg - Constitutional General appearance: average body habitus, cooperative, no acute distress - EENT Eyes: anicteric sclerae, EOMI ENT: hearing grossly normal, normal oropharynx - Neck Neck: no lymphadenopathy - Respiratory Respiratory: bilateral: CTA - Cardiovascular Rhythm: regular Heart sounds: normal: S1, S2 Abnormal Heart Sounds: no systolic murmur, no diastolic murmur, no rub, no S3 Gallop, no S4 Gallop, no click, no other leg Peripheral Edema: bilateral: None - Gastrointestinal General gastrointestinal: no absent bowel sounds, no decreased bowel sounds, no distended, no hepatomegaly, no hyperactive bowel sounds, normal bowel sounds, no organomegaly, no rigid, no scaphoid, soft, no splenomegaly, no tenderness, no umbilical hernia, no ventral hernia - Integumentary Integumentary: normal - Neurologic Neurologic: CNII-XII intact - Musculoskeletal Musculoskeletal: strength equal bilaterally - Psychiatric Psychiatric: A&O x's 3, appropriate affect, intact judgment & insight Results CBC & Chem 7: 04/25/22 08:35 04/25/22 08:35 Labs: Abnormal Lab Results - Last 24 Hours (Table) 04/24/22 04/24/22 04/24/22 Range/Units 13:33 13:33 13:33 WBC (3.8-10.6) k/uL Hgb (13.0-17.5) gm/dL Hct (39.0-53.0) % Lymphocytes # 0.4 L (1.0-4.8) k/uL Sodium (137-145) mmol/L Glucose (74-99) mg/dL Calcium 8.0 L (8.4-10.2) mg/dL C-Reactive Protein 8.1 H (<1.0) mg/dL Urine Protein 1+ H (Negative) Urine Ketones 1+ H (Negative) Urine Blood Trace H (Negative) Urine Mucus Occasional H (None) /hpf 04/25/22 04/25/22 Range/Units 08:35 08:35 WBC 3.3 L (3.8-10.6) k/uL Hgb 12.7 L (13.0-17.5) gm/dL Hct 37.3 L (39.0-53.0) % Lymphocytes # 0.3 L (1.0-4.8) k/uL Sodium 136 L (137-145) mmol/L Glucose 125 H (74-99) mg/dL Calcium (8.4-10.2) mg/dL C-Reactive Protein 8.6 H (<1.0) mg/dL Urine Protein (Negative) Urine Ketones (Negative) Urine Blood (Negative) Urine Mucus (None) /hpf Chest x-ray: report reviewed Assessment and Plan (1) Fever Current Visit: Yes Status: Acute Priority: High Code(s): R50.9 - FEVER, UNSPECIFIED SNOMED Code(s): 410137893 (2) Non Hodgkin's lymphoma Current Visit: No Status: Chronic Priority: Medium Code(s): C85.90 - NON- HODGKIN LYMPHOMA, UNSPECIFIED, UNSPECIFIED SITE SNOMED Code(s): 172789158 Plan: Pancultures pending. Empiric abx. Tmax 100.3F since admit. ID consulted Pt is report [id number] sweats, fatigue. Pending infection work up 1st. If his symptoms resolve with infection treatment will cont with current surveillance. If B symptoms persist or progress then further work up will be planned. Monitor Labs
[2022-04-26] MEDS: CEFEPIME 2 GM in SODIUM CHLORIDE 0.9% 100 ML IVPB SCH ×3 (02:19→18:02)
[2022-04-26] MEDS: SODIUM CHLORIDE 0.9% 1,000 ML IV SCH ×3 (02:20→20:16)
[2022-04-26] MEDS: ZINC SULFATE 220 MG CAP PO SCH (09:00)
[2022-04-26] MEDS: ASCORBIC ACID 500 MG TAB PO SCH ×2 (09:00→20:14)
[2022-04-26] MEDS: PANTOPRAZOLE 40 MG TABLET PO SCH (09:00)
[2022-04-26] MEDS ORDERED: ERGOCALCIFEROL 1,250 MCG (50,000 IU) CAPSULE PO SCH (09:00)
[2022-04-26] MEDS: MULTIVITAMINS, THERA 1 EACH TAB PO SCH (09:00)
[2022-04-26] MEDS: VANCOMYCIN 1,750 MG in SODIUM CHLORIDE 0.9% 500 ML 500 ML IVPB SCH ×3 (09:00→23:41)
[2022-04-26 09:07] LABS: Basophils # (A) 0.03 X 10*3/uL (0.00-0.10); Basophils % (A) 0.7 %; Eosinophils # (A) 0.07 X 10*3/uL (0.04-0.35); Eosinophils % (A) 1.7 %; HCT 35.2 % (39.6-50.0); HGB 12.2 g/dL (13.0-17.0); Immature Grans, Automated 0.2 %; Lymphocytes # (A) 0.39 X 10*3/uL (0.90-5.00); Lymphocytes % (A) 9.5 %; MCHC 34.7 g/dL (32.0-37.0); MCV 86.5 fL (80.0-97.0); Mean Platelet Volume 9.2 fL (9.5-12.2); Monocytes # (A) 0.81 X 10*3/uL (0.20-1.00); Monocytes % (A) 19.8 %; NRBC Per 100 WBC 0 /100 WBCS (0.0-0.0); Neutrophils # (A) 2.79 X 10*3/uL (1.80-7.70); Neutrophils % (A) 68.1 %; Platelet Count 181 X 10*3/uL (140-440); RBC 4.07 X 10*6/uL (4.40-5.60); RDW 12.4 % (11.5-14.5)
[2022-04-26 09:08] LABS: African American GFR (CKD) 112.5 (60.0-200.0); Albumin 3.8 g/dL (3.8-4.9); Albumin/Globulin Ratio 1.58 (1.60-3.17); Anion Gap 10.6 mmol/L (10.00-18.00); Calcium 8.6 mg/dL (8.7-10.3); Carbon Dioxide 23.4 mmol/L (20.0-27.5); Globulin 2.4 g/dL (1.6-3.3); Non-African American GFR(CKD) 97.1 (60.0-200.0); Potassium 3.9 mmol/L (3.5-5.5); Total Bilirubin 0.3 mg/dL (0.30-1.20); Total Protein 6.2 g/dL (6.2-8.2)
--- NOTE | 2022-04-26 09:18 | P.PN ---
Subjective Progress Note Date: 04/25/22 Principal diagnosis: Fever Patient is a 36 year male with a past medical history significant for non-Hodgkin lymphoma last chemo November 2021 however has been getting monthly IV IgG through the right chest wall Mediport last infusion was on 04/17/2022, presented to the hospital with a fever on today's evaluation, that is 04/25/2022 the patient did have a low-grade fever 100.4F last evening the patient is afebrile this morning, the patient is breathing comfortably on room air, denies having any chest pain or shortness of breath or cough no nausea no vomiting no abdominal pain or diarrhea Objective - Vital Signs Vital signs: Vital Signs Temp 98.2 F 04/25/22 11:38 Pulse 84 04/25/22 11:38 Resp 18 04/25/22 11:38 BP 119/72 04/25/22 11:38 Pulse Ox 99 04/25/22 11:38 FiO2 Intake & Output 04/24/22 04/25/22 04/25/22 18:59 06:59 18:59 Intake Total 2390 296 Balance 2390 296 Weight 113.398 kg Intake: Intake, IV Titration 1800 Amount Cefepime 2 gm In Sodium 100 Chloride 0.9% 100 ml @ 25 mls/hr IVPB Q8H [facility] Rx#: [id number] Sodium Chloride 0.9% 1, 1200 000 ml @ 100 mls/hr IV . Q10H [facility] Rx#:[id number] Vancomycin 1,750 mg In 500 Sodium Chloride 0.9% 500 ml 500 ml @ 167 mls/hr IVPB Q8H [facility] Rx#: [id number] Oral 590 296 Other: Voiding Method Toilet # Voids 3 1 - Exam GENERAL DESCRIPTION: Middle-aged male lying in bed in no distress RESPIRATORY SYSTEM: Unlabored breathing , decreased breath sounds at bases HEART: S1 S2 regular rate and rhythm , ABDOMEN: Soft , no tenderness EXTREMITIES: No edema feet - Labs CBC & Chem 7: 04/26/22 06:29 04/26/22 06:29 Labs: Abnormal Lab Results - Last 24 Hours (Table) 04/24/22 04/24/22 04/24/22 Range/Units 13:33 13:33 13:33 WBC (3.8-10.6) k/uL Hgb (13.0-17.5) gm/dL Hct (39.0-53.0) % Lymphocytes # 0.4 L (1.0-4.8) k/uL Sodium (137-145) mmol/L Glucose (74-99) mg/dL Calcium 8.0 L (8.4-10.2) mg/dL C-Reactive Protein 8.1 H (<1.0) mg/dL Urine Protein 1+ H (Negative) Urine Ketones 1+ H (Negative) Urine Blood Trace H (Negative) Urine Mucus Occasional H (None) /hpf 04/25/22 04/25/22 Range/Units 08:35 08:35 WBC 3.3 L (3.8-10.6) k/uL Hgb 12.7 L (13.0-17.5) gm/dL Hct 37.3 L (39.0-53.0) % Lymphocytes # 0.3 L (1.0-4.8) k/uL Sodium 136 L (137-145) mmol/L Glucose 125 H (74-99) mg/dL Calcium (8.4-10.2) mg/dL C-Reactive Protein 8.6 H (<1.0) mg/dL Urine Protein (Negative) Urine Ketones (Negative) Urine Blood (Negative) Urine Mucus (None) /hpf Assessment and Plan (1) Fever Current Visit: Yes Status: Acute Priority: High Code(s): R50.9 - FEVER, UNSPECIFIED SNOMED Code(s): 418410857 Plan: 1patient present to hospital with fever in this patient who do have a history of non-Hodgkin lymphoma and apparently has been getting monthly IVIG infusion the last infusion was on 04/17/2022 2 days later the patient started spiking fever in this patient with initial work-up has been negative with negative SARS-CoV-2 influenza PCR chest x-ray was negative urine is negative abdominal soft on clinical examination no evidence of an cellulitis question of possible port infection. 2blood culture has been obtained and those are currently pending 3patient to continue with vancomycin and cefepime while waiting for the culture to finalize. Time with Patient: Less than 30
[2022-04-26] MEDS ORDERED: VANCOMYCIN TROUGH DUE 1 EACH MISC MISCELLANE ONE (15:00)
--- NOTE | 2022-04-26 17:38 | P.PN ---
Subjective patient is a 36-year-old gentleman with past medical history significant for Non-Hodgkin's lymphoma who presented to the ER for fever that has been going on for last week. Patient does complain of mild body aches no significant cough or cold-like symptoms. Patient denies any significant nausea vomiting diarrhea constipation . Patient complaining of headache when fever is present. Patient has been taking acetaminophen around the clock. Patient finished his chemotherapy in November but still has right chest wall MediPort from which patient is getting IVIG infusions with the last one being on 04/17/22. Cause of this persistent fever, oncologist recommended the patient to come to the ER of [facility]. Patient was worked up in the ER, initial workup showed a white count of 3.3 rest of the lab work was benign. COVID-19 was negative, influenza was also negative. Patient was started on broad-spectrum antibiotics and was admitted to the medicine team. Recommended care of the patient 04/26/2022 Patient was admitted with fever of unknown origin, suspected port infection as workup was unremarkable including chest x-ray, urinalysis, blood culture so far is negative as well. Abdomen is soft with no abdominal pain symptoms. No evidence of rash. Patient currently covered with cefepime and IV vancomycin and normal saline at 100 mL per hour. The blue BCs 4.1K, hemoglobin 12.2 and normal platelet count and BMP. Creatinine 1.0. No more fever. Patient states his fever feels better and appetite is better as well. Ohcalcitonin is elevated at 0.5 Objective - Vital Signs Vital signs: Vital Signs Temp 98.2 F 04/26/22 12:24 Pulse 79 04/26/22 12:24 Resp 16 04/26/22 12:24 BP 117/73 04/26/22 12:24 Pulse Ox 97 04/26/22 12:24 FiO2 Intake & Output 04/25/22 04/26/22 04/26/22 18:59 06:59 18:59 Intake Total 592 2250 Balance 592 2250 Intake: Intake, IV Titration 1800 Amount Cefepime 2 gm In Sodium 100 Chloride 0.9% 100 ml @ 25 mls/hr IVPB Q8H [facility] Rx#: [id number] Sodium Chloride 0.9% 1, 1200 000 ml @ 100 mls/hr IV . Q10H [facility] Rx#:[id number] Vancomycin 1,750 mg In 500 Sodium Chloride 0.9% 500 ml 500 ml @ 167 mls/hr IVPB Q8H [facility] Rx#: [id number] Oral 592 450 Other: Voiding Method Toilet Toilet Toilet # Voids 1 - Exam GENERAL: The patient is alert and oriented x3, not in any acute distress. Well developed, well nourished. HEENT: Pupils are round and equally reacting to light. EOMI. No scleral icterus. No conjunctival pallor. Normocephalic, atraumatic. No pharyngeal erythema. No thyromegaly. CARDIOVASCULAR: S1 and S2 present. No murmurs, rubs, or gallops. -PULMONARY: Chest is clear to auscultation, no wheezing or crackles. Right upp er port ABDOMEN: Soft, nontender, nondistended, normoactive bowel sounds. No palpable organomegaly. MUSCULOSKELETAL: No joint swelling or deformity. EXTREMITIES: No cyanosis, clubbing, or pedal edema. NEUROLOGICAL: Gross neurological examination did not reveal any focal deficits. SKIN: No rashes. no petechiae. - Labs CBC & Chem 7: 04/26/22 06:29 04/26/22 06:29 Labs: Abnormal Lab Results - Last 24 Hours (Table) 04/26/22 04/26/22 04/26/22 Range/Units 06:29 06:29 06:29 WBC 4.10 L (4.50-10.00) X 10*3/uL RBC 4.07 L (4.40-5.60) X 10*6/uL Hgb 12.2 L (13.0-17.0) g/dL Hct 35.2 L (39.6-50.0) % MPV 9.2 L (9.5-12.2) fL Lymphocytes # 0.39 L (0.90-5.00) X 10*3/uL BUN 6.0 L (9.0-27.0) mg/dL BUN/Creatinine Ratio 6.00 L (12.00-20.00) Ratio Calcium 8.6 L (8.7-10.3) mg/dL Albumin/Globulin Ratio 1.58 L (1.60-3.17) g/dL Procalcitonin 0.50 H (0.02-0.09) ng/mL Microbiology - Last 24 Hours (Table) 04/25/22 08:35 Blood Culture - Preliminary Blood No Growth after 24 hours 04/24/22 13:33 Blood Culture - Preliminary Blood No Growth after 24 hours 04/24/22 13:33 Blood Culture - Preliminary Blood No Growth after 24 hours Assessment and Plan Assessment: Fever of unknown origin, port infection is suspected History of non-Hodgkin lymphoma status post IVIG infusion last was on 04/10 Obesity with BMI of 55.9. Plan: Continue with IV cefepime and IV vancomycin per ID team Continue with IV hydration Consulting us on the case hematology/oncology and infectious disease team Labs and medication were reviewed.. Continue same treatment. Continue with symptomatic treatment. Resume home medication. Monitor lytes and vitals. DVT and GI prophylaxis. Further recommendations as per clinical course of the patient DVT prophylaxis: Subcutaneous Lovenox GI Prophylaxis: Pepcid Prognosis is guarded
[2022-04-27] MEDS: CEFEPIME 2 GM in SODIUM CHLORIDE 0.9% 100 ML IVPB SCH ×3 (01:54→18:22)
[2022-04-27] MEDS: ALPRAZolam 0.25 MG TAB PO PRN (04:20)
[2022-04-27] MEDS: SODIUM CHLORIDE 0.9% 1,000 ML IV SCH ×2 (05:47→15:49)
[2022-04-27] MEDS: ASCORBIC ACID 500 MG TAB PO SCH ×2 (08:30→20:01)
[2022-04-27] MEDS: VANCOMYCIN 1,750 MG in SODIUM CHLORIDE 0.9% 500 ML 500 ML IVPB SCH ×2 (08:30→15:48)
[2022-04-27] MEDS: ENOXAPARIN 40 MG/0.4 ML SYRINGE SQ SCH ×2 (08:30→08:32)
[2022-04-27] MEDS: MULTIVITAMINS, THERA 1 EACH TAB PO SCH (08:30)
[2022-04-27] MEDS: PANTOPRAZOLE 40 MG TABLET PO SCH (08:30)
[2022-04-27] MEDS: ZINC SULFATE 220 MG CAP PO SCH (08:30)
[2022-04-27 10:32] LABS: Basophils # (A) 0.03 X 10*3/uL (0.00-0.10); Basophils % (A) 0.7 %; Eosinophils % (A) 2.5 %; HCT 37.4 % (39.6-50.0); HGB 12.4 g/dL (13.0-17.0); Immature Grans, Automated 0 %; Lymphocytes # (A) 0.49 X 10*3/uL (0.90-5.00); Lymphocytes % (A) 12.2 %; MCHC 33.2 g/dL (32.0-37.0); MCV 90.3 fL (80.0-97.0); Mean Platelet Volume 9.3 fL (9.5-12.2); NRBC Per 100 WBC 0 /100 WBCS (0.0-0.0); Neutrophils # (A) 2.59 X 10*3/uL (1.80-7.70); Neutrophils % (A) 64.6 %; Platelet Count 200 X 10*3/uL (140-440); RBC 4.14 X 10*6/uL (4.40-5.60); RDW 12.5 % (11.5-14.5); WBC 4.01 X 10*3/uL (4.50-10.00)
[2022-04-27 10:38] LABS: African American GFR (CKD) 112.5 (60.0-200.0); Anion Gap 9.5 mmol/L (10.00-18.00); BUN/Creat Ratio 6.3 Ratio (12.00-20.00); Blood Urea Nitrogen 6.3 mg/dL (9.0-27.0); Calcium 8.6 mg/dL (8.7-10.3); Carbon Dioxide 28.5 mmol/L (20.0-27.5); Non-African American GFR(CKD) 97.1 (60.0-200.0)
--- NOTE | 2022-04-27 11:27 | P.PN ---
Subjective Progress Note Date: 04/27/22 Principal diagnosis: Fever NHL, follicular lymphoma Feels much better. Afebrile for the past 2 days. Objective - Vital Signs Vital signs: Vital Signs Temp 98.6 F 04/27/22 04:15 Pulse 87 04/27/22 04:15 Resp 16 04/27/22 04:15 BP 107/69 04/27/22 04:15 Pulse Ox 97 04/27/22 04:15 FiO2 Intake & Output 04/26/22 04/27/22 04/27/22 18:59 06:59 18:59 Intake Total 2814 Balance 2814 Intake: Intake, IV Titration 1800 Amount Cefepime 2 gm In Sodium 100 Chloride 0.9% 100 ml @ 25 mls/hr IVPB Q8H [facility] Rx#: [id number] Sodium Chloride 0.9% 1, 1200 000 ml @ 100 mls/hr IV . Q10H [facility] Rx#:[id number] Vancomycin 1,750 mg In 500 Sodium Chloride 0.9% 500 ml 500 ml @ 167 mls/hr IVPB Q8H [facility] Rx#: [id number] Oral 1014 Other: Voiding Method Toilet Toilet # Voids 4 3 # Bowel Movements 0 - Exam General: TONEY HEENT: No scleral icterus. Mucosa moist Neck: Supple Lungs: No respiratory distress Heart: Regular rate Neuro: Alert and oriented x3 Psych: Appropriate affect Skin: No jaundice - Labs CBC & Chem 7: 04/27/22 06:02 04/27/22 06:02 Labs: Abnormal Lab Results - Last 24 Hours (Table) 04/26/22 04/26/22 04/26/22 Range/Units 06:29 06:29 06:29 WBC 4.10 L (4.50-10.00) X 10*3/uL RBC 4.07 L (4.40-5.60) X 10*6/uL Hgb 12.2 L (13.0-17.0) g/dL Hct 35.2 L (39.6-50.0) % MPV 9.2 L (9.5-12.2) fL Lymphocytes # 0.39 L (0.90-5.00) X 10*3/uL BUN 6.0 L (9.0-27.0) mg/dL BUN/Creatinine Ratio 6.00 L (12.00-20.00) Ratio Calcium 8.6 L (8.7-10.3) mg/dL Albumin/Globulin Ratio 1.58 L (1.60-3.17) g/dL Procalcitonin 0.50 H (0.02-0.09) ng/mL Microbiology - Last 24 Hours (Table) 04/24/22 13:33 Blood Culture - Preliminary Blood No Growth after 48 hours 04/24/22 13:33 Blood Culture - Preliminary Blood No Growth after 48 hours 04/25/22 08:35 Blood Culture - Preliminary Blood No Growth after 24 hours Assessment and Plan Assessment: 1. Fever, likely infectious 2. Follicular lymphoma 3. Normocytic anemia, due to acute illness Plan: Mr. Redmond is a very pleasant 36 yo male with history of Follicular Lymphoma, pt of Dr. Hess's, s/p chemotherapy with BR followed by maintenance R for high risk disease, course complicated by COVID infection and persistent hypoxia likely due to inflammation which has since resolved, here for fevers, up to 103. Started on antibiotics and feeling much better, with resolution of his fevers. Has been on active surveillance for his lymphoma which we will continue with at this time. I doubt his fevers are related to his underlying lymphoma as they have resolved with antibiotics, and more likely are infectious in nature. Counseled pt and family regarding this. Discussed with pt and family at bedside and they are agreeable to the plan. All questions were answered.
--- NOTE | 2022-04-27 14:47 | P.PN ---
Subjective patient is a 36-year-old gentleman with past medical history significant for Non-Hodgkin's lymphoma who presented to the ER for fever that has been going on for last week. Patient does complain of mild body aches no significant cough or cold-like symptoms. Patient denies any significant nausea vomiting diarrhea constipation . Patient complaining of headache when fever is present. Patient has been taking acetaminophen around the clock. Patient finished his chemotherapy in November but still has right chest wall MediPort from which patient is getting IVIG infusions with the last one being on 04/17/22. Cause of this persistent fever, oncologist recommended the patient to come to the ER of [facility]. Patient was worked up in the ER, initial workup showed a white count of 3.3 rest of the lab work was benign. COVID-19 was negative, influenza was also negative. Patient was started on broad-spectrum antibiotics and was admitted to the medicine team. Recommended care of the patient 04/26/2022 Patient was admitted with fever of unknown origin, suspected port infection as workup was unremarkable including chest x-ray, urinalysis, blood culture so far is negative as well. Abdomen is soft with no abdominal pain symptoms. No evidence of rash. Patient currently covered with cefepime and IV vancomycin and normal saline at 100 mL per hour. The blue BCs 4.1K, hemoglobin 12.2 and normal platelet count and BMP. Creatinine 1.0. No more fever. Patient states his fever feels better and appetite is better as well. Ohcalcitonin is elevated at 0.5 04/27/2022 Patient feeling improved. His appetite is still improving. He has no fever since yesterday. Port still in the right upper chest with no signs of cellulitis in the desi rounding areas. WBC 4.0. Hemoglobin 12.4. Creatinine 1.0. Patient remains on antibiotics and IV fluids. ID team input is appreciated. Keep following blood culture Objective - Vital Signs Vital signs: Vital Signs Temp 98.6 F 04/27/22 04:15 Pulse 87 04/27/22 04:15 Resp 16 04/27/22 04:15 BP 107/69 04/27/22 04:15 Pulse Ox 97 04/27/22 04:15 FiO2 Intake & Output 04/26/22 04/27/22 04/27/22 18:59 06:59 18:59 Intake Total 2814 Balance 2814 Intake: Intake, IV Titration 1800 Amount Cefepime 2 gm In Sodium 100 Chloride 0.9% 100 ml @ 25 mls/hr IVPB Q8H [facility] Rx#: [id number] Sodium Chloride 0.9% 1, 1200 000 ml @ 100 mls/hr IV . Q10H [facility] Rx#:[id number] Vancomycin 1,750 mg In 500 Sodium Chloride 0.9% 500 ml 500 ml @ 167 mls/hr IVPB Q8H [facility] Rx#: [id number] Oral 1014 Other: Voiding Method Toilet Toilet # Voids 4 3 # Bowel Movements 0 - Exam GENERAL: The patient is alert and oriented x3, not in any acute distress. Well developed, well nourished. HEENT: Pupils are round and equally reacting to light. EOMI. No scleral icterus. No conjunctival pallor. Normocephalic, atraumatic. No pharyngeal erythema. No t hyromegaly. CARDIOVASCULAR: S1 and S2 present. No murmurs, rubs, or gallops. -PULMONARY: Chest is clear to auscultation, no wheezing or crackles. Right upper port ABDOMEN: Soft, nontender, nondistended, normoactive bowel sounds. No palpable organomegaly. MUSCULOSKELETAL: No joint swelling or deformity. EXTREMITIES: No cyanosis, clubbing, or pedal edema. NEUROLOGICAL: Gross neurological examination did not reveal any focal deficits. SKIN: No rashes. no petechiae. - Labs CBC & Chem 7: 04/27/22 06:02 04/27/22 06:02 Labs: Microbiology - Last 24 Hours (Table) 04/24/22 13:33 Blood Culture - Preliminary Blood No Growth after 48 hours 04/24/22 13:33 Blood Culture - Preliminary Blood No Growth after 48 hours 04/25/22 08:35 Blood Culture - Preliminary Blood No Growth after 24 hours Assessment and Plan Assessment: Fever of unknown origin, port infection is suspected History of non-Hodgkin lymphoma status post IVIG infusion last was on 04/10 Obesity with BMI of 55.9. Plan: Continue with IV cefepime and IV vancomycin per ID team Continue with IV hydration Consulting us on the case hematology/oncology and infectious disease team Labs and medication were reviewed.. Continue same treatment. Continue with symptomatic treatment. Resume home medication. Monitor lytes and vitals. DVT and GI prophylaxis. Further recommendations as per clinical course of the patient DVT prophylaxis: Subcutaneous Lovenox GI Prophylaxis: Pepcid Prognosis is guarded
[2022-04-28] MEDS: VANCOMYCIN 1,750 MG in SODIUM CHLORIDE 0.9% 500 ML 500 ML IVPB SCH ×2 (00:01→08:12)
[2022-04-28] MEDS: CEFEPIME 2 GM in SODIUM CHLORIDE 0.9% 100 ML IVPB SCH ×2 (02:19→09:49)
[2022-04-28] MEDS: SODIUM CHLORIDE 0.9% 1,000 ML IV SCH ×2 (02:20→14:16)
[2022-04-28] MEDS: ALPRAZolam 0.25 MG TAB PO PRN (06:15)
[2022-04-28] MEDS ORDERED: VANCOMYCIN TROUGH DUE 1 EACH MISC MISCELLANE ONE (07:00)
[2022-04-28] MEDS: ENOXAPARIN 40 MG/0.4 ML SYRINGE SQ SCH ×2 (08:11→08:13)
[2022-04-28] MEDS: ZINC SULFATE 220 MG CAP PO SCH (08:11)
[2022-04-28] MEDS: PANTOPRAZOLE 40 MG TABLET PO SCH (08:12)
[2022-04-28] MEDS: ASCORBIC ACID 500 MG TAB PO SCH (08:12)
[2022-04-28] MEDS: MULTIVITAMINS, THERA 1 EACH TAB PO SCH (08:12)
--- NOTE | 2022-04-28 09:07 | P.PN ---
Subjective Progress Note Date: 04/26/22 Principal diagnosis: Fever Patient is a 36 year male with a past medical history significant for non-Hodgkin lymphoma last chemo November 2021 however has been getting monthly IV IgG through the right chest wall Mediport last infusion was on 04/17/2022, presented to the hospital with a fever on today's evaluation, that is 04/26/2022 the patient is afebrile over the last 24 hours, the patient is breathing comfortably on room air, denies having any chest pain or shortness of breath or cough no nausea no vomiting no abdominal pain or diarrhea Objective - Vital Signs Vital signs: Vital Signs Temp 98.5 F 04/26/22 04:18 Pulse 100 04/26/22 04:18 Resp 18 04/26/22 04:18 BP 119/69 04/26/22 04:18 Pulse Ox 96 04/26/22 04:18 FiO2 Intake & Output 04/25/22 04/26/22 04/26/22 18:59 06:59 18:59 Intake Total 592 2250 Balance 592 2250 Intake: Intake, IV Titration 1800 Amount Cefepime 2 gm In Sodium 100 Chloride 0.9% 100 ml @ 25 mls/hr IVPB Q8H [facility] Rx#: [id number] Sodium Chloride 0.9% 1, 1200 000 ml @ 100 mls/hr IV . Q10H [facility] Rx#:[id number] Vancomycin 1,750 mg In 500 Sodium Chloride 0.9% 500 ml 500 ml @ 167 mls/hr IVPB Q8H [facility] Rx#: [id number] Oral 592 450 Other: Voiding Method Toilet Toilet Toilet # Voids 1 - Exam GENERAL DESCRIPTION: Middle-aged male lying in bed in no distress RESPIRATORY SYSTEM: Unlabored breathing , decreased breath sounds at bases HEART: S1 S2 regular rate and rhythm , ABDOMEN: Soft , no tenderness EXTREMITIES: No edema feet - Labs CBC & Chem 7: 04/27/22 06:02 04/27/22 06:02 Labs: Abnormal Lab Results - Last 24 Hours (Table) 04/26/22 04/26/22 04/26/22 Range/Units 06:29 06:29 06:29 WBC 4.10 L (4.50-10.00) X 10*3/uL RBC 4.07 L (4.40-5.60) X 10*6/uL Hgb 12.2 L (13.0-17.0) g/dL Hct 35.2 L (39.6-50.0) % MPV 9.2 L (9.5-12.2) fL Lymphocytes # 0.39 L (0.90-5.00) X 10*3/uL BUN 6.0 L (9.0-27.0) mg/dL BUN/Creatinine Ratio 6.00 L (12.00-20.00) Ratio Calcium 8.6 L (8.7-10.3) mg/dL Albumin/Globulin Ratio 1.58 L (1.60-3.17) g/dL Procalcitonin 0.50 H (0.02-0.09) ng/mL Microbiology - Last 24 Hours (Table) 04/25/22 08:35 Blood Culture - Preliminary Blood No Growth after 24 hours 04/24/22 13:33 Blood Culture - Preliminary Blood No Growth after 24 hours 04/24/22 13:33 Blood Culture - Preliminary Blood No Growth after 24 hours Assessment and Plan (1) Fever Current Visit: Yes Status: Acute Priority: High Code(s): R50.9 - FEVER, UNSPECIFIED SNOMED Code(s): 489879477 Plan: 1patient present to hospital with fever in this patient who do have a history of non-Hodgkin lymphoma and apparently has been getting monthly IVIG infusion the last infusion was on 04/17/2022 2 days later the patient started spiking fever in this patient with initial work-up has been negative with negative SARS-CoV-2 influenza PCR chest x-ray was negative urine is negative abdominal soft on clinical examination no evidence of an cellulitis question of possible port infection. 2blood culture has been obtained and those negative so farg 3patient fever has resolved and will continue with vancomycin and cefepime while waiting for the culture to finalize. Time with Patient: Less than 30
--- NOTE | 2022-04-28 09:09 | P.PN ---
Subjective Progress Note Date: 04/27/22 Principal diagnosis: Fever Patient is a 36 year male with a past medical history significant for non-Hodgkin lymphoma last chemo November 2021 however has been getting monthly IV IgG through the right chest wall Mediport last infusion was on 04/17/2022, presented to the hospital with a fever on today's evaluation, that is 04/27/2022 the patient remains to be afebrile over the last 24 hours, the patient is breathing comfortably on room air, the patient denies having any chest pain or shortness of breath or cough no nausea no vomiting no abdominal pain or diarrhea, no new symptoms Objective - Vital Signs Vital signs: Vital Signs Temp 98.1 F 04/27/22 11:44 Pulse 72 04/27/22 11:44 Resp 16 04/27/22 11:44 BP 123/76 04/27/22 11:44 Pulse Ox 100 04/27/22 11:44 FiO2 Intake & Output 04/26/22 04/27/22 04/27/22 18:59 06:59 18:59 Intake Total 2814 Balance 2814 Intake: Intake, IV Titration 1800 Amount Cefepime 2 gm In Sodium 100 Chloride 0.9% 100 ml @ 25 mls/hr IVPB Q8H [facility] Rx#: [id number] Sodium Chloride 0.9% 1, 1200 000 ml @ 100 mls/hr IV . Q10H [facility] Rx#:[id number] Vancomycin 1,750 mg In 500 Sodium Chloride 0.9% 500 ml 500 ml @ 167 mls/hr IVPB Q8H [facility] Rx#: [id number] Oral 1014 Other: Voiding Method Toilet Toilet Toilet # Voids 4 3 # Bowel Movements 0 - Exam GENERAL DESCRIPTION: Middle-aged male lying in bed in no distress RESPIRATORY SYSTEM: Unlabored breathing , decreased breath sounds at bases HEART: S1 S2 regular rate and rhythm , ABDOMEN: Soft , no tenderness EXTREMITIES: No edema feet - Labs CBC & Chem 7: 04/27/22 06:02 04/27/22 06:02 Labs: Abnormal Lab Results - Last 24 Hours (Table) 04/27/22 04/27/22 Range/Units 06:02 06:02 WBC 4.01 L (4.50-10.00) X 10*3/uL RBC 4.14 L (4.40-5.60) X 10*6/uL Hgb 12.4 L (13.0-17.0) g/dL Hct 37.4 L (39.6-50.0) % MPV 9.3 L (9.5-12.2) fL Lymphocytes # 0.49 L (0.90-5.00) X 10*3/uL Carbon Dioxide 28.5 H (20.0-27.5) mmol/L Anion Gap 9.50 L (10.00-18.00) mmol/L BUN 6.3 L (9.0-27.0) mg/dL BUN/Creatinine Ratio 6.30 L (12.00-20.00) Ratio Calcium 8.6 L (8.7-10.3) mg/dL Microbiology - Last 24 Hours (Table) 04/25/22 08:35 Blood Culture - Preliminary Blood No Growth after 48 hours 04/24/22 13:33 Blood Culture - Preliminary Blood No Growth after 48 hours 04/24/22 13:33 Blood Culture - Preliminary Blood No Growth after 48 hours Assessment and Plan (1) Fever Current Visit: Yes Status: Acute Priority: High Code(s): R50.9 - FEVER, UNSPECIFIED SNOMED Code(s): 281789923 Plan: 1patient present to hospital with fever in this patient who do have a history of non-Hodgkin lymphoma and apparently has been getting monthly IVIG infusion the last infusion was on 04/17/2022 2 days later the patient started spiking fever in this patient with initial work-up has been negative with negative SARS-CoV-2 influenza PCR chest x-ray was negative urine is negative abdominal soft on clinical examination no evidence of an cellulitis question of possible port infection. 2blood culture has been obtained and those negative so far 3patient fever has resolved and the patient will continue with vancomycin and cefepime, however the culture remains to be negative and the patient remains to be afebrile antibodies can be discontinued Time with Patient: Less than 30
[2022-04-28 10:32] LABS: Basophils # (A) 0.04 X 10*3/uL (0.00-0.10); Basophils % (A) 0.9 %; Eosinophils # (A) 0.11 X 10*3/uL (0.04-0.35); Eosinophils % (A) 2.6 %; HCT 36.9 % (39.6-50.0); HGB 12.1 g/dL (13.0-17.0); Immature Grans, Automated 0.2 %; Lymphocytes # (A) 0.53 X 10*3/uL (0.90-5.00); Lymphocytes % (A) 12.5 %; MCH 29.8 pg (27.0-32.0); MCHC 32.8 g/dL (32.0-37.0); MCV 90.9 fL (80.0-97.0); Mean Platelet Volume 9.3 fL (9.5-12.2); Monocytes # (A) 0.69 X 10*3/uL (0.20-1.00); Monocytes % (A) 16.3 %; NRBC Per 100 WBC 0 /100 WBCS (0.0-0.0); Neutrophils # (A) 2.85 X 10*3/uL (1.80-7.70); Neutrophils % (A) 67.5 %; Platelet Count 212 X 10*3/uL (140-440); RBC 4.06 X 10*6/uL (4.40-5.60); RDW 12.3 % (11.5-14.5); WBC 4.23 X 10*3/uL (4.50-10.00)
[2022-04-28 10:53] LABS: African American GFR (CKD) 112.5 (60.0-200.0); Anion Gap 10.3 mmol/L (10.00-18.00); BUN/Creat Ratio 4.8 Ratio (12.00-20.00); Blood Urea Nitrogen 4.8 mg/dL (9.0-27.0); Calcium 8.7 mg/dL (8.7-10.3); Carbon Dioxide 26.7 mmol/L (20.0-27.5); Non-African American GFR(CKD) 97.1 (60.0-200.0); Potassium 4.2 mmol/L (3.5-5.5)
[2022-04-28 12:02] VITALS: BP 124/80; PULSE 77; RESP 18; TEMP 97.7
[2022-04-28] MEDS ORDERED: VANCOMYCIN 1,500 MG in SODIUM CHLORIDE 0.9% 250 ML IVPB SCH (16:00)
--- NOTE | 2022-04-28 18:53 | P.PN ---
Subjective Progress Note Date: 04/28/22 Principal diagnosis: Fever, NOS In follow-up today patient is reporting he feels good, no fevers since Thursday, he is tolerating oral intake, no other physical complaints. Objective - Vital Signs Vital signs: Vital Signs Temp 97.7 F 04/28/22 11:19 Pulse 77 04/28/22 11:19 Resp 18 04/28/22 11:19 BP 124/80 04/28/22 11:19 Pulse Ox 98 04/28/22 11:19 FiO2 Intake & Output 04/27/22 04/28/22 04/28/22 18:59 06:59 18:59 Intake Total 2900 Balance 2900 Intake: Intake, IV Titration 1900 Amount Cefepime 2 gm In Sodium 200 Chloride 0.9% 100 ml @ 25 mls/hr IVPB Q8H [facility] Rx#: [id number] Sodium Chloride 0.9% 1, 1200 000 ml @ 100 mls/hr IV . Q10H [facility] Rx#:[id number] Vancomycin 1,750 mg In 500 Sodium Chloride 0.9% 500 ml 500 ml @ 167 mls/hr IVPB Q8H [facility] Rx#: [id number] Oral 1000 Other: Voiding Method Toilet Toilet # Voids 4 4 # Bowel Movements 0 - Constitutional General appearance: Present: average body habitus, cooperative, no acute distress - EENT Eyes: Present: anicteric sclerae, EOMI ENT: Present: hearing grossly normal - Respiratory Respiratory: bilateral: CTA - Cardiovascular Rhythm: regular Heart sounds: normal: S1, S2 Abnormal Heart Sounds: Absent: systolic murmur, diastolic murmur, rub, S3 Gallop, S4 Gallop, click, other - Peripheral edema leg Peripheral Edema: bilateral: None - Neurologic Neurologic: Present: CNII-XII intact - Musculoskeletal Musculoskeletal: Present: strength equal bilaterally - Psychiatric Psychiatric: Present: A&O x's 3, appropriate affect, intact judgment & insight - Labs CBC & Chem 7: 04/28/22 06:25 04/28/22 06:25 Labs: Abnormal Lab Results - Last 24 Hours (Table) 04/28/22 04/28/22 Range/Units 06:25 06:25 WBC 4.23 L (4.50-10.00) X 10*3/uL RBC 4.06 L (4.40-5.60) X 10*6/uL Hgb 12.1 L (13.0-17.0) g/dL Hct 36.9 L (39.6-50.0) % MPV 9.3 L (9.5-12.2) fL Lymphocytes # 0.53 L (0.90-5.00) X 10*3/uL BUN 4.8 L (9.0-27.0) mg/dL BUN/Creatinine Ratio 4.80 L (12.00-20.00) Ratio Microbiology - Last 24 Hours (Table) 04/24/22 13:33 Blood Culture - Preliminary Blood No Growth after 96 hours 04/24/22 13:33 Blood Culture - Preliminary Blood No Growth after 96 hours 04/25/22 08:35 Blood Culture - Preliminary Blood No Growth after 72 hours Assessment and Plan (1) Fever Status: Acute Priority: High Code(s): R50.9 - FEVER, UNSPECIFIED SNOMED Code(s): 336666417 (2) Non Hodgkin's lymphoma Status: Chronic Priority: Medium Code(s): C85.90 - NON-HODGKIN LYMPHOMA, UNSPECIFIED, UNSPECIFIED SITE SNOMED Code(s): 672725526 Plan: Pancultures Negative. No fevers for about 48 hours. ID has seen the patient. Empiric antibiotics given. Patient will likely be discharged on oral antibiotics to complete antibiotic course. Pt reported L-nbobntrm-xlgxjvwyw sweats, fatigue. His symptoms did resolve with infection treatment. Patient has short-term imaging follow-up planned. Follow-up with Oncology as scheduled.
--- NOTE | 2022-05-01 13:03 | CDI ---
Documentation Clarification Form Date: 05/01/2022 12:44:00 PM From: Heather Gamez Admit Date: 04/24/2022 03:37:00 PM Patient Name: Agustin Redmond Visit Number: [id number] Discharge Date: 04/28/2022 02:40:00 PM ATTENTION: The Clinical Documentation Specialists (CDI) and [facility] Coding Staff appreciate your assistance in clarifying documentation. Please respond to the clarification below the line at the bottom and electronically sign. The CDI & [facility] Coding staff will review the response and follow-up if needed. Please note: Queries are made part of the Legal Health Record. If you have any questions, please contact the author of this message via ITS. Dr. Palma Sheet Per your last Progress note on 04/27 your assessment states "Fever of unknown origin, port infection suspected." Please clarify if you suspected a port infection on the day of discharge 04/28/22. The patients principal diagnosis the diagnosis that was chiefly responsible for the admission - has not been clearly identified at time of discharge and clarification is requested. The patient presented with fever of 99.4 up to 100.4. [place] Lymphoma. Patient has had chemotherapy and now has MediPort for IVIG infusions and received last infusion 04/17/22 History/Risk factors: [place] lymphoma. Clinical Indicators: Fever Lab findings: 04/25 low WBC's at 3.3, blood culture negative. Negative Influenza and Covid Radiology findings: Mediport stable in the mid SVC Vital Signs: 99.4 F, 96 bpm, 20, 137/88, O2 100% Treatment: IV antibiotics Cefepime and Vancomycin, Tyelenol Consults: ID consult and Oncology In your professional opinion, can you please clarify which diagnosis, after study, was the reason chiefly responsible for the admission? [ ] Fever due to suspected infected Mediport [ ] Fever of unknown origin [ ] Other, please specify [ ] Unable to determine Fever due to suspected infected Mediport is suspected but cultures showed no growth MTDD
--- NOTE | 2022-05-02 10:04 | P.DS ---
Providers Date of admission: 04/24/22 15:37 Expected date of discharge: 04/28/22 Attending physician: Kassandra Wang Consults: 04/24/22 15:28 Consult Physician Urgent Consulting Provider: Dash Hess Consult Reason/Comments: NHL Do you want consulting provider notified?: Yes Consult Physician Urgent Consulting Provider: John Burns Consult Reason/Comments: fever, NHL Do you want consulting provider notified?: Yes Primary care physician: Misbah Card Hospital Course: Final diagnosis Fever due to suspected Mediport on the chest wall infection, with blood cultures being negative History of non-Hodgkin lymphoma status post IVIG infusion last was on 04/10 Obesity with BMI of 35.9. GI prophylaxis DVT prophylaxis Full code Discharge disposition Patient is being discharged in a stable condition with guarded prognosis to home. Patient will follow-up with Dr. Card in the outpatient setting upon discharge. Patient is to follow-up with Dr. Hess oncology as scheduled. Total time taken is greater than 35 minutes. Hospital course This is a 36-year-old male who was recently admitted with non-Hodgkin's lymphoma presented with an ER that have been ongoing for the last 2 days. Patient also having some body aches with significant cough and cold-like symptoms. Patient was seen and evaluated by infectious disease along with oncology with suspicion and concern for possible Mediport chest wall infection. Patient was initiated on antibiotics and blood cultures had remained negative. Patient currently remains afebrile and has been cleared by infectious disease and will not be requiring antibiotics on discharge. Patient has received adequate amount of antibiotics during hospital admission. Currently no reports of chest pain, shortness of breath, or palpitations. Patient is afebrile. No reports of nausea or vomiting and patient is tolerating diet. Patient will be discharged home today. Physical exam: Gen: This is a 36-year-old male awake, alert and oriented 3, well-developed, well-nourished, obese HEENT: Head is atraumatic, normocephalic. Pupils equal, round. Sclerae is anicteric. NECK: Supple. No JVD. No lymphadenopathy. No thyromegaly. LUNGS: Clear to auscultation. No wheezes or rhonchi. No intercostal retractions. HEART: Regular rate and rhythm. No murmur. ABDOMEN: Soft. Bowel sounds are present. No masses. No tenderness. EXTREMITIES: No pedal edema. No calf tenderness. NEUROLOGICAL: Patient is awake, alert and oriented x3. Cranial nerves 2 through 12 are grossly intact. Please refer to medication reconciliation sheet for a list of medications. The impression and plan of care has been dictated by Rita Christianson, Nurse Practitioner as directed. Dr. Quan MD I have performed a history and examination and MDM of this patient, discussed the same with the dictator, and agree with the dictator's assessment and plan as written ,documented as a scribe. Based on total visit time, I have performed more than 50% of the visit. Patient Condition at Discharge: Fair Plan - Discharge Summary New Discharge Prescriptions: Continue Ascorbic Acid/Elderberry Fruit [Elderberry-Vit C 50-100 mg Chw] 1 tab PO DAILY Ondansetron Odt [Zofran ODT] 8 mg PO BID PRN PRN Reason: Nausea And Vomiting Multivit-Min/Folic/Vit K/Lycop [Men's Multivitamin Tablet] 1 tab PO DAILY Ergocalciferol [Vitamin D2 (1250 Mcg = 93760 Iu)] 1,250 mcg PO SA Acetaminophen Tab [Tylenol] 1,000 mg PO Q6HR PRN PRN Reason: Fever Pantoprazole [Protonix] 40 mg PO DAILY ALPRAZolam [Xanax] 0.25 mg PO TID PRN PRN Reason: Anxiety Zinc 50 mg PO DAILY Ascorbic Acid [Vitamin C] 500 mg PO BID tab Discharge Medication List ALPRAZolam [Xanax] 0.25 mg PO TID PRN 03/15/21 [History] Ascorbic Acid/Elderberry Fruit [Elderberry-Vit C 50-100 mg Chw] 1 tab PO DAILY 05/19/21 [History] Zinc 50 mg PO DAILY 05/19/21 [History] Ascorbic Acid [Vitamin C] 500 mg PO BID tab 06/05/21 [Rx] Acetaminophen Tab [Tylenol] 1,000 mg PO Q6HR PRN 04/24/22 [History] Ergocalciferol [Vitamin D2 (1250 Mcg = 56942 Iu)] 1,250 mcg PO SA 04/24/22 [H istory] Multivit-Min/Folic/Vit K/Lycop [Men's Multivitamin Tablet] 1 tab PO DAILY 04/24/22 [History] Ondansetron Odt [Zofran ODT] 8 mg PO BID PRN 04/24/22 [History] Pantoprazole [Protonix] 40 mg PO DAILY 04/24/22 [History] Follow up Appointment(s)/Referral(s): Misbah Card MD [Primary Care Provider] - 05/02/22 10:15 am Activity/Diet/Wound Care/Special Instructions: If Pt able to he would like flu vaccine upon discharge activity limited until follow up follow up with oncology follow up with pcp on discharge Discharge Disposition: HOME SELF-CARE
== END 2022-04-28 14:40 | disposition home or self-care (01) | DRG 315 ==
LOC: EC 10:12 → 5NMEDONC 15:23 → OBSVTOIN 15:37 → 5NMEDONC 16:17
PROVIDERS: ADMIT Hospitalist; ATTEND Hospitalist
DX: T80.212A Local infection due to central venous catheter, initial encounter (principal); C82.85 Other types of follicular lymphoma, lymph nodes of inguinal region and lower limb; K51.90 Ulcerative colitis, unspecified, without complications; Z68.43 Body mass index [BMI] 50.0-59.9, adult; R50.9 Fever, unspecified; K21.9 Gastro-esophageal reflux disease without esophagitis; D64.9 Anemia, unspecified; F41.9 Anxiety disorder, unspecified; J84.10 Pulmonary fibrosis, unspecified; Z86.16 Personal history of COVID-19; Z20.822 Contact with and (suspected) exposure to COVID-19; Z79.899 Other long term (current) drug therapy; Z80.8 Family history of malignant neoplasm of other organs or systems; Z92.21 Personal history of antineoplastic chemotherapy; E66.9 Obesity, unspecified
CPT/HCPCS: 36415; 71046; 80048; 80053; 80202; 81001; 83605; 83615; 83690; 84145; 85025; 86140; 87040; 87636; 99285

== ENCOUNTER → 2022-05-23 | Outpatient (CLI) | payer MEDICAID ==
--- NOTE | 2022-05-24 11:36 | PE ---
EXAMINATION TYPE: PET CT fusion skull to thigh DATE OF EXAM: 05/23/2022 CLINICAL INDICATION:Male, 36 years old with history of C8208; TECHNIQUE: Following the intravenous administration of 10.96 mCi of F-18 FDG, whole body images are performed from the skull base to the midthigh. Images are reviewed on the computer in the coronal, axial, and sagittal planes. Reconstructed rotating images are created on independent workstation and reviewed on the computer. A non-contrast CT is performed in conjunction with the PET scan. Glucose level 91 mg/dL COMPARISON: CT most recently 04/14/2022, PET/CT 06/22/2020. FINDINGS: Mediastinal SUV mean is 2.1. Hepatic parenchyma SUV mean is 2.7. SKULL BASE AND NECK: No suspicious FDG activity. CHEST, MEDIASTINUM, AND HILAR REGION: No suspicious FDG activity. ABDOMEN AND PELVIS: No suspicious FDG activity. Shwetha mesentery remains, previous FDG active lymph node/soft tissue withi n the mesentery has decreased in size now measuring 0.7 x 0.7 cm previously 3.3 x 3.8 cms, currently max SUV 1.5, previously max SUV 8.5. Lymph node just anterior to IVC (portacaval) is felt to be within normal limits, there is no increase d FDG activity. Normal lymph nodes in this region measuring up to 1.5 cm in short axis. OSSEOUS STRUCTURES: No suspicious FDG activity. OTHER CT: Right chest [id number] with distal tip in the superior vena cava. Nonspecific Shwetha mese ntery. Fat filled umbilical hernia. IMPRESSION: 1. Positive response to therapy without suspicious FDG activity. Near resolution of mesenteric soft tissue/lymph node without FDG activity. 2. The lymph node in question chest anterior to the inferior vena cava (portacaval). This lymph node is felt to be within normal limits for size.
== END | disposition home or self-care (01) ==
LOC: RADPETMAIN 08:19
PROVIDERS: ATTEND Internal Medicine Hematology & Oncology
DX: C82.08 Follicular lymphoma grade I, lymph nodes of multiple sites (principal)
CPT/HCPCS: 78815; A9552

== ENCOUNTER → 2022-07-21 | Outpatient (CLI) | payer MEDICAID ==
--- NOTE | 2022-07-21 12:20 | CT ---
EXAMINATION TYPE: CT ChestAbdPelvis w con CT DLP: 2118 mGycm, Automated exposure control for dose reduction was used. DATE OF EXAM: 07/21/2022 11:47 AM COMPARISON: 05/23/2022 PET/CT, CT chest abdomen pelvis most recent 04/14/2022 and priors. CLINICAL INDICATION:Male, 36 years old with history of C82.08 FOLLICULAR LYMPHOMA GRADE I, lymphoma Technique: Multiple axial images of the chest, abdomen, and pelvis were obtained. Two-dimensional cor onal and sagittal reconstructions were obtained. Contrast used:70 mL of Isovue 300 with IV Contrast, Oral contrast used: with Oral Contrast Findings: CHEST: LUNGS/ PLEURA: The lung parenchyma appears unremarkable. AIRWAY: Patent and unremarkable. HEART: Size within normal limits. MEDIASTINUM: No gross evidence of adenopathy. VASCULATURE: No aortic aneurysm. Right chest wall [id number] with distal tip terminating in the s uperior vena cava. MUSCULOSKELETAL: No acute osseous abnormalities. SOFT TISSUES/LYMPH NODES: Unremarkable. LOWER NECK: No significant findings. ABDOMEN: ABDOMEN LIVER: Diffusely hypoattenuating parenchyma. GALLBLADDER AND BILE DUCTS: Unremarkable. PANCREAS: Unremarkable. SPLEEN: Unremarkable. ADRENAL GLANDS: Unremarkable. KIDNEYS AND URETERS: No evidence of hydronephrosis or renal calculus. The ureters are unremarkable. PELVIS BLADDER: Unremarkable REPRODUCTIVE: Unremarkable. ABDOMEN & PELVIS STOMACH AND BOWEL: No evidence of bowel obstruction. PERITONEUM: No evidence of pneumoperitoneum or free fluid. VASCULATURE: No evidence of aortic aneurysm. MUSCULOSKELETAL: No acute osseous abnormalities LYMPH NODES: No greater than 1.0 cm in short axis lymph nodes. Mesentery haziness appears similar mo rphology SOFT TISSUE/ABDOMINAL WALL: Fat-containing umbilical hernia. IMPRESSION: 1. Stable appearance of the abdominal mesentery without new lymphadenopathy. No evidence of recurren ce. 2. Hepatic steatosis
== END | disposition home or self-care (01) ==
LOC: RADPROMAIN 09:42
PROVIDERS: ATTEND Internal Medicine Hematology & Oncology
DX: C82.08 Follicular lymphoma grade I, lymph nodes of multiple sites (principal); K76.0 Fatty (change of) liver, not elsewhere classified
CPT/HCPCS: 71260; 74177; J1642; Q9967

== ENCOUNTER → 2022-10-21 | Outpatient (CLI) | payer MEDICAID ==
[2022-10-21 10:23] LABS: African American GFR (CKD) >90 (>60 ml/min/1.73 sqM); Blood Urea Nitrogen 11 mg/dL (9-20); Non-African American GFR(CKD) >90 (>60 ml/min/1.73 sqM)
--- NOTE | 2022-10-21 11:48 | CT ---
EXAMINATION TYPE: CT ChestAbdPelvis w con DATE OF EXAM: 10/21/2022 COMPARISON: 07/21/2022 HISTORY: Hx Non-Hodgkins lymphoma,, [address] DLP: 1429 mGycm Automated exposure control for dose reduction was used. CONTRAST: CT scan of the chest, abdomen and pelvis is performed with Oral Contrast and with IV Contrast, patien t injected with 100 mL of Isovue 300. FINDINGS: LUNGS: The lungs are grossly clear, there is no concerning parenchymal mass or nodule identified. T here is no pleural effusion or pneumothorax seen. The tracheobronchial tree is patent. MEDIASTINUM: There are no greater than 1 cm hilar or mediastinal lymph nodes. No pericardial effusi on is seen. OTHER: Mediport catheter noted.. LIVER/GB: Low-attenuation to the liver can be associated with hepatic steatosis. PANCREAS: No significant abnormality is seen. SPLEEN: No significant abnormality is seen. ADRENALS: No significant abnormality is seen. KIDNEYS: No significant abnormality is seen. BOWEL: No significant abnormality is seen. LYMPH NODES: No greater than 1 cm abdominal or pelvic lymph nodes are appreciated. OSSEOUS STRUCTURES: No significant abnormality is seen. OTHER: Haziness to the mesentery. Small fat-containing periumbilical hernia IMPRESSION: 1. No pathologic adenopathy. Persistent haziness to the mesentery can be associated with a panniculit is, mesenteritis, although, lymphangitic involvement not excluded. Finding is stable.
== END | disposition home or self-care (01) ==
LOC: RADPROMAIN 09:10
PROVIDERS: ATTEND Internal Medicine Hematology & Oncology
DX: C82.08 Follicular lymphoma grade I, lymph nodes of multiple sites (principal)
CPT/HCPCS: 82565; 84520; 71260; 74177; 36415; Q9967

== ENCOUNTER → 2023-01-21 | Outpatient (CLI) | payer MEDICAID, MEDICARE ==
--- NOTE | 2023-01-21 11:22 | CT ---
EXAMINATION TYPE: CT ChestAbdPelvis w con CT DLP: 2127.40 mGycm, Automated exposure control for dose reduction was used. DATE OF EXAM: 01/21/2023 11:09 AM COMPARISON: Multiple CT chest abdomen pelvis with most recent 10/21/2022. CLINICAL INDICATION:Male, 37 years old with history of C82.08 FOLLICULAR LYMPHOMA GRADE I; [facility], Folli cular lymphoma Grade 1, follow up. No concerns Technique: Multiple axial images of the chest, abdomen, and pelvis were obtained following the intrav enous administration of 100 mL Isovue-300. Oral contrast was administered. Two-dimensional coronal an d sagittal reconstructions were obtained. Findings: CHEST: LUNGS/ PLEURA: No pleural effusion, pneumothorax, or focal consolidation. No suspicious pulmonary nod ule or mass. AIRWAY: Patent and unremarkable.. HEART: Size within normal limits. No pericardial effusion. MEDIASTINUM: No evidence of adenopathy. VASCULATURE: No aortic aneurysm. Right chest wall IJ Mediport catheter with tip at the upper IVC. Th ere is a filling defect at its tip likely representing a fibrin sheath. MUSCULOSKELETAL: No acute osseous abnormalities. No aggressive osseous lesion. SOFT TISSUES/LYMPH NODES: Unremarkable. LOWER NECK: No significant findings. ABDOMEN: ABDOMEN LIVER: Stable subcentimeter hypodense focus within the left hepatic lobe which is too small to charac terize but likely represents a cyst. Diffusely hypoattenuating parenchyma. GALLBLADDER AND BILE DUCTS: Unremarkable. PANCREAS: Unremarkable. SPLEEN: Unremarkable. ADRENAL GLANDS: Unremarkable. KIDNEYS AND URETERS: No evidence of hydronephrosis or renal calculus. The kidneys enhance symmetrical ly. Contrast is demonstrated within both collecting systems on the delayed phase. PELVIS BLADDER: Unremarkable REPRODUCTIVE: Unremarkable. ABDOMEN & PELVIS STOMACH AND BOWEL: Stomach and duodenum are unremarkable. Enteric contrast reaches the rectum. No foc al bowel wall thickening or surrounding inflammatory changes. The appendix is within normal limits. N o evidence of bowel obstruction. PERITONEUM: No evidence of pneumoperitoneum or free fluid. Stable appearance of nii mesentery. VASCULATURE: No evidence of aortic aneurysm. MUSCULOSKELETAL: No acute osseous abnormalities. No aggressive osseous lesion. LYMPH NODES: No gross evidence for lymphadenopathy. SOFT TISSUE/ABDOMINAL WALL: Small fat filled umbilical hernia. IMPRESSION: 1. Stable appearance of the abdominal mesentery without new lymphadenopathy. No evidence of recurren ce. 2. Hepatic steatosis
== END | disposition home or self-care (01) ==
LOC: RADPROMAIN 08:38
PROVIDERS: ATTEND Internal Medicine Hematology & Oncology
DX: C82.08 Follicular lymphoma grade I, lymph nodes of multiple sites (principal); K76.0 Fatty (change of) liver, not elsewhere classified
CPT/HCPCS: 71260; 74177; Q9967

== ENCOUNTER → 2023-04-22 | Outpatient (CLI) | payer MEDICAID, MEDICARE ==
[2023-04-22 09:45] LABS: African American GFR (CKD) >90 (>60 ml/min/1.73 sqM); Blood Urea Nitrogen 10 mg/dL (9-20); Non-African American GFR(CKD) >90 (>60 ml/min/1.73 sqM)
--- NOTE | 2023-04-22 12:15 | CT ---
EXAMINATION TYPE: CT ChestAbdPelvis w con CT DLP: 2062.1 mGycm, Automated exposure control for dose reduction was used. DATE OF EXAM: 04/22/2023 11:43 AM COMPARISON: PET 06/22/2020, recent CTs 01/21/2023 CLINICAL INDICATION:Male, 37 years old with history of C82.08 FOLLICULAR LYMPHOMA GRADE I, LYMPH NODE S; [facility], f/u lymphoma Technique: Multiple axial images of the chest, abdomen, and pelvis were obtained. Two-dimensional cor onal and sagittal reconstructions were obtained. Contrast used:100 mL of Isovue 300 with IV Contrast, Oral contrast used: with Oral Contrast Findings: CHEST: LUNGS/ PLEURA: No pleural effusion, pneumothorax, or focal consolidation. No suspicious pulmonary nod ule or mass. AIRWAY: Patent and unremarkable.. HEART: Size within normal limits. No pericardial effusion. MEDIASTINUM: No evidence of adenopathy. VASCULATURE: No aortic aneurysm. Right chest wall IJ Mediport catheter with tip at the upper IVC. Th ere is a filling defect at its tip likely representing a fibrin sheath. MUSCULOSKELETAL: No acute osseous abnormalities. No aggressive osseous lesion. SOFT TISSUES/LYMPH NODES: Unremarkable. LOWER NECK: No significant findings. ABDOMEN: ABDOMEN LIVER: Stable subcentimeter hypodense focus within the left hepatic lobe which is too small to charac terize but likely represents a cyst. Diffusely hypoattenuating parenchyma. GALLBLADDER AND BILE DUCTS: Unremarkable. PANCREAS: Unremarkable. SPLEEN: Unremarkable. ADRENAL GLANDS: Unremarkable. KIDNEYS AND URETERS: No evidence of hydronephrosis or renal calculus. The kidneys enhance symmetrical ly. Contrast is demonstrated within both collecting systems on the delayed phase. PELVIS BLADDER: Unremarkable REPRODUCTIVE: Unremarkable. ABDOMEN & PELVIS STOMACH AND BOWEL: Stomach and duodenum are unremarkable. Enteric contrast reaches the rectum. No foc al bowel wall thickening or surrounding inflammatory changes. The appendix is within normal limits. N o evidence of bowel obstruction. PERITONEUM: No evidence of pneumoperitoneum or free fluid. Stable appearance of nii mesentery. VASCULATURE: No evidence of aortic aneurysm. MUSCULOSKELETAL: No acute osseous abnormalities. No aggressive osseous lesion. LYMPH NODES: No gross evidence for lymphadenopathy. SOFT TISSUE/ABDOMINAL WALL: Small fat filled umbilical hernia. IMPRESSION: 1. No significant change in the appearance of the abdominal mesentery, no new lymphadenopathy. No ev idence of recurrence. 2. Hepatic steatosis
== END | disposition home or self-care (01) ==
LOC: RADPROMAIN 08:50
PROVIDERS: ATTEND Internal Medicine Hematology & Oncology
DX: C82.08 Follicular lymphoma grade I, lymph nodes of multiple sites (principal); K76.0 Fatty (change of) liver, not elsewhere classified; K64.8 Other hemorrhoids; K21.9 Gastro-esophageal reflux disease without esophagitis; R41.3 Other amnesia; Z71.3 Dietary counseling and surveillance
CPT/HCPCS: 82565; 84520; 71260; 74177; 36415; Q9967

== ENCOUNTER 2023-11-02 08:07 | Outpatient (CLI) | payer MEDICAID, MEDICARE ==
[2023-11-02 09:07] LABS: African American GFR (CKD) >90 (>60 ml/min/1.73 sqM); Blood Urea Nitrogen 12 mg/dL (9-20); Non-African American GFR(CKD) >90 (>60 ml/min/1.73 sqM)
--- NOTE | 2023-11-02 10:52 | CT ---
EXAMINATION TYPE: CT ChestAbdPelvis w con DATE OF EXAM: 11/02/2023 COMPARISON: 04/22/2023 and 01/21/2023 HISTORY: 38-year-old male lymphoma follow up TECHNIQUE: Contiguous axial scanning of the chest, abdomen, and pelvis performed with IV Contrast, pa tient injected with 100 mL of Isovue 300. Delayed images through the kidneys were obtained. Coronal/s agittal reconstructions performed. CT DLP: 2070.8 mGycm Automated exposure control for dose reduction was used. FINDINGS: Chest: Heart normal size without pericardial effusion. Aorta normal caliber with conventional chest branching anatomy. Right anterior chest wall injection port. Catheter tip at the upper SVC. No thoracic lymphadenopathy by CT size criteria. Lungs show no consolidation or pleural effusion. ABDOMEN: Liver enlarged at 19.9 cm with a diminished attenuation suggesting fatty infiltration. Unchanged 6 mm hypodensity caudate lobe of the liver probably a tiny cyst. Portal venous system is patent. No bilia ry ductal dilatation. Gallbladder, adrenal glands, left kidney, spleen, and pancreas within normal limits. Tiny 8 mm cortical cyst lateral upper pole right kidney. There is unchanged appearance to the mid abdominal Gennaro mesentery. No new or enlarging mesenteric/re troperitoneal lymph nodes are identified. No dilated small bowel, free fluid, or free air. Tiny fatty umbilical hernia. Normal appendix. Minimal scattered stool. Oral contrast progressed into the descending colon. Mildly redundant sigmoid colon. No pericolonic inflammatory change. Pelvis: Bladder urine distended. No abnormal fluid collection in the pelvis or pelvic lymphadenopathy. Bones: Patchy sclerosis within the superior weight-bearing aspect of the bilateral femoral heads is redemons trated. No subarticular collapse is seen. IMPRESSION: 1. UNCHANGED MIDABDOMINAL GENNARO MESENTERY. NO EVIDENCE FOR DISEASE PROGRESSION. 2. Incidental: Hepatomegaly at 19.9 cm with at least moderate hepatic steatosis. Also, bilateral femo ral head AVN redemonstrated. No subarticular collapse. Correlate for risk factors in this patient.
== END 2023-11-02 11:24 | disposition home or self-care (01) ==
LOC: RADPROMAIN 08:07
PROVIDERS: ATTEND Internal Medicine Hematology & Oncology
DX: M87.852 Other osteonecrosis, left femur (principal); K65.4 Sclerosing mesenteritis; M87.851 Other osteonecrosis, right femur; C82.08 Follicular lymphoma grade I, lymph nodes of multiple sites; K64.8 Other hemorrhoids; K21.9 Gastro-esophageal reflux disease without esophagitis; R41.3 Other amnesia
CPT/HCPCS: 82565; 84520; 36415 ×2; 71260; 74177; J1642; Q9967

== ENCOUNTER → 2023-11-09 | Outpatient (CLI) | payer MEDICAID, MEDICARE ==
[2023-11-09 22:39] LABS: ALT 30 U/L (10-49); AST 25 U/L (14-35); Albumin 4.7 g/dL (3.8-4.9); Albumin/Globulin Ratio 1.74 Ratio (1.60-3.17); Alkaline Phosphatase 100 U/L (41-126); Blood Urea Nitrogen 10.3 mg/dL (9.0-27.0); Calcium 9.8 mg/dL (8.7-10.3); Carbon Dioxide 25.9 mmol/L (21.6-31.8); Chloride 100 mmol/L (96-109); Globulin 2.7 g/dL (1.6-3.3); Glucose 94 mg/dL (70-110); Potassium 4.2 mmol/L (3.5-5.5); Sodium 138 mmol/L (135-145); Total Bilirubin 0.2 mg/dL (0.3-1.2); Total Protein 7.4 g/dL (6.2-8.2)
== END | disposition home or self-care (01) ==
LOC: LABWHC1 15:28
PROVIDERS: ATTEND Internal Medicine Gastroenterology
DX: K76.0 Fatty (change of) liver, not elsewhere classified (principal)
CPT/HCPCS: 36415; 80053; 81596

== ENCOUNTER → 2023-11-17 | Outpatient (CLI) | payer MEDICAID, MEDICARE ==
--- NOTE | 2023-11-18 08:31 | US ---
EXAMINATION TYPE: US kidneys/renal and bladder DATE OF EXAM: 11/17/2023 COMPARISON: CT 11/02/2023 CLINICAL INDICATION: Male, 38 years old with history of C82.08 LYMPHOMA; Renal cyst seen on CT; Patie nt denies any signs or symptoms at this time EXAM MEASUREMENTS: Right Kidney: 9.6 x 5.7 x 5.1 cm Left Kidney: 13.3 x 7.0 x 5.5 cm Post Void Residual Volume: NA mL Right Kidney: Subcentimeter cyst noted superomedial pole Left Kidney: wnl Bladder: wnl Bilateral Jets seen: Yes Normal Post Void Residual: NA IMPRESSION: 1. Tiny cyst right kidney likely correlates with the CT.
== END | disposition home or self-care (01) ==
LOC: RADUSWWP 14:15
PROVIDERS: ATTEND Internal Medicine Hematology & Oncology
DX: N28.1 Cyst of kidney, acquired (principal); C82.08 Follicular lymphoma grade I, lymph nodes of multiple sites; K64.8 Other hemorrhoids; K21.9 Gastro-esophageal reflux disease without esophagitis; R41.3 Other amnesia
CPT/HCPCS: 76770

== ENCOUNTER → 2024-04-25 | Outpatient (CLI) | payer MEDICARE ==
--- NOTE | 2024-04-25 12:00 | CT ---
EXAMINATION TYPE: CT ChestAbdPelvis w con CT DLP: 2002.5 mGycm, Automated exposure control for dose reduction was used. DATE OF EXAM: 04/25/2024 11:36 AM COMPARISON: Multiple CT Chest Abdomen Pelvis with most recent 11/02/2023 CLINICAL INDICATION:Male, 38 years old with history of C82.08 LYMPHOMA; [facility], lymphoma Technique: Multiple axial images of the chest, abdomen, and pelvis were obtained following the intrav enous administration of 100 mL Isovue-300. Oral contrast was administered. Two-dimensional coronal an d sagittal reconstructions were obtained. Findings: CHEST: LUNGS/ PLEURA: No pleural effusion, pneumothorax, or focal consolidation. No suspicious pulmonary nod ule or mass. AIRWAY: Patent and unremarkable.. HEART: Size within normal limits. No pericardial effusion. MEDIASTINUM: No evidence of adenopathy. VASCULATURE: No aortic aneurysm. Right chest wall IJ Mediport catheter with tip at the upper IVC. Th ere is a filling defect at its tip likely representing a fibrin sheath. MUSCULOSKELETAL: No acute osseous abnormalities. No aggressive osseous lesion. SOFT TISSUES/LYMPH NODES: Unremarkable. LOWER NECK: No significant findings. ABDOMEN: ABDOMEN LIVER: Stable subcentimeter hypodense focus within the left hepatic lobe which is too small to charac terize but likely represents a cyst. Diffusely hypoattenuating parenchyma. There is again enlarged me asuring 19.8 cm in CC dimension. GALLBLADDER AND BILE DUCTS: Unremarkable. PANCREAS: Unremarkable. SPLEEN: Unremarkable. ADRENAL GLANDS: Unremarkable. KIDNEYS AND URETERS: No evidence of hydronephrosis or renal calculus. The kidneys enhance symmetrical ly. Contrast is demonstrated within both collecting systems on the delayed phase. PELVIS BLADDER: Unremarkable REPRODUCTIVE: Unremarkable. ABDOMEN & PELVIS STOMACH AND BOWEL: Stomach and duodenum are unremarkable. Enteric contrast reaches the redundant sigm oid colon. No focal bowel wall thickening or surrounding inflammatory changes. The appendix is within normal limits. No evidence of bowel obstruction. PERITONEUM: No evidence of pneumoperitoneum or free fluid. Stable appearance of nii mesentery. VASCULATURE: No evidence of aortic aneurysm. MUSCULOSKELETAL: No acute osseous abnormalities. No aggressive osseous lesion. LYMPH NODES: No evidence for lymphadenopathy. No enlarged lymph nodes greater than 1 cm short axis. SOFT TISSUE/ABDOMINAL WALL: Small fat filled umbilical hernia. IMPRESSION: 1. Stable appearance of the abdominal mesentery without new lymphadenopathy. No evidence of recurren ce. 2. Hepatic steatosis. [facility], , 04/25/2024 11:58 AM
== END | disposition home or self-care (01) ==
LOC: RADCTMAIN 09:21
PROVIDERS: ATTEND Internal Medicine Hematology & Oncology
DX: C82.08 Follicular lymphoma grade I, lymph nodes of multiple sites
CPT/HCPCS: 71260; 74177

== ENCOUNTER → 2024-10-28 | Outpatient (CLI) | payer MEDICARE ==
--- NOTE | 2024-10-28 12:14 | CT ---
EXAMINATION TYPE: CT ChestAbdPelvis w con DATE OF EXAM: 10/28/2024 11:16 AM COMPARISON: Exams dating back to 2019 most recent 04/25/2024 CLINICAL INDICATION: Male, 39 years old with history of C82.0 LYMPHOMA; [facility], NON HODGKINS LYMPHOMA Technique: CT ChestAbdPelvis w con; Multiple axial images were obtained. Two-dimensional coronal and sagittal reconstructions were obtained. Contrast used:100 mL of Isovue 300 with IV Contrast, (None if empty) Oral contrast used: with Oral Contrast CT DLP: 2012.1 mGycm, Automated exposure control for dose reduction was used. Findings: CHEST: LUNGS/ PLEURA: No pleural effusion, pneumothorax, or focal consolidation. No suspicious pulmonary nod ule or mass. AIRWAY: Patent and unremarkable.. HEART: Size within normal limits. No pericardial effusion. No significant coronary artery calcificati ons. MEDIASTINUM: No evidence of adenopathy. VASCULATURE: No aortic aneurysm. Right chest wall IJ Mediport catheter with tip at the upper IVC. Th ere is a filling defect at its tip likely representing a fibrin sheath. MUSCULOSKELETAL: No acute osseous abnormalities. No aggressive osseous lesion. SOFT TISSUES/LYMPH NODES: Unremarkable. LOWER NECK: No significant findings. ABDOMEN: ABDOMEN LIVER: Stable subcentimeter hypodense focus within the left hepatic lobe which is too small to charac terize but likely represents a cyst. Diffusely hypoattenuating parenchyma. There is again enlarged me asuring 19.8 cm in CC dimension. GALLBLADDER AND BILE DUCTS: Unremarkable. PANCREAS: Unremarkable. SPLEEN: Unremarkable. ADRENAL GLANDS: Unremarkable. KIDNEYS AND URETERS: No evidence of hydronephrosis or renal calculus. Right renal cortical 9 mm cyst . No follow-up recommended. PELVIS BLADDER: Unremarkable REPRODUCTIVE: Unremarkable. ABDOMEN & PELVIS STOMACH AND BOWEL: Stomach and duodenum are unremarkable. The appendix is visualized and within natalie l limits. PERITONEUM: No evidence of pneumoperitoneum or free fluid. Stable appearance of nii mesentery. No n ew or enlarging lymph nodes. VASCULATURE: No evidence of aortic aneurysm. MUSCULOSKELETAL: No acute osseous abnormalities. No aggressive osseous lesion. Curvilinear sclerosis of the femoral heads no evidence for subchondral collapse. LYMPH NODES: No evidence for lymphadenopathy. No enlarged lymph nodes greater than 1 cm short axis. SOFT TISSUE/ABDOMINAL WALL: Small fat filled umbilical hernia. IMPRESSION: 1. Stable stable exam, no evidence for new or enlarging lymph nodes. Stable nii mesentery. 2. Hepatic steatosis. 3. 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 No sub chondral collapse identified. [facility], , 10/28/2024 12:12 PM
== END | disposition home or self-care (01) ==
LOC: RADCTMAIN 09:16
PROVIDERS: ATTEND Internal Medicine Hematology & Oncology
DX: C82.08 Follicular lymphoma grade I, lymph nodes of multiple sites (principal); K64.8 Other hemorrhoids; K21.9 Gastro-esophageal reflux disease without esophagitis; R41.3 Other amnesia; K76.0 Fatty (change of) liver, not elsewhere classified
CPT/HCPCS: 71260; 74177; Q9967